=== PATIENT | male | born 1940 | race Caucasian/White ===

== ENCOUNTER 2016-05-02 10:36 | Inpatient (IN) | payer MEDICARE, OTHER ==
[~2016-05-02] VITALS: Ht 165.1 cm; Wt 60.0 kg
[~2016-05-02 10:36] MED LIST: ACET325T33 PO; ATOR80TA75 PO; FELO5TAB35 PO; GLIM4TAB PO; HYDR-3671 PO; METO50TA16 PO; MTF1000T PO; WARF2.5T PO
[2016-05-02 10:41] VITALS: Ht 165.1 cm; Wt 60.0 kg
[2016-05-02 11:31] LABS: BASOPHILS % 0.4 % (0.0-2.0); EOSINOPHILS # 0.2 10^3/ul (0.0-0.5); EOSINOPHILS % 1.3 % (0.0-7.0); HEMATOCRIT 40.5 % (42.0-52.0); HEMOGLOBIN 13.7 g/dl (14.0-18.0); LYMPHOCYTES # 2.2 10^3/ul (0.8-2.9); LYMPHOCYTES % 17.8 % (15.0-51.0); MEAN CORPUSCULAR HEMOGLOBIN 31.5 pg (29.0-33.0); MEAN CORPUSCULAR HGB CONC 33.8 g/dl (32.0-37.0); MEAN CORPUSCULAR VOLUME 93.1 fl (82.0-101.0); MEAN PLATELET VOLUME 9.6 fl (7.4-10.4); MONOCYTE # 1.2 10^3/ul (0.3-0.9); MONOCYTES % 9.5 % (0.0-11.0); NEUTROPHIL # 8.6 10^3/ul (1.6-7.5); PLATELET COUNT 253 10^3/UL (140-440); RED BLOOD COUNT 4.35 10^6/ul (4.70-6.10); RED CELL DISTRIBUTION WIDTH 12.8 % (11.5-14.5); UNCORRECTED WBC 12.1 10^3/ul (4.8-10.8); WHITE BLOOD COUNT 12.1 10^3/ul (4.8-10.8)
[2016-05-02 11:34] LABS: ALBUMIN 4.5 g/dl (3.3-4.9); POTASSIUM 4.7 mmol/L (3.5-5.1)
[2016-05-02 11:36] LABS: BILIRUBIN,INDIRECT 0.5 mg/dl (0-1.1); BILIRUBIN,TOTAL 0.5 mg/dl (0.2-1.3); CREATININE 0.94 mg/dl (0.61-1.24)
--- NOTE | 2016-05-02 11:36 | RADRPT ---
PROCEDURE: XR right foot. CLINICAL INDICATION: Right foot pain. TECHNIQUE: Three views of the right foot were obtained. COMPARISON: No prior studies are available for comparison. FINDINGS: No evidence for joint space narrowing or osteophyte formation. No evidence for erosions. No periar ticular osteoporosis identified. Bony alignment is within normal limits. No evidence for fracture. No radiopaque foreign body identified. Atherosclerotic calcifications are seen throughout the righ t foot. There is no evidence for bone destructive change or erosive change to suggest osteomyelitis . No soft tissue air or ulceration is seen. IMPRESSION: 1. No evidence for fracture, subluxation, or dislocation. 2. No evidence for erosive or destructive changes. 3. Atherosclerosis. RPTAT: XX .Alex Hubbard MD, Date Time Electronically viewed and signed by .Alex Hubbard MD, on 05/02/2016 11:36 .T/
[2016-05-02 11:37] LABS: ALBUMIN/GLOBULIN RATIO 1.02; CALCIUM 9.4 mg/dl (8.4-10.2); TOTAL PROTEIN 8.9 g/dl (6.1-8.1)
[2016-05-02 11:38] LABS: CONDITION 1
--- NOTE | 2016-05-02 12:20 | RADRPT ---
PROCEDURE: US DVT. CLINICAL INDICATION: Cold right lower extremity. Right foot. TECHNIQUE: Multiple longitudinal and transverse images of the right lower extremity veins were obt ained with negrete scale and color Doppler imaging. 2D grayscale measurements with compression, color Doppler flow, and augmentation was performed. The calf veins were interrogated as well. COMPARISON: No prior studies are available for comparison. FINDINGS: The right common femoral, superficial femoral and popliteal veins are normally compressible througho ut. Color flow demonstrates normal filling of the vessel. Normal waveforms are visualized and ther e is normal response to augmentation. The calf veins are visualized and are equally unremarkable. IMPRESSION: 1. No evidence of a deep vein thrombosis involving the right lower extremity. RPTAT: [facility] Physician Remington Date Time Electronically viewed and signed by Physician Remington on 05/02/2016 12:19 /
--- NOTE | 2016-05-02 14:50 | RADRPT ---
PROCEDURE: Bilateral lower extremity arterial ultrasound CLINICAL INDICATION: Lower extremity pain and claudication TECHNIQUE: [place]-scale and color images with doppler of the lower extremities were obtained COMPARISON: None available FINDINGS: Right dorsalis pedis artery is occluded. Monophasic wave forms are seen in the bilateral posterior t ibial and left dorsalis pedis arteries. Biphasic and triphasic waveforms are seen in the remainder of the visualized arteries. Rt SOLE LEVELING MACHINE OPERATOR 95 cm/s Rt Profunda 51 cm/s Rt Prox SFA 68 cm/s Rt Mid SFA 56 cm/s Rt Dist SFA 54 cm/s Rt Jazmine 85 cm/s Rt Post Tibial 19 cm/s Rt Dorsalis Pedis occluded Rt KENNY not performed due to calcified vessels Lt SOLE LEVELING MACHINE OPERATOR 57 cm/s Lt Profunda 37 cm/s Lt Prox SFA 70 cm/s Lt Mid SFA 67 cm/s Lt Dist SFA 56 cm/s Lt Jazmine 51 cm/s Lt Post Tibial 25 cm/s Lt Dorsalis Pedis 8 cm/s Lt KENNY not performed due to calcified vessels IMPRESSION: Occluded right dorsalis pedis arteries. Monophasic waveforms in the bilateral posterior tibial and left dorsalis pedis arteries. Findings s uggest inflow disease into those vessels. If further characterization is needed CTA is recommended. If further characterization of the arterial vasculature is needed CTA is recommended. RPTAT: AA .Elier Kessler MD, MD Date Time Electronically viewed and signed by .Elier Kessler MD, MD on 05/02/2016 14:49 .P/
[2016-05-02 15:00] VITALS: TEMP 98.3
[2016-05-02] MEDS ORDERED: morphine 4 MG/ML VIAL IV STA (15:08)
[2016-05-02] MEDS ORDERED: SOD CHLORIDE 0.9% 1,000 ML IV STA (15:08)
[2016-05-02] MEDS ORDERED: ONDANSETRON 4 MG INJ IV STA (15:08)
[2016-05-02 16:00] LABS: INR 1.94; PROTIME 22.3 Sec (12.2-14.2); PT RATIO 1.7
[2016-05-02 16:01] LABS: PARTIAL THROMBOPLASTIN TIME 42.5 Sec (25.0-35.0)
[2016-05-02] MEDS ORDERED: BENA40TA41 PO (16:04)
[2016-05-02] MEDS ORDERED: WARF2.5T PO ×2 (16:05→16:06)
[2016-05-02] MEDS ORDERED: IOHEXOL 350MG/ML 50 ML BTL ONE (16:13)
[2016-05-02] MEDS ORDERED: IOHEXOL 100 ML ONE (16:13)
[2016-05-02] MEDS ORDERED: SOD CHLORIDE 0.9% 100 ML ONE (16:13)
--- NOTE | 2016-05-02 17:24 | RADRPT ---
PROCEDURE: CTA pelvis with bilateral lower extremity runoff CLINICAL INDICATION: Lower extremity pain and claudication. TECHNIQUE: 2.5 mm axial images were obtained through the abdomen, pelvis and bilateral lower extre mities after the IV administration of 125 cc Omnipaque 350 IV contrast. 3-D, coronal and sagittal r econstructions were obtained. DLP = 779.1 mGy-cm. CTDiVol = 41.1, 6.5 mGy. COMPARISON: None available FINDINGS: CTA pelvis: Visualized distal abdominal aorta is patent. Scattered mild calcified atherosclerosis is identified in the visualized distal abdominal aorta. Origin of the inferior mesenteric artery appears patent. Normal filling of the visualized portions of the inferior mesenteric artery is observed. Patent aortic bifurcation is identified. Mild scattered calcified atherosclerosis, without stenosis is identified in the bilateral common iliac arteries. Widely patent bilateral common iliac artery bifurcations are observed. The bilateral external iliac and common femoral arteries are widely smith nt and normal appearing. CTA right lower extremity: Patent right common femoral artery bifurcation is identified. Scattered mild calcified atherosclero sis (less than 30% narrowing) is identified throughout the right superficial femoral artery. Scatte red mild disease is also scattered in the [id number]-pup-irsn popliteal artery. Focal moderate disease ( 50% narrowing) is identified in the popliteal artery at the level of the knee. Variant anatomy with a high bifurcation of the popliteal artery at the level of the knee is identifi ed. Patent tibioperoneal trunk and tibioperoneal trunk bifurcation is observed. Scattered calcifie d atherosclerosis causes mild scattered areas of stenosis in the tibioperoneal trunk. Scattered mild calcified atherosclerosis is identified in the proximal anterior tibial artery. Circ umferential calcified atherosclerosis causes mild narrowing throughout the entirety of the remainder of the anterior tibial artery. However, the vessel appears to maintain gross patency to the ankle. The dorsalis pedis arteries to heavily calcified in the foot to evaluate patency. Circumferential calcified atherosclerosis is identified in the proximal portion of the dorsalis pedi s artery and causes mild (30%) narrowing of the lumen. The remainder of the vessel is widely patent to the ankle. The posterior tibial artery is occluded at its origin. There is reconstitution of few branches of t he posterior tibial artery in the proximal foot. CTA left lower extremity: Patent left common femoral artery bifurcation is identified. Scattered mild calcified and noncalcif ied atherosclerosis is identified in the superficial femoral artery. Focal high-grade stenosis (gre ater than 75%) is identified in the popliteal artery at the level of the knee. Scattered mild disea se is seen throughout the remainder of the popliteal artery. Patent popliteal artery bifurcation, t ibioperoneal trunk and tibioperoneal trunk bifurcation are observed. Circumferential calcified athe rosclerosis is seen throughout the tibioperoneal trunk. Focal moderate (50%) stenosis is noted in t he mid tibioperoneal trunk. Scattered mild circumferential calcified atherosclerosis is noted throughout the majority of the ant erior tibial artery. The vessel appears to maintain gross patency to the ankle . The dorsalis pedi s artery is too heavily calcified in the foot to evaluate patency. Circumferential calcified atherosclerosis is seen throughout the proximal portion of the peroneal ar matthew. The remainder of the vessel is patent and without significant disease to the ankle. Circumferential calcified atherosclerosis is identified throughout the posterior tibial artery. The posterior tibial artery occludes proximally. Reconstitution of few of the distal branches of the p osterior tibial artery in the foot is observed. CT pelvis: The bladder is filled with a moderate amount of urine. The visualized inferior portions of the kidne ys are unremarkable. No obstructive uropathy is seen. The prostate is large. Moderate to large amount of formed stool is seen in the visualized colon. Multiple left colon diver ticula are identified. The appendix is normal. No dilated loops of small bowel are observed. The stomach and duodenum are unremarkable. No intra- pelvic free fluid or fluid collections are observed. No pelvic lymphadenopathy is observ ed. Mild to moderate degenerative changes are noted in the visualized lower lumbar spine. Subcutaneous and muscular soft tissues surrounding the pelvis are unremarkable. CT Lower Extremities: Osseous structures of the lower extremities are intact and without destructive bony lesion. Soft ti ssues surrounding the lower extremities are unremarkable. IMPRESSION: Focal moderate stenosis in the right popliteal artery at the level of the knee. Two-vessel runoff through the ankle on the right via the anterior tibial and peroneal arteries. The posterior tibial artery occludes proximally and is without sustained reconstitution. Circumferenti al calcified atherosclerosis is seen throughout the anterior tibial artery and in the proximal porti on of the peroneal artery. The dorsalis pedis artery is too heavily calcified in the foot to evaluat e patency. Focal high-grade stenosis in the left popliteal artery at the level of the knee. Two-vessel runoff through the ankle on the left via the anterior tibial and peroneal arteries. The posterior tibial artery occludes proximally and is without sustained reconstitution. Focal moderat e stenosis is identified in the tibioperoneal trunk. Circumferential calcified atherosclerosis is s een throughout the anterior tibial artery and in the proximal portion of the peroneal artery. The do rsalis pedis artery is too heavily calcified in the foot to evaluate patency. Enlarged prostate. Correlation with PSA and physical exam is recommended. Colonic diverticulosis. Degenerative changes in the spine. RPTAT: AA .Elier Kessler MD, MD Date Time Electronically viewed and signed by .Elier eKssler MD, on 05/02/2016 17:24 .P/
[2016-05-02] MEDS ORDERED: HEPARIN 25000 UNITS/250 ML 250 ML IV STA (18:54)
[2016-05-02] MEDS ORDERED: VANCOMYCIN 1.25 GM in SOD CHLORIDE 0.9% 250 ML IVPB ONE (19:00)
[2016-05-02] MEDS ORDERED: CEFTRIAXONE 1 GM/50 ML (PMX) 50 ML IVPB ONE (19:00)
[2016-05-02] MEDS ORDERED: ACETAMINOPHEN 325 MG TAB PO PRN ×2 (20:00→21:30)
[2016-05-02] MEDS ORDERED: ONDANSETRON 4 MG INJ IV PRN ×2 (20:00→21:30)
--- NOTE | 2016-05-02 20:02 | ERA ---
ER Documentation Chief Complaint Date/Time DATE: 05/02/16 TIME: 19:57 Chief Complaint right foot burning sensation x 8 days HPI This is a 76-year-old male presents to the emergency room for evaluation of right sided foot pain and mild swelling. The patient states that he has had these symptoms for approximately 8 days duration. The patient denies any trauma to the foot, and states that it is painful to touch and when he moves it. He denies any fevers associated with this and came to the ER for evaluation ROS All systems reviewed and are negative except as per history of present illness. Medications Home Meds Reported Medications Warfarin Sodium* (Coumadin*) 2.5 Mg Tablet, 1.25 MG PO TUESDAYS, TAB 05/02/16 Warfarin Sodium* (Coumadin*) 2.5 Mg Tablet, 2.5 MG PO FRI,M,W,FRI,,FRI, TAB 05/02/16 Benazepril Hcl* (Benazepril Hcl*) 40 Mg Tablet, 40 MG PO DAILY, #30 TAB 05/02/16 Atorvastatin* (Atorvastatin*) 80 Mg Tablet, 80 MG PO QHS, #30 TAB 06/26/15 Felodipine* (Felodipine*) 5 Mg Tab.sr.24h, 5 MG PO DAILY, TAB.SA 06/26/15 Glimepiride* (Glimepiride*) 4 Mg Tablet, 4 MG PO DAILY, TAB 06/26/15 Metoprolol Succinate* (Toprol XL*) 50 Mg Tab.er.24h, 100 MG PO BID, #30 TAB 06/26/15 Metformin* (Glucophage*) 1,000 Mg Tablet, 1000 MG PO BID, #60 TAB 06/26/15 Discontinued Reported Medications Warfarin Sodium* (Coumadin*) 2.5 Mg Tablet, 2.5 MG PO DAILY, TAB 06/26/15 Discontinued Scripts Acetaminophen* (Tylenol*) 325 Mg Tab, 650 MG PO Q6H Y for PAIN, #40 TAB Prov:AMBROSE ARCHULETA MD 06/27/15 Hydralazine Hcl* (Hydralazine Hcl*) 25 Mg Tab, 25 MG PO Q8H for 30 Days, TAB Prov:AMBROSE ARCHULETA MD 06/27/15 Allergies Allergies: Coded Allergies: No Known Drug Allergies (Verified Allergy, Mild, 05/02/16) PMhx/Soc History of Surgery: Yes (OPEN HEART SX X2 VALVE REPAIR) Anesthesia Reaction: No Hx 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 Disorder: No Hx Respiratory Disorders: No Hx Cardiac Disorders: Yes (HTN CHOLESTEROL AFIB) Hx Psychiatric Problems: No Hx Miscellaneous Medical Probl: Yes (dm, ) Hx Alcohol Use: Yes Hx Substance Use: No Hx Tobacco Use: No Smoking Status: Former smoker Physical Exam Vitals Vital Signs Date Time Temp Pulse Resp B/P Pulse Ox O2 Delivery O2 Flow Rate FiO2 05/02/16 15:00 98.3 72 18 146/70 100 Room Air 05/02/16 10:41 98.3 75 18 153/74 100 Physical Exam INITIAL VITAL SIGNS: Reviewed by me GENERAL: The patient is well developed and appropriate for usual state of health in no apparent distress HEENT: Pupils equal, round, and reactive to light. EOMI. There is no scleral icterus. NECK: C-spine is soft and supple, there is no meningismus. There is no cervical lymphadenopathy. LUNGS: Clear to auscultation bilaterally. There are no rales, wheezes or rhonchi. HEART: Regular rate and rhythm, no murmurs, clicks, rubs or gallops. ABDOMEN: Soft, non-tender, non-distended. There are bowel sounds in all four quadrants. No rebound or guarding. EXTREMITIES: There is no peripheral cyanosis or edema. No focal swelling or erythema. NEUROLOGICAL: The patient moves all four extremities with 5/5 strength. Cranial nerves II - XII are intact. Normal gait. Alert and oriented SKIN: No palpable dorsalis pedis pulse or posterior tibial pulse on the right, erythema of the distal portion of the right foot encompassing all 5 toes, no skin sloughing HEME/LYMPHATIC: There is no evidence of excessive bruising or lymphedema. PSYCHIATRIC: The patient does not appear anxious or depressed. Result Diagram: 05/02/16 1115 05/02/16 1115 Results 24 hrs Laboratory Tests Test 05/02/16 11:15 05/02/16 15:30 Alanine Aminotransferase (ALT/SGPT) 41IU/L Albumin 4.5g/dl Albumin/Globulin Ratio 1.02 Alkaline Phosphatase 94IU/L Anion Gap 21 Aspartate Amino Transf (AST/SGOT) 31IU/L Basophils # 0.010^3/ul Basophils % 0.4% Blood Urea Nitrogen 16mg/dl Calcium Level 9.4mg/dl Carbon Dioxide Level 26mmol/L Chloride Level 101mmol/L Creatinine 0.94mg/dl Direct Bilirubin 0.00mg/dl Eosinophils # 0.210^3/ul Eosinophils % 1.3% Globulin 4.40g/dl Glucose Level 140mg/dl Hematocrit 40.5% Hemoglobin 13.7g/dl Indirect Bilirubin 0.5mg/dl Lymphocytes # 2.210^3/ul Lymphocytes % 17.8% Mean Corpuscular Hemoglobin 31.5pg Mean Corpuscular Hemoglobin Concent 33.8g/dl Mean Corpuscular Volume 93.1fl Mean Platelet Volume 9.6fl Monocytes # 1.210^3/ul Monocytes % 9.5% Neutrophils # 8.610^3/ul Neutrophils % 71.0% Nucleated Red Blood Cells # 0.010^3/ul Nucleated Red Blood Cells % 0.0/100WBC Platelet Count 00603^3/UL Potassium Level 4.7mmol/L Red Blood Count 4.3510^6/ul Red Cell Distribution Width 12.8% Sodium Level 143mmol/L Total Bilirubin 0.5mg/dl Total Protein 8.9g/dl White Blood Count 12.110^3/ul Activated Partial Thromboplast Time 42.5Sec INR International Normalized Ratio 1.94 Prothrombin Time 22.3Sec Prothrombin Time Ratio 1.7 Current Medications Medications (Trade) Dose Ordered Sig/Shanthi Route PRN Reason Start Time Stop Time Status Last Admin Dose Admin Sodium Chloride (NS) 1,000 ml @ 1,000 mls/hr Q1H STAT IV 05/02/16 15:08 05/02/16 16:07 DC 05/02/16 15:30 Morphine Sulfate (morphine) 4 mg ONCE STAT IV 05/02/16 15:08 05/02/16 15:10 DC 05/02/16 15:30 Ondansetron HCl (Zofran Inj) 4 mg ONCE STAT IV 05/02/16 15:08 05/02/16 15:10 DC 05/02/16 15:29 IV Flush 10 ml 10 ml STK-MED ONCE .ROUTE 05/02/16 16:13 05/02/16 16:14 DC Sodium Chloride 100 ml @ ud STK-MED ONCE .ROUTE 05/02/16 16:13 05/02/16 16:14 DC Iohexol (Omnipaque) 100 ml @ ud STK-MED ONCE .ROUTE 05/02/16 16:13 05/02/16 16:14 DC Iohexol 50 ml 50 ml STK-MED ONCE .ROUTE 05/02/16 16:13 05/02/16 16:14 DC Heparin Sodium (Porcine) 250 ml @ 0 mls/hr ONCE STAT IV 05/02/16 18:54 05/02/16 18:56 DC Vancomycin HCl 1.25 gm/Sodium Chloride 250 ml @ 83.333 mls/ hr ONCE ONCE IVPB 05/02/16 19:00 05/02/16 21:59 Ceftriaxone Sodium (Rocephin) 50 ml @ 100 mls/hr ONCE ONCE IVPB 05/02/16 19:00 05/02/16 19:29 DC Procedures/MDM Arterial ultrasound:Occluded right dorsalis pedis arteries. Monophasic waveforms in the bilateral posterior tibial and left dorsalis pedis arteries. Findings suggest inflow disease into those vessels. If further characterization is needed CTA is recommended. Venous Doppler right Lower extreme: 1. No evidence of a deep vein thrombosis involving the right lower extremity X-ray Foot 3V Interpreted by me: Bones: [No fracture] Joints: [No dislocation] Foreign body: [None] CTA right lower extremity: Focal moderate stenosis in the right popliteal artery at the level of the knee. Two-vessel runoff through the ankle on the right via the anterior tibial and peroneal arteries. The posterior tibial artery occludes proximally and is without sustained reconstitution. Circumferential calcified atherosclerosis is seen throughout the anterior tibial artery and in the proximal portion of the peroneal artery. The dorsalis pedis artery is too heavily calcified in the foot to evaluate patency. Focal high-grade stenosis in the left popliteal artery at the level of the knee. Two-vessel runoff through the ankle on the left via the anterior tibial and peroneal arteries. The posterior tibial artery occludes proximally and is without sustained reconstitution. Focal moderate stenosis is identified in the tibioperoneal trunk. Circumferential calcified atherosclerosis is seen throughout the anterior tibial artery and in the proximal portion of the peroneal artery. The dorsalis pedis artery is too heavily calcified in the foot to evaluate patency. Enlarged prostate. Correlation with PSA and physical exam is recommended. Colonic diverticulosis. Degenerative changes in the spine. This 76-year-old male presents to the emergency room for evaluation of right foot pain and toe swelling. He did appear to have cellulitis on my examination , however I was not able to palpate a pulse. Venous Doppler does not show DVT, arterial Doppler does show occluded right posterior tibial artery occlusion. CTA does confirm these findings, he does have mild reconstitution of his vasculature distally however this patient does not have a palpable pulse on my examination. I have contacted our vascular surgeon, Dr. Moraes who evaluated this patient at bedside and agrees this patient needs to be placed in for admission at this time and treated with antibiotics, anticoagulation, with possible intravascular intervention. This patient is agreeable to the plan of care at this time and will be placed in for admission. Critical Care: Excluding all billable procedures Time: 35 minutes Treatments/Evaluations: Close monitoring and treatment of unstable vital signs, cardiorespiratory, and neurologic status, while maintaining tight balance of fluid, respiratory, and cardiac interventions. Departure Diagnosis: Primary Impression: Arterial occlusion, lower extremity Additional Impressions: Cellulitis of right foot Normocytic anemia Condition: Serious NICA DUCKWORTH DO May 02, 2016 20:02
[2016-05-02] MEDS ORDERED: DOCUSATE SODIUM 100 MG CAP PO PRN (21:30)
[2016-05-02] MEDS ORDERED: NACL 0.9% 3 ML SYG IV SCH (21:30)
[2016-05-02] MEDS ORDERED: VANCOMYCIN IV PER PHARMACY XX SCH (21:30)
--- NOTE | 2016-05-02 22:12 | HP ---
DATE OF ADMISSION: 05/02/2016 CHIEF COMPLAINT: Right foot pain. HISTORY OF PRESENT ILLNESS: The patient is a 76-year-old male with a history of qew-ewlpqsw-nygickl nt diabetes, hypertension, dyslipidemia, as well as a heart valve surgery in the past. The patient presents with 2 weeks of worsening right-sided foot pain with associated erythema. The patient caprice es any trauma to the foot. He states that the foot is painful when he touches or moves it. He denie s any fever or chills, denies any history of such symptoms. In the ED, the patient had a CT of the l [facility] extremities, showed focal high-grade stenosis of the left popliteal artery at the level of knee , nonfocal moderate stenosis in the right popliteal artery at level of the knee. The patient has no other complaints at this time. PAST MEDICAL HISTORY: Lzk-qylccdb-ynledaxyt diabetes, hypertension, dyslipidemia and heart valve pineda rgery in the past. HOME MEDICATIONS: 1. Coumadin. 2. Benazepril. 3. Atorvastatin. 4. Felodipine. 5. Glimepiride. 6. Metoprolol. 7. Metformin. ALLERGIES: NO KNOWN DRUG ALLERGIES. FAMILY HISTORY: Noncontributory. SOCIAL HISTORY: Denies any alcohol, tobacco, or drug abuse. REVIEW OF SYSTEMS: A 12-point review of systems is negative except that discussed in HPI. PHYSICAL EXAMINATION: VITAL SIGNS: Temperature is 98.3, pulse is 88, respiratory rate 18, BP is 163/60, saturation 100% o n room air. GENERAL: No acute distress, alert and oriented. HEENT: Normocephalic, atraumatic. LUNGS: Clear to auscultation. CARDIOVASCULAR: Regular rate and rhythm. ABDOMEN: Nondistended, nontender, soft. EXTREMITIES: No clubbing, cyanosis, or edema. Right foot is noted for erythema and tenderness to p alpation on the dorsal aspect of the foot. LABORATORIES: White count 12.1, hemoglobin 13.7, platelets are 253. Chemistry within normal limits except for anion gap 21, total protein is 8.9. INR is 1.94. DIAGNOSTICS: Foot x-ray shows no evidence of fracture or subluxation, dislocation, no evidence of e rosive or destructive changes. Extremity venous study shows no evidence of a DVT involving the righ t lower extremity. Extremity arterial study shows occluded right dorsalis pedis arteries, lower ext remity CTA shows focal moderate stenosis in the right popliteal artery at the level of the knee. A 2 vessel run-off of the ankle the right via the anterior tibial and peroneal arteries. The posterior tibial artery occludes approximately is about the same reconstitution. Atherosclerosis seen througho ut the anterior tibial artery in the proximal portion of the peroneal artery. There is focal high-gr zuleika stenosis of the left popliteal artery at the level of the knee. There is a 2 vessel run-off of t he ankle on the left via the anterior tibial and peroneal arteries. There is enlarged prostate, colo yosef diverticulosis. ASSESSMENT AND PLAN: 1. Right foot pain secondary to cellulitis and stenosis in the right popliteal artery. Dr. Nohemi campoverde of vascular surgery has already evaluated the patient. Recommendations for antibiotics at this ti me and will evaluate once cellulitis is improved. Will continue home Coumadin. 2. Noninsulin dependent diabetes. Will treat with subcutaneous insulin at this time. Will hold navdeep e glimepiride, will check an A1c. 3. Hypertension. Continue home benazepril. 4. History of heart valve replacement, the specifics are unknown, but patient is likely on Coumadin because of this heart valve replacement. Will continue home Coumadin. 5. Leukocytosis, likely secondary to cellulitis. The patient will be on antibiotics. 6. Prophylaxis. Coumadin. Dictated By: MARYBEL ARECHIGA/NTS Conf#: [id number] DID#: [id number]
[2016-05-02 23:20] VITALS: BP 144/71; PULSE 71; RESP 20
[2016-05-02 23:42] VITALS: BP 144/71; RESP 20
[2016-05-02] MEDS ORDERED: DEXTROSE 50% 50 ML SYRINGE IV PRN ×2 (23:45)
[2016-05-02] MEDS ORDERED: GLUCOSE GEL 15 GRAM TUBE BUCCAL PRN (23:45)
[2016-05-02] MEDS ORDERED: GLUCOSE GEL 15 GRAM TUBE PO PRN ×2 (23:45)
[2016-05-02] MEDS ORDERED: GLUCAGON 1 MG INJ IM PRN (23:45)
[2016-05-03] VITALS (11 sets, daily range): BP systolic 126–166; BP diastolic 60–78; PULSE 66–88; RESP 16–20
[2016-05-03 07:23] LABS: BASOPHILS % 0.3 % (0.0-2.0); EOSINOPHILS # 0.1 10^3/ul (0.0-0.5); HEMATOCRIT 34.2 % (42.0-52.0); HEMOGLOBIN 11.8 g/dl (14.0-18.0); LYMPHOCYTES # 2.1 10^3/ul (0.8-2.9); MEAN CORPUSCULAR HEMOGLOBIN 31.8 pg (29.0-33.0); MEAN CORPUSCULAR HGB CONC 34.6 g/dl (32.0-37.0); MEAN CORPUSCULAR VOLUME 91.7 fl (82.0-101.0); MONOCYTE # 0.7 10^3/ul (0.3-0.9); MONOCYTES % 9.7 % (0.0-11.0); NEUTROPHIL # 4.5 10^3/ul (1.6-7.5); PLATELET COUNT 186 10^3/UL (140-440); RED BLOOD COUNT 3.73 10^6/ul (4.70-6.10); RED CELL DISTRIBUTION WIDTH 12.9 % (11.5-14.5); UNCORRECTED WBC 7.5 10^3/ul (4.8-10.8); WHITE BLOOD COUNT 7.5 10^3/ul (4.8-10.8)
[2016-05-03 07:25] LABS: CONDITION 1
[2016-05-03 07:32] LABS: INR 2.07; PROTIME 23.5 Sec (12.2-14.2); PT RATIO 1.8
[2016-05-03 07:43] LABS: CREATININE 0.75 mg/dl (0.61-1.24)
[2016-05-03 07:44] LABS: CALCIUM 8.5 mg/dl (8.4-10.2); CHOL/HDL RATIO 4.6 RATIO; MAGNESIUM 1.7 mg/dl (1.7-2.5); PHOSPHORUS 4.1 mg/dl (2.5-4.9)
[2016-05-03] MEDS: INSULIN ASPART [NOVOLOG] 3 ML PEN SC SCH ×4 (07:52→21:00)
[2016-05-03] MEDS: FELODIPINE (ER) 5 MG TAB PO SCH (08:11)
[2016-05-03] MEDS: metFORMIN 500 MG TAB PO SCH ×2 (08:12→17:10)
[2016-05-03] MEDS: METOPROLOL (XL) 50 MG TAB PO SCH ×2 (08:12→21:07)
[2016-05-03] MEDS: BENAZEPRIL 40 MG TAB PO SCH (08:12)
[2016-05-03] MEDS ORDERED: HEPARIN 25000 UNITS/250 ML 250 ML IV SCH (08:30)
[2016-05-03] MEDS ORDERED: HEPARIN 1000 UNITS/ML 10 ML INJ IV PRN ×2 (08:30)
--- NOTE | 2016-05-03 14:44 | PN ---
Date/Time of Note Date/Time of Note DATE: 05/03/16 TIME: 14:36 Assessment/Plan VTE Prophylaxis VTE Prophylaxis Intervention: heparin Lines/Catheters IV C[facility] Type (from [facility]): Saline Lock Urinary Cath still in place: No Assessment/Plan Chief Complaint/Hosp Course Assessment and plan 1. Right foot pain secondary to cellulitis and stenosis of right popliteal artery. Vascular surgeon is following. We will continue with antibiotics and plan for intervention once resolution of cellulitis. Continue on Coumadin for now. 2. Eug-oaeueic-doryqtcir diabetes. Follow up on A1c. Continue on insulin regimen. Will adjust as needed 3. Essential hypertension. Continue on antihypertensives and adjust as needed 4. History of heart valve replacement. Patient to be resumed on Coumadin. We will monitor for therapeutic level V. Leukocytosis tachycardia secondary to cellulitis. Continue on antibiotic regimen. No fever for now. DVT prophylaxis: Coumadin Disposition and plan: Continue on antibiotics. Tentative plan for surgical intervention once cellulitis improved. Discussed plan of care with Dr. Rasmussen Problems: Subjective 24 Hr Interval Summary Free Text/Dictation no s/s of distress. Still with reports of right lower extremity Exam/Review of Systems Vital Signs Vitals Vital Signs Date Time Temp Pulse Resp B/P Pulse Ox O2 Delivery O2 Flow Rate FiO2 05/03/16 12:30 72 05/03/16 11:19 97.8 16 126/60 95 05/03/16 08:00 Room Air Intake and Output 05/02/16 05/02/16 05/03/16 15:00 23:00 07:00 Intake Total 1050 ml 300 ml Balance 1050 ml 300 ml Exam General: No acute signs or symptoms of distress Eyes: pupils equal round, Anicteric sclera Neck: Supple nontender, no JVD Cardiac: S1, S2 auscultated, regular rhythm and rate Pulmonary: No coarse rhonchi or breathing auscultated GI: Abdomen soft nontender nondistended, bowel sounds active Extremities: No edema bilateral lower extremities Skin: erythema seen on dorsal portio of right foot. Neurologic: Alert to person place and time and situation Results Result Diagram: 05/03/16 0630 05/03/16 0630 Results 24 hrs Laboratory Tests Test 05/02/16 15:30 05/02/16 21:15 05/03/16 06:30 05/03/16 07:32 Activated Partial Thromboplast Time 42.5 H INR International Normalized Ratio 1.94 2.07 Prothrombin Time 22.3 H 23.5 H Prothrombin Time Ratio 1.7 1.8 Lactic Acid Level 1.3 Anion Gap 13 # Basophils # 0.0 Basophils % 0.3 Blood Urea Nitrogen 12 Calcium Level 8.5 Carbon Dioxide Level 26 Chloride Level 107 Cholesterol Level 89 L Cholesterol/HDL Ratio 4.6 Creatinine 0.75 Eosinophils # 0.1 Eosinophils % 2.0 Glucose Level 99 # HDL Cholesterol 19 L Hematocrit 34.2 L Hemoglobin 11.8 L Hemoglobin A1c 6.9 H LDL Cholesterol, Calculated 51 Lymphocytes # 2.1 Lymphocytes % 28.0 Magnesium Level 1.7 Mean Corpuscular Hemoglobin 31.8 Mean Corpuscular Hemoglobin Concent 34.6 Mean Corpuscular Volume 91.7 Mean Platelet Volume 9.0 Monocytes # 0.7 Monocytes % 9.7 Neutrophils # 4.5 Neutrophils % 60.0 Nucleated Red Blood Cells # 0.0 Nucleated Red Blood Cells % 0.0 Phosphorus Level 4.1 Platelet Count 186 # Potassium Level 4.0 Red Blood Count 3.73 L Red Cell Distribution Width 12.9 Sodium Level 142 Triglycerides Level 96 White Blood Count 7.5 # Bedside Glucose 105 Test 05/03/16 11:48 Bedside Glucose 171 Medications Medications Current Medications Ondansetron HCl (Zofran Inj) 4 mg Q6H PRN IV NAUSEA AND/OR VOMITING; Start 05/02 at 21:30 Acetaminophen (Tylenol Tab) 650 mg Q6H PRN PO PAIN LEVEL 1-3 OR FEVER; Start at 21:30 Acetaminophen/ Hydrocodone Bitart ([place] (5/325)) 1 tab Q6H PRN PO MODERATE PAIN LEVEL 4-6; Start 05/02/16 at 21:30 Morphine Sulfate (morphine) 2 mg Q4H PRN IV SEVERE PAIN LEVEL 7-10; Start at 21:30 Docusate Sodium (Colace) 100 mg Q12H PRN PO CONSTIPATION; Start 05/02/16 at 21: 30 Zolpidem Tartrate (Ambien) 5 mg QHS PRN PO SLEEP; Start 05/02/16 at 21:30 Atorvastatin Calcium (Lipitor) 80 mg QHS PO ; Start 05/03/16 at 21:00 Benazepril HCl (Lotensin) 40 mg DAILY PO Last administered on 05/03/16 08:12; Admin Dose 40 MG; Start 05/03/16 at 09:00 Felodipine (Plendil) 5 mg DAILY PO Last administered on 05/03/16 08:11; Admin Dose 5 MG; Start 05/03/16 at 09:00 Metoprolol Succinate (Toprol Xl) 100 mg BID PO Last administered on 05/03/16 08 :12; Admin Dose 100 MG; Start 05/03/16 at 09:00 Insulin Glargine (Lantus) 10 unit HS SC ; Start 05/03/16 at 21:00 Miscellaneous Information 1 ea NOTE XX ; Start 05/02/16 at 23:45 Glucose (Glutose) 15 gm Q15M PRN PO DECREASED GLUCOSE; Start 05/02/16 at 23:45 Glucose (Glutose) 22.5 gm Q15M PRN PO DECREASED GLUCOSE; Start 05/02/16 at 23:45 Dextrose (D50w Syringe) 25 ml Q15M PRN IV DECREASED GLUCOSE; Start 05/02/16 at 23:45 Dextrose (D50w Syringe) 50 ml Q15M PRN IV DECREASED GLUCOSE; Start 05/02/16 at 23:45 Glucagon (Glucagen) 1 mg Q15M PRN IM DECREASED GLUCOSE; Start 05/02/16 at 23:45 Glucose 15 gm 15 gm Q15M PRN BUCCAL DECREASED GLUCOSE; Start 05/02/16 at 23:45 Vancomycin HCl (Vancocin) 250 ml @ 125 mls/hr Q24H IVPB ; Start 05/03/16 at 21: 00 TRISTON PINEDA May 03, 2016 14:44
[2016-05-03] MEDS ORDERED: WARFARIN 2.5 MG TAB PO SCH (17:00)
--- NOTE | 2016-05-03 17:55 | CONS ---
DATE OF ADMISSION: 05/02/2016 DATE OF CONSULTATION: REASON FOR CONSULTATION: Peripheral vascular disease. HISTORY OF PRESENT ILLNESS: This is a 76-year-old male with noninsulin dependent diabetes, hyperten aj, hyperlipidemia, status post heart valve surgery. The patient was admitted because of bilatera l lower extremity foot pain, worse on the right than the left. His pulses are diminished. His work up had included an arterial duplex study, which showed monophasic waveform in the bilateral posterio r tibial and the left dorsalis pedis artery. This was followed up with a CT angiogram, which showed focal moderate stenosis within the right popliteal artery, 2-vessel runoff at the ankle. The right anterior tibial, peroneal artery, posterior tibial artery occludes proximally and it does not recon stitute. There is also a focal high-grade stenosis in the left popliteal artery, 2-vessel runoff on the left side via anterior tibial artery, peroneal in a similar fashion. The patient's creatinine is 0.5. His white count was 12.1 when he was admitted with of hemoglobin of 13.7. His white count has now dropped to 7.5 after antibiotics. PAST MEDICAL HISTORY: Hypertension, dyslipidemia, and noninsulin dependent diabetes. PAST SURGICAL HISTORY: Heart surgery. ALLERGIES: NONE. MEDICATIONS: List was reviewed, which includes: 1. Coumadin. 2. Benazepril. 3. Atorvastatin. 4. ____. 5. Glipizide. 6. Metoprolol. 7. Metformin. PHYSICAL EXAMINATION: VITAL SIGNS: Blood pressure is 141/67, pulse is 82, respirations 16, saturations 96%. HEENT: Normocephalic, atraumatic. PERRLA. NECK: Supple. No JVD, no carotid bruits. CARDIOVASCULAR: Normal S1, S2. No murmurs, gallops, or rubs. LUNGS: Clear. ABDOMEN: Soft. EXTREMITIES: Warm to the knees. They become cool from the knee down. There are palpable femoral a nd popliteal pulses bilaterally. Pedal pulses are very faint with 3 second capillary refill. LABORATORY VALUES: Significant for a PT of 23.8, INR of 2.07, with a PTT of 42.5. IMPRESSION: 1. Peripheral vascular disease. 2. Cellulitis of the lower extremity. 3. Diabetes. RECOMMENDATIONS: He will need continuation of antibiotics and eventually need an angiogram once the anticoagulation has been reversed. Discussed with the patient. Will discuss with the referring ysicians. Dictated By: CYNTHIA RODRIGUEZ MD FM/ANABELA Conf#: [id number] DID#: [id number] CC: MARYBEL TINOCO MD;*EndCC*
[2016-05-03] MEDS: ATORVASTATIN 80 MG TAB PO SCH (21:07)
[2016-05-03] MEDS: HYDROCODONE/APAP (5/325) TAB PO PRN (21:07)
[2016-05-03] MEDS: INSULIN GLARGINE [LANtus] 3 ML PEN SC SCH (21:10)
[2016-05-03] MEDS: VANCOMYCIN 1 GM in NS 250 ML IVPB SCH (21:25)
[2016-05-04] VITALS (13 sets, daily range): BP systolic 121–177; BP diastolic 63–78; PULSE 63–84; RESP 16–20
[2016-05-04] MEDS: HYDROCODONE/APAP (5/325) TAB PO PRN ×2 (07:09→20:23)
[2016-05-04] MEDS: INSULIN ASPART [NOVOLOG] 3 ML PEN SC SCH ×4 (07:42→20:46)
[2016-05-04 07:52] LABS: INR 1.61; PROTIME 19.3 Sec (12.2-14.2); PT RATIO 1.5
[2016-05-04] MEDS: BENAZEPRIL 40 MG TAB PO SCH (08:24)
[2016-05-04] MEDS: metFORMIN 500 MG TAB PO SCH ×2 (08:24→17:03)
[2016-05-04] MEDS: FELODIPINE (ER) 5 MG TAB PO SCH (08:24)
[2016-05-04] MEDS: METOPROLOL (XL) 50 MG TAB PO SCH ×2 (08:25→20:23)
[2016-05-04] MEDS: morphine 2 MG INJ IV PRN ×2 (10:27→15:34)
--- NOTE | 2016-05-04 14:36 | PN ---
Date/Time of Note Date/Time of Note DATE: 05/04/16 TIME: 14:35 Assessment/Plan Lines/Catheters IV Catheter Type (from Nrs): Saline Lock العلي in Place (from Nrs): No Assessment/Plan Chief Complaint/Hosp Course IMPRESSION: 1. Peripheral vascular disease. 2. Cellulitis of the lower extremity. 3. Diabetes. RECOMMENDATIONS: He will need continuation of antibiotics. Pt sara need an angiogram once the anticoagulation has been reversed. Discussed with the patient. Will discuss with the referring physicians. Problems: Subjective 24 Hr Interval Summary Constitutional: improved Pain Control: mild Exam/Review of Systems Vital Signs Vitals Vital Signs Date Time Temp Pulse Resp B/P Pulse Ox O2 Delivery O2 Flow Rate FiO2 05/04/16 13:29 69 05/04/16 11:38 97.9 16 135/63 96 05/03/16 08:00 Room Air Intake and Output 05/03/16 05/03/16 05/04/16 15:00 23:00 07:00 Intake Total 820 ml 730 ml Output Total 1450 ml 250 ml Balance -630 ml 480 ml Exam ENMT: mucosa pink and moist, nl external ears & nose, nl lips & teeth, nl nasal mucosa & septum Neck: non-tender, supple Respiratory: clear to auscultation, normal air movement Cardiovascular: nl pulses, regular rate and rhythm Gastrointestinal: nl liver, spleen, non-tender, soft Results Result Diagram: 05/03/16 0630 05/03/16629 CYNTHIA RODRIGUEZ MD May 04, 2016 14:36
--- NOTE | 2016-05-04 15:41 | PN ---
Date/Time of Note Date/Time of Note DATE: 05/04/16 TIME: 15:39 Assessment/Plan VTE Prophylaxis VTE Prophylaxis Intervention: other (warfarin on hold) Lines/Catheters IV Catheter Type (from Nrs): Saline Lock Urinary Cath still in place: No Assessment/Plan Chief Complaint/Hosp Course Assessment and plan 1. Right foot pain secondary to cellulitis and stenosis of right popliteal artery. Vascular surgeon is following. We will continue with antibiotics and plan for intervention once resolution of cellulitis. Warfarin on hold per vascular surgeon recommendations 2. Aqh-urcwmqf-ozrsjnadj diabetes. Follow up on A1c. Continue on insulin regimen. Will adjust as needed 3. Essential hypertension. Continue on antihypertensives and adjust as needed 4. History of heart valve replacement. Patient to be resumed on Coumadin. We will monitor for therapeutic level V. Leukocytosis tachycardia secondary to cellulitis. Continue on antibiotic regimen. No fever for now. DVT prophylaxis: Coumadin (on hold) Disposition and plan: Continue on antibiotics. We'll get ID consultation follow. Analgesics as needed. Follow-up with surgeon recommendations Discussed plan of care with Dr. Rasmussen Problems: Subjective 24 Hr Interval Summary Free Text/Dictation Still reports having pain on right lower extremity Exam/Review of Systems Vital Signs Vitals Vital Signs Date Time Temp Pulse Resp B/P Pulse Ox O2 Delivery O2 Flow Rate FiO2 05/04/16 15:20 98.2 75 16 158/75 98 05/03/16 08:00 Room Air Intake and Output 05/03/16 05/03/16 05/04/16 15:00 23:00 07:00 Intake Total 820 ml 730 ml Output Total 1450 ml 250 ml Balance -630 ml 480 ml Exam General: No acute signs or symptoms of distress Eyes: pupils equal round, Anicteric sclera Neck: Supple nontender, no JVD Cardiac: S1, S2 auscultated, regular rhythm and rate Pulmonary: No coarse rhonchi or breathing auscultated GI: Abdomen soft nontender nondistended, bowel sounds active Extremities: No edema bilateral lower extremities Skin: erythema seen on dorsal portio of right foot. Neurologic: Alert to person place and time and situation Results Result Diagram: 05/03/16 0630 05/03/16 0630 Results 24 hrs Laboratory Tests Test 05/03/16 16:00 05/03/16 16:57 05/03/16 20:57 05/04/16 06:42 Activated Partial Thromboplast Time 153.9 *H Bedside Glucose 84 158 INR International Normalized Ratio 1.61 Prothrombin Time 19.3 H Prothrombin Time Ratio 1.5 Test 05/04/16 07:15 05/04/16 12:07 Bedside Glucose 95 182 Medications Medications Current Medications Ondansetron HCl (Zofran Inj) 4 mg Q6H PRN IV NAUSEA AND/OR VOMITING; Start 05/02 at 21:30 Acetaminophen (Tylenol Tab) 650 mg Q6H PRN PO PAIN LEVEL 1-3 OR FEVER; Start at 21:30 Acetaminophen/ Hydrocodone Bitart ([place] (5/325)) 1 tab Q6H PRN PO MODERATE PAIN LEVEL 4-6 Last administered on 05/04/16 07:09; Admin Dose 1 TAB; Start 05/02 at 21:30 Morphine Sulfate (morphine) 2 mg Q4H PRN IV SEVERE PAIN LEVEL 7-10 Last administered on 05/04/16 15:34; Admin Dose 2 MG; Start 05/02/16 at 21:30 Docusate Sodium (Colace) 100 mg Q12H PRN PO CONSTIPATION; Start 05/02/16 at 21: 30 Zolpidem Tartrate (Ambien) 5 mg QHS PRN PO SLEEP; Start 05/02/16 at 21:30 Atorvastatin Calcium (Lipitor) 80 mg QHS PO Last administered on 05/03/16 21:07 ; Admin Dose 80 MG; Start 05/03/16 at 21:00 Benazepril HCl (Lotensin) 40 mg DAILY PO Last administered on 05/04/16 08:24; Admin Dose 40 MG; Start 05/03/16 at 09:00 Felodipine (Plendil) 5 mg DAILY PO Last administered on 05/04/16 08:24; Admin Dose 5 MG; Start 05/03/16 at 09:00 Metoprolol Succinate (Toprol Xl) 100 mg BID PO Last administered on 05/04/16 08 :25; Admin Dose 100 MG; Start 05/03/16 at 09:00 Insulin Glargine (Lantus) 10 unit HS SC Last administered on 05/03/16 21:10; Admin Dose 10 UNIT; Start 05/03/16 at 21:00 Miscellaneous Information 1 ea NOTE XX ; Start 05/02/16 at 23:45 Glucose (Glutose) 15 gm Q15M PRN PO DECREASED GLUCOSE; Start 05/02/16 at 23:45 Glucose (Glutose) 22.5 gm Q15M PRN PO DECREASED GLUCOSE; Start 05/02/16 at 23:45 Dextrose (D50w Syringe) 25 ml Q15M PRN IV DECREASED GLUCOSE; Start 05/02/16 at 23:45 Dextrose (D50w Syringe) 50 ml Q15M PRN IV DECREASED GLUCOSE; Start 05/02/16 at 23:45 Glucagon (Glucagen) 1 mg Q15M PRN IM DECREASED GLUCOSE; Start 05/02/16 at 23:45 Glucose 15 gm 15 gm Q15M PRN BUCCAL DECREASED GLUCOSE; Start 05/02/16 at 23:45 Vancomycin HCl (Vancocin) 250 ml @ 125 mls/hr Q24H IVPB Last administered on t 21:25; Admin Dose 125 MLS/HR; Start 05/03/16 at 21:00 Levofloxacin (Levaquin) 500 mg DAILY@06 PO ; Start 05/05/16 at 06:00; Status TRISTON JAFFE May 04, 2016 15:41
[2016-05-04] MEDS: LEVOFLOXACIN 500 MG TAB PO SCH (16:13)
[2016-05-04] MEDS: ATORVASTATIN 80 MG TAB PO SCH (20:23)
[2016-05-04] MEDS: INSULIN GLARGINE [LANtus] 3 ML PEN SC SCH (20:42)
[2016-05-04] MEDS: VANCOMYCIN 1 GM in NS 250 ML IVPB SCH (20:46)
[2016-05-05] VITALS (16 sets, daily range): BP systolic 132–193; BP diastolic 60–79; PULSE 65–81; RESP 18–20
[2016-05-05] MEDS: morphine 2 MG INJ IV PRN ×2 (03:25→13:29)
[2016-05-05] MEDS: hydrALAzine 20 MG INJ IV PRN ×2 (04:35→16:11)
[2016-05-05] MEDS: LEVOFLOXACIN 500 MG TAB PO SCH (05:48)
[2016-05-05] MEDS: INSULIN ASPART [NOVOLOG] 3 ML PEN SC SCH ×4 (07:42→20:08)
[2016-05-05 08:10] LABS: INR 1.34; PROTIME 16.7 Sec (12.2-14.2); PT RATIO 1.3
[2016-05-05 08:11] LABS: POTASSIUM 4.6 mmol/L (3.5-5.1)
[2016-05-05 08:14] LABS: CREATININE 0.8 mg/dl (0.61-1.24)
[2016-05-05 08:15] LABS: CALCIUM 9.3 mg/dl (8.4-10.2)
[2016-05-05 08:18] LABS: BASOPHILS % 0.4 % (0.0-2.0); EOSINOPHILS # 0.3 10^3/ul (0.0-0.5); EOSINOPHILS % 3.1 % (0.0-7.0); HEMATOCRIT 35.3 % (42.0-52.0); HEMOGLOBIN 12.1 g/dl (14.0-18.0); LYMPHOCYTES # 1.7 10^3/ul (0.8-2.9); LYMPHOCYTES % 19.1 % (15.0-51.0); MEAN CORPUSCULAR HEMOGLOBIN 31.8 pg (29.0-33.0); MEAN CORPUSCULAR HGB CONC 34.4 g/dl (32.0-37.0); MEAN CORPUSCULAR VOLUME 92.5 fl (82.0-101.0); MEAN PLATELET VOLUME 9.2 fl (7.4-10.4); MONOCYTE # 0.5 10^3/ul (0.3-0.9); MONOCYTES % 5.9 % (0.0-11.0); NEUTROPHIL # 6.5 10^3/ul (1.6-7.5); NEUTROPHILS % 71.5 % (39.0-77.0); PLATELET COUNT 231 10^3/UL (140-440); RED BLOOD COUNT 3.81 10^6/ul (4.70-6.10); RED CELL DISTRIBUTION WIDTH 12.8 % (11.5-14.5); UNCORRECTED WBC 9.1 10^3/ul (4.8-10.8); WHITE BLOOD COUNT 9.1 10^3/ul (4.8-10.8)
[2016-05-05 08:27] LABS: CONDITION 1
[2016-05-05] MEDS: metFORMIN 500 MG TAB PO SCH ×2 (08:38→17:05)
[2016-05-05] MEDS: FELODIPINE (ER) 5 MG TAB PO SCH (08:38)
[2016-05-05] MEDS: BENAZEPRIL 40 MG TAB PO SCH (08:39)
[2016-05-05] MEDS: METOPROLOL (XL) 50 MG TAB PO SCH ×2 (08:39→20:07)
[2016-05-05] MEDS: HYDROCODONE/APAP (5/325) TAB PO PRN ×2 (16:14→22:57)
--- NOTE | 2016-05-05 17:42 | PN ---
DATE: SUBJECTIVE: The patient is alert. Denies nausea, vomiting, diarrhea. He still has right lower ext remity pain. No fevers. LABORATORY: WBC 9.1, no shift, no bands. BUN 22, creatinine 0.80. ANTIMICROBIALS: 1. Levaquin. 2. Vancomycin. PHYSICAL EXAMINATION: GENERAL: This is a well-developed, well-nourished elderly man who is alert, in no distress . HEENT: Head atraumatic, normocephalic. Sclerae anicteric. Buccal mucosa pink. NECK: Supple. Trachea midline. CHEST: Rise symmetrical. Breath sounds clear. HEART: S1, S2. ABDOMEN: Soft, bowel tones present. EXTREMITIES: Without cyanosis. Right lower extremity with erythema. ASSESSMENT: 1. Right lower extremity cellulitis. 2. Severe peripheral arterial disease. 3. Diabetes. 4. Hypertension. PLAN: The patient remains stable, covered with appropriate antimicrobials. Vascular surgery on sadiq e. Pending angiogram. Dictated By: MANSI CURRAN [employer]ARD PIPE GRADER for MARCI ALDRIDGE MD NI/NTS Conf#: [id number] DID#: [id number] CC: MARYBEL TINOCO MD;*EndCC*
--- NOTE | 2016-05-05 18:25 | PN ---
Date/Time of Note Date/Time of Note DATE: 05/05/16 TIME: 18:17 Assessment/Plan VTE Prophylaxis VTE Prophylaxis Intervention: SCD's Lines/Catheters [facility]from [facility] Saline Lock Urinary Cath still in place: No Assessment/Plan Chief Complaint/Hosp Course Assessment and plan 1. Right foot pain secondary to cellulitis and stenosis of right popliteal artery. Vascular surgeon is following. We will continue with antibiotics and plan for intervention once resolution of cellulitis. Warfarin on hold per vascular surgeon recommendations 2. Ids-utthgub-nadmgfctu diabetes. Follow up on A1c. Continue on insulin regimen. Will adjust as needed 3. Essential hypertension. Continue on antihypertensives and adjust as needed 4. History of heart valve replacement. Patient to be resumed on Coumadin. We will monitor for therapeutic level V. Leukocytosis tachycardia secondary to cellulitis. Continue on antibiotic regimen. No fever for now. DVT prophylaxis: Coumadin (on hold) Disposition and plan: Continue abx per ID. tentative plan for vascular intervention will follow up Discussed plan of care with Dr. Mora Problems: Subjective 24 Hr Interval Summary Free Text/Dictation still reports some right lower extremity pain, little better today Exam/Review of Systems Vital Signs Vitals Vital Signs Date Time Temp Pulse Resp B/P Pulse Ox O2 Delivery O2 Flow Rate FiO2 05/05/16 16:30 132/60 05/05/16 16:10 97.7 75 18 97 Room Air Intake and Output 05/04/16 05/04/16 05/05/16 15:00 23:00 07:00 Intake Total 850 ml 850 ml Balance 850 ml 850 ml Exam General: No acute signs or symptoms of distress Eyes: pupils equal round, Anicteric sclera Neck: Supple nontender, no JVD Cardiac: S1, S2 auscultated, regular rhythm and rate Pulmonary: No coarse rhonchi or breathing auscultated GI: Abdomen soft nontender nondistended, bowel sounds active Extremities: No edema bilateral lower extremities Skin: erythema seen on dorsal portio of right foot. less now Neurologic: Alert to person place and time and situation Results Result Diagram: 05/05/16 0715 05/05/16 0715 Results 24 hrs Laboratory Tests Test 05/04/16 20:27 05/05/16 07:15 05/05/16 07:19 05/05/16 11:54 Bedside Glucose 153 133 123 Anion Gap 17 H Basophils # 0.0 Basophils % 0.4 Blood Urea Nitrogen 22 H Calcium Level 9.3 Carbon Dioxide Level 24 Chloride Level 105 Creatinine 0.80 Eosinophils # 0.3 Eosinophils % 3.1 Glucose Level 120 Hematocrit 35.3 L Hemoglobin 12.1 L INR International Normalized Ratio 1.34 Lymphocytes # 1.7 Lymphocytes % 19.1 Mean Corpuscular Hemoglobin 31.8 Mean Corpuscular Hemoglobin Concent 34.4 Mean Corpuscular Volume 92.5 Mean Platelet Volume 9.2 Monocytes # 0.5 Monocytes % 5.9 Neutrophils # 6.5 Neutrophils % 71.5 Nucleated Red Blood Cells # 0.0 Nucleated Red Blood Cells % 0.0 Platelet Count 231 # Potassium Level 4.6 Prothrombin Time 16.7 H Prothrombin Time Ratio 1.3 Red Blood Count 3.81 L Red Cell Distribution Width 12.8 Sodium Level 141 White Blood Count 9.1 # Test 05/05/16 16:53 Bedside Glucose 134 Medications Medications Current Medications Ondansetron HCl (Zofran Inj) 4 mg Q6H PRN IV NAUSEA AND/OR VOMITING; Start 05/02 at 21:30 Acetaminophen (Tylenol Tab) 650 mg Q6H PRN PO PAIN LEVEL 1-3 OR FEVER; Start at 21:30 Acetaminophen/ Hydrocodone Bitart ([place] (5/325)) 1 tab Q6H PRN PO MODERATE PAIN LEVEL 4-6 Last administered on 05/05/16 16:14; Admin Dose 1 TAB; Start 05/02 at 21:30 Morphine Sulfate (morphine) 2 mg Q4H PRN IV SEVERE PAIN LEVEL 7-10 Last administered on 05/05/16 13:29; Admin Dose 2 MG; Start 05/02/16 at 21:30 Docusate Sodium (Colace) 100 mg Q12H PRN PO CONSTIPATION; Start 05/02/16 at 21: 30 Zolpidem Tartrate (Ambien) 5 mg QHS PRN PO SLEEP; Start 05/02/16 at 21:30 Atorvastatin Calcium (Lipitor) 80 mg QHS PO Last administered on 05/04/16 20:23 ; Admin Dose 80 MG; Start 05/03/16 at 21:00 Benazepril HCl (Lotensin) 40 mg DAILY PO Last administered on 05/05/16 08:39; Admin Dose 40 MG; Start 05/03/16 at 09:00 Felodipine (Plendil) 5 mg DAILY PO Last administered on 05/05/16 08:38; Admin Dose 5 MG; Start 05/03/16 at 09:00 Metoprolol Succinate (Toprol Xl) 100 mg BID PO Last administered on 05/05/16 08 :39; Admin Dose 100 MG; Start 05/03/16 at 09:00 Insulin Glargine (Lantus) 10 unit HS SC Last administered on 05/04/16 20:42; Admin Dose 10 UNIT; Start 05/03/16 at 21:00 Miscellaneous Information 1 ea NOTE XX ; Start 05/02/16 at 23:45 Glucose (Glutose) 15 gm Q15M PRN PO DECREASED GLUCOSE; Start 05/02/16 at 23:45 Glucose (Glutose) 22.5 gm Q15M PRN PO DECREASED GLUCOSE; Start 05/02/16 at 23:45 Dextrose (D50w Syringe) 25 ml Q15M PRN IV DECREASED GLUCOSE; Start 05/02/16 at 23:45 Dextrose (D50w Syringe) 50 ml Q15M PRN IV DECREASED GLUCOSE; Start 05/02/16 at 23:45 Glucagon (Glucagen) 1 mg Q15M PRN IM DECREASED GLUCOSE; Start 05/02/16 at 23:45 Glucose 15 gm 15 gm Q15M PRN BUCCAL DECREASED GLUCOSE; Start 05/02/16 at 23:45 Vancomycin HCl (Vancocin) 250 ml @ 125 mls/hr Q24H IVPB Last administered on 20:46; Admin Dose 125 MLS/HR; Start 05/03/16 at 21:00 Levofloxacin (Levaquin) 500 mg DAILY@06 PO Last administered on 05/05/16 05:48 ; Admin Dose 500 MG; Start 05/04/16 at 16:00 Hydralazine HCl (Apresoline) 10 mg Q4H PRN IV ELEVATED SYSTOLIC BP Last administered on 05/05/16 16:11; Admin Dose 10 MG; Start 05/05/16 at 04:30 Miscellaneous Information (*Rx Drug Level Order Reminder*) VANCO TROUGH @ 2, 000 ON... ONCE ONCE XX ; Start 05/05/16 at 20:00; Stop 05/05/16 at 20:01 TRISTON PINEDA May 05, 2016 18:25
[2016-05-05] MEDS: INSULIN GLARGINE [LANtus] 3 ML PEN SC SCH (20:06)
[2016-05-05] MEDS: ATORVASTATIN 80 MG TAB PO SCH (20:07)
[2016-05-05] MEDS: VANCOMYCIN 1 GM in NS 250 ML IVPB SCH (22:30)
[2016-05-06] VITALS (11 sets, daily range): BP systolic 137–183; BP diastolic 61–78; PULSE 59–74; RESP 18–20
[2016-05-06] MEDS: LEVOFLOXACIN 500 MG TAB PO SCH (05:26)
[2016-05-06 07:36] LABS: BASOPHILS % 0.5 % (0.0-2.0); EOSINOPHILS # 0.3 10^3/ul (0.0-0.5); HEMATOCRIT 35.6 % (42.0-52.0); HEMOGLOBIN 12.3 g/dl (14.0-18.0); LYMPHOCYTES # 1.9 10^3/ul (0.8-2.9); LYMPHOCYTES % 21.4 % (15.0-51.0); MEAN CORPUSCULAR HEMOGLOBIN 31.8 pg (29.0-33.0); MEAN CORPUSCULAR HGB CONC 34.5 g/dl (32.0-37.0); MEAN CORPUSCULAR VOLUME 92.2 fl (82.0-101.0); MONOCYTE # 0.6 10^3/ul (0.3-0.9); MONOCYTES % 6.4 % (0.0-11.0); NEUTROPHIL # 5.9 10^3/ul (1.6-7.5); NEUTROPHILS % 67.7 % (39.0-77.0); PLATELET COUNT 234 10^3/UL (140-440); RED BLOOD COUNT 3.86 10^6/ul (4.70-6.10); RED CELL DISTRIBUTION WIDTH 12.8 % (11.5-14.5); UNCORRECTED WBC 8.7 10^3/ul (4.8-10.8); WHITE BLOOD COUNT 8.7 10^3/ul (4.8-10.8)
[2016-05-06 07:38] LABS: CONDITION 1; POTASSIUM 4.3 mmol/L (3.5-5.1)
[2016-05-06 07:40] LABS: INR 1.25; PROTIME 15.8 Sec (12.2-14.2); PT RATIO 1.2
[2016-05-06 07:41] LABS: CREATININE 0.77 mg/dl (0.61-1.24)
[2016-05-06 07:42] LABS: CALCIUM 9.3 mg/dl (8.4-10.2)
[2016-05-06] MEDS: INSULIN ASPART [NOVOLOG] 3 ML PEN SC SCH ×4 (08:00→20:26)
[2016-05-06] MEDS: metFORMIN 500 MG TAB PO SCH ×2 (08:07→17:22)
[2016-05-06] MEDS: FELODIPINE (ER) 5 MG TAB PO SCH (08:08)
[2016-05-06] MEDS: BENAZEPRIL 40 MG TAB PO SCH (08:08)
[2016-05-06] MEDS: METOPROLOL (XL) 50 MG TAB PO SCH ×2 (08:09→20:23)
[2016-05-06] MEDS: VANCOMYCIN 1 GM in NS 250 ML IVPB SCH ×2 (10:41→22:15)
[2016-05-06] MEDS: morphine 2 MG INJ IV PRN ×3 (10:47→22:20)
--- NOTE | 2016-05-06 11:56 | CONS ---
Date/Time of Note Date/Time of Note DATE: 05/06/16 TIME: 11:54 Consult Date/Type/Reason Admit Date/Time May 02, 2016 at 19:57 Initial Consult Date Type of Consultation: ID Subjective no acute changes, awake, looks comfortable, no fevers Objective Vital Signs Date Time Temp Pulse Resp B/P Pulse Ox O2 Delivery O2 Flow Rate FiO2 05/06/16 11:48 97.5 18 147/67 96 Room Air 05/06/16 08:13 62 Intake and Output 05/05/16 05/05/16 05/06/16 15:00 23:00 07:00 Intake Total 1600 ml 750 ml Balance 1600 ml 750 ml Results/Medications Result Diagram: 05/06/16 0645 05/06/16 0645 Results 24 hrs Laboratory Tests Test 05/05/16 16:53 05/05/16 19:52 05/05/16 20:02 05/06/16 06:45 Bedside Glucose 134 127 Vancomycin Level Trough 7.0 L Anion Gap 17 H Basophils # 0.0 Basophils % 0.5 Blood Urea Nitrogen 19 Calcium Level 9.3 Carbon Dioxide Level 23 Chloride Level 106 Creatinine 0.77 Eosinophils # 0.3 Eosinophils % 4.0 Glucose Level 118 Hematocrit 35.6 L Hemoglobin 12.3 L INR International Normalized Ratio 1.25 Lymphocytes # 1.9 Lymphocytes % 21.4 Mean Corpuscular Hemoglobin 31.8 Mean Corpuscular Hemoglobin Concent 34.5 Mean Corpuscular Volume 92.2 Mean Platelet Volume 9.0 Monocytes # 0.6 Monocytes % 6.4 Neutrophils # 5.9 Neutrophils % 67.7 Nucleated Red Blood Cells # 0.0 Nucleated Red Blood Cells % 0.0 Platelet Count 234 Potassium Level 4.3 Prothrombin Time 15.8 H Prothrombin Time Ratio 1.2 Red Blood Count 3.86 L Red Cell Distribution Width 12.8 Sodium Level 142 White Blood Count 8.7 Test 05/06/16 08:06 Bedside Glucose 126 Medications Current Medications Ondansetron HCl (Zofran Inj) 4 mg Q6H PRN IV NAUSEA AND/OR VOMITING; Start 05/02 at 21:30 Acetaminophen (Tylenol Tab) 650 mg Q6H PRN PO PAIN LEVEL 1-3 OR FEVER; Start at 21:30 Acetaminophen/ Hydrocodone Bitart ([place] (5/325)) 1 tab Q6H PRN PO MODERATE PAIN LEVEL 4-6 Last administered on 05/05/16 22:57; Admin Dose 1 TAB; Start 05/02 at 21:30 Morphine Sulfate (morphine) 2 mg Q4H PRN IV SEVERE PAIN LEVEL 7-10 Last administered on 05/06/16 10:47; Admin Dose 2 MG; Start 05/02/16 at 21:30 Docusate Sodium (Colace) 100 mg Q12H PRN PO CONSTIPATION; Start 05/02/16 at 21: 30 Zolpidem Tartrate (Ambien) 5 mg QHS PRN PO SLEEP; Start 05/02/16 at 21:30 Atorvastatin Calcium (Lipitor) 80 mg QHS PO Last administered on 05/05/16 20:07 ; Admin Dose 80 MG; Start 05/03/16 at 21:00 Benazepril HCl (Lotensin) 40 mg DAILY PO Last administered on 05/06/16 08:08; Admin Dose 40 MG; Start 05/03/16 at 09:00 Felodipine (Plendil) 5 mg DAILY PO Last administered on 05/06/16 08:08; Admin Dose 5 MG; Start 05/03/16 at 09:00 Metoprolol Succinate (Toprol Xl) 100 mg BID PO Last administered on 05/06/16 08 :09; Admin Dose 100 MG; Start 05/03/16 at 09:00 Insulin Glargine (Lantus) 10 unit HS SC Last administered on 05/05/16 20:06; Admin Dose 10 UNIT; Start 05/03/16 at 21:00 Miscellaneous Information 1 ea NOTE XX ; Start 05/02/16 at 23:45 Glucose (Glutose) 15 gm Q15M PRN PO DECREASED GLUCOSE; Start 05/02/16 at 23:45 Glucose (Glutose) 22.5 gm Q15M PRN PO DECREASED GLUCOSE; Start 05/02/16 at 23:45 Dextrose (D50w Syringe) 25 ml Q15M PRN IV DECREASED GLUCOSE; Start 05/02/16 at 23:45 Dextrose (D50w Syringe) 50 ml Q15M PRN IV DECREASED GLUCOSE; Start 05/02/16 at 23:45 Glucagon (Glucagen) 1 mg Q15M PRN IM DECREASED GLUCOSE; Start 05/02/16 at 23:45 Glucose (Glutose) 15 gm Q15M PRN BUCCAL DECREASED GLUCOSE; Start 05/02/16 at 23: 45 Levofloxacin (Levaquin) 500 mg DAILY@06 PO Last administered on 05/06/16 05:26 ; Admin Dose 500 MG; Start 05/04/16 at 16:00 Hydralazine HCl 10 mg 10 mg Q4H PRN IV ELEVATED SYSTOLIC BP Last administered on 05/05/16 16:11; Admin Dose 10 MG; Start 05/05/16 at 04:30 Vancomycin HCl (Vancocin) 250 ml @ 125 mls/hr Q12H IVPB Last administered on 10:41; Admin Dose 125 MLS/HR; Start 05/05/16 at 22:00 Assessment/Plan Chief Complaint/Hosp Course ANTIMICROBIALS: 1. Levaquin. 2. Vancomycin. PHYSICAL EXAMINATION: GENERAL: This is a well-developed, well-nourished elderly man who is alert, in no distress. HEENT: Head atraumatic, normocephalic. Sclerae anicteric. Buccal mucosa pink. NECK: Supple. Trachea midline. CHEST: Rise symmetrical. Breath sounds clear. HEART: S1, S2. ABDOMEN: Soft, bowel tones present. EXTREMITIES: Without cyanosis. Right lower extremity with erythema. ASSESSMENT: 1. Right lower extremity cellulitis. 2. Severe peripheral arterial disease. 3. Diabetes. 4. Hypertension. PLAN: The patient remains stable, covered with appropriate antimicrobials. Vascular surgery on case. Pending angiogram. [facility] staff Problems: MANSI CURRAN NP May 06, 2016 11:55
--- NOTE | 2016-05-06 12:06 | PN ---
Date/Time of Note Date/Time of Note DATE: 05/06/16 TIME: 12:01 Assessment/Plan VTE Prophylaxis VTE Prophylaxis Intervention: SCD's Lines/Catheters [facility] Urinary Cath still in place: No Assessment/Plan Chief Complaint/Hosp Course Assessment and plan 1. Right foot pain secondary to cellulitis and stenosis of right popliteal artery. Vascular surgeon is following. We will continue with antibiotics and plan for intervention once resolution of cellulitis. Warfarin on hold per vascular surgeon recommendations 2. [id number] diabetes. Follow up on A1c. Continue on insulin regimen. Will adjust as needed 3. Essential hypertension. Continue on antihypertensives and adjust as needed 4. History of heart valve replacement. Patient to be resumed on Coumadin. We will monitor for therapeutic level V. Leukocytosis tachycardia secondary to cellulitis. Continue on antibiotic regimen. No fever for now. DVT prophylaxis: Coumadin (on hold) Disposition and plan: Continue abx per ID. patient pending vascular intervention of RLE. will follow up. transfer to med/surg Discussed plan of care with Dr. Andrade Problems: Subjective 24 Hr Interval Summary Free Text/Dictation no s/s of distress Exam/Review of Systems Vital Signs Vitals Vital Signs Date Time Temp Pulse Resp B/P Pulse Ox O2 Delivery O2 Flow Rate FiO2 05/06/16 11:48 97.5 18 147/67 96 Room Air 05/06/16 08:13 62 Intake and Output 05/05/16 05/05/16 05/06/16 14:59 22:59 06:59 Intake Total 1600 ml 750 ml Balance 1600 ml 750 ml Exam General: No acute signs or symptoms of distress Eyes: pupils equal round, Anicteric sclera Neck: Supple nontender, no JVD Cardiac: S1, S2 auscultated, regular rhythm and rate Pulmonary: No coarse rhonchi or breathing auscultated GI: Abdomen soft nontender nondistended, bowel sounds active Extremities: No edema bilateral lower extremities Skin: erythema seen on dorsal portion of right foot. less now Neurologic: Alert to person place and time and situation Results Result Diagram: 05/06/16 0645 05/06/16 0645 Results 24 hrs Laboratory Tests Test 05/05/16 16:53 05/05/16 19:52 05/05/16 20:02 05/06/16 06:45 Bedside Glucose 134 127 Vancomycin Level Trough 7.0 L Anion Gap 17 H Basophils # 0.0 Basophils % 0.5 Blood Urea Nitrogen 19 Calcium Level 9.3 Carbon Dioxide Level 23 Chloride Level 106 Creatinine 0.77 Eosinophils # 0.3 Eosinophils % 4.0 Glucose Level 118 Hematocrit 35.6 L Hemoglobin 12.3 L INR International Normalized Ratio 1.25 Lymphocytes # 1.9 Lymphocytes % 21.4 Mean Corpuscular Hemoglobin 31.8 Mean Corpuscular Hemoglobin Concent 34.5 Mean Corpuscular Volume 92.2 Mean Platelet Volume 9.0 Monocytes # 0.6 Monocytes % 6.4 Neutrophils # 5.9 Neutrophils % 67.7 Nucleated Red Blood Cells # 0.0 Nucleated Red Blood Cells % 0.0 Platelet Count 234 Potassium Level 4.3 Prothrombin Time 15.8 H Prothrombin Time Ratio 1.2 Red Blood Count 3.86 L Red Cell Distribution Width 12.8 Sodium Level 142 White Blood Count 8.7 Test 05/06/16 08:06 05/06/16 11:41 Bedside Glucose 126 161 Medications Medications Current Medications Ondansetron HCl (Zofran Inj) 4 mg Q6H PRN IV NAUSEA AND/OR VOMITING; Start 05/02 at 21:30 Acetaminophen (Tylenol Tab) 650 mg Q6H PRN PO PAIN LEVEL 1-3 OR FEVER; Start at 21:30 Acetaminophen/ Hydrocodone Bitart ([place] (5/325)) 1 tab Q6H PRN PO MODERATE PAIN LEVEL 4-6 Last administered on 05/05/16 22:57; Admin Dose 1 TAB; Start 05/02 at 21:30 Morphine Sulfate (morphine) 2 mg Q4H PRN IV SEVERE PAIN LEVEL 7-10 Last administered on 05/06/16 10:47; Admin Dose 2 MG; Start 05/02/16 at 21:30 Docusate Sodium (Colace) 100 mg Q12H PRN PO CONSTIPATION; Start 05/02/16 at 21: 30 Zolpidem Tartrate (Ambien) 5 mg QHS PRN PO SLEEP; Start 05/02/16 at 21:30 Atorvastatin Calcium (Lipitor) 80 mg QHS PO Last administered on 05/05/16 20:07 ; Admin Dose 80 MG; Start 05/03/16 at 21:00 Benazepril HCl (Lotensin) 40 mg DAILY PO Last administered on 05/06/16 08:08; Admin Dose 40 MG; Start 05/03/16 at 09:00 Felodipine (Plendil) 5 mg DAILY PO Last administered on 05/06/16 08:08; Admin Dose 5 MG; Start 05/03/16 at 09:00 Metoprolol Succinate (Toprol Xl) 100 mg BID PO Last administered on 05/06/16 08 :09; Admin Dose 100 MG; Start 05/03/16 at 09:00 Insulin Glargine (Lantus) 10 unit HS SC Last administered on 05/05/16 20:06; Admin Dose 10 UNIT; Start 05/03/16 at 21:00 Miscellaneous Information 1 ea NOTE XX ; Start 05/02/16 at 23:45 Glucose (Glutose) 15 gm Q15M PRN PO DECREASED GLUCOSE; Start 05/02/16 at 23:45 Glucose (Glutose) 22.5 gm Q15M PRN PO DECREASED GLUCOSE; Start 05/02/16 at 23:45 Dextrose (D50w Syringe) 25 ml Q15M PRN IV DECREASED GLUCOSE; Start 05/02/16 at 23:45 Dextrose (D50w Syringe) 50 ml Q15M PRN IV DECREASED GLUCOSE; Start 05/02/16 at 23:45 Glucagon (Glucagen) 1 mg Q15M PRN IM DECREASED GLUCOSE; Start 05/02/16 at 23:45 Glucose (Glutose) 15 gm Q15M PRN BUCCAL DECREASED GLUCOSE; Start 05/02/16 at 23: 45 Levofloxacin (Levaquin) 500 mg DAILY@06 PO Last administered on 05/06/16 05:26 ; Admin Dose 500 MG; Start 05/04/16 at 16:00 Hydralazine HCl 10 mg 10 mg Q4H PRN IV ELEVATED SYSTOLIC BP Last administered on 05/05/16 16:11; Admin Dose 10 MG; Start 05/05/16 at 04:30 Vancomycin HCl (Vancocin) 250 ml @ 125 mls/hr Q12H IVPB Last administered on 10:41; Admin Dose 125 MLS/HR; Start 05/05/16 at 22:00 TRISTON PINEDA May 06, 2016 12:06
[2016-05-06] MEDS: ATORVASTATIN 80 MG TAB PO SCH (20:22)
[2016-05-06] MEDS: HYDROCODONE/APAP (5/325) TAB PO PRN (20:23)
[2016-05-06] MEDS: INSULIN GLARGINE [LANtus] 3 ML PEN SC SCH (20:30)
[2016-05-06] MEDS: hydrALAzine 20 MG INJ IV PRN (22:24)
[2016-05-07] MEDS: ZOLPIDEM 5 MG TAB PO PRN (02:31)
[2016-05-07] MEDS: LEVOFLOXACIN 500 MG TAB PO SCH (05:47)
[2016-05-07 05:49] LABS: BASOPHILS % 0.5 % (0.0-2.0); EOSINOPHILS # 0.4 10^3/ul (0.0-0.5); HEMATOCRIT 35.2 % (42.0-52.0); HEMOGLOBIN 12.2 g/dl (14.0-18.0); LYMPHOCYTES % 20.9 % (15.0-51.0); MEAN CORPUSCULAR HEMOGLOBIN 32.2 pg (29.0-33.0); MEAN CORPUSCULAR HGB CONC 34.6 g/dl (32.0-37.0); MEAN CORPUSCULAR VOLUME 92.9 fl (82.0-101.0); MEAN PLATELET VOLUME 8.9 fl (7.4-10.4); MONOCYTE # 0.6 10^3/ul (0.3-0.9); MONOCYTES % 6.3 % (0.0-11.0); NEUTROPHIL # 6.5 10^3/ul (1.6-7.5); NEUTROPHILS % 68.3 % (39.0-77.0); PLATELET COUNT 243 10^3/UL (140-440); RED BLOOD COUNT 3.79 10^6/ul (4.70-6.10); RED CELL DISTRIBUTION WIDTH 13.1 % (11.5-14.5); UNCORRECTED WBC 9.6 10^3/ul (4.8-10.8); WHITE BLOOD COUNT 9.6 10^3/ul (4.8-10.8)
[2016-05-07 05:53] LABS: POTASSIUM 4.2 mmol/L (3.5-5.1)
[2016-05-07 05:56] LABS: CREATININE 0.71 mg/dl (0.61-1.24)
[2016-05-07 05:57] LABS: CALCIUM 9.1 mg/dl (8.4-10.2)
[2016-05-07 06:05] LABS: INR 1.21; PROTIME 15.4 Sec (12.2-14.2); PT RATIO 1.2
[2016-05-07 06:09] LABS: CONDITION 1
[2016-05-07 07:38] VITALS: BP 160/69; RESP 18
[2016-05-07] MEDS: INSULIN ASPART [NOVOLOG] 3 ML PEN SC SCH ×4 (08:15→20:34)
[2016-05-07] MEDS: FELODIPINE (ER) 5 MG TAB PO SCH (08:57)
[2016-05-07] MEDS: BENAZEPRIL 40 MG TAB PO SCH (08:58)
[2016-05-07] MEDS: metFORMIN 500 MG TAB PO SCH ×2 (08:58→18:03)
[2016-05-07] MEDS: METOPROLOL (XL) 50 MG TAB PO SCH ×2 (08:59→20:22)
[2016-05-07] MEDS: VANCOMYCIN 1 GM in NS 250 ML IVPB SCH (11:26)
[2016-05-07] MEDS: HYDROCODONE/APAP (5/325) TAB PO PRN ×2 (14:13→20:22)
--- NOTE | 2016-05-07 14:33 | CONS ---
Date/Time of Note Date/Time of Note DATE: 05/07/16 TIME: 14:32 Consult Date/Type/Reason Admit Date/Time May 02, 2016 at 19:57 Type of Consultation: ID Subjective no acute changes, awake, looks comfortable, no fevers Objective Vital Signs Date Time Temp Pulse Resp B/P Pulse Ox O2 Delivery O2 Flow Rate FiO2 05/07/16 07:38 97.8 64 18 160/69 95 05/06/16 23:00 Room Air Intake and Output 05/06/16 05/06/16 05/07/16 15:00 23:00 07:00 Intake Total 750 ml 120 ml 490 ml Output Total 300 ml Balance 750 ml 120 ml 190 ml Results/Medications Result Diagram: 05/07/1652105/07/16 05 Results 24 hrs Laboratory Tests Test 05/06/16 17:21 05/06/16 20:25 05/07/16 05:22 05/07/16 08:02 Bedside Glucose 118 141 100 Anion Gap 16 Basophils # 0.0 Basophils % 0.5 Blood Urea Nitrogen 16 Calcium Level 9.1 Carbon Dioxide Level 24 Chloride Level 106 Creatinine 0.71 Eosinophils # 0.4 Eosinophils % 4.0 Glucose Level 93 Hematocrit 35.2 L Hemoglobin 12.2 L INR International Normalized Ratio 1.21 Lymphocytes # 2.0 Lymphocytes % 20.9 Mean Corpuscular Hemoglobin 32.2 Mean Corpuscular Hemoglobin Concent 34.6 Mean Corpuscular Volume 92.9 Mean Platelet Volume 8.9 Monocytes # 0.6 Monocytes % 6.3 Neutrophils # 6.5 Neutrophils % 68.3 Nucleated Red Blood Cells # 0.0 Nucleated Red Blood Cells % 0.0 Platelet Count 243 Potassium Level 4.2 Prothrombin Time 15.4 H Prothrombin Time Ratio 1.2 Red Blood Count 3.79 L Red Cell Distribution Width 13.1 Sodium Level 142 White Blood Count 9.6 Test 05/07/16 08:50 05/07/16 11:55 Vancomycin Level Trough 14.7 Bedside Glucose 102 Medications Current Medications Ondansetron HCl (Zofran Inj) 4 mg Q6H PRN IV NAUSEA AND/OR VOMITING; Start 05/02 at 21:30 Acetaminophen (Tylenol Tab) 650 mg Q6H PRN PO PAIN LEVEL 1-3 OR FEVER; Start at 21:30 Acetaminophen/ Hydrocodone Bitart ([place] (5/325)) 1 tab Q6H PRN PO MODERATE PAIN LEVEL 4-6 Last administered on 05/07/16 14:13; Admin Dose 1 TAB; Start 05/02/16 at 21:30 Morphine Sulfate (morphine) 2 mg Q4H PRN IV SEVERE PAIN LEVEL 7-10 Last administered on 05/06/16 22:20; Admin Dose 2 MG; Start 05/02/16 at 21:30 Docusate Sodium (Colace) 100 mg Q12H PRN PO CONSTIPATION; Start 05/02/16 at 21: 30 Zolpidem Tartrate (Ambien) 5 mg QHS PRN PO SLEEP Last administered on 02:31; Admin Dose 5 MG; Start 05/02/16 at 21:30 Atorvastatin Calcium (Lipitor) 80 mg QHS PO Last administered on 05/06/16 20:22 ; Admin Dose 80 MG; Start 05/03/16 at 21:00 Benazepril HCl (Lotensin) 40 mg DAILY PO Last administered on 05/07/16 08:58; Admin Dose 40 MG; Start 05/03/16 at 09:00 Felodipine (Plendil) 5 mg DAILY PO Last administered on 05/07/16 08:57; Admin Dose 5 MG; Start 05/03/16 at 09:00 Metoprolol Succinate (Toprol Xl) 100 mg BID PO Last administered on 05/07/16 08:59; Admin Dose 100 MG; Start 05/03/16 at 09:00 Insulin Glargine (Lantus) 10 unit HS SC Last administered on 05/06/16 20:30; Admin Dose 10 UNIT; Start 05/03/16 at 21:00 Miscellaneous Information 1 ea NOTE XX ; Start 05/02/16 at 23:45 Glucose (Glutose) 15 gm Q15M PRN PO DECREASED GLUCOSE; Start 05/02/16 at 23:45 Glucose (Glutose) 22.5 gm Q15M PRN PO DECREASED GLUCOSE; Start 05/02/16 at 23:45 Dextrose (D50w Syringe) 25 ml Q15M PRN IV DECREASED GLUCOSE; Start 05/02/16 at 23:45 Dextrose (D50w Syringe) 50 ml Q15M PRN IV DECREASED GLUCOSE; Start 05/02/16 at 23:45 Glucagon (Glucagen) 1 mg Q15M PRN IM DECREASED GLUCOSE; Start 05/02/16 at 23:45 Glucose (Glutose) 15 gm Q15M PRN BUCCAL DECREASED GLUCOSE; Start 05/02/16 at 23: 45 Levofloxacin (Levaquin) 500 mg DAILY@06 PO Last administered on 05/07/16 05:47 ; Admin Dose 500 MG; Start 05/04/16 at 16:00 Hydralazine HCl 10 mg 10 mg Q4H PRN IV ELEVATED SYSTOLIC BP Last administered on 05/06/16 22:24; Admin Dose 10 MG; Start 05/05/16 at 04:30 Vancomycin HCl/ Sodium Chloride (Vancocin/NS) 150 ml @ 75 mls/hr Q12H IVPB ; Start 05/07/16 at 23:00 Assessment/Plan Chief Complaint/Hosp Course ANTIMICROBIALS: 1. Levaquin. 2. Vancomycin. PHYSICAL EXAMINATION: GENERAL: This is a well-developed, well-nourished elderly man who is alert, in no distress. HEENT: Head atraumatic, normocephalic. Sclerae anicteric. Buccal mucosa pink. NECK: Supple. Trachea midline. CHEST: Rise symmetrical. Breath sounds clear. HEART: S1, S2. ABDOMEN: Soft, bowel tones present. EXTREMITIES: Without cyanosis. Right lower extremity with erythema. ASSESSMENT: 1. Right lower extremity cellulitis. 2. Severe peripheral arterial disease. 3. Diabetes. 4. Hypertension. PLAN: The patient remains stable, continue abx. Pending vascular intervention [facility] staff Problems: MANSI CURRAN NP May 07, 2016 14:33
--- NOTE | 2016-05-07 15:41 | PN ---
Date/Time of Note Date/Time of Note DATE: 05/07/16 TIME: 15:39 Assessment/Plan VTE Prophylaxis VTE Prophylaxis Intervention: SCD's Lines/Catheters IV [facility] Type (from [facility] Urinary Cath still in place: No Assessment/Plan Chief Complaint/Hosp Course Assessment and plan 1. Right foot pain secondary to cellulitis and stenosis of right popliteal artery. Vascular surgeon is following. We will continue with antibiotics and plan for intervention once resolution of cellulitis. Warfarin on hold per vascular surgeon recommendations 2. Aws-bygqfls-fzvwnswrd diabetes. Follow up on A1c. Continue on insulin regimen. Will adjust as needed 3. Essential hypertension. Continue on antihypertensives and adjust as needed 4. History of heart valve replacement. Patient to be resumed on Coumadin. We will monitor for therapeutic level V. Leukocytosis tachycardia secondary to cellulitis. Continue on antibiotic regimen. No fever for now. DVT prophylaxis: Coumadin (on hold) Disposition and plan: Continue abx per ID. patient pending vascular intervention of RLE. cont inpatient monitoring. Follow up surgeon recs Discussed plan of care with Dr. Andrade Problems: Subjective 24 Hr Interval Summary Free Text/Dictation no s/s of distress. comfortable at present Exam/Review of Systems Vital Signs Vitals Vital Signs Date Time Temp Pulse Resp B/P Pulse Ox O2 Delivery O2 Flow Rate FiO2 05/07/16 07:38 97.8 64 18 160/69 95 05/06/16 23:00 Room Air Intake and Output 05/06/16 05/06/16 05/07/16 15:00 23:00 07:00 Intake Total 750 ml 120 ml 490 ml Output Total 300 ml Balance 750 ml 120 ml 190 ml Exam General: No acute signs or symptoms of distress Eyes: pupils equal round, Anicteric sclera Neck: Supple nontender, no JVD Cardiac: S1, S2 auscultated, regular rhythm and rate Pulmonary: No coarse rhonchi or breathing auscultated GI: Abdomen soft nontender nondistended, bowel sounds active Extremities: No edema bilateral lower extremities Skin: erythema seen on dorsal portion of right foot. less now Neurologic: Alert to person place and time and situation Results Result Diagram: 05/07/16 0522 05/07/16521 Results 24 hrs Laboratory Tests Test 05/06/16 17:21 05/06/16 20:25 05/07/16 05:22 05/07/16 08:02 Bedside Glucose 118 141 100 Anion Gap 16 Basophils # 0.0 Basophils % 0.5 Blood Urea Nitrogen 16 Calcium Level 9.1 Carbon Dioxide Level 24 Chloride Level 106 Creatinine 0.71 Eosinophils # 0.4 Eosinophils % 4.0 Glucose Level 93 Hematocrit 35.2 L Hemoglobin 12.2 L INR International Normalized Ratio 1.21 Lymphocytes # 2.0 Lymphocytes % 20.9 Mean Corpuscular Hemoglobin 32.2 Mean Corpuscular Hemoglobin Concent 34.6 Mean Corpuscular Volume 92.9 Mean Platelet Volume 8.9 Monocytes # 0.6 Monocytes % 6.3 Neutrophils # 6.5 Neutrophils % 68.3 Nucleated Red Blood Cells # 0.0 Nucleated Red Blood Cells % 0.0 Platelet Count 243 Potassium Level 4.2 Prothrombin Time 15.4 H Prothrombin Time Ratio 1.2 Red Blood Count 3.79 L Red Cell Distribution Width 13.1 Sodium Level 142 White Blood Count 9.6 Test 05/07/16 08:50 05/07/16 11:55 Vancomycin Level Trough 14.7 Bedside Glucose 102 Medications Medications Current Medications Ondansetron HCl (Zofran Inj) 4 mg Q6H PRN IV NAUSEA AND/OR VOMITING; Start 05/02 at 21:30 Acetaminophen (Tylenol Tab) 650 mg Q6H PRN PO PAIN LEVEL 1-3 OR FEVER; Start at 21:30 Acetaminophen/ Hydrocodone Bitart ([place] (5/325)) 1 tab Q6H PRN PO MODERATE PAIN LEVEL 4-6 Last administered on 05/07/16 14:13; Admin Dose 1 TAB; Start 05/02/16 at 21:30 Morphine Sulfate (morphine) 2 mg Q4H PRN IV SEVERE PAIN LEVEL 7-10 Last administered on 05/06/16 22:20; Admin Dose 2 MG; Start 05/02/16 at 21:30 Docusate Sodium (Colace) 100 mg Q12H PRN PO CONSTIPATION; Start 05/02/16 at 21: 30 Zolpidem Tartrate (Ambien) 5 mg QHS PRN PO SLEEP Last administered on 02:31; Admin Dose 5 MG; Start 05/02/16 at 21:30 Atorvastatin Calcium (Lipitor) 80 mg QHS PO Last administered on 05/06/16 20:22 ; Admin Dose 80 MG; Start 05/03/16 at 21:00 Benazepril HCl (Lotensin) 40 mg DAILY PO Last administered on 05/07/16 08:58; Admin Dose 40 MG; Start 05/03/16 at 09:00 Felodipine (Plendil) 5 mg DAILY PO Last administered on 05/07/16 08:57; Admin Dose 5 MG; Start 05/03/16 at 09:00 Metoprolol Succinate (Toprol Xl) 100 mg BID PO Last administered on 05/07/16 08:59; Admin Dose 100 MG; Start 05/03/16 at 09:00 Insulin Glargine (Lantus) 10 unit HS SC Last administered on 05/06/16 20:30; Admin Dose 10 UNIT; Start 05/03/16 at 21:00 Miscellaneous Information 1 ea NOTE XX ; Start 05/02/16 at 23:45 Glucose (Glutose) 15 gm Q15M PRN PO DECREASED GLUCOSE; Start 05/02/16 at 23:45 Glucose (Glutose) 22.5 gm Q15M PRN PO DECREASED GLUCOSE; Start 05/02/16 at 23:45 Dextrose (D50w Syringe) 25 ml Q15M PRN IV DECREASED GLUCOSE; Start 05/02/16 at 23:45 Dextrose (D50w Syringe) 50 ml Q15M PRN IV DECREASED GLUCOSE; Start 05/02/16 at 23:45 Glucagon (Glucagen) 1 mg Q15M PRN IM DECREASED GLUCOSE; Start 05/02/16 at 23:45 Glucose (Glutose) 15 gm Q15M PRN BUCCAL DECREASED GLUCOSE; Start 05/02/16 at 23: 45 Levofloxacin (Levaquin) 500 mg DAILY@06 PO Last administered on 05/07/16 05:47 ; Admin Dose 500 MG; Start 05/04/16 at 16:00 Hydralazine HCl 10 mg 10 mg Q4H PRN IV ELEVATED SYSTOLIC BP Last administered on 05/06/16 22:24; Admin Dose 10 MG; Start 05/05/16 at 04:30 Vancomycin HCl/ Sodium Chloride (Vancocin/NS) 150 ml @ 75 mls/hr Q12H IVPB ; Start 05/07/16 at 23:00 TRISTON PINEDA May 07, 2016 15:40
[2016-05-07 19:20] VITALS: BP 168/74; RESP 20
[2016-05-07] MEDS: ATORVASTATIN 80 MG TAB PO SCH (20:21)
[2016-05-07] MEDS: INSULIN GLARGINE [LANtus] 3 ML PEN SC SCH (20:34)
[2016-05-07] MEDS: morphine 2 MG INJ IV PRN (23:21)
[2016-05-07] MEDS: VANCOMYCIN 750 MG in SOD CHLORIDE 0.9% 150 ML IVPB SCH (23:24)
[2016-05-08] MEDS: LEVOFLOXACIN 500 MG TAB PO SCH (05:41)
[2016-05-08 06:01] LABS: POTASSIUM 4.4 mmol/L (3.5-5.1)
[2016-05-08] MEDS: HYDROCODONE/APAP (5/325) TAB PO PRN ×2 (06:02→14:47)
[2016-05-08 06:03] LABS: BASOPHILS % 0.5 % (0.0-2.0); CREATININE 0.77 mg/dl (0.61-1.24); EOSINOPHILS # 0.5 10^3/ul (0.0-0.5); EOSINOPHILS % 4.3 % (0.0-7.0); HEMATOCRIT 35.1 % (42.0-52.0); LYMPHOCYTES # 1.9 10^3/ul (0.8-2.9); LYMPHOCYTES % 17.6 % (15.0-51.0); MEAN CORPUSCULAR HEMOGLOBIN 31.9 pg (29.0-33.0); MEAN CORPUSCULAR HGB CONC 34.1 g/dl (32.0-37.0); MEAN CORPUSCULAR VOLUME 93.5 fl (82.0-101.0); MEAN PLATELET VOLUME 9.3 fl (7.4-10.4); MONOCYTE # 0.7 10^3/ul (0.3-0.9); MONOCYTES % 6.2 % (0.0-11.0); NEUTROPHIL # 7.7 10^3/ul (1.6-7.5); NEUTROPHILS % 71.4 % (39.0-77.0); PLATELET COUNT 252 10^3/UL (140-440); RED BLOOD COUNT 3.76 10^6/ul (4.70-6.10); RED CELL DISTRIBUTION WIDTH 13.2 % (11.5-14.5); UNCORRECTED WBC 10.8 10^3/ul (4.8-10.8); WHITE BLOOD COUNT 10.8 10^3/ul (4.8-10.8)
[2016-05-08 06:08] LABS: CONDITION 1
[2016-05-08 07:54] VITALS: BP 156/74; RESP 16
[2016-05-08] MEDS: INSULIN ASPART [NOVOLOG] 3 ML PEN SC SCH ×4 (08:15→21:00)
[2016-05-08] MEDS: metFORMIN 500 MG TAB PO SCH ×2 (08:24→17:29)
[2016-05-08] MEDS: FELODIPINE (ER) 5 MG TAB PO SCH (08:24)
[2016-05-08] MEDS: BENAZEPRIL 40 MG TAB PO SCH (08:25)
[2016-05-08] MEDS: METOPROLOL (XL) 50 MG TAB PO SCH ×2 (08:25→21:27)
--- NOTE | 2016-05-08 09:55 | PN ---
Date/Time of Note Date/Time of Note DATE: 05/08/16 TIME: 09:53 Assessment/Plan VTE Prophylaxis VTE Prophylaxis Intervention: SCD's Lines/Catheters IV Catheter Type (from [facility]): Saline Lock Urinary Cath still in place: No Assessment/Plan Chief Complaint/Hosp Course Assessment and plan 1. Right foot pain secondary to cellulitis and stenosis of right popliteal artery. Vascular surgeon is following. We will continue with antibiotics and plan for intervention once resolution of cellulitis. Warfarin on hold per vascular surgeon recommendations 2. [id number] diabetes. Follow up on A1c. Continue on insulin regimen. Will adjust as needed 3. Essential hypertension. Continue on antihypertensives and adjust as needed 4. History of heart valve replacement. Patient to be resumed on Coumadin s/p rle intervention . V. Leukocytosis tachycardia secondary to cellulitis. Continue on antibiotic regimen. No fever for now. DVT prophylaxis: Coumadin (on hold) Disposition and plan: Continue abx per ID. Await vascular surgeon input for possible RLE intervention. d/c when cleared by consultants Discussed plan of care with Dr. Andrade Problems: Subjective 24 Hr Interval Summary Free Text/Dictation no s/s of distress Exam/Review of Systems Vital Signs Vitals Vital Signs Date Time Temp Pulse Resp B/P Pulse Ox O2 Delivery O2 Flow Rate FiO2 05/08/16 07:54 97.8 60 16 156/74 95 05/06/16 23:00 Room Air Intake and Output 05/07/16 05/07/16 05/08/16 15:00 23:00 07:00 Intake Total 250 ml 1280 ml 450 ml Balance 250 ml 1280 ml 450 ml Exam General: No acute signs or symptoms of distress Eyes: pupils equal round, Anicteric sclera Neck: Supple nontender, no JVD Cardiac: S1, S2 auscultated, regular rhythm and rate Pulmonary: No coarse rhonchi or breathing auscultated GI: Abdomen soft nontender nondistended, bowel sounds active Extremities: No edema bilateral lower extremities Skin: erythema seen on dorsal portion of right foot. less now Neurologic: Alert to person place and time and situation Results Result Diagram: 05/08/16 0509 05/08/16 0509 Results 24 hrs Laboratory Tests Test 05/07/16 11:55 05/07/16 17:15 05/07/16 20:30 05/08/16 05:09 Bedside Glucose 102 111 127 Anion Gap 16 Basophils # 0.0 Basophils % 0.5 Blood Urea Nitrogen 17 Calcium Level 9.0 Carbon Dioxide Level 22 Chloride Level 107 Creatinine 0.77 Eosinophils # 0.5 Eosinophils % 4.3 Glucose Level 82 Hematocrit 35.1 L Hemoglobin 12.0 L Lymphocytes # 1.9 Lymphocytes % 17.6 Mean Corpuscular Hemoglobin 31.9 Mean Corpuscular Hemoglobin Concent 34.1 Mean Corpuscular Volume 93.5 Mean Platelet Volume 9.3 Monocytes # 0.7 Monocytes % 6.2 Neutrophils # 7.7 H Neutrophils % 71.4 Nucleated Red Blood Cells # 0.0 Nucleated Red Blood Cells % 0.0 Platelet Count 252 Potassium Level 4.4 Red Blood Count 3.76 L Red Cell Distribution Width 13.2 Sodium Level 141 White Blood Count 10.8 Test 05/08/16 07:42 Bedside Glucose 84 Medications Medications Current Medications Ondansetron HCl (Zofran Inj) 4 mg Q6H PRN IV NAUSEA AND/OR VOMITING; Start 05/02 at 21:30 Acetaminophen (Tylenol Tab) 650 mg Q6H PRN PO PAIN LEVEL 1-3 OR FEVER; Start at 21:30 Acetaminophen/ Hydrocodone Bitart ([place] (5/325)) 1 tab Q6H PRN PO MODERATE PAIN LEVEL 4-6 Last administered on 05/08/16 06:02; Admin Dose 1 TAB; Start 05/02/16 at 21:30 Morphine Sulfate (morphine) 2 mg Q4H PRN IV SEVERE PAIN LEVEL 7-10 Last administered on 05/07/16 23:21; Admin Dose 2 MG; Start 05/02/16 at 21:30 Docusate Sodium (Colace) 100 mg Q12H PRN PO CONSTIPATION; Start 05/02/16 at 21: 30 Zolpidem Tartrate (Ambien) 5 mg QHS PRN PO SLEEP Last administered on 02:31; Admin Dose 5 MG; Start 05/02/16 at 21:30 Atorvastatin Calcium (Lipitor) 80 mg QHS PO Last administered on 05/07/16 20: 21; Admin Dose 80 MG; Start 05/03/16 at 21:00 Benazepril HCl (Lotensin) 40 mg DAILY PO Last administered on 05/08/16 08:25; Admin Dose 40 MG; Start 05/03/16 at 09:00 Felodipine (Plendil) 5 mg DAILY PO Last administered on 05/08/16 08:24; Admin Dose 5 MG; Start 05/03/16 at 09:00 Metoprolol Succinate (Toprol Xl) 100 mg BID PO Last administered on 05/08/16 08:25; Admin Dose 100 MG; Start 05/03/16 at 09:00 Insulin Glargine (Lantus) 10 unit HS SC Last administered on 05/07/16 20:34; Admin Dose 10 UNIT; Start 05/03/16 at 21:00 Miscellaneous Information 1 ea NOTE XX ; Start 05/02/16 at 23:45 Glucose (Glutose) 15 gm Q15M PRN PO DECREASED GLUCOSE; Start 05/02/16 at 23:45 Glucose (Glutose) 22.5 gm Q15M PRN PO DECREASED GLUCOSE; Start 05/02/16 at 23:45 Dextrose (D50w Syringe) 25 ml Q15M PRN IV DECREASED GLUCOSE; Start 05/02/16 at 23:45 Dextrose (D50w Syringe) 50 ml Q15M PRN IV DECREASED GLUCOSE; Start 05/02/16 at 23:45 Glucagon (Glucagen) 1 mg Q15M PRN IM DECREASED GLUCOSE; Start 05/02/16 at 23:45 Glucose (Glutose) 15 gm Q15M PRN BUCCAL DECREASED GLUCOSE; Start 05/02/16 at 23: 45 Levofloxacin (Levaquin) 500 mg DAILY@06 PO Last administered on 05/08/16 05:41 ; Admin Dose 500 MG; Start 05/04/16 at 16:00 Hydralazine HCl 10 mg 10 mg Q4H PRN IV ELEVATED SYSTOLIC BP Last administered on 05/06/16 22:24; Admin Dose 10 MG; Start 05/05/16 at 04:30 Vancomycin HCl/ Sodium Chloride (Vancocin/NS) 150 ml @ 75 mls/hr Q12H IVPB Last administered on 05/07/16 23:24; Admin Dose 75 MLS/HR; Start 05/07/16 at 23 :00 TRSITON PINEDA May 08, 2016 09:55
[2016-05-08] MEDS: VANCOMYCIN 750 MG in SOD CHLORIDE 0.9% 150 ML IVPB SCH ×2 (11:05→23:08)
--- NOTE | 2016-05-08 14:01 | CONS ---
Date/Time of Note Date/Time of Note DATE: 05/08/16 TIME: 14:00 Consult Date/Type/Reason Admit Date/Time May 02, 2016 at 19:57 Type of Consultation: ID Subjective no acute changes, alert, feels good, no fevers, nad Objective Vital Signs Date Time Temp Pulse Resp B/P Pulse Ox O2 Delivery O2 Flow Rate FiO2 05/08/16 07:54 97.8 60 16 156/74 95 05/06/16 23:00 Room Air Intake and Output 05/07/16 05/07/16 05/08/16 15:00 23:00 07:00 Intake Total 250 ml 1280 ml 450 ml Balance 250 ml 1280 ml 450 ml Results/Medications Result Diagram: 05/08/16 0509 05/08/16 0509 Results 24 hrs Laboratory Tests Test 05/07/16 17:15 05/07/16 20:30 05/08/16 05:09 05/08/16 07:42 Bedside Glucose 111 127 84 Anion Gap 16 Basophils # 0.0 Basophils % 0.5 Blood Urea Nitrogen 17 Calcium Level 9.0 Carbon Dioxide Level 22 Chloride Level 107 Creatinine 0.77 Eosinophils # 0.5 Eosinophils % 4.3 Glucose Level 82 Hematocrit 35.1 L Hemoglobin 12.0 L Lymphocytes # 1.9 Lymphocytes % 17.6 Mean Corpuscular Hemoglobin 31.9 Mean Corpuscular Hemoglobin Concent 34.1 Mean Corpuscular Volume 93.5 Mean Platelet Volume 9.3 Monocytes # 0.7 Monocytes % 6.2 Neutrophils # 7.7 H Neutrophils % 71.4 Nucleated Red Blood Cells # 0.0 Nucleated Red Blood Cells % 0.0 Platelet Count 252 Potassium Level 4.4 Red Blood Count 3.76 L Red Cell Distribution Width 13.2 Sodium Level 141 White Blood Count 10.8 Test 05/08/16 11:48 Bedside Glucose 120 Medications Current Medications Ondansetron HCl (Zofran Inj) 4 mg Q6H PRN IV NAUSEA AND/OR VOMITING; Start 05/02 at 21:30 Acetaminophen (Tylenol Tab) 650 mg Q6H PRN PO PAIN LEVEL 1-3 OR FEVER; Start at 21:30 Acetaminophen/ Hydrocodone Bitart ([place] (5/325)) 1 tab Q6H PRN PO MODERATE PAIN LEVEL 4-6 Last administered on 05/08/16t 06:02; Admin Dose 1 TAB; Start 05/02/16 at 21:30 Morphine Sulfate (morphine) 2 mg Q4H PRN IV SEVERE PAIN LEVEL 7-10 Last administered on 05/07/16 23:21; Admin Dose 2 MG; Start 05/02/16 at 21:30 Docusate Sodium (Colace) 100 mg Q12H PRN PO CONSTIPATION; Start 05/02/16 at 21: 30 Zolpidem Tartrate (Ambien) 5 mg QHS PRN PO SLEEP Last administered on 02:31; Admin Dose 5 MG; Start 05/02/16 at 21:30 Atorvastatin Calcium (Lipitor) 80 mg QHS PO Last administered on 05/07/16 20: 21; Admin Dose 80 MG; Start 05/03/16 at 21:00 Benazepril HCl (Lotensin) 40 mg DAILY PO Last administered on 05/08/16 08:25; Admin Dose 40 MG; Start 05/03/16 at 09:00 Felodipine (Plendil) 5 mg DAILY PO Last administered on 05/08/16 08:24; Admin Dose 5 MG; Start 05/03/16 at 09:00 Metoprolol Succinate (Toprol Xl) 100 mg BID PO Last administered on 05/08/16 08:25; Admin Dose 100 MG; Start 05/03/16 at 09:00 Insulin Glargine (Lantus) 10 unit HS SC Last administered on 05/07/16 20:34; Admin Dose 10 UNIT; Start 05/03/16 at 21:00 Miscellaneous Information 1 ea NOTE XX ; Start 05/02/16 at 23:45 Glucose (Glutose) 15 gm Q15M PRN PO DECREASED GLUCOSE; Start 05/02/16 at 23:45 Glucose (Glutose) 22.5 gm Q15M PRN PO DECREASED GLUCOSE; Start 05/02/16 at 23:45 Dextrose (D50w Syringe) 25 ml Q15M PRN IV DECREASED GLUCOSE; Start 05/02/16 at 23:45 Dextrose (D50w Syringe) 50 ml Q15M PRN IV DECREASED GLUCOSE; Start 05/02/16 at 23:45 Glucagon (Glucagen) 1 mg Q15M PRN IM DECREASED GLUCOSE; Start 05/02/16 at 23:45 Glucose (Glutose) 15 gm Q15M PRN BUCCAL DECREASED GLUCOSE; Start 05/02/16 at 23: 45 Levofloxacin (Levaquin) 500 mg DAILY@06 PO Last administered on 05/08/16 05:41 ; Admin Dose 500 MG; Start 05/04/16 at 16:00 Hydralazine HCl 10 mg 10 mg Q4H PRN IV ELEVATED SYSTOLIC BP Last administered on 05/06/16 22:24; Admin Dose 10 MG; Start 05/05/16 at 04:30 Vancomycin HCl/ Sodium Chloride (Vancocin/NS) 150 ml @ 75 mls/hr Q12H IVPB Last administered on 05/08/16 11:05; Admin Dose 75 MLS/HR; Start 05/07/16 at 23 :00 Assessment/Plan Chief Complaint/Hosp Course ANTIMICROBIALS: 1. Levaquin. 2. Vancomycin. PHYSICAL EXAMINATION: GENERAL: This is a well-developed, well-nourished elderly man who is alert, in no distress. HEENT: Head atraumatic, normocephalic. Sclerae anicteric. Buccal mucosa pink. NECK: Supple. Trachea midline. CHEST: Rise symmetrical. Breath sounds clear. HEART: S1, S2. ABDOMEN: Soft, bowel tones present. EXTREMITIES: Without cyanosis. Right lower extremity with erythema. ASSESSMENT: 1. Right lower extremity cellulitis. 2. Severe peripheral arterial disease. 3. Diabetes. 4. Hypertension. PLAN: The patient remains stable, continue abx. Pending vascular intervention [facility] staff Problems: MANSI CURRAN NP May 08, 2016 14:01
[2016-05-08] MEDS: morphine 2 MG INJ IV PRN ×2 (16:45→21:31)
[2016-05-08] MEDS: INSULIN GLARGINE [LANtus] 3 ML PEN SC SCH (21:31)
[2016-05-08] MEDS: ATORVASTATIN 80 MG TAB PO SCH (21:34)
[2016-05-08] MEDS: ZOLPIDEM 5 MG TAB PO PRN (23:50)
[2016-05-09] MEDS: LEVOFLOXACIN 500 MG TAB PO SCH (05:46)
[2016-05-09 06:49] LABS: BASOPHILS % 0.4 % (0.0-2.0); EOSINOPHILS # 0.4 10^3/ul (0.0-0.5); EOSINOPHILS % 4.1 % (0.0-7.0); HEMATOCRIT 35.7 % (42.0-52.0); HEMOGLOBIN 12.2 g/dl (14.0-18.0); LYMPHOCYTES % 19.4 % (15.0-51.0); MEAN CORPUSCULAR HGB CONC 34.3 g/dl (32.0-37.0); MEAN CORPUSCULAR VOLUME 93.4 fl (82.0-101.0); MEAN PLATELET VOLUME 9.6 fl (7.4-10.4); MONOCYTE # 0.5 10^3/ul (0.3-0.9); MONOCYTES % 5.2 % (0.0-11.0); NEUTROPHIL # 7.4 10^3/ul (1.6-7.5); NEUTROPHILS % 70.9 % (39.0-77.0); PLATELET COUNT 234 10^3/UL (140-440); RED BLOOD COUNT 3.82 10^6/ul (4.70-6.10); RED CELL DISTRIBUTION WIDTH 13.2 % (11.5-14.5); UNCORRECTED WBC 10.4 10^3/ul (4.8-10.8); WHITE BLOOD COUNT 10.4 10^3/ul (4.8-10.8)
[2016-05-09] MEDS: morphine 2 MG INJ IV PRN (06:54)
[2016-05-09 06:58] LABS: CONDITION 1
[2016-05-09 07:02] LABS: POTASSIUM 4.3 mmol/L (3.5-5.1)
[2016-05-09 07:05] LABS: CREATININE 0.75 mg/dl (0.61-1.24)
[2016-05-09 07:06] LABS: CALCIUM 8.8 mg/dl (8.4-10.2)
[2016-05-09 07:25] VITALS: BP 177/77; RESP 16
[2016-05-09] MEDS: INSULIN ASPART [NOVOLOG] 3 ML PEN SC SCH ×4 (08:03→20:39)
[2016-05-09] MEDS: FELODIPINE (ER) 5 MG TAB PO SCH (08:03)
[2016-05-09] MEDS: metFORMIN 500 MG TAB PO SCH ×2 (08:04→17:50)
[2016-05-09] MEDS: METOPROLOL (XL) 50 MG TAB PO SCH ×2 (08:04→20:41)
[2016-05-09] MEDS: BENAZEPRIL 40 MG TAB PO SCH (08:05)
[2016-05-09 08:15] VITALS: PULSE 64; PULSE 66
--- NOTE | 2016-05-09 08:37 | PN ---
Date/Time of Note Date/Time of Note DATE: 05/09/16 TIME: 08:31 Assessment/Plan VTE Prophylaxis VTE Prophylaxis Intervention: SCD's Lines/Catheters [facility]from [facility] Saline Lock Urinary Cath still in place: No Assessment/Plan Chief Complaint/Hosp Course Assessment and plan 76 M with: 1. Right foot pain secondary to cellulitis and stenosis of right popliteal artery. ID and vascular surgeon is following. - continue with antibiotics and plan for intervention once resolution of cellulitis. Warfarin on hold per vascular surgeon recommendations - plan for possible angiogram once the anticoagulation has been reversed 2. Ofw-[id number] diabetes -FS stable, A1c = 6.9 - Continue on insulin regimen. Will adjust as needed 3. Essential hypertension - bp is high nL monitor for now, continue on antihypertensives and adjust as needed 4. History of heart valve replacement. Patient to be resumed on Coumadin s/p rle intervention . V. Leukocytosis tachycardia secondary to cellulitis. -Continue on current antibiotic regimen, f/u ID rec's. No fever for now. DVT prophylaxis: Coumadin (on hold) Disposition and plan: Continue abx per ID. Await vascular surgeon input for possible RLE intervention. d/c when cleared by consultants Problems: Subjective 24 Hr Interval Summary Free Text/Dictation Denies LE pain or swelling, watching TV. Exam/Review of Systems Vital Signs Vitals Vital Signs Date Time Temp Pulse Resp B/P Pulse Ox O2 Delivery O2 Flow Rate FiO2 05/09/16 08:15 64 66 05/09/16 07:25 97.6 16 177/77 96 05/06/16 23:00 Room Air Intake and Output 05/08/16 05/08/16 05/09/16 15:00 23:00 07:00 Intake Total 800 ml 350 ml Output Total 600 ml Balance 800 ml -250 ml Exam General: No acute signs or symptoms of distress Eyes: pupils equal round, Anicteric sclera Neck: Supple nontender, no JVD Cardiac: S1, S2 auscultated, regular rhythm and rate Pulmonary: No coarse rhonchi or breathing auscultated GI: Abdomen soft nontender nondistended, bowel sounds active Extremities: + redness right forefoot, but non tender, no warmth here, otherwise no edema bilateral lower extremities Skin: erythema seen on dorsal portion of right foot. less now Neurologic: Alert to person place and time and situation Results Result Diagram: 05/09/16 0535 05/09/16 0535 Results 24 hrs Laboratory Tests Test 05/08/16 11:48 05/08/16 16:48 05/08/16 21:26 05/09/16 05:35 Bedside Glucose 120 175 123 Anion Gap 16 Basophils # 0.0 Basophils % 0.4 Blood Urea Nitrogen 13 Calcium Level 8.8 Carbon Dioxide Level 21 Chloride Level 110 Creatinine 0.75 Eosinophils # 0.4 Eosinophils % 4.1 Glucose Level 86 Hematocrit 35.7 L Hemoglobin 12.2 L Lymphocytes # 2.0 Lymphocytes % 19.4 Mean Corpuscular Hemoglobin 32.0 Mean Corpuscular Hemoglobin Concent 34.3 Mean Corpuscular Volume 93.4 Mean Platelet Volume 9.6 Monocytes # 0.5 Monocytes % 5.2 Neutrophils # 7.4 Neutrophils % 70.9 Nucleated Red Blood Cells # 0.0 Nucleated Red Blood Cells % 0.0 Platelet Count 234 Potassium Level 4.3 Red Blood Count 3.82 L Red Cell Distribution Width 13.2 Sodium Level 143 White Blood Count 10.4 Test 05/09/16 08:02 Bedside Glucose 93 Medications Medications Current Medications Ondansetron HCl (Zofran Inj) 4 mg Q6H PRN IV NAUSEA AND/OR VOMITING; Start 05/02 at 21:30 Acetaminophen (Tylenol Tab) 650 mg Q6H PRN PO PAIN LEVEL 1-3 OR FEVER; Start at 21:30 Acetaminophen/ Hydrocodone Bitart ([place] (5/325)) 1 tab Q6H PRN PO MODERATE PAIN LEVEL 4-6 Last administered on 05/08/16 14:47; Admin Dose 1 TAB; Start 05/02/16 at 21:30 Morphine Sulfate (morphine) 2 mg Q4H PRN IV SEVERE PAIN LEVEL 7-10 Last administered on 05/09/16 06:54; Admin Dose 2 MG; Start 05/02/16 at 21:30 Docusate Sodium (Colace) 100 mg Q12H PRN PO CONSTIPATION; Start 05/02/16 at 21: 30 Zolpidem Tartrate (Ambien) 5 mg QHS PRN PO SLEEP Last administered on 23:50; Admin Dose 5 MG; Start 05/02/16 at 21:30 Atorvastatin Calcium (Lipitor) 80 mg QHS PO Last administered on 05/08/16 21: 34; Admin Dose 80 MG; Start 05/03/16 at 21:00 Benazepril HCl (Lotensin) 40 mg DAILY PO Last administered on 05/09/16 08:05; Admin Dose 40 MG; Start 05/03/16 at 09:00 Felodipine (Plendil) 5 mg DAILY PO Last administered on 05/09/16 08:03; Admin Dose 5 MG; Start 05/03/16 at 09:00 Metoprolol Succinate (Toprol Xl) 100 mg BID PO Last administered on 05/09/16 08:04; Admin Dose 100 MG; Start 05/03/16 at 09:00 Insulin Glargine (Lantus) 10 unit HS SC Last administered on 05/08/16 21:31; Admin Dose 10 UNIT; Start 05/03/16 at 21:00 Miscellaneous Information 1 ea NOTE XX ; Start 05/02/16 at 23:45 Glucose (Glutose) 15 gm Q15M PRN PO DECREASED GLUCOSE; Start 05/02/16 at 23:45 Glucose (Glutose) 22.5 gm Q15M PRN PO DECREASED GLUCOSE; Start 05/02/16 at 23:45 Dextrose (D50w Syringe) 25 ml Q15M PRN IV DECREASED GLUCOSE; Start 05/02/16 at 23:45 Dextrose (D50w Syringe) 50 ml Q15M PRN IV DECREASED GLUCOSE; Start 05/02/16 at 23:45 Glucagon (Glucagen) 1 mg Q15M PRN IM DECREASED GLUCOSE; Start 05/02/16 at 23:45 Glucose (Glutose) 15 gm Q15M PRN BUCCAL DECREASED GLUCOSE; Start 05/02/16 at 23: 45 Levofloxacin (Levaquin) 500 mg DAILY@06 PO Last administered on 05/09/16 05:46 ; Admin Dose 500 MG; Start 05/04/16 at 16:00 Hydralazine HCl 10 mg 10 mg Q4H PRN IV ELEVATED SYSTOLIC BP Last administered on 05/06/16 22:24; Admin Dose 10 MG; Start 05/05/16 at 04:30 Vancomycin HCl/ Sodium Chloride (Vancocin/NS) 150 ml @ 75 mls/hr Q12H IVPB Last administered on 1/11/17at 23:08; Admin Dose 75 MLS/HR; Start 05/07/16 at 23 :00 SERGE MCKEON May 09, 2016 08:37
[2016-05-09 11:45] VITALS: BP 140/65; PULSE 70
[2016-05-09] MEDS: VANCOMYCIN 750 MG in SOD CHLORIDE 0.9% 150 ML IVPB SCH ×2 (11:47→23:17)
--- NOTE | 2016-05-09 14:54 | CONS ---
Date/Time of Note Date/Time of Note DATE: 05/09/16 TIME: 14:53 Consult Date/Type/Reason Admit Date/Time May 02, 2016 at 19:57 Type of Consultation: ID Subjective awake, feels ok, no fevers, nad Objective Vital Signs Date Time Temp Pulse Resp B/P Pulse Ox O2 Delivery O2 Flow Rate FiO2 05/09/16 11:45 70 140/65 70 05/09/16 07:25 97.6 16 96 05/06/16 23:00 Room Air Intake and Output 05/08/16 05/08/16 05/09/16 15:00 23:00 07:00 Intake Total 800 ml 350 ml Output Total 600 ml Balance 800 ml -250 ml Results/Medications Result Diagram: 05/09/16 0535 05/09/16 0535 Results 24 hrs Laboratory Tests Test 05/08/16 16:48 05/08/16 21:26 05/09/16 05:35 05/09/16 08:02 Bedside Glucose 175 123 93 Anion Gap 16 Basophils # 0.0 Basophils % 0.4 Blood Urea Nitrogen 13 Calcium Level 8.8 Carbon Dioxide Level 21 Chloride Level 110 Creatinine 0.75 Eosinophils # 0.4 Eosinophils % 4.1 Glucose Level 86 Hematocrit 35.7 L Hemoglobin 12.2 L Lymphocytes # 2.0 Lymphocytes % 19.4 Mean Corpuscular Hemoglobin 32.0 Mean Corpuscular Hemoglobin Concent 34.3 Mean Corpuscular Volume 93.4 Mean Platelet Volume 9.6 Monocytes # 0.5 Monocytes % 5.2 Neutrophils # 7.4 Neutrophils % 70.9 Nucleated Red Blood Cells # 0.0 Nucleated Red Blood Cells % 0.0 Platelet Count 234 Potassium Level 4.3 Red Blood Count 3.82 L Red Cell Distribution Width 13.2 Sodium Level 143 White Blood Count 10.4 Test 05/09/16 12:12 Bedside Glucose 126 Medications Current Medications Ondansetron HCl (Zofran Inj) 4 mg Q6H PRN IV NAUSEA AND/OR VOMITING; Start 05/02 at 21:30 Acetaminophen (Tylenol Tab) 650 mg Q6H PRN PO PAIN LEVEL 1-3 OR FEVER; Start at 21:30 Acetaminophen/ Hydrocodone Bitart ([place] (5/325)) 1 tab Q6H PRN PO MODERATE PAIN LEVEL 4-6 Last administered on 05/08/16 14:47; Admin Dose 1 TAB; Start 05/02/16 at 21:30 Morphine Sulfate (morphine) 2 mg Q4H PRN IV SEVERE PAIN LEVEL 7-10 Last administered on 05/09/16 06:54; Admin Dose 2 MG; Start 05/02/16 at 21:30 Docusate Sodium (Colace) 100 mg Q12H PRN PO CONSTIPATION; Start 05/02/16 at 21: 30 Zolpidem Tartrate (Ambien) 5 mg QHS PRN PO SLEEP Last administered on 23:50; Admin Dose 5 MG; Start 05/02/16 at 21:30 Atorvastatin Calcium (Lipitor) 80 mg QHS PO Last administered on 05/08/16 21: 34; Admin Dose 80 MG; Start 05/03/16 at 21:00 Benazepril HCl (Lotensin) 40 mg DAILY PO Last administered on 05/09/16 08:05; Admin Dose 40 MG; Start 05/03/16 at 09:00 Felodipine (Plendil) 5 mg DAILY PO Last administered on 05/09/16 08:03; Admin Dose 5 MG; Start 05/03/16 at 09:00 Metoprolol Succinate (Toprol Xl) 100 mg BID PO Last administered on 05/09/16 08:04; Admin Dose 100 MG; Start 05/03/16 at 09:00 Insulin Glargine (Lantus) 10 unit HS SC Last administered on 05/08/16 21:31; Admin Dose 10 UNIT; Start 05/03/16 at 21:00 Miscellaneous Information 1 ea NOTE XX ; Start 05/02/16 at 23:45 Glucose (Glutose) 15 gm Q15M PRN PO DECREASED GLUCOSE; Start 05/02/16 at 23:45 Glucose (Glutose) 22.5 gm Q15M PRN PO DECREASED GLUCOSE; Start 05/02/16 at 23:45 Dextrose (D50w Syringe) 25 ml Q15M PRN IV DECREASED GLUCOSE; Start 05/02/16 at 23:45 Dextrose (D50w Syringe) 50 ml Q15M PRN IV DECREASED GLUCOSE; Start 05/02/16 at 23:45 Glucagon (Glucagen) 1 mg Q15M PRN IM DECREASED GLUCOSE; Start 1/5/17 at 23:45 Glucose (Glutose) 15 gm Q15M PRN BUCCAL DECREASED GLUCOSE; Start 05/02/16 at 23: 45 Levofloxacin (Levaquin) 500 mg DAILY@06 PO Last administered on 05/09/16 05:46 ; Admin Dose 500 MG; Start 05/04/16 at 16:00 Hydralazine HCl 10 mg 10 mg Q4H PRN IV ELEVATED SYSTOLIC BP Last administered on 05/06/16 22:24; Admin Dose 10 MG; Start 05/05/16 at 04:30 Vancomycin HCl/ Sodium Chloride (Vancocin/NS) 150 ml @ 75 mls/hr Q12H IVPB Last administered on 05/09/16 11:47; Admin Dose 75 MLS/HR; Start 05/07/16 at 23 :00 Miscellaneous Information (*Rx Drug Level Order Reminder*) 1 ONCE ONCE XX ; Start 05/10/16 at 10:00; Stop 05/10/16 at 10:01 Assessment/Plan Chief Complaint/Hosp Course ANTIMICROBIALS: 1. Levaquin. 2. Vancomycin. PHYSICAL EXAMINATION: GENERAL: This is a well-developed, well-nourished elderly man who is alert, in no distress. HEENT: Head atraumatic, normocephalic. Sclerae anicteric. Buccal mucosa pink. NECK: Supple. Trachea midline. CHEST: Rise symmetrical. Breath sounds clear. HEART: S1, S2. ABDOMEN: Soft, bowel tones present. EXTREMITIES: Without cyanosis. Right lower extremity with decreased erythema. ASSESSMENT: 1. Right lower extremity cellulitis==> erythema decreasing. 2. Severe peripheral arterial disease. 3. Diabetes. 4. Hypertension. PLAN: The patient remains stable, continue abx. Pending vascular intervention staff Problems: MANSI CURRAN NP May 09, 2016 14:53
[2016-05-09 19:00] VITALS: BP 142/67; RESP 18
[2016-05-09] MEDS: ATORVASTATIN 80 MG TAB PO SCH (20:39)
[2016-05-09] MEDS: INSULIN GLARGINE [LANtus] 3 ML PEN SC SCH (20:43)
[2016-05-09] MEDS: HYDROCODONE/APAP (5/325) TAB PO PRN (20:45)
[2016-05-10] MEDS: LEVOFLOXACIN 500 MG TAB PO SCH (05:29)
[2016-05-10] MEDS: HYDROCODONE/APAP (5/325) TAB PO PRN ×2 (05:32→23:12)
[2016-05-10 05:58] LABS: BASOPHIL # 0.1 10^3/ul (0.0-0.1); BASOPHILS % 0.6 % (0.0-2.0); EOSINOPHILS # 0.4 10^3/ul (0.0-0.5); HEMATOCRIT 34.7 % (42.0-52.0); HEMOGLOBIN 12.1 g/dl (14.0-18.0); LYMPHOCYTES % 22.2 % (15.0-51.0); MEAN CORPUSCULAR HEMOGLOBIN 32.2 pg (29.0-33.0); MEAN CORPUSCULAR HGB CONC 34.8 g/dl (32.0-37.0); MEAN CORPUSCULAR VOLUME 92.5 fl (82.0-101.0); MEAN PLATELET VOLUME 9.4 fl (7.4-10.4); MONOCYTE # 0.6 10^3/ul (0.3-0.9); MONOCYTES % 6.4 % (0.0-11.0); NEUTROPHIL # 5.9 10^3/ul (1.6-7.5); NEUTROPHILS % 66.8 % (39.0-77.0); PLATELET COUNT 228 10^3/UL (140-440); RED BLOOD COUNT 3.75 10^6/ul (4.70-6.10); RED CELL DISTRIBUTION WIDTH 13.1 % (11.5-14.5); UNCORRECTED WBC 8.9 10^3/ul (4.8-10.8); WHITE BLOOD COUNT 8.9 10^3/ul (4.8-10.8)
[2016-05-10 06:19] LABS: CONDITION 1
[2016-05-10 06:31] LABS: POTASSIUM 4.1 mmol/L (3.5-5.1)
[2016-05-10 06:34] LABS: CREATININE 0.72 mg/dl (0.61-1.24)
[2016-05-10 06:35] LABS: CALCIUM 8.9 mg/dl (8.4-10.2)
[2016-05-10 07:19] VITALS: BP 160/70; RESP 18
[2016-05-10] MEDS: FELODIPINE (ER) 5 MG TAB PO SCH (08:14)
[2016-05-10] MEDS: BENAZEPRIL 40 MG TAB PO SCH (08:14)
[2016-05-10] MEDS: METOPROLOL (XL) 50 MG TAB PO SCH ×2 (08:14→21:11)
[2016-05-10] MEDS: metFORMIN 500 MG TAB PO SCH ×2 (08:15→18:02)
[2016-05-10] MEDS: INSULIN ASPART [NOVOLOG] 3 ML PEN SC SCH ×4 (10:22→22:40)
[2016-05-10] MEDS: VANCOMYCIN 750 MG in SOD CHLORIDE 0.9% 150 ML IVPB SCH ×2 (11:03→23:13)
[2016-05-10] MEDS ORDERED: IODIXANOL LOCM 100 ML BTL ONE (15:38)
[2016-05-10] MEDS ORDERED: LIDOCAINE 1% (MDV) 20 ML INJ ONE (15:38)
[2016-05-10] MEDS ORDERED: FENTAnyl 50 MCG/ML VIAL ONE (15:50)
[2016-05-10] MEDS ORDERED: MIDAZOLAM 1 MG/ML 2 ML INJ ONE (15:50)
--- NOTE | 2016-05-10 16:07 | PN ---
DATE: 05/10/2016 SUBJECTIVE: This is an internal medicine followup note. Patient remains stable overnight, no new e vents. Has mild discomfort in the right lower extremity, but no severe pain. PHYSICAL EXAMINATION: VITAL SIGNS: Temperature 98, pulse is 60, blood pressure 160/60, O2 saturation 96% on FIO2 of room air. NECK: Supple. No JVD or lymphadenopathy. CARDIAC: S1, S2, no added sounds or murmurs. CHEST: Diminished air entry bilaterally but no rales or wheezes. ABDOMEN: Soft, nontender. No guarding or rebound. EXTREMITIES: No cyanosis, clubbing, edema. NEUROLOGIC: Grossly intact. No focal deficits. Right distal lower extremity is cooler to touch, b ut pulses are thready but palpable. IMPRESSION AND PLAN: 1. Cellulitis, right lower extremity with peripheral arterial disease. The patient is pending dary ogram this afternoon per Dr. Quiroga. 2. [id number] diabetes. Continue current medication management. 3. Essential hypertension. Continue current blood pressure medications. 4. History of valve replacement. Resume anticoagulation following angiogram. 5. Continue deep venous thrombosis and gastrointestinal prophylaxis. Dictated By: BRAYDEN CHOUDHARY/ANABELA Conf#: [id number] DID#: [id number]
[2016-05-10] MEDS ORDERED: hydrALAzine 20 MG INJ ONE ×2 (16:27→16:45)
[2016-05-10] MEDS ORDERED: NITROGLYCERIN AEROSOL (4.9 GM) ONE (17:08)
--- NOTE | 2016-05-10 19:43 | CONS ---
Date/Time of Note Date/Time of Note DATE: 05/10/16 TIME: 19:41 Consult Date/Type/Reason Admit Date/Time May 02, 2016 at 19:57 Type of Consultation: ID Subjective no events, looks comfortable, no fevers Objective Vital Signs Date Time Temp Pulse Resp B/P Pulse Ox O2 Delivery O2 Flow Rate FiO2 05/10/16 07:19 97.8 60 18 160/70 98 05/06/16 23:00 Room Air Intake and Output 05/09/16 05/09/16 05/10/16 15:00 23:00 07:00 Intake Total 150 ml 1320 ml 512 ml Output Total 900 ml 1400 ml Balance 150 ml 420 ml -888 ml Results/Medications Result Diagram: 05/10/16 0457 05/10/16 0457 Results 24 hrs Laboratory Tests Test 05/09/16 20:38 05/10/16 04:57 05/10/16 07:25 05/10/16 10:01 Bedside Glucose 127 150 Anion Gap 15 Basophils # 0.1 Basophils % 0.6 Blood Urea Nitrogen 12 Calcium Level 8.9 Carbon Dioxide Level 23 Chloride Level 109 Creatinine 0.72 Eosinophils # 0.4 Eosinophils % 4.0 Glucose Level 102 Hematocrit 34.7 L Hemoglobin 12.1 L Lymphocytes # 2.0 Lymphocytes % 22.2 Mean Corpuscular Hemoglobin 32.2 Mean Corpuscular Hemoglobin Concent 34.8 Mean Corpuscular Volume 92.5 Mean Platelet Volume 9.4 Monocytes # 0.6 Monocytes % 6.4 Neutrophils # 5.9 Neutrophils % 66.8 Nucleated Red Blood Cells # 0.0 Nucleated Red Blood Cells % 0.0 Platelet Count 228 Potassium Level 4.1 Red Blood Count 3.75 L Red Cell Distribution Width 13.1 Sodium Level 143 White Blood Count 8.9 Vancomycin Level Trough 13.7 Test 05/10/16 11:49 05/10/16 17:59 Bedside Glucose 141 140 Medications Current Medications Ondansetron HCl (Zofran Inj) 4 mg Q6H PRN IV NAUSEA AND/OR VOMITING; Start 05/02 at 21:30 Acetaminophen (Tylenol Tab) 650 mg Q6H PRN PO PAIN LEVEL 1-3 OR FEVER; Start at 21:30 Acetaminophen/ Hydrocodone Bitart ([place] (5/325)) 1 tab Q6H PRN PO MODERATE PAIN LEVEL 4-6 Last administered on 05/10/16 05:32; Admin Dose 1 TAB; Start 05/02/16 at 21:30 Morphine Sulfate (morphine) 2 mg Q4H PRN IV SEVERE PAIN LEVEL 7-10 Last administered on 05/09/16 06:54; Admin Dose 2 MG; Start 05/02/16 at 21:30 Docusate Sodium (Colace) 100 mg Q12H PRN PO CONSTIPATION; Start 05/02/16 at 21: 30 Zolpidem Tartrate (Ambien) 5 mg QHS PRN PO SLEEP Last administered on 23:50; Admin Dose 5 MG; Start 05/02/16 at 21:30 Atorvastatin Calcium (Lipitor) 80 mg QHS PO Last administered on 05/09/16 20: 39; Admin Dose 80 MG; Start 05/03/16 at 21:00 Benazepril HCl (Lotensin) 40 mg DAILY PO Last administered on 05/10/16 08:14; Admin Dose 40 MG; Start 05/03/16 at 09:00 Felodipine (Plendil) 5 mg DAILY PO Last administered on 05/10/16 08:14; Admin Dose 5 MG; Start 05/03/16 at 09:00 Metoprolol Succinate (Toprol Xl) 100 mg BID PO Last administered on 05/10/16 08:14; Admin Dose 100 MG; Start 05/03/16 at 09:00 Insulin Glargine (Lantus) 10 unit HS SC Last administered on 05/09/16 20:43; Admin Dose 10 UNIT; Start 05/03/16 at 21:00 Miscellaneous Information 1 ea NOTE XX ; Start 05/02/16 at 23:45 Glucose (Glutose) 15 gm Q15M PRN PO DECREASED GLUCOSE; Start 05/02/16 at 23:45 Glucose (Glutose) 22.5 gm Q15M PRN PO DECREASED GLUCOSE; Start 05/02/16 at 23:45 Dextrose (D50w Syringe) 25 ml Q15M PRN IV DECREASED GLUCOSE; Start 05/02/16 at 23:45 Dextrose (D50w Syringe) 50 ml Q15M PRN IV DECREASED GLUCOSE; Start 05/02/16 at 23:45 Glucagon (Glucagen) 1 mg Q15M PRN IM DECREASED GLUCOSE; Start 05/02/16 at 23:45 Glucose (Glutose) 15 gm Q15M PRN BUCCAL DECREASED GLUCOSE; Start 05/02/16 at 23: 45 Levofloxacin (Levaquin) 500 mg DAILY@06 PO Last administered on 05/10/16 05:29 ; Admin Dose 500 MG; Start 05/04/16 at 16:00 Hydralazine HCl 10 mg 10 mg Q4H PRN IV ELEVATED SYSTOLIC BP Last administered on 05/06/16 22:24; Admin Dose 10 MG; Start 05/05/16 at 04:30 Vancomycin HCl/ Sodium Chloride (Vancocin/NS) 150 ml @ 75 mls/hr Q12H IVPB Last administered on 05/10/16 11:03; Admin Dose 75 MLS/HR; Start 05/07/16 at 23 :00 Assessment/Plan Chief Complaint/Hosp Course ANTIMICROBIALS: 1. Levaquin. 2. Vancomycin. PHYSICAL EXAMINATION: GENERAL: This is a well-developed, well-nourished elderly man who is alert, in no distress. HEENT: Head atraumatic, normocephalic. Sclerae anicteric. Buccal mucosa pink. NECK: Supple. Trachea midline. CHEST: Rise symmetrical. Breath sounds clear. HEART: S1, S2. ABDOMEN: Soft, bowel tones present. EXTREMITIES: Without cyanosis. Right lower extremity with decreased erythema. ASSESSMENT: 1. Right lower extremity cellulitis==> erythema decreasing. 2. Severe peripheral arterial disease. 3. Diabetes. 4. Hypertension. 5. CAD/Hx valve replacement PLAN: Remains stable, continue abx. Plan for vascular intervention DW staff Problems: MANSI CURRAN NP May 10, 2016 19:42
--- NOTE | 2016-05-10 20:26 | OPR ---
DATE OF OPERATION: PREOPERATIVE DIAGNOSIS: Peripheral vascular disease. POSTOPERATIVE DIAGNOSIS: Peripheral vascular disease. OPERATION PERFORMED: 1. Abdominal aortogram. 2. Third order degree angiogram. 3. Interpretation and supervision of the abdominal aortogram. 4. Catheter introduction into the abdominal aorta. 5. Ultrasound guidance into the central artery. 6. Conscious sedation for 1 hour. 7. Fluoroscopy. 8. Interpretation and supervision of the lower extremity angiogram. OPERATIVE TECHNIQUE: The patient was placed in supine position, prepped and draped in usual sterile fashion. Lidocaine 1% was used throughout the operation for local anesthesia. A time-out was call ed. I gained access into the left common femoral artery using ultrasound guidance. A guidewire was advanced through without any difficulty. Subcutaneous tissues dilated. ____ sheath was advanced o sandy guidewire and over a MEETiiNson wire. Rim catheter was advanced into the abdominal aorta. Abdomin al aortogram was done. Next, the catheter was advanced from the left to right, and the third order degree right lower extremity angiogram was done. Next, left lower extremity angiogram was done thro ugh the sheath. Interpretation and supervision of the aortogram revealed: 1. Abdominal aorta normal. 2. Right common iliac artery normal. 3. Right internal iliac artery normal. 4. Right external iliac artery normal. 5. Right common femoral artery normal. 6. Right profunda normal. 7. Right superficial femoral artery normal. 8. Right popliteal artery normal. 9. It was a very high bifurcation with the anterior tibial artery taking off normally at 3 mm vesse l. However, it became very diseased through the mid leg and became subtotal towards the foot with n o runoff. The posterior tibial artery and the peroneal artery also were subtotal from the mid leg d own with no good outflow. 10. There were no targets for bypass as well. On the left side: 1. Left common iliac artery normal. 2. Left internal iliac artery normal. 3. Left external iliac artery normal. 4. Left common femoral artery normal. 5. Left profunda normal. 6. Left superficial femoral artery normal. 7. Left popliteal artery had a 50% stenosis at the knee. 8. There was an anterior tibial artery which had more significant disease throughout its course. I t was a 1.5 to 2 mm vessel which became subtotal at the ankle with no outflow. 9. Peroneal artery was a 1 mm vessel with multiple disease which became subtotal at the ankle. 10. Posterior tibial artery was 100% occluded proximally, did not reconstitute. The patient tolerated procedure well, and the sheath was removed. Dictated By: CYNTHIA SRIVASTAVA/ANABELA Conf#: [id number] DID#: [id number]
[2016-05-10 20:30] VITALS: BP 133/53; RESP 18
[2016-05-10] MEDS: ATORVASTATIN 80 MG TAB PO SCH (21:07)
[2016-05-10 21:10] VITALS: BP 166/72; PULSE 74
[2016-05-10] MEDS: INSULIN GLARGINE [LANtus] 3 ML PEN SC SCH (22:35)
[2016-05-11] MEDS: LEVOFLOXACIN 500 MG TAB PO SCH (05:10)
[2016-05-11 06:58] LABS: POTASSIUM 4.6 mmol/L (3.5-5.1)
[2016-05-11 07:01] LABS: CREATININE 0.77 mg/dl (0.61-1.24)
[2016-05-11 07:02] LABS: CALCIUM 9.1 mg/dl (8.4-10.2)
[2016-05-11 07:07] LABS: BASOPHILS % 0.2 % (0.0-2.0); EOSINOPHILS # 0.3 10^3/ul (0.0-0.5); EOSINOPHILS % 2.3 % (0.0-7.0); HEMATOCRIT 37.5 % (42.0-52.0); HEMOGLOBIN 12.8 g/dl (14.0-18.0); LYMPHOCYTES # 2.2 10^3/ul (0.8-2.9); LYMPHOCYTES % 19.4 % (15.0-51.0); MEAN CORPUSCULAR HEMOGLOBIN 32.4 pg (29.0-33.0); MEAN CORPUSCULAR HGB CONC 34.2 g/dl (32.0-37.0); MEAN CORPUSCULAR VOLUME 94.8 fl (82.0-101.0); MONOCYTE # 0.7 10^3/ul (0.3-0.9); MONOCYTES % 6.5 % (0.0-11.0); NEUTROPHIL # 8.2 10^3/ul (1.6-7.5); NEUTROPHILS % 71.6 % (39.0-77.0); PLATELET COUNT 240 10^3/UL (140-440); RED BLOOD COUNT 3.96 10^6/ul (4.70-6.10); RED CELL DISTRIBUTION WIDTH 13.6 % (11.5-14.5); UNCORRECTED WBC 11.4 10^3/ul (4.8-10.8); WHITE BLOOD COUNT 11.4 10^3/ul (4.8-10.8)
[2016-05-11 07:36] LABS: CONDITION 1; LH ANALYZER COMMENTS 1; SUSPECT 1
[2016-05-11 08:05] VITALS: BP 184/77; RESP 20
[2016-05-11] MEDS: INSULIN ASPART [NOVOLOG] 3 ML PEN SC SCH ×4 (08:15→20:24)
[2016-05-11] MEDS: HYDROCODONE/APAP (5/325) TAB PO PRN (09:02)
--- NOTE | 2016-05-11 09:20 | PN ---
Date/Time of Note Date/Time of Note DATE: 05/11/16 TIME: 09:13 Assessment/Plan VTE Prophylaxis VTE Prophylaxis Intervention: LMWH Lines/Catheters IV [facility]from [facility] Saline Lock Urinary Cath still in place: No Assessment/Plan Problems: (1) Combined systolic and diastolic congestive heart failure, NYHA class 2 Status: Chronic Comment: Noted. He is on full dose ALBARO inhibitor now and he is on beta- blockade. His renal function was told in the holding and he is without complaints. (2) Hyperlipidemia associated with type 2 diabetes mellitus Status: Chronic Comment: He is on full dose statin therapy. (3) Status post aortic valve replacement Status: Chronic Comment: Noted. He will need to be re-anticoagulated. We did give him enoxaparin right now and start him back on his Coumadin. (4) Arterial occlusion, lower extremity Status: Acute Comment: As a therapeutic trial given plates although ideally he would be approached with some of the newest intervention techniques starting from the distal and to try and open the arteries. The cellulitis has improved see below (5) Cellulitis of right foot Status: Acute Comment: Improving with antibiotics (6) Diabetes Status: Chronic Comment: His diabetic control at this time is actually doing well. Qualifiers: Diabetes mellitus type: type 2 Diabetes mellitus complication status: with circulatory complication Diabetes mellitus complication detail: with peripheral angiopathy without gangrene Diabetes mellitus prison insulin use : with prison use Qualified Code: E11.51 - Type 2 diabetes mellitus with diabetic peripheral angiopathy without gangrene, with long-term current use of insulin (7) Hypertension Status: Chronic Comment: Will adjust his medications. Please note I am also going to check his postvoid residual if he does have evidence of urinary retention and we can add in an alpha tone with antihypertensive properties which would do 2 jobs with a single agent Qualifiers: Hypertension type: essential hypertension Qualified Code: I10 - Essential hypertension Subjective 24 Hr Interval Summary Free Text/Dictation Patient reports sensation of burning in the foot not pain in the foot. He states that this is a long-term issue Constitutional: no complaints Respiratory: no complaints Cardiovascular: no complaints Gastrointestinal: no complaints Genitourinary: no complaints Exam/Review of Systems Vital Signs Vitals Vital Signs Date Time Temp Pulse Resp B/P Pulse Ox O2 Delivery O2 Flow Rate FiO2 05/11/16 08:05 97.6 69 20 184/77 98 Intake and Output 05/10/16 05/10/16 05/11/16 15:00 23:00 07:00 Intake Total 630 ml 870 ml Output Total 400 ml 800 ml Balance 230 ml 70 ml Exam Constitutional: alert, oriented Respiratory: clear to auscultation, normal air movement Cardiovascular: nl pulses, regular rate and rhythm Extremities: other (Decreased pulses; no peripheral hair; 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 and decreased pulses) Results Result Diagram: 05/11/16 0530 05/11/16 0530 Results 24 hrs Laboratory Tests Test 05/10/16 10:01 05/10/16 11:49 05/10/16 17:59 05/10/16 21:14 Vancomycin Level Trough 13.7 Bedside Glucose 141 140 139 Test 05/11/16 05:30 05/11/16 07:52 Anion Gap 17 H Basophils # 0.0 Basophils % 0.2 Blood Urea Nitrogen 14 Calcium Level 9.1 Carbon Dioxide Level 24 Chloride Level 108 Creatinine 0.77 Eosinophils # 0.3 Eosinophils % 2.3 Glucose Level 53 #L Hematocrit 37.5 L Hemoglobin 12.8 L Lymphocytes # 2.2 Lymphocytes % 19.4 Mean Corpuscular Hemoglobin 32.4 Mean Corpuscular Hemoglobin Concent 34.2 Mean Corpuscular Volume 94.8 Mean Platelet Volume 10.0 Monocytes # 0.7 Monocytes % 6.5 Neutrophils # 8.2 H Neutrophils % 71.6 Nucleated Red Blood Cells # 0.0 Nucleated Red Blood Cells % 0.0 Platelet Count 240 Potassium Level 4.6 Red Blood Count 3.96 L Red Cell Distribution Width 13.6 Sodium Level 144 White Blood Count 11.4 #H Bedside Glucose 99 Medications Medications Current Medications Ondansetron HCl (Zofran Inj) 4 mg Q6H PRN IV NAUSEA AND/OR VOMITING; Start 05/02 at 21:30 Acetaminophen (Tylenol Tab) 650 mg Q6H PRN PO PAIN LEVEL 1-3 OR FEVER; Start at 21:30 Acetaminophen/ Hydrocodone Bitart ([place] (5/325)) 1 tab Q6H PRN PO MODERATE PAIN LEVEL 4-6 Last administered on 05/11/16t 09:02; Admin Dose 1 TAB; Start 05/02/16 at 21:30 Morphine Sulfate (morphine) 2 mg Q4H PRN IV SEVERE PAIN LEVEL 7-10 Last administered on 05/09/16 06:54; Admin Dose 2 MG; Start 05/02/16 at 21:30 Docusate Sodium (Colace) 100 mg Q12H PRN PO CONSTIPATION; Start 05/02/16 at 21: 30 Zolpidem Tartrate (Ambien) 5 mg QHS PRN PO SLEEP Last administered on 23:50; Admin Dose 5 MG; Start 05/02/16 at 21:30 Atorvastatin Calcium (Lipitor) 80 mg QHS PO Last administered on 05/10/16 21: 07; Admin Dose 80 MG; Start 05/03/16 at 21:00 Benazepril HCl (Lotensin) 40 mg DAILY PO Last administered on 05/10/16 08:14; Admin Dose 40 MG; Start 05/03/16 at 09:00 Felodipine (Plendil) 5 mg DAILY PO Last administered on 05/10/16 08:14; Admin Dose 5 MG; Start 05/03/16 at 09:00 Metoprolol Succinate (Toprol Xl) 100 mg BID PO Last administered on 05/10/16 21:11; Admin Dose 100 MG; Start 05/03/16 at 09:00 Insulin Glargine (Lantus) 10 unit HS SC Last administered on 05/10/16 22:35; Admin Dose 10 UNIT; Start 05/03/16 at 21:00 Miscellaneous Information 1 ea NOTE XX ; Start 05/02/16 at 23:45 Glucose (Glutose) 15 gm Q15M PRN PO DECREASED GLUCOSE; Start 05/02/16 at 23:45 Glucose (Glutose) 22.5 gm Q15M PRN PO DECREASED GLUCOSE; Start 05/02/16 at 23:45 Dextrose (D50w Syringe) 25 ml Q15M PRN IV DECREASED GLUCOSE; Start 05/02/16 at 23:45 Dextrose (D50w Syringe) 50 ml Q15M PRN IV DECREASED GLUCOSE; Start 05/02/16 at 23:45 Glucagon (Glucagen) 1 mg Q15M PRN IM DECREASED GLUCOSE; Start 05/02/16 at 23:45 Glucose (Glutose) 15 gm Q15M PRN BUCCAL DECREASED GLUCOSE; Start 05/02/16 at 23: 45 Levofloxacin (Levaquin) 500 mg DAILY@06 PO Last administered on 05/11/16 05:10 ; Admin Dose 500 MG; Start 05/04/16 at 16:00 Hydralazine HCl 10 mg 10 mg Q4H PRN IV ELEVATED SYSTOLIC BP Last administered on 05/06/16 22:24; Admin Dose 10 MG; Start 05/05/16 at 04:30 Vancomycin HCl/ Sodium Chloride (Vancocin/NS) 150 ml @ 75 mls/hr Q12H IVPB Last administered on 05/10/16 23:13; Admin Dose 75 MLS/HR; Start 05/07/16 at 23 :00 BOAZ GAUTAM MD May 11, 2016 09:20
[2016-05-11] MEDS ORDERED: ENOXAPARIN 60 MG/0.6 ML SYG SC ONE (09:30)
[2016-05-11] MEDS ORDERED: WARFARIN 3 MG TAB PO ONE (09:30)
[2016-05-11] MEDS: metFORMIN 500 MG TAB PO SCH ×2 (10:05→17:10)
[2016-05-11] MEDS: FELODIPINE (ER) 5 MG TAB PO SCH (10:05)
[2016-05-11] MEDS: METOPROLOL (XL) 50 MG TAB PO SCH ×2 (10:06→20:17)
[2016-05-11] MEDS: VANCOMYCIN 750 MG in SOD CHLORIDE 0.9% 150 ML IVPB SCH (10:56)
[2016-05-11] MEDS: BENAZEPRIL 40 MG TAB PO SCH ×2 (10:56→20:17)
--- NOTE | 2016-05-11 16:53 | CONS ---
Date/Time of Note Date/Time of Note DATE: 05/11/16 TIME: 16:53 Assessment/Plan Assessment/Plan Chief Complaint/Hosp Course ID PROGRESS NOTE TOTAL ABX DAY # => Vanco IV + Levaquin 24H INTERVAL SUMMARY * A/A/O, still w/pain at dorsal right foot cellulitis site * No fevers, VSS, NAD PHYSICAL EXAMINATION: GENERAL: 76 yo M HEENT: Unremarkable NECK: Supple, trachea midline. CHEST: Rise symmetrical without dyspnea HEART: RRR ABDOMEN: Soft EXTREMITIES: Warm, right foot w/erythema dorsal metatarsals, no open skin noted ID ASSESSMENT: 76 yo M 1. Right lower extremity cellulitis==> erythema decreasing. 2. Severe peripheral arterial disease. 3. Diabetes. 4. Hypertension. 5. CAD/Hx valve replacement INVASIVES: *PIV CURRENT ABX: Vanco IV + Levaquin s/p ID RECOMMENDATIONS: CONTINUE Current ABX -> further recs per APC team . Problems: Consultation Date/Type/Reason Admit Date/Time May 02, 2016 at 19:57 Initial Consult Date Type of Consultation: ID Exam/Review of Systems Vital Signs Vitals Vital Signs Date Time Temp Pulse Resp B/P Pulse Ox O2 Delivery O2 Flow Rate FiO2 05/11/16 08:05 97.6 69 20 184/77 98 Intake and Output 05/10/16 05/10/16 05/11/16 15:00 23:00 07:00 Intake Total 630 ml 870 ml Output Total 400 ml 800 ml Balance 230 ml 70 ml Results Result Diagram: 05/11/16 0530 05/11/16 0530 Results 24 hrs Laboratory Tests Test 05/10/16 17:59 05/10/16 21:14 05/11/16 05:30 05/11/16 07:52 Bedside Glucose 140 139 99 Anion Gap 17 H Basophils # 0.0 Basophils % 0.2 Blood Urea Nitrogen 14 Calcium Level 9.1 Carbon Dioxide Level 24 Chloride Level 108 Creatinine 0.77 Eosinophils # 0.3 Eosinophils % 2.3 Glucose Level 53 #L Hematocrit 37.5 L Hemoglobin 12.8 L Lymphocytes # 2.2 Lymphocytes % 19.4 Mean Corpuscular Hemoglobin 32.4 Mean Corpuscular Hemoglobin Concent 34.2 Mean Corpuscular Volume 94.8 Mean Platelet Volume 10.0 Monocytes # 0.7 Monocytes % 6.5 Neutrophils # 8.2 H Neutrophils % 71.6 Nucleated Red Blood Cells # 0.0 Nucleated Red Blood Cells % 0.0 Platelet Count 240 Potassium Level 4.6 Red Blood Count 3.96 L Red Cell Distribution Width 13.6 Sodium Level 144 White Blood Count 11.4 #H Test 05/11/16 12:14 Bedside Glucose 186 Medications Medications Current Medications Ondansetron HCl (Zofran Inj) 4 mg Q6H PRN IV NAUSEA AND/OR VOMITING; Start 05/02 at 21:30 Acetaminophen (Tylenol Tab) 650 mg Q6H PRN PO PAIN LEVEL 1-3 OR FEVER; Start at 21:30 Acetaminophen/ Hydrocodone Bitart ([place] (5/325)) 1 tab Q6H PRN PO MODERATE PAIN LEVEL 4-6 Last administered on 05/11/16 09:02; Admin Dose 1 TAB; Start 05/02/16 at 21:30 Morphine Sulfate (morphine) 2 mg Q4H PRN IV SEVERE PAIN LEVEL 7-10 Last administered on 05/09/16 06:54; Admin Dose 2 MG; Start 05/02/16 at 21:30 Docusate Sodium (Colace) 100 mg Q12H PRN PO CONSTIPATION; Start 05/02/16 at 21: 30 Zolpidem Tartrate (Ambien) 5 mg QHS PRN PO SLEEP Last administered on 23:50; Admin Dose 5 MG; Start 05/02/16 at 21:30 Atorvastatin Calcium (Lipitor) 80 mg QHS PO Last administered on 05/10/16 21: 07; Admin Dose 80 MG; Start 05/03/16 at 21:00 Felodipine (Plendil) 5 mg DAILY PO Last administered on 05/11/16 10:05; Admin Dose 5 MG; Start 05/03/16 at 09:00 Metoprolol Succinate (Toprol Xl) 100 mg BID PO Last administered on 05/11/16 10:06; Admin Dose 100 MG; Start 05/03/16 at 09:00 Insulin Glargine (Lantus) 10 unit HS SC Last administered on 05/10/16 22:35; Admin Dose 10 UNIT; Start 05/03/16 at 21:00 Miscellaneous Information 1 ea NOTE XX ; Start 05/02/16 at 23:45 Glucose (Glutose) 15 gm Q15M PRN PO DECREASED GLUCOSE; Start 05/02/16 at 23:45 Glucose (Glutose) 22.5 gm Q15M PRN PO DECREASED GLUCOSE; Start 05/02/16 at 23:45 Dextrose (D50w Syringe) 25 ml Q15M PRN IV DECREASED GLUCOSE; Start 05/02/16 at 23:45 Dextrose (D50w Syringe) 50 ml Q15M PRN IV DECREASED GLUCOSE; Start 05/02/16 at 23:45 Glucagon (Glucagen) 1 mg Q15M PRN IM DECREASED GLUCOSE; Start 05/02/16 at 23:45 Glucose (Glutose) 15 gm Q15M PRN BUCCAL DECREASED GLUCOSE; Start 05/02/16 at 23: 45 Levofloxacin (Levaquin) 500 mg DAILY@06 PO Last administered on 05/11/16 05:10 ; Admin Dose 500 MG; Start 05/04/16 at 16:00 Hydralazine HCl 10 mg 10 mg Q4H PRN IV ELEVATED SYSTOLIC BP Last administered on 05/06/16 22:24; Admin Dose 10 MG; Start 05/05/16 at 04:30 Vancomycin HCl/ Sodium Chloride (Vancocin/NS) 150 ml @ 75 mls/hr Q12H IVPB Last administered on 05/11/16 10:56; Admin Dose 75 MLS/HR; Start 05/07/16 at 23 :00 Benazepril HCl (Lotensin) 40 mg BID PO Last administered on 05/11/16 10:56; Admin Dose 40 MG; Start 05/11/16 at 10:30 Cilostazol (Pletal) 100 mg BID PO ; Start 05/11/16 at 21:00 Warfarin Sodium (Coumadin) 2.5 mg DAILY@17 PO ; Start 05/12/16 at 17:00 EMELY CHANG NP May 11, 2016 16:53
[2016-05-11 17:02] VITALS: BP 145/64; PULSE 74; RESP 16
--- NOTE | 2016-05-11 18:41 | PN ---
Date/Time of Note Date/Time of Note DATE: 05/11/16 TIME: 18:40 Assessment/Plan Lines/Catheters IV Catheter Type (from [facility]): Saline Lock العلي in Place (from [facility]): No Assessment/Plan Chief Complaint/Hosp Course IMPRESSION: 1. Peripheral vascular disease. 2. Cellulitis of the lower extremity. 3. Diabetes. RECOMMENDATIONS: SP Angiogram . Pt with severe distal disease. no plan for surgery. He will need continuation of antibiotics. . Will discuss with the referring physicians. Problems: Subjective 24 Hr Interval Summary Constitutional: improved Pain Control: mild Exam/Review of Systems Vital Signs Vitals Vital Signs Date Time Temp Pulse Resp B/P Pulse Ox O2 Delivery O2 Flow Rate FiO2 05/11/16 17:02 74 16 145/64 05/11/16 08:05 97.6 98 Intake and Output 05/10/16 05/10/16 05/11/16 15:00 23:00 07:00 Intake Total 630 ml 870 ml Output Total 400 ml 800 ml Balance 230 ml 70 ml Exam Neck: non-tender, supple Respiratory: clear to auscultation, normal air movement Cardiovascular: nl pulses, regular rate and rhythm Gastrointestinal: nl liver, spleen, non-tender, soft Results Result Diagram: 05/11/16 0530 05/11/1630 CYNTHIA RODRIGUEZ MD May 11, 2016 18:41
[2016-05-11 19:29] VITALS: BP 186/77; RESP 18
[2016-05-11] MEDS: CILOSTAZOL 100 MG TAB PO SCH (20:16)
[2016-05-11] MEDS: ATORVASTATIN 80 MG TAB PO SCH (20:17)
[2016-05-11] MEDS: INSULIN GLARGINE [LANtus] 3 ML PEN SC SCH (20:25)
[2016-05-12] MEDS: VANCOMYCIN 750 MG in SOD CHLORIDE 0.9% 150 ML IVPB SCH ×3 (00:30→23:17)
[2016-05-12] MEDS: HYDROCODONE/APAP (5/325) TAB PO PRN ×2 (00:35→21:08)
[2016-05-12 05:07] LABS: EOSINOPHILS # 0.3 10^3/ul (0.0-0.5); HEMATOCRIT 36.8 % (42.0-52.0); HEMOGLOBIN 12.4 g/dl (14.0-18.0); LYMPHOCYTES # 0.7 10^3/ul (0.8-2.9); LYMPHOCYTES % 5.9 % (15.0-51.0); MEAN CORPUSCULAR HEMOGLOBIN 31.8 pg (29.0-33.0); MEAN CORPUSCULAR HGB CONC 33.8 g/dl (32.0-37.0); MEAN PLATELET VOLUME 9.2 fl (7.4-10.4); MONOCYTE # 1.7 10^3/ul (0.3-0.9); MONOCYTES % 15.1 % (0.0-11.0); NEUTROPHIL # 8.6 10^3/ul (1.6-7.5); NUCLEATED RED BLOOD CELLS% 3.4 /100WBC (0.0-0.0); PLATELET COUNT 244 10^3/UL (140-440); RED BLOOD COUNT 3.91 10^6/ul (4.70-6.10); RED CELL DISTRIBUTION WIDTH 13.2 % (11.5-14.5); UNCORRECTED WBC 11.3 10^3/ul (4.8-10.8); WHITE BLOOD COUNT 11.3 10^3/ul (4.8-10.8)
[2016-05-12 05:14] LABS: INR 1.16; PROTIME 14.9 Sec (12.2-14.2); PT RATIO 1.2
[2016-05-12 05:18] LABS: CONDITION 1; LH ANALYZER COMMENTS 1; NUCLEATED RED BLOOD CELLS # 0.4 10^3/ul (0.0-0.0); SUSPECT 1
[2016-05-12] MEDS: LEVOFLOXACIN 500 MG TAB PO SCH (05:32)
[2016-05-12 05:51] LABS: POTASSIUM 4.2 mmol/L (3.5-5.1)
[2016-05-12 05:54] LABS: CALCIUM 8.8 mg/dl (8.4-10.2); CREATININE 0.78 mg/dl (0.61-1.24)
--- NOTE | 2016-05-12 06:41 | PN ---
Date/Time of Note Date/Time of Note DATE: 05/12/16 TIME: 06:37 Assessment/Plan VTE Prophylaxis VTE Prophylaxis Intervention: other (Coumadin) Lines/Catheters IV [facility]from [facility] Urinary Cath still in place: No Assessment/Plan Problems: (1) Status post aortic valve replacement Status: Chronic Comment: Noted and in process of anticoagulating (2) Hyperlipidemia associated with type 2 diabetes mellitus Status: Chronic Comment: He is on full dose treatment (3) Combined systolic and diastolic congestive heart failure, NYHA class 2 Status: Chronic Comment: He is on appropriate treatment and stable (4) Hypertension Status: Chronic Comment: His blood pressures been up. I requested the staff yesterday to get a bladder scan so I could not have justification for using alpha blockade for 2 purposes. Bladder scan has not yet been done but I will go ahead and get started with the alpha blockade Qualifiers: Hypertension type: essential hypertension Qualified Code: I10 - Essential hypertension (5) Diabetes Status: Chronic Comment: On his current regimen his blood sugar is well controlled. Qualifiers: Diabetes mellitus type: type 2 Diabetes mellitus complication status: with circulatory complication Diabetes mellitus complication detail: with peripheral angiopathy without gangrene Diabetes mellitus long-term insulin use : with termination clerk use Qualified Code: E11.51 - Type 2 diabetes mellitus with diabetic peripheral angiopathy without gangrene, with long-term current use of insulin (6) Arterial occlusion, lower extremity Status: Acute Comment: Again this may benefit from a looksee for try to approach this from the distal avenues. This is not emergency in fact he needs to have his infections under control, however with the newer techniques it is a may be possibility Subjective 24 Hr Interval Summary Free Text/Dictation Patient resting in bed without complaints. Please see below he reports some improvement. Constitutional: no complaints Respiratory: no complaints Cardiovascular: no complaints Gastrointestinal: no complaints Genitourinary: other (Some lower urinary tract symptoms from prostate) Neurologic: other (He reports a sensation of burning in his right lower extremity has improved.) Exam/Review of Systems Vital Signs Vitals Vital Signs Date Time Temp Pulse Resp B/P Pulse Ox O2 Delivery O2 Flow Rate FiO2 05/11/16 19:29 97.8 76 18 186/77 97 Intake and Output 05/11/16 05/11/16 05/12/16 14:59 22:59 06:59 Intake Total 150 ml 630 ml Output Total 600 ml Balance 150 ml 30 ml Exam Constitutional: alert, oriented Respiratory: clear to auscultation, normal air movement Cardiovascular: nl pulses, regular rate and rhythm Extremities: other (Less erythema of the right lower extremity. In addition less tender. He still has dryness and evidence of poor circulation.) Results Result Diagram: 05/12/16 0445 05/12/16 0446 Results 24 hrs Laboratory Tests Test 05/11/16 07:52 05/11/16 12:14 05/11/16 17:04 05/11/16 20:21 Bedside Glucose 99 186 98 162 Test 05/12/16 04:45 05/12/16 04:46 Basophils # 0.0 Basophils % 0.0 Eosinophils # 0.3 Eosinophils % 3.0 Hematocrit 36.8 L Hemoglobin 12.4 L INR International Normalized Ratio 1.16 Lymphocytes # 0.7 L Lymphocytes % 5.9 L Mean Corpuscular Hemoglobin 31.8 Mean Corpuscular Hemoglobin Concent 33.8 Mean Corpuscular Volume 94.0 Mean Platelet Volume 9.2 Monocytes # 1.7 H Monocytes % 15.1 H Neutrophils # 8.6 H Neutrophils % 76.0 Nucleated Red Blood Cells # 0.4 H Nucleated Red Blood Cells % 3.4 H Platelet Count 244 Prothrombin Time 14.9 H Prothrombin Time Ratio 1.2 Red Blood Count 3.91 L Red Cell Distribution Width 13.2 White Blood Count 11.3 H Anion Gap 16 Blood Urea Nitrogen 16 Calcium Level 8.8 Carbon Dioxide Level 22 Chloride Level 107 Creatinine 0.78 Glucose Level 100 # Potassium Level 4.2 Sodium Level 141 Medications Medications Current Medications Ondansetron HCl (Zofran Inj) 4 mg Q6H PRN IV NAUSEA AND/OR VOMITING; Start 05/02 at 21:30 Acetaminophen (Tylenol Tab) 650 mg Q6H PRN PO PAIN LEVEL 1-3 OR FEVER; Start at 21:30 Acetaminophen/ Hydrocodone Bitart ([place] (5/325)) 1 tab Q6H PRN PO MODERATE PAIN LEVEL 4-6 Last administered on 05/12/16 00:35; Admin Dose 1 TAB; Start 05/02/16 at 21:30 Morphine Sulfate (morphine) 2 mg Q4H PRN IV SEVERE PAIN LEVEL 7-10 Last administered on 05/09/16 06:54; Admin Dose 2 MG; Start 05/02/16 at 21:30 Docusate Sodium (Colace) 100 mg Q12H PRN PO CONSTIPATION; Start 05/02/16 at 21: 30 Zolpidem Tartrate (Ambien) 5 mg QHS PRN PO SLEEP Last administered on 23:50; Admin Dose 5 MG; Start 05/02/16 at 21:30 Atorvastatin Calcium (Lipitor) 80 mg QHS PO Last administered on 05/11/16 20: 17; Admin Dose 80 MG; Start 05/03/16 at 21:00 Felodipine (Plendil) 5 mg DAILY PO Last administered on 05/11/16 10:05; Admin Dose 5 MG; Start 05/03/16 at 09:00 Metoprolol Succinate (Toprol Xl) 100 mg BID PO Last administered on 05/11/16 20:17; Admin Dose 100 MG; Start 05/03/16 at 09:00 Insulin Glargine (Lantus) 10 unit HS SC Last administered on 05/11/16 20:25; Admin Dose 10 UNIT; Start 05/03/16 at 21:00 Miscellaneous Information 1 ea NOTE XX ; Start 05/02/16 at 23:45 Glucose (Glutose) 15 gm Q15M PRN PO DECREASED GLUCOSE; Start 05/02/16 at 23:45 Glucose (Glutose) 22.5 gm Q15M PRN PO DECREASED GLUCOSE; Start 05/02/16 at 23:45 Dextrose (D50w Syringe) 25 ml Q15M PRN IV DECREASED GLUCOSE; Start 05/02/16 at 23:45 Dextrose (D50w Syringe) 50 ml Q15M PRN IV DECREASED GLUCOSE; Start 05/02/16 at 23:45 Glucagon (Glucagen) 1 mg Q15M PRN IM DECREASED GLUCOSE; Start 05/02/16 at 23:45 Glucose (Glutose) 15 gm Q15M PRN BUCCAL DECREASED GLUCOSE; Start 05/02/16 at 23: 45 Levofloxacin (Levaquin) 500 mg DAILY@06 PO Last administered on 05/12/16 05:32 ; Admin Dose 500 MG; Start 05/04/16 at 16:00 Hydralazine HCl 10 mg 10 mg Q4H PRN IV ELEVATED SYSTOLIC BP Last administered on 05/06/16 22:24; Admin Dose 10 MG; Start 05/05/16 at 04:30 Vancomycin HCl/ Sodium Chloride (Vancocin/NS) 150 ml @ 75 mls/hr Q12H IVPB Last administered on 05/12/16 00:30; Admin Dose 75 MLS/HR; Start 05/07/16 at 23 :00 Benazepril HCl (Lotensin) 40 mg BID PO Last administered on 05/11/16 20:17; Admin Dose 40 MG; Start 05/11/16 at 10:30 Cilostazol (Pletal) 100 mg BID PO Last administered on 05/11/16 20:16; Admin Dose 100 MG; Start 05/11/16 at 21:00 Warfarin Sodium (Coumadin) 2.5 mg DAILY@17 PO ; Start 05/12/16 at 17:00 Doxazosin Mesylate (Cardura) 1 mg ONCE ONCE PO ; Start 05/12/16 at 07:00; Stop 05/12/16 at 07:01 Doxazosin Mesylate (Cardura) 2 mg HS PO ; Start 05/12/16 at 21:00; Status BOAZ RAMIREZ MD May 12, 2016 06:41
[2016-05-12] MEDS ORDERED: WARFARIN 7.5 MG TAB PO ONE (07:00)
[2016-05-12] MEDS ORDERED: DOXAZOSIN 1 MG TAB PO ONE (07:00)
[2016-05-12] MEDS ORDERED: ENOXAPARIN 60 MG/0.6 ML SYG SC ONE (07:00)
[2016-05-12 07:49] VITALS: BP 156/59; RESP 20
[2016-05-12] MEDS: FELODIPINE (ER) 5 MG TAB PO SCH (08:00)
[2016-05-12] MEDS: CILOSTAZOL 100 MG TAB PO SCH ×2 (08:00→21:04)
[2016-05-12] MEDS: metFORMIN 500 MG TAB PO SCH ×2 (08:00→17:33)
[2016-05-12] MEDS: METOPROLOL (XL) 50 MG TAB PO SCH ×2 (08:01→21:05)
[2016-05-12] MEDS: BENAZEPRIL 40 MG TAB PO SCH ×2 (08:01→21:05)
[2016-05-12] MEDS: INSULIN ASPART [NOVOLOG] 3 ML PEN SC SCH ×4 (08:05→21:00)
[2016-05-12] MEDS: TERBINAFINE 250 MG TAB PO SCH ×2 (11:17→21:04)
--- NOTE | 2016-05-12 13:38 | CONS ---
Date/Time of Note Date/Time of Note DATE: 05/12/16 TIME: 13:36 Assessment/Plan Assessment/Plan Chief Complaint/Hosp Course ID PROGRESS NOTE TOTAL ABX DAY # => Vanco IV + Levaquin 24H INTERVAL SUMMARY * No new issues -- A/A/O, still w/pain at dorsal right foot cellulitis site * No fevers, VSS, NAD PHYSICAL EXAMINATION: GENERAL: 76 yo M HEENT: Unremarkable NECK: Supple, trachea midline. CHEST: Rise symmetrical without dyspnea HEART: RRR ABDOMEN: Soft EXTREMITIES: Warm, right foot w/erythema dorsal metatarsals, no open skin noted ID ASSESSMENT: 76 yo M 1. Right lower extremity cellulitis=> erythema decreasing. 2. Severe peripheral arterial disease=>Arterial occlusion, lower extremity 3. Diabetes. 4. Hypertension. 5. CAD/Hx valve replacement INVASIVES: *PIV CURRENT ABX: Vanco IV + Levaquin s/p ID RECOMMENDATIONS: CONTINUE Current ABX -> further recs per APC team . Problems: Consultation Date/Type/Reason Admit Date/Time May 02, 2016 at 19:57 Type of Consultation: ID Exam/Review of Systems Vital Signs Vitals Vital Signs Date Time Temp Pulse Resp B/P Pulse Ox O2 Delivery O2 Flow Rate FiO2 05/12/16 07:49 97.5 73 20 156/59 96 Intake and Output 05/11/16 05/11/16 05/12/16 15:00 23:00 07:00 Intake Total 150 ml 630 ml Output Total 600 ml Balance 150 ml 30 ml Results Result Diagram: 05/12/16 0445 05/12/16 0446 Results 24 hrs Laboratory Tests Test 05/11/16 17:04 05/11/16 20:21 05/12/16 04:45 05/12/16 04:46 Bedside Glucose 98 162 Basophils # 0.0 Basophils % 0.0 Eosinophils # 0.3 Eosinophils % 3.0 Hematocrit 36.8 L Hemoglobin 12.4 L INR International Normalized Ratio 1.16 Lymphocytes # 0.7 L Lymphocytes % 5.9 L Mean Corpuscular Hemoglobin 31.8 Mean Corpuscular Hemoglobin Concent 33.8 Mean Corpuscular Volume 94.0 Mean Platelet Volume 9.2 Monocytes # 1.7 H Monocytes % 15.1 H Neutrophils # 8.6 H Neutrophils % 76.0 Nucleated Red Blood Cells # 0.4 H Nucleated Red Blood Cells % 3.4 H Platelet Count 244 Prothrombin Time 14.9 H Prothrombin Time Ratio 1.2 Red Blood Count 3.91 L Red Cell Distribution Width 13.2 White Blood Count 11.3 H Anion Gap 16 Blood Urea Nitrogen 16 Calcium Level 8.8 Carbon Dioxide Level 22 Chloride Level 107 Creatinine 0.78 Glucose Level 100 # Potassium Level 4.2 Sodium Level 141 Test 05/12/16 07:22 05/12/16 11:49 Bedside Glucose 92 99 Medications Medications Current Medications Ondansetron HCl (Zofran Inj) 4 mg Q6H PRN IV NAUSEA AND/OR VOMITING; Start 05/02 at 21:30 Acetaminophen (Tylenol Tab) 650 mg Q6H PRN PO PAIN LEVEL 1-3 OR FEVER; Start at 21:30 Acetaminophen/ Hydrocodone Bitart ([place] (5/325)) 1 tab Q6H PRN PO MODERATE PAIN LEVEL 4-6 Last administered on 05/12/16 00:35; Admin Dose 1 TAB; Start 05/02/16 at 21:30 Morphine Sulfate (morphine) 2 mg Q4H PRN IV SEVERE PAIN LEVEL 7-10 Last administered on 05/09/16 06:54; Admin Dose 2 MG; Start 05/02/16 at 21:30 Docusate Sodium (Colace) 100 mg Q12H PRN PO CONSTIPATION; Start 05/02/16 at 21: 30 Zolpidem Tartrate (Ambien) 5 mg QHS PRN PO SLEEP Last administered on 23:50; Admin Dose 5 MG; Start 05/02/16 at 21:30 Atorvastatin Calcium (Lipitor) 80 mg QHS PO Last administered on 05/11/16 20: 17; Admin Dose 80 MG; Start 05/03/16 at 21:00 Felodipine (Plendil) 5 mg DAILY PO Last administered on 05/12/16 08:00; Admin Dose 5 MG; Start 05/03/16 at 09:00 Metoprolol Succinate (Toprol Xl) 100 mg BID PO Last administered on 05/12/16 08:01; Admin Dose 100 MG; Start 05/03/16 at 09:00 Insulin Glargine (Lantus) 10 unit HS SC Last administered on 05/11/16 20:25; Admin Dose 10 UNIT; Start 05/03/16 at 21:00 Miscellaneous Information 1 ea NOTE XX ; Start 05/02/16 at 23:45 Glucose (Glutose) 15 gm Q15M PRN PO DECREASED GLUCOSE; Start 05/02/16 at 23:45 Glucose (Glutose) 22.5 gm Q15M PRN PO DECREASED GLUCOSE; Start 05/02/16 at 23:45 Dextrose (D50w Syringe) 25 ml Q15M PRN IV DECREASED GLUCOSE; Start 05/02/16 at 23:45 Dextrose (D50w Syringe) 50 ml Q15M PRN IV DECREASED GLUCOSE; Start 05/02/16 at 23:45 Glucagon (Glucagen) 1 mg Q15M PRN IM DECREASED GLUCOSE; Start 05/02/16 at 23:45 Glucose (Glutose) 15 gm Q15M PRN BUCCAL DECREASED GLUCOSE; Start 05/02/16 at 23: 45 Levofloxacin (Levaquin) 500 mg DAILY@06 PO Last administered on 05/12/16 05:32 ; Admin Dose 500 MG; Start 05/04/16 at 16:00 Hydralazine HCl 10 mg 10 mg Q4H PRN IV ELEVATED SYSTOLIC BP Last administered on 05/06/16 22:24; Admin Dose 10 MG; Start 05/05/16 at 04:30 Vancomycin HCl/ Sodium Chloride (Vancocin/NS) 150 ml @ 75 mls/hr Q12H IVPB Last administered on 05/12/16 11:13; Admin Dose 75 MLS/HR; Start 05/07/16 at 23 :00 Benazepril HCl (Lotensin) 40 mg BID PO Last administered on 05/12/16 08:01; Admin Dose 40 MG; Start 05/11/16 at 10:30 Cilostazol (Pletal) 100 mg BID PO Last administered on 05/12/16 08:00; Admin Dose 100 MG; Start 05/11/16 at 21:00 Warfarin Sodium (Coumadin) 2.5 mg DAILY@17 PO ; Start 05/12/16 at 17:00 Doxazosin Mesylate (Cardura) 2 mg HS PO ; Start 05/12/16 at 21:00 Terbinafine HCl (Lamisil) 250 mg BID PO Last administered on 05/12/16 11:17; Admin Dose 250 MG; Start 05/12/16 at 09:00; Stop 05/19/16 at 08:59 EMELY CHANG NP May 12, 2016 13:38
[2016-05-12] MEDS: WARFARIN 2.5 MG TAB PO SCH (17:33)
[2016-05-12 19:50] VITALS: BP 138/63; RESP 16
[2016-05-12] MEDS: ATORVASTATIN 80 MG TAB PO SCH (21:04)
[2016-05-12] MEDS: DOXAZOSIN 2 MG TAB PO SCH (21:04)
[2016-05-12] MEDS: INSULIN GLARGINE [LANtus] 3 ML PEN SC SCH (21:12)
[2016-05-13] MEDS: morphine 2 MG INJ IV PRN ×3 (01:41→17:46)
[2016-05-13 05:57] LABS: BASOPHILS % 0.4 % (0.0-2.0); EOSINOPHILS # 0.2 10^3/ul (0.0-0.5); EOSINOPHILS % 2.4 % (0.0-7.0); HEMATOCRIT 32.8 % (42.0-52.0); HEMOGLOBIN 11.2 g/dl (14.0-18.0); LYMPHOCYTES # 1.9 10^3/ul (0.8-2.9); LYMPHOCYTES % 24.3 % (15.0-51.0); MEAN CORPUSCULAR HEMOGLOBIN 31.8 pg (29.0-33.0); MEAN CORPUSCULAR HGB CONC 34.2 g/dl (32.0-37.0); MEAN CORPUSCULAR VOLUME 93.1 fl (82.0-101.0); MEAN PLATELET VOLUME 9.8 fl (7.4-10.4); MONOCYTE # 0.5 10^3/ul (0.3-0.9); MONOCYTES % 6.8 % (0.0-11.0); NEUTROPHIL # 5.2 10^3/ul (1.6-7.5); NEUTROPHILS % 66.1 % (39.0-77.0); PLATELET COUNT 190 10^3/UL (140-440); RED BLOOD COUNT 3.53 10^6/ul (4.70-6.10); RED CELL DISTRIBUTION WIDTH 13.4 % (11.5-14.5); UNCORRECTED WBC 7.9 10^3/ul (4.8-10.8); WHITE BLOOD COUNT 7.9 10^3/ul (4.8-10.8)
[2016-05-13 05:59] LABS: INR 1.37; PROTIME 16.9 Sec (12.2-14.2); PT RATIO 1.3
[2016-05-13 06:00] LABS: PARTIAL THROMBOPLASTIN TIME 35.2 Sec (25.0-35.0)
[2016-05-13 06:01] LABS: CONDITION 1
[2016-05-13 06:08] LABS: POTASSIUM 3.9 mmol/L (3.5-5.1)
[2016-05-13 06:11] LABS: CREATININE 0.87 mg/dl (0.61-1.24)
[2016-05-13 06:12] LABS: CALCIUM 8.5 mg/dl (8.4-10.2)
[2016-05-13] MEDS: LEVOFLOXACIN 500 MG TAB PO SCH (06:21)
[2016-05-13] MEDS: INSULIN ASPART [NOVOLOG] 3 ML PEN SC SCH ×4 (07:52→21:00)
[2016-05-13 07:59] VITALS: BP 136/61; RESP 18
[2016-05-13 08:04] VITALS: BP 117/78; RESP 18
[2016-05-13] MEDS: CILOSTAZOL 100 MG TAB PO SCH ×2 (08:29→21:02)
[2016-05-13] MEDS: METOPROLOL (XL) 50 MG TAB PO SCH ×2 (08:30→21:04)
[2016-05-13] MEDS: TERBINAFINE 250 MG TAB PO SCH ×2 (08:31→21:02)
[2016-05-13] MEDS: BENAZEPRIL 40 MG TAB PO SCH ×2 (08:31→21:02)
[2016-05-13] MEDS: metFORMIN 500 MG TAB PO SCH ×2 (08:31→17:42)
[2016-05-13] MEDS: FELODIPINE (ER) 5 MG TAB PO SCH (08:31)
--- NOTE | 2016-05-13 11:13 | RADRPT ---
PROCEDURE: Bilateral lower extremity venous mapping. CLINICAL INDICATION: Lower extremity gangrene. TECHNIQUE: The greater saphenous vein was evaluated bilaterally with ultrasound in the axial and s agittal planes. Diameter of the veins were determined as indicated below. COMPARISON: No prior studies are available for comparison. FINDINGS: This is a limited study due to patient inability to cooperate. The bilateral greater saphenous vein and lesser saphenous veins appear normal with no thrombus or occlusion. No measurements were obtai edgardo. IMPRESSION: 1. Patent bilateral greater and lesser saphenous veins. 2. No thrombosis visualized. 3. Limited study due to patient inability to cooperate. RPTAT: QQ .José Fisher MD, MD Date Time Electronically viewed and signed by .José Fisher MD, MD on 05/13/2016 11:12 .R/
--- NOTE | 2016-05-13 11:58 | PN ---
Date/Time of Note Date/Time of Note DATE: 05/13/16 TIME: 11:42 Assessment/Plan VTE Prophylaxis VTE Prophylaxis Intervention: other (coumadin) Lines/Catheters IV [facility] Urinary Cath still in place: No Assessment/Plan Assessment/Plan 1. Right foot infection/cellulitis, on antibiotics(vancomycin, levaquin, lamisil ), followed up with ID 2. Severe peripheral vascular disease on both lower extremities, no surgery now per vascular surgery 3. Hypertension, controlled 4. DM with vascular manifestation, stable 5. Dyslipidemia, on statin 6. S/P AVR, increase coumadin, follow up with INR Subjective 24 Hr Interval Summary Free Text/Dictation afebrile Exam/Review of Systems Vital Signs Vitals Vital Signs Date Time Temp Pulse Resp B/P Pulse Ox O2 Delivery O2 Flow Rate FiO2 05/13/16 08:04 97.5 81 18 117/78 91 Intake and Output 05/12/16 05/12/16 05/13/16 15:00 23:00 07:00 Intake Total 150 ml 820 ml 350 ml Output Total 600 ml 600 ml Balance 150 ml 220 ml -250 ml Exam Constitutional: alert, oriented, well developed Psych: nl mood/affect, no complaints Eyes: EOMI, PERRL, nl conjunctiva, nl lids, nl sclera ENMT: mucosa pink and moist, nl external ears & nose, nl lips & teeth, nl nasal mucosa & septum Neck: non-tender, supple Respiratory: clear to auscultation, normal air movement Cardiovascular: nl pulses, regular rate and rhythm Gastrointestinal: nl liver, spleen, non-tender, soft Musculoskeletal: nl extremities to inspection, nl gait and stance Extremities: normal pulses, other (right foot some redness around the first and second toes) 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, nl mental status, nl speech, nl strength Skin: nl turgor, rash or lesions Lymph: nl lymph nodes Results Result Diagram: 05/13/16 0448 05/13/168 Results 24 hrs Laboratory Tests Test 05/12/16 11:49 05/12/16 17:15 05/12/16 21:03 05/13/16 04:48 Bedside Glucose 99 162 101 Activated Partial Thromboplast Time 35.2 H Anion Gap 13 Basophils # 0.0 Basophils % 0.4 Blood Urea Nitrogen 17 Calcium Level 8.5 Carbon Dioxide Level 24 Chloride Level 106 Creatinine 0.87 Eosinophils # 0.2 Eosinophils % 2.4 Glucose Level 68 #L Hematocrit 32.8 L Hemoglobin 11.2 L INR International Normalized Ratio 1.37 Lymphocytes # 1.9 Lymphocytes % 24.3 Mean Corpuscular Hemoglobin 31.8 Mean Corpuscular Hemoglobin Concent 34.2 Mean Corpuscular Volume 93.1 Mean Platelet Volume 9.8 Monocytes # 0.5 Monocytes % 6.8 Neutrophils # 5.2 Neutrophils % 66.1 Nucleated Red Blood Cells # 0.0 Nucleated Red Blood Cells % 0.0 Platelet Count 190 # Potassium Level 3.9 Prothrombin Time 16.9 H Prothrombin Time Ratio 1.3 Red Blood Count 3.53 L Red Cell Distribution Width 13.4 Sodium Level 139 White Blood Count 7.9 # Test 05/13/16 07:48 Bedside Glucose 85 Medications Medications Current Medications Ondansetron HCl (Zofran Inj) 4 mg Q6H PRN IV NAUSEA AND/OR VOMITING; Start 05/02 at 21:30 Acetaminophen (Tylenol Tab) 650 mg Q6H PRN PO PAIN LEVEL 1-3 OR FEVER; Start at 21:30 Acetaminophen/ Hydrocodone Bitart ([place] (5/325)) 1 tab Q6H PRN PO MODERATE PAIN LEVEL 4-6 Last administered on 05/12/16 21:08; Admin Dose 1 TAB; Start 05/02/16 at 21:30 Morphine Sulfate (morphine) 2 mg Q4H PRN IV SEVERE PAIN LEVEL 7-10 Last administered on 05/13/16 08:32; Admin Dose 2 MG; Start 05/02/16 at 21:30 Docusate Sodium (Colace) 100 mg Q12H PRN PO CONSTIPATION; Start 05/02/16 at 21: 30 Zolpidem Tartrate (Ambien) 5 mg QHS PRN PO SLEEP Last administered on 23:50; Admin Dose 5 MG; Start 05/02/16 at 21:30 Atorvastatin Calcium (Lipitor) 80 mg QHS PO Last administered on 05/12/16 21: 04; Admin Dose 80 MG; Start 05/03/16 at 21:00 Felodipine (Plendil) 5 mg DAILY PO Last administered on 05/12/16 08:00; Admin Dose 5 MG; Start 05/03/16 at 09:00 Metoprolol Succinate (Toprol Xl) 100 mg BID PO Last administered on 05/13/16 08:30; Admin Dose 100 MG; Start 05/03/16 at 09:00 Insulin Glargine (Lantus) 10 unit HS SC Last administered on 05/12/16 21:12; Admin Dose 10 UNIT; Start 05/03/16 at 21:00 Miscellaneous Information 1 ea NOTE XX ; Start 05/02/16 at 23:45 Glucose (Glutose) 15 gm Q15M PRN PO DECREASED GLUCOSE; Start 05/02/16 at 23:45 Glucose (Glutose) 22.5 gm Q15M PRN PO DECREASED GLUCOSE; Start 05/02/16 at 23:45 Dextrose (D50w Syringe) 25 ml Q15M PRN IV DECREASED GLUCOSE; Start 05/02/16 at 23:45 Dextrose (D50w Syringe) 50 ml Q15M PRN IV DECREASED GLUCOSE; Start 05/02/16 at 23:45 Glucagon (Glucagen) 1 mg Q15M PRN IM DECREASED GLUCOSE; Start 05/02/16 at 23:45 Glucose (Glutose) 15 gm Q15M PRN BUCCAL DECREASED GLUCOSE; Start 05/02/16 at 23: 45 Levofloxacin (Levaquin) 500 mg DAILY@06 PO Last administered on 05/13/16 06:21 ; Admin Dose 500 MG; Start 05/04/16 at 16:00 Hydralazine HCl 10 mg 10 mg Q4H PRN IV ELEVATED SYSTOLIC BP Last administered on 05/06/16 22:24; Admin Dose 10 MG; Start 05/05/16 at 04:30 Vancomycin HCl/ Sodium Chloride (Vancocin/NS) 150 ml @ 75 mls/hr Q12H IVPB Last administered on 05/12/16 23:17; Admin Dose 75 MLS/HR; Start 05/07/16 at 23 :00 Benazepril HCl (Lotensin) 40 mg BID PO Last administered on 05/12/16 21:05; Admin Dose 40 MG; Start 05/11/16 at 10:30 Cilostazol (Pletal) 100 mg BID PO Last administered on 05/13/16 08:29; Admin Dose 100 MG; Start 05/11/16 at 21:00 Warfarin Sodium (Coumadin) 2.5 mg DAILY@17 PO Last administered on 05/12/16 17 :33; Admin Dose 2.5 MG; Start 05/12/16 at 17:00 Doxazosin Mesylate (Cardura) 2 mg HS PO Last administered on 05/12/16 21:04; Admin Dose 2 MG; Start 05/12/16 at 21:00 Terbinafine HCl (Lamisil) 250 mg BID PO Last administered on 05/13/16 08:31; Admin Dose 250 MG; Start 05/12/16 at 09:00; Stop 05/19/16 at 08:59 KEYSHA SHARIF MD May 13, 2016 11:52
[2016-05-13] MEDS: VANCOMYCIN 750 MG in SOD CHLORIDE 0.9% 150 ML IVPB SCH ×2 (12:05→23:16)
[2016-05-13] MEDS: HYDROCODONE/APAP (5/325) TAB PO PRN (14:00)
[2016-05-13] MEDS: WARFARIN 2.5 MG TAB PO SCH (17:42)
--- NOTE | 2016-05-13 17:59 | CONS ---
Date/Time of Note Date/Time of Note DATE: 05/13/16 TIME: 17:57 Assessment/Plan Assessment/Plan Chief Complaint/Hosp Course ID PROGRESS NOTE TOTAL ABX DAY # => Vanco IV + Levaquin + Lamisil 24H INTERVAL SUMMARY * Clinically status quo -- coping well with pain -- pending vascular intervention -- No new issues * No fevers, VSS, NAD PHYSICAL EXAMINATION: GENERAL: 76 yo M HEENT: Unremarkable NECK: Supple, trachea midline. CHEST: Rise symmetrical without dyspnea HEART: RRR ABDOMEN: Soft EXTREMITIES: Warm, right foot w/erythema dorsal metatarsals, no open skin noted ID ASSESSMENT: 76 yo M 1. Right lower extremity cellulitis=> erythema decreasing. * Onychomycosis bilateral toenails 2. Severe peripheral arterial disease=>Arterial occlusion, lower extremity 3. Diabetes. 4. Hypertension. 5. CAD/Hx valve replacement INVASIVES: *PIV CURRENT ABX: Vanco IV + Levaquin + Lamisil s/p ID RECOMMENDATIONS: CONTINUE Current ABX -> further recs per APC team Clinically status quo -- coping well with pain -- pending vascular intervention -- No new issues . Problems: Consultation Date/Type/Reason Admit Date/Time May 02, 2016 at 19:57 Type of Consultation: ID Exam/Review of Systems Vital Signs Vitals Vital Signs Date Time Temp Pulse Resp B/P Pulse Ox O2 Delivery O2 Flow Rate FiO2 05/13/16 08:04 97.5 81 18 117/78 91 Intake and Output 05/12/16 05/12/16 05/13/16 15:00 23:00 07:00 Intake Total 150 ml 820 ml 350 ml Output Total 600 ml 600 ml Balance 150 ml 220 ml -250 ml Results Result Diagram: 05/13/16 0448 05/13/16 0448 Results 24 hrs Laboratory Tests Test 05/12/16 21:03 05/13/16 04:48 05/13/16 07:48 05/13/16 12:03 Bedside Glucose 101 85 127 Activated Partial Thromboplast Time 35.2 H Anion Gap 13 Basophils # 0.0 Basophils % 0.4 Blood Urea Nitrogen 17 Calcium Level 8.5 Carbon Dioxide Level 24 Chloride Level 106 Creatinine 0.87 Eosinophils # 0.2 Eosinophils % 2.4 Glucose Level 68 #L Hematocrit 32.8 L Hemoglobin 11.2 L INR International Normalized Ratio 1.37 Lymphocytes # 1.9 Lymphocytes % 24.3 Mean Corpuscular Hemoglobin 31.8 Mean Corpuscular Hemoglobin Concent 34.2 Mean Corpuscular Volume 93.1 Mean Platelet Volume 9.8 Monocytes # 0.5 Monocytes % 6.8 Neutrophils # 5.2 Neutrophils % 66.1 Nucleated Red Blood Cells # 0.0 Nucleated Red Blood Cells % 0.0 Platelet Count 190 # Potassium Level 3.9 Prothrombin Time 16.9 H Prothrombin Time Ratio 1.3 Red Blood Count 3.53 L Red Cell Distribution Width 13.4 Sodium Level 139 White Blood Count 7.9 # Test 05/13/16 17:24 Bedside Glucose 145 Medications Medications Current Medications Ondansetron HCl (Zofran Inj) 4 mg Q6H PRN IV NAUSEA AND/OR VOMITING; Start 05/02 at 21:30 Acetaminophen (Tylenol Tab) 650 mg Q6H PRN PO PAIN LEVEL 1-3 OR FEVER; Start at 21:30 Acetaminophen/ Hydrocodone Bitart ([place] (5/325)) 1 tab Q6H PRN PO MODERATE PAIN LEVEL 4-6 Last administered on 05/13/16 14:00; Admin Dose 1 TAB; Start 05/02/16 at 21:30 Morphine Sulfate (morphine) 2 mg Q4H PRN IV SEVERE PAIN LEVEL 7-10 Last administered on 05/13/16 17:46; Admin Dose 2 MG; Start 05/02/16 at 21:30 Docusate Sodium (Colace) 100 mg Q12H PRN PO CONSTIPATION; Start 05/02/16 at 21: 30 Zolpidem Tartrate (Ambien) 5 mg QHS PRN PO SLEEP Last administered on 23:50; Admin Dose 5 MG; Start 05/02/16 at 21:30 Atorvastatin Calcium (Lipitor) 80 mg QHS PO Last administered on 05/12/16 21: 04; Admin Dose 80 MG; Start 05/03/16 at 21:00 Felodipine (Plendil) 5 mg DAILY PO Last administered on 05/12/16 08:00; Admin Dose 5 MG; Start 05/03/16 at 09:00 Metoprolol Succinate (Toprol Xl) 100 mg BID PO Last administered on 05/13/16 08:30; Admin Dose 100 MG; Start 05/03/16 at 09:00 Insulin Glargine (Lantus) 10 unit HS SC Last administered on 05/12/16 21:12; Admin Dose 10 UNIT; Start 05/03/16 at 21:00 Miscellaneous Information 1 ea NOTE XX ; Start 05/02/16 at 23:45 Glucose (Glutose) 15 gm Q15M PRN PO DECREASED GLUCOSE; Start 05/02/16 at 23:45 Glucose (Glutose) 22.5 gm Q15M PRN PO DECREASED GLUCOSE; Start 05/02/16 at 23:45 Dextrose (D50w Syringe) 25 ml Q15M PRN IV DECREASED GLUCOSE; Start 05/02/16 at 23:45 Dextrose (D50w Syringe) 50 ml Q15M PRN IV DECREASED GLUCOSE; Start 05/02/16 at 23:45 Glucagon (Glucagen) 1 mg Q15M PRN IM DECREASED GLUCOSE; Start 05/02/16 at 23:45 Glucose (Glutose) 15 gm Q15M PRN BUCCAL DECREASED GLUCOSE; Start 05/02/16 at 23: 45 Levofloxacin (Levaquin) 500 mg DAILY@06 PO Last administered on 05/13/16 06:21 ; Admin Dose 500 MG; Start 05/04/16 at 16:00 Hydralazine HCl 10 mg 10 mg Q4H PRN IV ELEVATED SYSTOLIC BP Last administered on 05/06/16 22:24; Admin Dose 10 MG; Start 05/05/16 at 04:30 Vancomycin HCl/ Sodium Chloride (Vancocin/NS) 150 ml @ 75 mls/hr Q12H IVPB Last administered on 05/13/16 12:05; Admin Dose 75 MLS/HR; Start 05/07/16 at 23 :00 Benazepril HCl (Lotensin) 40 mg BID PO Last administered on 05/12/16 21:05; Admin Dose 40 MG; Start 05/11/16 at 10:30 Cilostazol (Pletal) 100 mg BID PO Last administered on 05/13/16 08:29; Admin Dose 100 MG; Start 05/11/16 at 21:00 Warfarin Sodium (Coumadin) 2.5 mg DAILY@17 PO Last administered on 05/13/16 17 :42; Admin Dose 2.5 MG; Start 05/12/16 at 17:00 Doxazosin Mesylate (Cardura) 2 mg HS PO Last administered on 05/12/16 21:04; Admin Dose 2 MG; Start 05/12/16 at 21:00 Terbinafine HCl (Lamisil) 250 mg BID PO Last administered on 05/13/16 08:31; Admin Dose 250 MG; Start 05/12/16 at 09:00; Stop 05/19/16 at 08:59 EMELY CHANG NP May 13, 2016 17:58
[2016-05-13 20:09] VITALS: BP 160/70; RESP 20
[2016-05-13] MEDS: ATORVASTATIN 80 MG TAB PO SCH (21:01)
[2016-05-13] MEDS: DOXAZOSIN 2 MG TAB PO SCH (21:02)
[2016-05-13] MEDS: INSULIN GLARGINE [LANtus] 3 ML PEN SC SCH (21:09)
[2016-05-14] MEDS: ZOLPIDEM 5 MG TAB PO PRN (00:27)
[2016-05-14] MEDS: HYDROCODONE/APAP (5/325) TAB PO PRN ×3 (00:27→17:33)
[2016-05-14] MEDS: LEVOFLOXACIN 500 MG TAB PO SCH (06:17)
[2016-05-14 06:28] LABS: POTASSIUM 3.9 mmol/L (3.5-5.1)
[2016-05-14 06:31] LABS: CALCIUM 8.6 mg/dl (8.4-10.2); CREATININE 0.85 mg/dl (0.61-1.24)
[2016-05-14 06:34] LABS: INR 1.85; PROTIME 21.5 Sec (12.2-14.2); PT RATIO 1.7
[2016-05-14 07:08] LABS: BASOPHILS % 0.1 % (0.0-2.0); EOSINOPHILS # 0.1 10^3/ul (0.0-0.5); EOSINOPHILS % 1.5 % (0.0-7.0); HEMATOCRIT 32.8 % (42.0-52.0); HEMOGLOBIN 11.3 g/dl (14.0-18.0); LYMPHOCYTES # 1.6 10^3/ul (0.8-2.9); LYMPHOCYTES % 20.1 % (15.0-51.0); MEAN CORPUSCULAR HEMOGLOBIN 32.2 pg (29.0-33.0); MEAN CORPUSCULAR HGB CONC 34.5 g/dl (32.0-37.0); MEAN CORPUSCULAR VOLUME 93.3 fl (82.0-101.0); MEAN PLATELET VOLUME 10.1 fl (7.4-10.4); MONOCYTE # 0.5 10^3/ul (0.3-0.9); MONOCYTES % 6.8 % (0.0-11.0); NEUTROPHIL # 5.6 10^3/ul (1.6-7.5); NEUTROPHILS % 71.5 % (39.0-77.0); PLATELET COUNT 195 10^3/UL (140-440); RED BLOOD COUNT 3.51 10^6/ul (4.70-6.10); UNCORRECTED WBC 7.9 10^3/ul (4.8-10.8); WHITE BLOOD COUNT 7.9 10^3/ul (4.8-10.8)
[2016-05-14 07:19] LABS: CONDITION 1
[2016-05-14 07:36] VITALS: BP 136/56; RESP 22
[2016-05-14] MEDS: FELODIPINE (ER) 5 MG TAB PO SCH (08:06)
[2016-05-14] MEDS: TERBINAFINE 250 MG TAB PO SCH ×2 (08:06→20:24)
[2016-05-14] MEDS: METOPROLOL (XL) 50 MG TAB PO SCH ×2 (08:06→20:28)
[2016-05-14] MEDS: CILOSTAZOL 100 MG TAB PO SCH ×2 (08:06→20:24)
[2016-05-14] MEDS: metFORMIN 500 MG TAB PO SCH ×2 (08:06→17:33)
[2016-05-14] MEDS: BENAZEPRIL 40 MG TAB PO SCH ×2 (08:06→20:27)
[2016-05-14] MEDS: INSULIN ASPART [NOVOLOG] 3 ML PEN SC SCH ×4 (08:06→20:23)
--- NOTE | 2016-05-14 11:58 | CONS ---
Date/Time of Note Date/Time of Note DATE: 05/14/16 TIME: 11:58 Consult Date/Type/Reason Admit Date/Time May 02, 2016 at 19:57 Type of Consultation: ID Subjective alert, feels good, no fevers, nad Objective Vital Signs Date Time Temp Pulse Resp B/P Pulse Ox O2 Delivery O2 Flow Rate FiO2 05/14/16 07:36 97.5 64 22 136/56 94 Intake and Output 05/13/16 05/13/16 05/14/16 15:00 23:00 07:00 Intake Total 1350 ml 550 ml Output Total 150 ml 600 ml Balance 1200 ml -50 ml Results/Medications Result Diagram: 05/14/16 0530 05/14/16 0530 Results 24 hrs Laboratory Tests Test 05/13/16 12:03 05/13/16 17:24 05/13/16 20:14 05/14/16 05:30 Bedside Glucose 127 145 113 Anion Gap 16 Basophils # 0.0 Basophils % 0.1 Blood Urea Nitrogen 17 Calcium Level 8.6 Carbon Dioxide Level 23 Chloride Level 105 Creatinine 0.85 Eosinophils # 0.1 Eosinophils % 1.5 Glucose Level 73 Hematocrit 32.8 L Hemoglobin 11.3 L Lymphocytes # 1.6 Lymphocytes % 20.1 Mean Corpuscular Hemoglobin 32.2 Mean Corpuscular Hemoglobin Concent 34.5 Mean Corpuscular Volume 93.3 Mean Platelet Volume 10.1 Monocytes # 0.5 Monocytes % 6.8 Neutrophils # 5.6 Neutrophils % 71.5 Nucleated Red Blood Cells # 0.0 Nucleated Red Blood Cells % 0.0 Platelet Count 195 Potassium Level 3.9 Red Blood Count 3.51 L Red Cell Distribution Width 13.0 Sodium Level 140 White Blood Count 7.9 Test 05/14/16 05:32 05/14/16 07:37 05/14/16 11:54 INR International Normalized Ratio 1.85 Prothrombin Time 21.5 #H Prothrombin Time Ratio 1.7 Bedside Glucose 75 76 Medications Current Medications Ondansetron HCl (Zofran Inj) 4 mg Q6H PRN IV NAUSEA AND/OR VOMITING Last administered on 05/13/16t 19:08; Admin Dose 4 MG; Start 05/02/16 at 21:30 Acetaminophen (Tylenol Tab) 650 mg Q6H PRN PO PAIN LEVEL 1-3 OR FEVER; Start at 21:30 Acetaminophen/ Hydrocodone Bitart ([place] (5/325)) 1 tab Q6H PRN PO MODERATE PAIN LEVEL 4-6 Last administered on 05/14/16 08:14; Admin Dose 1 TAB; Start 05/02/16 at 21:30 Morphine Sulfate (morphine) 2 mg Q4H PRN IV SEVERE PAIN LEVEL 7-10 Last administered on 05/13/16 17:46; Admin Dose 2 MG; Start 05/02/16 at 21:30 Docusate Sodium (Colace) 100 mg Q12H PRN PO CONSTIPATION; Start 05/02/16 at 21: 30 Zolpidem Tartrate (Ambien) 5 mg QHS PRN PO SLEEP Last administered on 00:27; Admin Dose 5 MG; Start 05/02/16 at 21:30 Atorvastatin Calcium (Lipitor) 80 mg QHS PO Last administered on 05/13/16 21: 01; Admin Dose 80 MG; Start 05/03/16 at 21:00 Felodipine (Plendil) 5 mg DAILY PO Last administered on 05/14/16 08:06; Admin Dose 5 MG; Start 05/03/16 at 09:00 Metoprolol Succinate (Toprol Xl) 100 mg BID PO Last administered on 05/14/16 08:06; Admin Dose 100 MG; Start 05/03/16 at 09:00 Insulin Glargine (Lantus) 10 unit HS SC Last administered on 05/13/16 21:09; Admin Dose 10 UNIT; Start 05/03/16 at 21:00 Miscellaneous Information 1 ea NOTE XX ; Start 05/02/16 at 23:45 Glucose (Glutose) 15 gm Q15M PRN PO DECREASED GLUCOSE; Start 05/02/16 at 23:45 Glucose (Glutose) 22.5 gm Q15M PRN PO DECREASED GLUCOSE; Start 05/02/16 at 23:45 Dextrose (D50w Syringe) 25 ml Q15M PRN IV DECREASED GLUCOSE; Start 05/02/16 at 23:45 Dextrose (D50w Syringe) 50 ml Q15M PRN IV DECREASED GLUCOSE; Start 05/02/16 at 23:45 Glucagon (Glucagen) 1 mg Q15M PRN IM DECREASED GLUCOSE; Start 05/02/16 at 23:45 Glucose (Glutose) 15 gm Q15M PRN BUCCAL DECREASED GLUCOSE; Start 05/02/16 at 23: 45 Levofloxacin (Levaquin) 500 mg DAILY@06 PO Last administered on 05/14/16 06:17 ; Admin Dose 500 MG; Start 05/04/16 at 16:00 Hydralazine HCl 10 mg 10 mg Q4H PRN IV ELEVATED SYSTOLIC BP Last administered on 05/06/16 22:24; Admin Dose 10 MG; Start 05/05/16 at 04:30 Vancomycin HCl/ Sodium Chloride (Vancocin/NS) 150 ml @ 75 mls/hr Q12H IVPB Last administered on 05/13/16 23:16; Admin Dose 75 MLS/HR; Start 05/07/16 at 23 :00 Benazepril HCl (Lotensin) 40 mg BID PO Last administered on 05/14/16 08:06; Admin Dose 40 MG; Start 05/11/16 at 10:30 Cilostazol (Pletal) 100 mg BID PO Last administered on 05/14/16 08:06; Admin Dose 100 MG; Start 05/11/16 at 21:00 Warfarin Sodium (Coumadin) 2.5 mg DAILY@17 PO Last administered on 05/13/16 17 :42; Admin Dose 2.5 MG; Start 05/12/16 at 17:00 Doxazosin Mesylate (Cardura) 2 mg HS PO Last administered on 05/13/16 21:02; Admin Dose 2 MG; Start 05/12/16 at 21:00 Terbinafine HCl (Lamisil) 250 mg BID PO Last administered on 05/14/16 08:06; Admin Dose 250 MG; Start 05/12/16 at 09:00; Stop 05/19/16 at 08:59 Miscellaneous Information (*Rx Drug Level Order Reminder*) VANCO TROUGH @ 2, 200 ON... ONCE ONCE XX ; Start 05/14/16 at 22:00; Stop 05/14/16 at 22:01 Assessment/Plan Chief Complaint/Hosp Course ANTIMICROBIALS: 1. Levaquin. 2. Vancomycin. PHYSICAL EXAMINATION: GENERAL: This is a well-developed, well-nourished elderly man who is alert, in no distress. HEENT: Head atraumatic, normocephalic. Sclerae anicteric. Buccal mucosa pink. NECK: Supple. Trachea midline. CHEST: Rise symmetrical. Breath sounds clear. HEART: S1, S2. ABDOMEN: Soft, bowel tones present. EXTREMITIES: Without cyanosis. Right lower extremity with decreased erythema. ASSESSMENT: 1. Right lower extremity cellulitis==> erythema decreasing. 2. Severe peripheral arterial disease. 3. Diabetes. 4. Hypertension. 5. CAD/Hx valve replacement PLAN: Remains unchanged, continue abx. Await for vascular intervention [facility] staff Problems: MANSI CURRAN NP May 14, 2016 11:58
[2016-05-14] MEDS: VANCOMYCIN 750 MG in SOD CHLORIDE 0.9% 150 ML IVPB SCH ×2 (12:11→23:47)
--- NOTE | 2016-05-14 13:43 | PN ---
Date/Time of Note Date/Time of Note DATE: 05/14/16 TIME: 13:39 Assessment/Plan VTE Prophylaxis VTE Prophylaxis Intervention: other (coumadin) Lines/Catheters IV [facility]ter [facility]from [facility] [place] Urinary Cath still in place: No Assessment/Plan Assessment/Plan 1. Right foot infection/cellulitis, on antibiotics(vancomycin, levaquin), followed up with ID 2. Severe peripheral vascular disease on both lower extremities, no surgery now per vascular surgery 3. Hypertension, controlled 4. DM with vascular manifestation, stable 5. Dyslipidemia, on statin 6. S/P AVR, increased coumadin, awaiting for INR to be therapeutic Subjective 24 Hr Interval Summary Free Text/Dictation afebrile Exam/Review of Systems Vital Signs Vitals Vital Signs Date Time Temp Pulse Resp B/P Pulse Ox O2 Delivery O2 Flow Rate FiO2 05/14/16 07:36 97.5 64 22 136/56 94 Intake and Output 05/13/16 05/13/16 05/14/16 15:00 23:00 07:00 Intake Total 1350 ml 550 ml Output Total 150 ml 600 ml Balance 1200 ml -50 ml Exam Constitutional: alert, oriented, well developed Psych: nl mood/affect, no complaints Head: atraumatic, normocephalic Eyes: EOMI, PERRL, nl conjunctiva, nl lids, nl sclera ENMT: mucosa pink and moist, nl external ears & nose, nl lips & teeth, nl nasal mucosa & septum Neck: non-tender, supple Respiratory: clear to auscultation, normal air movement Cardiovascular: nl pulses, regular rate and rhythm Gastrointestinal: nl liver, spleen, non-tender, soft, No ascites, No bowel sounds, No distended, No firm, No hepatomegaly, No mass , No rebound or guarding, No splenomegaly, No surgical scars, No tender Musculoskeletal: nl extremities to inspection Extremities: other (less redness on feet) 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: 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, nl mental status, nl speech, nl strength Skin: nl turgor Lymph: nl lymph nodes Results Result Diagram: 05/14/16 0530 05/14/16 0530 Results 24 hrs Laboratory Tests Test 05/13/16 17:24 05/13/16 20:14 05/14/16 05:30 05/14/16 05:32 Bedside Glucose 145 113 Anion Gap 16 Basophils # 0.0 Basophils % 0.1 Blood Urea Nitrogen 17 Calcium Level 8.6 Carbon Dioxide Level 23 Chloride Level 105 Creatinine 0.85 Eosinophils # 0.1 Eosinophils % 1.5 Glucose Level 73 Hematocrit 32.8 L Hemoglobin 11.3 L Lymphocytes # 1.6 Lymphocytes % 20.1 Mean Corpuscular Hemoglobin 32.2 Mean Corpuscular Hemoglobin Concent 34.5 Mean Corpuscular Volume 93.3 Mean Platelet Volume 10.1 Monocytes # 0.5 Monocytes % 6.8 Neutrophils # 5.6 Neutrophils % 71.5 Nucleated Red Blood Cells # 0.0 Nucleated Red Blood Cells % 0.0 Platelet Count 195 Potassium Level 3.9 Red Blood Count 3.51 L Red Cell Distribution Width 13.0 Sodium Level 140 White Blood Count 7.9 INR International Normalized Ratio 1.85 Prothrombin Time 21.5 #H Prothrombin Time Ratio 1.7 Test 05/14/16 07:37 05/14/16 11:54 Bedside Glucose 75 76 Medications Medications Current Medications Ondansetron HCl (Zofran Inj) 4 mg Q6H PRN IV NAUSEA AND/OR VOMITING Last administered on 05/13/16 19:08; Admin Dose 4 MG; Start 05/02/16 at 21:30 Acetaminophen (Tylenol Tab) 650 mg Q6H PRN PO PAIN LEVEL 1-3 OR FEVER; Start at 21:30 Acetaminophen/ Hydrocodone Bitart ([place] (5/325)) 1 tab Q6H PRN PO MODERATE PAIN LEVEL 4-6 Last administered on 05/14/16 08:14; Admin Dose 1 TAB; Start 05/02/16 at 21:30 Morphine Sulfate (morphine) 2 mg Q4H PRN IV SEVERE PAIN LEVEL 7-10 Last administered on 05/13/16 17:46; Admin Dose 2 MG; Start 05/02/16 at 21:30 Docusate Sodium (Colace) 100 mg Q12H PRN PO CONSTIPATION; Start 05/02/16 at 21: 30 Zolpidem Tartrate (Ambien) 5 mg QHS PRN PO SLEEP Last administered on 00:27; Admin Dose 5 MG; Start 05/02/16 at 21:30 Atorvastatin Calcium (Lipitor) 80 mg QHS PO Last administered on 05/13/16 21: 01; Admin Dose 80 MG; Start 05/03/16 at 21:00 Felodipine (Plendil) 5 mg DAILY PO Last administered on 05/14/16 08:06; Admin Dose 5 MG; Start 05/03/16 at 09:00 Metoprolol Succinate (Toprol Xl) 100 mg BID PO Last administered on 05/14/16 08:06; Admin Dose 100 MG; Start 05/03/16 at 09:00 Insulin Glargine (Lantus) 10 unit HS SC Last administered on 05/13/16 21:09; Admin Dose 10 UNIT; Start 05/03/16 at 21:00 Miscellaneous Information 1 ea NOTE XX ; Start 05/02/16 at 23:45 Glucose (Glutose) 15 gm Q15M PRN PO DECREASED GLUCOSE; Start 05/02/16 at 23:45 Glucose (Glutose) 22.5 gm Q15M PRN PO DECREASED GLUCOSE; Start 05/02/16 at 23:45 Dextrose (D50w Syringe) 25 ml Q15M PRN IV DECREASED GLUCOSE; Start 05/02/16 at 23:45 Dextrose (D50w Syringe) 50 ml Q15M PRN IV DECREASED GLUCOSE; Start 05/02/16 at 23:45 Glucagon (Glucagen) 1 mg Q15M PRN IM DECREASED GLUCOSE; Start 05/02/16 at 23:45 Glucose (Glutose) 15 gm Q15M PRN BUCCAL DECREASED GLUCOSE; Start 05/02/16 at 23: 45 Levofloxacin (Levaquin) 500 mg DAILY@06 PO Last administered on 05/14/16 06:17 ; Admin Dose 500 MG; Start 05/04/16 at 16:00 Hydralazine HCl 10 mg 10 mg Q4H PRN IV ELEVATED SYSTOLIC BP Last administered on 05/06/16 22:24; Admin Dose 10 MG; Start 05/05/16 at 04:30 Vancomycin HCl/ Sodium Chloride (Vancocin/NS) 150 ml @ 75 mls/hr Q12H IVPB Last administered on 05/14/16 12:11; Admin Dose 75 MLS/HR; Start 05/07/16 at 23 :00 Benazepril HCl (Lotensin) 40 mg BID PO Last administered on 05/14/16 08:06; Admin Dose 40 MG; Start 05/11/16 at 10:30 Cilostazol (Pletal) 100 mg BID PO Last administered on 05/14/16 08:06; Admin Dose 100 MG; Start 05/11/16 at 21:00 Warfarin Sodium (Coumadin) 2.5 mg DAILY@17 PO Last administered on 05/13/16 17 :42; Admin Dose 2.5 MG; Start 05/12/16 at 17:00 Doxazosin Mesylate (Cardura) 2 mg HS PO Last administered on 05/13/16 21:02; Admin Dose 2 MG; Start 05/12/16 at 21:00 Terbinafine HCl (Lamisil) 250 mg BID PO Last administered on 05/14/16 08:06; Admin Dose 250 MG; Start 05/12/16 at 09:00; Stop 05/19/16 at 08:59 Miscellaneous Information (*Rx Drug Level Order Reminder*) VANCO TROUGH @ 2, 200 ON... ONCE ONCE XX ; Start 05/14/16 at 22:00; Stop 05/14/16 at 22:01 KEYSHA SHARIF MD May 14, 2016 13:43
[2016-05-14] MEDS: WARFARIN 2.5 MG TAB PO SCH (17:33)
[2016-05-14 19:48] VITALS: BP 131/58; RESP 14
[2016-05-14] MEDS: DOXAZOSIN 2 MG TAB PO SCH (20:24)
[2016-05-14] MEDS: ATORVASTATIN 80 MG TAB PO SCH (20:24)
[2016-05-14] MEDS: INSULIN GLARGINE [LANtus] 3 ML PEN SC SCH (20:31)
[2016-05-15] MEDS: HYDROCODONE/APAP (5/325) TAB PO PRN ×2 (01:06→08:31)
[2016-05-15] MEDS: ZOLPIDEM 5 MG TAB PO PRN (01:55)
[2016-05-15] MEDS: LEVOFLOXACIN 500 MG TAB PO SCH (05:28)
[2016-05-15 05:34] LABS: INR 2.09; PROTIME 23.7 Sec (12.2-14.2); PT RATIO 1.9
[2016-05-15 07:40] VITALS: BP 115/57; RESP 18
[2016-05-15] MEDS: INSULIN ASPART [NOVOLOG] 3 ML PEN SC SCH ×2 (08:15→11:51)
[2016-05-15] MEDS: BENAZEPRIL 40 MG TAB PO SCH (08:19)
[2016-05-15] MEDS: TERBINAFINE 250 MG TAB PO SCH (08:20)
[2016-05-15] MEDS: FELODIPINE (ER) 5 MG TAB PO SCH (08:20)
[2016-05-15] MEDS: METOPROLOL (XL) 50 MG TAB PO SCH (08:21)
[2016-05-15] MEDS: CILOSTAZOL 100 MG TAB PO SCH (08:22)
[2016-05-15] MEDS: metFORMIN 500 MG TAB PO SCH (08:23)
[2016-05-15] MEDS: morphine 2 MG INJ IV PRN (10:45)
[2016-05-15] MEDS ORDERED: VANCOMYCIN 500MG/NS (PMX) 100 ML IVPB SCH (13:00)
--- NOTE | 2016-05-15 13:27 | DS ---
Date/Time of Note Date/Time of Note DATE: 05/15/16 TIME: 13:22 Discharge Summary Admission/Discharge Info Admit Date/Time May 02, 2016 at 19:57 Discharge Date/Time Final Diagnosis 1. Right foot infection/cellulitis, \improved, home on doxycycline 2. Severe peripheral vascular disease on both lower extremities, no surgery now per vascular surgery, follow up with vascular 3. Hypertension, controlled 4. DM with vascular manifestation, stable 5. Dyslipidemia, on statin 6. S/P AVR, on coumadin, instructed to check INR with PCP on this Friday. Patient Condition: Stable Procedures [place] [id number] Radiology Main Line: [phone] DIAGNOSTIC IMAGING REPORT Patient: ZANA CHAVEZ : 1940 Age: 76 Sex: M MR #: [id number] DOS: 05/02/16 1508 Ordering MD: PERFECTO KATZ PA-C Location: E/R Room/Bed: PROCEDURE: CTA pelvis with bilateral lower extremity runoff CLINICAL INDICATION: Lower extremity pain and claudication. TECHNIQUE: 2.5 mm axial images were obtained through the abdomen, pelvis and bilateral lower extremities after the IV administration of 125 cc Omnipaque 350 IV contrast. 3-D, coronal and sagittal reconstructions were obtained. DLP = 779.1 mGy-cm. CTDiVol = 41.1, 6.5 mGy. COMPARISON: None available FINDINGS: CTA pelvis: Visualized distal abdominal aorta is patent. Scattered mild calcified atherosclerosis is identified in the visualized distal abdominal aorta. Origin of the inferior mesenteric artery appears patent. Normal filling of the visualized portions of the inferior mesenteric artery is observed. Patent aortic bifurcation is identified. Mild scattered calcified atherosclerosis, without stenosis is identified in the bilateral common iliac arteries. Widely patent bilateral common iliac artery bifurcations are observed. The bilateral external iliac and common femoral arteries are widely patent and normal appearing. CTA right lower extremity: Patent right common femoral artery bifurcation is identified. Scattered mild calcified atherosclerosis (less than 30% narrowing) is identified throughout the right superficial femoral artery. Scattered mild disease is also scattered in the [id number] popliteal artery. Focal moderate disease (50% narrowing) is identified in the popliteal artery at the level of the knee. Variant anatomy with a high bifurcation of the popliteal artery at the level of the knee is identified. Patent tibioperoneal trunk and tibioperoneal trunk bifurcation is observed. Scattered calcified atherosclerosis causes mild scattered areas of stenosis in the tibioperoneal trunk. Scattered mild calcified atherosclerosis is identified in the proximal anterior tibial artery. Circumferential calcified atherosclerosis causes mild narrowing throughout the entirety of the remainder of the anterior tibial artery. However , the vessel appears to maintain gross patency to the ankle. The dorsalis pedis arteries to heavily calcified in the foot to evaluate patency. Circumferential calcified atherosclerosis is identified in the proximal portion of the dorsalis pedis artery and causes mild (30%) narrowing of the lumen. The remainder of the vessel is widely patent to the ankle. The posterior tibial artery is occluded at its origin. There is reconstitution of few branches of the posterior tibial artery in the proximal foot. CTA left lower extremity: Patent left common femoral artery bifurcation is identified. Scattered mild calcified and noncalcified atherosclerosis is identified in the superficial femoral artery. Focal high-grade stenosis (greater than 75%) is identified in the popliteal artery at the level of the knee. Scattered mild disease is seen throughout the remainder of the popliteal artery. Patent popliteal artery bifurcation, tibioperoneal trunk and tibioperoneal trunk bifurcation are observed. Circumferential calcified atherosclerosis is seen throughout the tibioperoneal trunk. Focal moderate (50%) stenosis is noted in the mid tibioperoneal trunk. Scattered mild circumferential calcified atherosclerosis is noted throughout the majority of the anterior tibial artery. The vessel appears to maintain gross patency to the ankle . The dorsalis pedis artery is too heavily calcified in the foot to evaluate patency. Circumferential calcified atherosclerosis is seen throughout the proximal portion of the peroneal artery. The remainder of the vessel is patent and without significant disease to the ankle. Circumferential calcified atherosclerosis is identified throughout the posterior tibial artery. The posterior tibial artery occludes proximally. Reconstitution of few of the distal branches of the posterior tibial artery in the foot is observed. CT pelvis: The bladder is filled with a moderate amount of urine. The visualized inferior portions of the kidneys are unremarkable. No obstructive uropathy is seen. The prostate is large. Moderate to large amount of formed stool is seen in the visualized colon. Multiple left colon diverticula are identified. The appendix is normal. No dilated loops of small bowel are observed. The stomach and duodenum are unremarkable. No intra- pelvic free fluid or fluid collections are observed. No pelvic lymphadenopathy is observed. Mild to moderate degenerative changes are noted in the visualized lower lumbar spine. Subcutaneous and muscular soft tissues surrounding the pelvis are unremarkable. CT Lower Extremities: Osseous structures of the lower extremities are intact and without destructive bony lesion. Soft tissues surrounding the lower extremities are unremarkable. IMPRESSION: Focal moderate stenosis in the right popliteal artery at the level of the knee. Two-vessel runoff through the ankle on the right via the anterior tibial and peroneal arteries. The posterior tibial artery occludes proximally and is without sustained reconstitution. Circumferential calcified atherosclerosis is seen throughout the anterior tibial artery and in the proximal portion of the peroneal artery. The dorsalis pedis artery is too heavily calcified in the foot to evaluate patency. Focal high-grade stenosis in the left popliteal artery at the level of the knee. Two-vessel runoff through the ankle on the left via the anterior tibial and peroneal arteries. The posterior tibial artery occludes proximally and is without sustained reconstitution. Focal moderate stenosis is identified in the tibioperoneal trunk. Circumferential calcified atherosclerosis is seen throughout the anterior tibial artery and in the proximal portion of the peroneal artery. The dorsalis pedis artery is too heavily calcified in the foot to evaluate patency. Enlarged prostate. Correlation with PSA and physical exam is recommended. Colonic diverticulosis. Degenerative changes in the spine. RPTAT: AA .Elier Kessler MD, MD Date Time Electronically viewed and signed by .Elier Kessler MD, MD on 05/02/2016 17:24 .P/ CC: RICHARD KATZ PA-C Hx of Present Illness The patient is a 76-year-old male with a history of [id number] diabetes, hypertension, dyslipidemia, as well as a heart valve surgery in the past. The patient presents with 2 weeks of worsening right-sided foot pain with associated erythema. The patient denies any trauma to the foot. He states that the foot is painful when he touches or moves it. He denies any fever or chills, denies any history of such symptoms. In the ED, the patient had a CT of the lower extremities, showed focal high-grade stenosis of the left popliteal artery at the level of knee, nonfocal moderate stenosis in the right popliteal artery at level of the knee. The patient has no other complaints at this time. Hospital Course Patient is treated with vancomycin and levaquin for cellulitis on feet. Patient is afebrile, infection is significantly improved. Patient will be discharged on doxycycline for 7 days. Vascular staudy indicates severe peripheral vascular disease on both lower extremities. Vascular consultation does not recommend surgery at this time. Patient will follow up with vascular surgery in two weeks. Patient has history of AVR, mechanical. He is instructed to follow up with PCP in two days to check INR. INR should be kept at 2.5-3.5. Home Meds Reported Medications Warfarin Sodium* (Coumadin*) 2.5 Mg Tablet, 1.25 MG PO TUESDAYS, TAB 05/02/16 Warfarin Sodium* (Coumadin*) 2.5 Mg Tablet, 2.5 MG PO SUN,M,W,KIARRA,F,SAT, TAB 05/02/16 Benazepril Hcl* (Benazepril Hcl*) 40 Mg Tablet, 40 MG PO DAILY, #30 TAB 05/02/16 Atorvastatin* (Atorvastatin*) 80 Mg Tablet, 80 MG PO QHS, #30 TAB 06/26/15 Felodipine* (Felodipine*) 5 Mg Tab.sr.24h, 5 MG PO DAILY, TAB.SA 06/26/15 Glimepiride* (Glimepiride*) 4 Mg Tablet, 4 MG PO DAILY, TAB 06/26/15 Metoprolol Succinate* (Toprol XL*) 50 Mg Tab.er.24h, 100 MG PO BID, #30 TAB 06/26/15 Metformin* (Glucophage*) 1,000 Mg Tablet, 1000 MG PO BID, #60 TAB 06/26/15 Follow-up Plan PCP in two days to check INR Vascular surgery follow up in two weeks Pending Labs Laboratory Tests Test 05/14/16 16:48 05/14/16 20:22 05/14/16 22:30 05/15/16 04:53 Bedside Glucose 124mg/dL (70-220) 169mg/dL (70-220) Vancomycin Level Trough 15.1ug/ml (10.0-20.0) INR International Normalized Ratio 2.09 Prothrombin Time 23.7Sec (12.2-14.2) Prothrombin Time Ratio 1.9 Test 05/15/16 08:00 05/15/16 11:50 Bedside Glucose 72mg/dL (70-220) 135mg/dL (70-220) KEYSHA SHARIF MD May 15, 2016 13:27
--- NOTE | 2016-05-15 13:28 | CONS ---
Date/Time of Note Date/Time of Note DATE: 05/15/16 TIME: 13:27 Consult Date/Type/Reason Admit Date/Time May 02, 2016 at 19:57 Type of Consultation: ID Subjective awake, nad, no fevers Objective Vital Signs Date Time Temp Pulse Resp B/P Pulse Ox O2 Delivery O2 Flow Rate FiO2 05/15/16 07:40 97.3 68 18 115/57 94 Intake and Output 05/14/16 05/14/16 05/15/16 14:59 22:59 06:59 Intake Total 1210 ml 1130 ml Output Total 450 ml Balance 1210 ml 680 ml Results/Medications Result Diagram: 05/14/16 0530 05/14/16 0530 Results 24 hrs Laboratory Tests Test 05/14/16 16:48 05/14/16 20:22 05/14/16 22:30 05/15/16 04:53 Bedside Glucose 124 169 Vancomycin Level Trough 15.1 INR International Normalized Ratio 2.09 Prothrombin Time 23.7 H Prothrombin Time Ratio 1.9 Test 05/15/16 08:00 05/15/16 11:50 Bedside Glucose 72 135 Medications Current Medications Ondansetron HCl (Zofran Inj) 4 mg Q6H PRN IV NAUSEA AND/OR VOMITING Last administered on 05/13/16 19:08; Admin Dose 4 MG; Start 05/02/16 at 21:30 Acetaminophen (Tylenol Tab) 650 mg Q6H PRN PO PAIN LEVEL 1-3 OR FEVER; Start at 21:30 Acetaminophen/ Hydrocodone Bitart ([place] (5/325)) 1 tab Q6H PRN PO MODERATE PAIN LEVEL 4-6 Last administered on 05/15/16 08:31; Admin Dose 1 TAB; Start 05/02/16 at 21:30 Morphine Sulfate (morphine) 2 mg Q4H PRN IV SEVERE PAIN LEVEL 7-10 Last administered on 05/15/16 10:45; Admin Dose 2 MG; Start 05/02/16 at 21:30 Docusate Sodium (Colace) 100 mg Q12H PRN PO CONSTIPATION; Start 05/02/16 at 21: 30 Zolpidem Tartrate (Ambien) 5 mg QHS PRN PO SLEEP Last administered on 01:55; Admin Dose 5 MG; Start 05/02/16 at 21:30 Atorvastatin Calcium (Lipitor) 80 mg QHS PO Last administered on 05/14/16 20: 24; Admin Dose 80 MG; Start 05/03/16 at 21:00 Felodipine (Plendil) 5 mg DAILY PO Last administered on 05/15/16 08:20; Admin Dose 5 MG; Start 05/03/16 at 09:00 Metoprolol Succinate (Toprol Xl) 100 mg BID PO Last administered on 05/15/16 08:21; Admin Dose 100 MG; Start 05/03/16 at 09:00 Insulin Glargine (Lantus) 10 unit HS SC Last administered on 05/14/16 20:31; Admin Dose 10 UNIT; Start 05/03/16 at 21:00 Miscellaneous Information 1 ea NOTE XX ; Start 05/02/16 at 23:45 Glucose (Glutose) 15 gm Q15M PRN PO DECREASED GLUCOSE; Start 05/02/16 at 23:45 Glucose (Glutose) 22.5 gm Q15M PRN PO DECREASED GLUCOSE; Start 05/02/16 at 23:45 Dextrose (D50w Syringe) 25 ml Q15M PRN IV DECREASED GLUCOSE; Start 05/02/16 at 23:45 Dextrose (D50w Syringe) 50 ml Q15M PRN IV DECREASED GLUCOSE; Start 05/02/16 at 23:45 Glucagon (Glucagen) 1 mg Q15M PRN IM DECREASED GLUCOSE; Start 05/02/16 at 23:45 Glucose (Glutose) 15 gm Q15M PRN BUCCAL DECREASED GLUCOSE; Start 05/02/16 at 23: 45 Levofloxacin (Levaquin) 500 mg DAILY@06 PO Last administered on 05/15/16 05:28 ; Admin Dose 500 MG; Start 05/04/16 at 16:00 Hydralazine HCl (Apresoline) 10 mg Q4H PRN IV ELEVATED SYSTOLIC BP Last administered on 05/06/16 22:24; Admin Dose 10 MG; Start 05/05/16 at 04:30 Benazepril HCl (Lotensin) 40 mg BID PO Last administered on 05/15/16 08:19; Admin Dose 40 MG; Start 05/11/16 at 10:30 Cilostazol (Pletal) 100 mg BID PO Last administered on 05/15/16 08:22; Admin Dose 100 MG; Start 05/11/16 at 21:00 Warfarin Sodium (Coumadin) 2.5 mg DAILY@17 PO Last administered on 05/14/16 17 :33; Admin Dose 2.5 MG; Start 05/12/16 at 17:00 Doxazosin Mesylate (Cardura) 2 mg HS PO Last administered on 05/14/16 20:24; Admin Dose 2 MG; Start 05/12/16 at 21:00 Terbinafine HCl 250 mg 250 mg BID PO Last administered on 05/15/16 08:20; Admin Dose 250 MG; Start 05/12/16 at 09:00; Stop 05/19/16 at 08:59 Vancomycin HCl (Vancocin) 100 ml @ 100 mls/hr Q12H IVPB Last administered on 12:32; Admin Dose 100 MLS/HR; Start 05/15/16 at 13:00 Assessment/Plan Chief Complaint/Hosp Course ANTIMICROBIALS: 1. Levaquin. 2. Vancomycin. PHYSICAL EXAMINATION: GENERAL: This is a well-developed, well-nourished elderly man who is alert, in no distress. HEENT: Head atraumatic, normocephalic. Sclerae anicteric. Buccal mucosa pink. NECK: Supple. Trachea midline. CHEST: Rise symmetrical. Breath sounds clear. HEART: S1, S2. ABDOMEN: Soft, bowel tones present. EXTREMITIES: Without cyanosis. Right lower extremity with decreased erythema. ASSESSMENT: 1. Right lower extremity cellulitis==> erythema decreasing. 2. Severe peripheral arterial disease. 3. Diabetes. 4. Hypertension. 5. CAD/Hx valve replacement PLAN: Remains unchanged, change abx to oral Doxycycline. Await for vascular intervention staff Problems: MANSI CURRAN NP May 15, 2016 13:28
[2016-05-15] MEDS ORDERED: DOXY-17 PO (13:46)
[2016-05-15] MEDS: WARFARIN 2.5 MG TAB PO SCH (15:47)
[2016-05-15] MEDS ORDERED: DOXYCYCLINE 100 MG TAB PO SCH (21:00)
--- NOTE | 2016-05-16 12:59 | CONS ---
DATE OF ADMISSION: 05/02/2016 DATE OF CONSULTATION: 05/04/2016 TYPE OF CONSULTATION: Infectious Disease. REASON FOR CONSULTATION: Antibiotic management. HISTORY OF PRESENT ILLNESS: Kraig Campos is a 76-year-old male who comes in with right foot pain. His problems include: 1. Rnu-cipqafv-untsbifwb diabetes. 2. Hypertension. 3. Dyslipidemia. 4. History of heart valve surgery. 5. Severe peripheral vascular disease. He has a history of 2 weeks of worsening right-sided foot pain associated with erythema. He denies trauma to the foot, it is painful. He denies fever or chills. Patient had a CT scan of the lower e xtremity which showed high grade stenosis of the left popliteal area at the level of the knee, nonfo mohan moderate stenosis of the right popliteal artery at the level of the knee. On admission, his whi te count was 12.1, H and H of 13.7 and 40.5, platelet count of 253,000. On the 6th white count is 7 .5, BUN and creatinine are 16/0.94. Blood cultures so far are negative. An x-ray of the foot shows no evidence of fracture, subluxation or dislocation, no evidence for erosive or destructive changes . Venous study, no evidence of deep vein thrombophlebitis of the right lower extremity. He has occ luded right dorsal dorsalis pedis arteries on arterial ultrasound. A lower extremity CT angiogram s howed focal moderate stenosis of the right popliteal artery at the level of the knee. Two-vessel ru noff to the ankle via the anterior and peroneal arteries, the posterior tibial artery occludes proxi lena and is without sustained reconstitution. The dorsalis pedis artery is too heavily calcified to the foot to evaluate the patency, focal high-grade stenosis of left popliteal artery at the level o f the knee, enlarged prostate, circumferential calcified atherosclerosis is seen through the anterio r tibial artery in the mid portion of the peroneal artery, dorsalis pedis is too heavily calcified a s noted to evaluate the patency. HOSPITAL COURSE: The patient was seen by Dr. Quiroga of vascular surgery for cellulitis of the l ower extremity as well as coolness from the knee down. Femoral and popliteal pulses are palpable, p edal pulses are very faint, we will need continuation of antibiotics and an angiogram was anti coagulation has been reversed. PAST MEDICAL HISTORY: Operations as outlined. FAMILY HISTORY: Noncontributory. SOCIAL HISTORY: He does not smoke, drink or abuse drugs. ALLERGIES: NONE TO PENICILLIN, SULFA OR FOODS. MEDICATIONS: Per chart. REVIEW OF SYSTEMS: As per HPI. PHYSICAL EXAMINATION: GENERAL: The patient is a well-developed, well-nourished male who is alert, responsive, in no acute distress. VITAL SIGNS: Stable. He is afebrile. SKIN: Without generalized rash. HEENT: Within normal limits. NECK: Supple. LYMPH NODES: None palpable. CHEST: Decreased breath sounds at the bases. HEART: Without murmur or gallop. ABDOMEN: Soft, nontender, without organosplenomegaly or masses. EXTREMITIES: Without cyanosis, clubbing, or edema. The right foot is erythematous and tender to pa lpation on the dorsal aspect of the foot, it is also cold. ANCILLARY LABORATORY DATA: White count on the 5th was 12.1. IMPRESSION AND PLAN: Patient is currently on vancomycin. We can add Levaquin to his regimen. I wi ll dictate my findings to the hospitalist and Dr. Quiroga. Dictated By: MARCI ALDRIDGE MD, JD/ANABELA Conf#: [id number] DID#: [id number]
== END 2016-05-15 16:20 | disposition home or self-care (01) | DRG 300 ==
LOC: FTE 10:36 → MS4 19:57 → MS2 05-06 14:05
PROVIDERS: ADMIT Internal Medicine; ATTEND Internal Medicine
PROC: B41D1ZZ Fluoroscopy of Aorta and Bilateral Lower Extremity Arteries using Low Osmolar Contrast (ICD-10-PCS; principal; 2016-05-02)
DX: E11.51 Type 2 diabetes mellitus with diabetic peripheral angiopathy without gangrene (principal); L03.115 Cellulitis of right lower limb; I11.0 Hypertensive heart disease with heart failure; I50.42 Chronic combined systolic (congestive) and diastolic (congestive) heart failure; Z95.2 Presence of prosthetic heart valve; Z79.01 Long term (current) use of anticoagulants; E78.00 Pure hypercholesterolemia, unspecified; Z87.891 Personal history of nicotine dependence; N40.0 Benign prostatic hyperplasia without lower urinary tract symptoms; D72.829 Elevated white blood cell count, unspecified
CPT/HCPCS: 73630; 73706; 75630; 80048; 80053; 80061; 80202; 82962; 83036; 83605; 83735; 84100; 85025; 85610; 85730; 87040; 87081; 93923; 93970; 93971; C1769; C1887; C1894; J0360; J0696; J1644; J1815; J2250; J2270; J2405; J3010; J3370; J7030; J7050; Q9967

== ENCOUNTER 2016-05-25 11:11 | Inpatient (IN) | payer MEDICARE, OTHER ==
[~2016-05-25] VITALS: Wt 59.0 kg
[~2016-05-25 11:11] MED LIST changes: -ACET325T33 PO; +BENA40TA41 PO; +DOXY-17 PO; -HYDR-3671 PO
[2016-05-25] MEDS ORDERED: morphine 4 MG/ML VIAL IV STA (11:37)
[2016-05-25] MEDS ORDERED: ONDANSETRON 4 MG INJ IV STA (11:37)
--- NOTE | 2016-05-25 11:37 | ERA ---
ER Documentation Chief Complaint Date/Time DATE: 05/25/16 TIME: 11:37 Chief Complaint RIGHT FOOT PAIN AND INFECTION. ADMITTED PREVIOUSLY FOR SAME HPI 76-year-old male with history of diabetes mellitus type 2, hypertension, dyslipidemia, severe peripheral artery disease recently admitted for cellulitis of the right foot and remote history of aortic valve replacement on Coumadin ambulatory to the ED complaining of a one-week history of worsening, sharp, nonradiating pain over the right foot. He is unable to sleep due to pain which is unresolved by the analgesics he was prescribed. He continues on oral antibiotics. Denies chest pain or palpitations. No shortness of breath or cough. No abdominal pain, nausea or vomiting. No fevers or chills. During his previous admission May 02 - May 15 he had an extensive vascular surgery consultation and angiography which revealed severe peripheral vascular disease with markedly decreased flow especially below the right popliteal artery. ROS All systems reviewed and are negative except as per history of present illness. Medications Home Meds Active Scripts Doxycycline* (Vibramycin*) 100 Mg Capsule, 100 MG PO BID for 7 Days, EA Prov:KEYSHA SHARIF MD 05/15/16 Reported Medications Warfarin Sodium* (Coumadin*) 2.5 Mg Tablet, 1.25 MG PO TUESDAYS, TAB 05/02/16 Warfarin Sodium* (Coumadin*) 2.5 Mg Tablet, 2.5 MG PO SUN,M,W,KIARRA,F,FRI, TAB 05/02/16 Benazepril Hcl* (Benazepril Hcl*) 40 Mg Tablet, 40 MG PO DAILY, #30 TAB 05/02/16 Atorvastatin* (Atorvastatin*) 80 Mg Tablet, 80 MG PO QHS, #30 TAB 06/26/15 Felodipine* (Felodipine*) 5 Mg Tab.sr.24h, 5 MG PO DAILY, TAB.SA 06/26/15 Glimepiride* (Glimepiride*) 4 Mg Tablet, 4 MG PO DAILY, TAB 06/26/15 Metoprolol Succinate* (Toprol XL*) 50 Mg Tab.er.24h, 100 MG PO BID, #30 TAB 06/26/15 Metformin* (Glucophage*) 1,000 Mg Tablet, 1000 MG PO BID, #60 TAB 06/26/15 Allergies Allergies: Coded Allergies: No Known Drug Allergies (Verified Allergy, Mild, 05/25/16) PMhx/Soc Reviewed in chart. As per HPI. History of Surgery: Yes (OPEN HEART SX X2, VALVE REPAIR) Anesthesia Reaction: No Hx 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 Disorder: No Hx Respiratory Disorders: No Hx Cardiac Disorders: Yes (HTN, AFIB, HYPERLIPIDEMIA, PAD) Hx Psychiatric Problems: No Hx Miscellaneous Medical Probl: No Hx Alcohol Use: No Hx Substance Use: No Hx Tobacco Use: Yes Smoking Status: Former smoker FmHx No stroke or cancer Physical Exam Vitals Vital Signs Date Time Temp Pulse Resp B/P Pulse Ox O2 Delivery O2 Flow Rate FiO2 05/25/16 13:15 98.5 58 18 144/57 99 Room Air 05/25/16 11:17 98.5 66 21 116/81 99 Physical Exam Const: Alert, moderate distress due to pain. Head: Atraumatic Eyes: Normal Conjunctiva ENT: Normal External Ears, Nose and Mouth. Neck: Full range of motion.. No JVD. Resp: Breath sounds are equal and clear to auscultation bilaterally Cardio: Regular rate and rhythm. Mechanical click. Status post median sternotomy. No chest wall tenderness. Abd: Soft, non tender, non distended. Normal bowel sounds Skin: No petechiae or rashes Back: No midline or flank tenderness Ext: Right foot: Tender, distal erythema with mild warmth and plantar gangrene. No subcutaneous emphysema. Neur: Awake and alert. No focal deficit observed. Psych: Normal Mood and Affect Result Diagram: 05/25/16 1200 05/25/16 1200 Results 24 hrs Laboratory Tests Test 05/25/16 12:00 Alanine Aminotransferase (ALT/SGPT) 67IU/L Albumin 4.0g/dl Albumin/Globulin Ratio 1.14 Alkaline Phosphatase 66IU/L Anion Gap 16 Aspartate Amino Transf (AST/SGOT) 37IU/L Basophils # 0.110^3/ul Basophils % 0.7% Blood Urea Nitrogen 16mg/dl Calcium Level 9.0mg/dl Carbon Dioxide Level 26mmol/L Chloride Level 106mmol/L Creatinine 0.96mg/dl Direct Bilirubin 0.00mg/dl Eosinophils # 0.110^3/ul Eosinophils % 1.1% Globulin 3.50g/dl Glucose Level 194mg/dl Hematocrit 37.1% Hemoglobin 13.0g/dl INR International Normalized Ratio 1.16 Indirect Bilirubin 0.4mg/dl Lymphocytes # 1.810^3/ul Lymphocytes % 20.8% Mean Corpuscular Hemoglobin 32.4pg Mean Corpuscular Hemoglobin Concent 35.0g/dl Mean Corpuscular Volume 92.6fl Mean Platelet Volume 10.2fl Monocytes # 0.610^3/ul Monocytes % 6.6% Neutrophils # 6.310^3/ul Neutrophils % 70.8% Nucleated Red Blood Cells # 0.010^3/ul Nucleated Red Blood Cells % 0.0/100WBC Platelet Count 26071^3/UL Potassium Level 4.8mmol/L Prothrombin Time 14.9Sec Prothrombin Time Ratio 1.2 Red Blood Count 4.0110^6/ul Red Cell Distribution Width 14.1% Sodium Level 143mmol/L Total Bilirubin 0.4mg/dl Total Protein 7.5g/dl White Blood Count 8.910^3/ul Current Medications Medications (Trade) Dose Ordered Sig/Shanthi Route PRN Reason Start Time Stop Time Status Last Admin Dose Admin Morphine Sulfate (morphine) 4 mg ONCE STAT IV 05/25/16 11:37 05/25/16 11:39 DC 05/25/16 11:58 Ondansetron HCl 4 mg 4 mg ONCE STAT IV 05/25/16 11:37 05/25/16 11:39 DC 05/25/16 11:59 Vancomycin HCl 250 ml @ 125 mls/hr ONCE IVPB 05/25/16 14:00 05/25/16 15:59 Levofloxacin/ Dextrose (Levaquin 500mg/ D5W 100 ml (Pmx)) 100 ml @ 100 mls/hr ONCE ONCE IVPB 05/25/16 14:00 05/25/16 14:59 Procedures/MDM DOCUMENTS REVIEWED: ED nurse, prior records, prior ED MEDICAL DECISION MAKIN-year-old male with history of diabetes mellitus type 2, hypertension, dyslipidemia, severe peripheral artery disease recently admitted for cellulitis of the right foot and remote history of aortic valve replacement on Coumadin ambulatory to the ED complaining of a one-week history of worsening, sharp, nonradiating pain over the right foot. Patient with severe peripheral vascular disease and cellulitis/gangrene to the right foot with rest pain. No subcutaneous air or signs of necrotizing fasciitis. No radiographic evidence of osteomyelitis. Will admit to [facility] for intravenous antibiotics, pain control and vascular surgery consultation. Counseled patient regarding diagnosis, diagnostic results and plan for admission. CALLS/CONSULTS: Time 13:00, Dr. Velasco, Recommends admission to [facility]. PATIENT CARE TRANSITIONED: Time: 14:01, Dr. Velasco. Departure Diagnosis: Primary Impression: Cellulitis of right foot Additional Impressions: Peripheral vascular disease Lower limb ischemia Diabetes mellitus type 2 in nonobese History of aortic valve replacement Condition: Serious CHELITA BENEDICT MD May 25, 2016 11:37
--- NOTE | 2016-05-25 12:04 | RADRPT ---
PROCEDURE: XR Right Foot CLINICAL INDICATION: Pain, cellulitis TECHNIQUE: AP, oblique, and lateral radiographs were submitted. COMPARISON: 04/28/2016 FINDINGS: Osseous structures: appear well mineralized and intact with no fracture or destructive process iden tified. Joint spaces: are well maintained, with no significant spurring, erosion or joint effusion evident. Soft tissues: Vascular calcification is seen quite extensively, unchanged. IMPRESSION: 1. Extensive vascular calcification is again noted. 2. Otherwise, stable unremarkable right foot. Physician Rhea Date Time Electronically viewed and signed by Homa Long Physician on 05/25/2016 12:04 /
[2016-05-25 12:18] LABS: BASOPHIL # 0.1 10^3/ul (0.0-0.1); BASOPHILS % 0.7 % (0.0-2.0); EOSINOPHILS # 0.1 10^3/ul (0.0-0.5); EOSINOPHILS % 1.1 % (0.0-7.0); HEMATOCRIT 37.1 % (42.0-52.0); LYMPHOCYTES # 1.8 10^3/ul (0.8-2.9); LYMPHOCYTES % 20.8 % (15.0-51.0); MEAN CORPUSCULAR HEMOGLOBIN 32.4 pg (29.0-33.0); MEAN CORPUSCULAR VOLUME 92.6 fl (82.0-101.0); MEAN PLATELET VOLUME 10.2 fl (7.4-10.4); MONOCYTE # 0.6 10^3/ul (0.3-0.9); MONOCYTES % 6.6 % (0.0-11.0); NEUTROPHIL # 6.3 10^3/ul (1.6-7.5); NEUTROPHILS % 70.8 % (39.0-77.0); PLATELET COUNT 181 10^3/UL (140-440); RED BLOOD COUNT 4.01 10^6/ul (4.70-6.10); RED CELL DISTRIBUTION WIDTH 14.1 % (11.5-14.5); UNCORRECTED WBC 8.9 10^3/ul (4.8-10.8); WHITE BLOOD COUNT 8.9 10^3/ul (4.8-10.8)
[2016-05-25 12:19] LABS: CONDITION 1
[2016-05-25 12:27] LABS: POTASSIUM 4.8 mmol/L (3.5-5.1)
[2016-05-25 12:28] LABS: INR 1.16; PROTIME 14.9 Sec (12.2-14.2); PT RATIO 1.2
[2016-05-25 12:29] LABS: CREATININE 0.96 mg/dl (0.61-1.24)
[2016-05-25 12:30] LABS: ALBUMIN/GLOBULIN RATIO 1.14; BILIRUBIN,INDIRECT 0.4 mg/dl (0-1.1); BILIRUBIN,TOTAL 0.4 mg/dl (0.2-1.3); TOTAL PROTEIN 7.5 g/dl (6.1-8.1)
[2016-05-25] MEDS ORDERED: LEVOFLOXACIN 500MG/D5W (PMX) 100 ML IVPB ONE (14:00)
[2016-05-25] MEDS ORDERED: VANCOMYCIN 1 GM (PMX) 250 ML IVPB SCH (14:00)
[2016-05-25] MEDS ORDERED: ONDANSETRON 4 MG INJ IV PRN ×2 (14:00→16:30)
[2016-05-25] MEDS ORDERED: ACETAMINOPHEN 325 MG TAB PO PRN (14:00)
[2016-05-25 15:17] VITALS: TEMP 98.5
[2016-05-25] MEDS ORDERED: GLUCOSE GEL 15 GRAM TUBE PO PRN ×2 (16:30)
[2016-05-25] MEDS ORDERED: hydrALAzine 20 MG INJ IV PRN (16:30)
[2016-05-25] MEDS ORDERED: GLUCOSE GEL 15 GRAM TUBE BUCCAL PRN (16:30)
[2016-05-25] MEDS ORDERED: NACL 0.9% 3 ML SYG IV SCH (16:30)
[2016-05-25] MEDS ORDERED: GLUCAGON 1 MG INJ IM PRN (16:30)
[2016-05-25] MEDS ORDERED: VANCOMYCIN IV PER PHARMACY XX SCH (16:30)
[2016-05-25] MEDS ORDERED: DEXTROSE 50% 50 ML SYRINGE IV PRN ×2 (16:30)
[2016-05-25 17:17] LABS: ADD UMIC NO; URINE BILIRUBIN (Dip) NEGATIVE (NEGATIVE); URINE BLOOD (Dip) NEGATIVE (NEGATIVE); URINE COLOR YELLOW (YELLOW); URINE GLUCOSE (Dip) NEGATIVE (NEGATIVE); URINE KETONES (Dip) TRACE (NEGATIVE); URINE LEUKOCYTE ESTERASE (Dip) NEGATIVE (NEGATIVE); URINE NITRITE (Dip) NEGATIVE (NEGATIVE); URINE TOTAL PROTEIN (Dip) NEGATIVE (NEGATIVE); URINE UROBILINOGEN (Dip) 0.2 E.U./dL (0.1-1.0)
[2016-05-25] MEDS: INSULIN ASPART [NOVOLOG] 3 ML PEN SC SCH ×3 (17:35→20:49)
--- NOTE | 2016-05-25 18:01 | CONS ---
Date/Time of Note Date/Time of Note DATE: 05/25/16 TIME: 17:44 Assessment/Plan Assessment/Plan Chief Complaint/Hosp Course ID FOLLOW UP NOTE * Patient was seen on 05/17/[address] Kay for right ischemic/ diabetic foot cellulitis, toe ulcer, returns for same problem. TOTAL ABX DAY #1 => Re-start Vanco IV + Levaquin s/p Doxycycline po HISTORY OF PRESENT ILLNESS 76-year-old male who comes in with recurrent right foot pain, known to Dr. Kay's ID team from recent admission for recurrent problem. His problems include: 1. Zty-kkuwxrr-kuobkoauy diabetes. 2. Hypertension. 3. Dyslipidemia. 4. History of heart valve surgery. 5. Severe peripheral vascular disease. RECENT DIAGNOSTICS: * CT scan of the lower extremity which showed high grade stenosis of the left popliteal area at the level of the knee, nonfocal moderate stenosis of the right popliteal artery at the level of the knee. * An x-ray of the foot shows no evidence of fracture, subluxation or dislocation , no evidence for erosive or destructive changes. * Venous study, no evidence of deep vein thrombophlebitis of the right lower extremity. * He has occluded right dorsal dorsalis pedis arteries on arterial ultrasound. * A lower extremity CT angiogram showed focal moderate stenosis of the right popliteal artery at the level of the knee. Two-vessel runoff to the ankle via the anterior and peroneal arteries, the posterior tibial artery occludes proximally and is without sustained reconstitution. The dorsalis pedis artery is too heavily calcified to the foot to evaluate the patency, focal high-grade stenosis of left popliteal artery at the level of the knee, enlarged prostate, circumferential calcified atherosclerosis is seen through the anterior tibial artery in the mid portion of the peroneal artery, dorsalis pedis is too heavily calcified as noted to evaluate the patency. PHYSICAL EXAMINATION: GENERAL: 76 yo M - Chinese speaking able to communicate w/limited Algerian and my limited Chinese HEENT: Unremarkable NECK: Supple, trachea midline. CHEST: Rise symmetrical without dyspnea on observation HEART: Radial pulse RRR ABDOMEN: Soft, nontender EXTREMITIES: Warm, right foot w/erythema dorsal metatarsals, no open skin noted , non-palpable right DP/PT, no cyanosis, toe (+)necrotic ulcer ID ASSESSMENT: 76 yo M re-admitted with: 1. Right lower extremity cellulitis=> erythema less than prior admission w/(+) necrotic toe ulcer * Onychomycosis bilateral toenails * 05/25/16 Right Foot X-Ray: IMPRESSION: 1. Extensive vascular calcification is again noted.2. Otherwise, stable unremarkable right foot. 2. Severe BLEXT peripheral arterial disease=>Arterial occlusion, lower extremity * 05/10/16 BLEXT Angiogram: RIGHT=> "high bifurcation with the anterior tibial artery taking off normally at 3 mm vessel. However, it became very diseased through the mid leg and became subtotal towards the foot with no runoff. The posterior tibial artery and the peroneal artery also were subtotal from the mid leg down with no good outflow. There were no targets for bypass as well." 3. 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 Hypertension. 5. CAD/Hx valve replacement 6. Ischemic/Diabetic neuropathic right foot pain INVASIVES: *PIV CURRENT ABX: #1 => Re-start Vanco IV + Levaquin s/p Doxycycline po ID RECOMMENDATIONS: CONTINUE Current ABX -> further recs per APC team * Per angiogram note = there were no targets for bypass RLEXT ? * Apparently patient has limited options for revascularization. . Problems: Consultation Date/Type/Reason Admit Date/Time May 25, 2016 at 15:25 Initial Consult Date Exam/Review of Systems Vital Signs Vitals Vital Signs Date Time Temp Pulse Resp B/P Pulse Ox O2 Delivery O2 Flow Rate FiO2 05/25/16 15:17 98.5 62 16 134/64 99 Room Air Results Result Diagram: 05/25/16 1200 05/25/16 1200 Results 24 hrs Laboratory Tests Test 05/25/16 12:00 05/25/16 17:00 05/25/16 17:07 Alanine Aminotransferase (ALT/SGPT) 67 Albumin 4.0 Albumin/Globulin Ratio 1.14 Alkaline Phosphatase 66 Anion Gap 16 Aspartate Amino Transf (AST/SGOT) 37 Basophils # 0.1 Basophils % 0.7 Blood Urea Nitrogen 16 Calcium Level 9.0 Carbon Dioxide Level 26 Chloride Level 106 Creatinine 0.96 Direct Bilirubin 0.00 Eosinophils # 0.1 Eosinophils % 1.1 Globulin 3.50 H Glucose Level 194 Hematocrit 37.1 L Hemoglobin 13.0 L INR International Normalized Ratio 1.16 Indirect Bilirubin 0.4 Lymphocytes # 1.8 Lymphocytes % 20.8 Mean Corpuscular Hemoglobin 32.4 Mean Corpuscular Hemoglobin Concent 35.0 Mean Corpuscular Volume 92.6 Mean Platelet Volume 10.2 Monocytes # 0.6 Monocytes % 6.6 Neutrophils # 6.3 Neutrophils % 70.8 Nucleated Red Blood Cells # 0.0 Nucleated Red Blood Cells % 0.0 Platelet Count 181 Potassium Level 4.8 Prothrombin Time 14.9 #H Prothrombin Time Ratio 1.2 Red Blood Count 4.01 L Red Cell Distribution Width 14.1 Sodium Level 143 Total Bilirubin 0.4 Total Protein 7.5 White Blood Count 8.9 Urine Bilirubin NEGATIVE Urine Clarity CLEAR Urine Color YELLOW Urine Glucose NEGATIVE Urine Hemoglobin NEGATIVE Urine Ketones TRACE Urine Leukocyte Esterase NEGATIVE Urine Nitrite NEGATIVE Urine Specific [place] 1.025 Urine Total Protein NEGATIVE Urine Urobilinogen 0.2 E.U./dL Urine pH 5.0 Bedside Glucose 69 L Medications Medications Current Medications Ondansetron HCl (Zofran Inj) 4 mg Q6H PRN IV NAUSEA AND/OR VOMITING; Start at 16:30 Acetaminophen/ Hydrocodone Bitart ([place] (5/325)) 1 tab Q6H PRN PO MODERATE PAIN LEVEL 4-6; Start 05/25/16 at 16:30 Morphine Sulfate (morphine) 2 mg Q4H PRN IV SEVERE PAIN LEVEL 7-10; Start 05/25 at 16:30 Famotidine (Pepcid Iv) 20 mg Q12 IV ; Start 05/25/16 at 21:00 Enoxaparin Sodium (Lovenox) 60 mg Q12 SC ; Start 05/25/16 at 16:30 Atorvastatin Calcium (Lipitor) 80 mg QHS PO ; Start 05/25/16 at 21:00 Benazepril HCl (Lotensin) 40 mg DAILY PO ; Start 05/26/16 at 09:00 Felodipine (Plendil) 5 mg DAILY PO ; Start 05/26/16 at 09:00 Metoprolol Succinate (Toprol Xl) 100 mg BID PO ; Start 05/25/16 at 21:00 Warfarin Sodium (Coumadin) 7.5 mg DAILY@17 PO ; Start 05/25/16 at 17:00 Insulin Glargine (Lantus) 6 unit HS SC ; Start 05/25/16 at 21:00 Diagnostic Test (Pha) (Accucheck) 1 ea 02 XX ; Start 05/26/16 at 02:00 Hydralazine HCl (Apresoline) 10 mg Q6H PRN IV SbP>160; Start 05/25/16 at 16:30 Miscellaneous Information 1 ea NOTE XX ; Start 05/25/16 at 16:30 Glucose (Glutose) 15 gm Q15M PRN PO DECREASED GLUCOSE; Start 05/25/16 at 16:30 Glucose (Glutose) 22.5 gm Q15M PRN PO DECREASED GLUCOSE; Start 05/25/16 at 16: 30 Dextrose (D50w Syringe) 25 ml Q15M PRN IV DECREASED GLUCOSE; Start 05/25/16 at 16:30 Dextrose (D50w Syringe) 50 ml Q15M PRN IV DECREASED GLUCOSE; Start 05/25/16 at 16:30 Glucagon (Glucagen) 1 mg Q15M PRN IM DECREASED GLUCOSE; Start 05/25/16 at 16:30 Glucose 15 gm 15 gm Q15M PRN BUCCAL DECREASED GLUCOSE; Start 05/25/16 at 16:30 Vancomycin HCl 1.25 gm/Sodium Chloride 250 ml @ 83.333 mls/ hr Q24H IVPB ; Start 05/26/16 at 11:00 Levofloxacin/ Dextrose (Levaquin 500mg/ D5W 100 ml (Pmx)) 100 ml @ 100 mls/hr Q24H IVPB ; Start 05/26/16 at 14:00 EMELY CHANG NP May 25, 2016 17:58
[2016-05-25] MEDS: ENOXAPARIN 60 MG/0.6 ML SYG SC SCH ×2 (18:04→20:48)
[2016-05-25] MEDS: WARFARIN 7.5 MG TAB PO SCH (18:04)
--- NOTE | 2016-05-25 20:08 | HP ---
DATE OF ADMISSION: 05/25/2016 TIME OF EVALUATION: 1630 REASON FOR ADMISSION: Right foot pain and infection. CONSULTATIONS: 1. Rigoberto Kay MD, infectious disease. 2. Ole Rudd DPM, podiatry. 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 The patient was discharged from [facility] on 05/15/2016 after treating him for right foot cellulitis. At that time, the patient underwent extensive vascular workup that revealed severe peripheral vascular disease. At that time , the patient was evaluated by a vascular surgeon. The patient verbalized that he has been taking his antibiotics as prescribed; however, his right foot pain has not been getting better. The patient denied any fevers. The patient verbalized some difficulty with weightbearing on the right foot. He denied any headache, chest pain, dyspnea, nausea, vomiting, abdominal pain, diarrhea, hematochezia, or melena. In the emergency room, the patient underwent a right foot x-ray that showed extensive vascular calcification. The patient was afebrile in the emergency room. The patient was treated with IV Levaquin and IV vancomycin along with analgesics in the emergency room. PAST MEDICAL HISTORY: Recurrent right foot cellulitis, severe peripheral vascular disease, essential hypertension, type 2 diabetes mellitus, dyslipidemia , cardiomyopathy with ejection fraction of 40%. PAST SURGICAL HISTORY: Aortic valve replacement. HOME MEDICATIONS 1. Doxycycline 100 mg p.o. b.i.d. 2. Warfarin 2.5 mg p.o. daily on Friday, Friday, Friday, , Friday and Friday 3. Warfarin 1.25 mg p.o. on Tuesdays. 4. Atorvastatin 80 mg p.o. at bedtime. 5. Benazepril 50 mg p.o. daily. 6. Felodipine 5 mg p.o. daily. 7. Toprol XL 100 mg p.o. b.i.d. 8. Glimepiride 4 mg p.o. daily. 9. Metformin 1,000 mg p.o. b.i.d. ALLERGIES: NO KNOWN DRUG ALLERGIES. SOCIAL HISTORY: The patient lives at home with his family. Denies any history of tobacco, alcohol or illicit drug use. REVIEW OF SYSTEMS: A 12-point review of systems was made and the review of systems is negative, other than what is mentioned in history of present illness. PHYSICAL EXAMINATION VITAL SIGNS: Temperature 98.5, pulse rate 62, respiratory rate 16, blood pressure 134/64, oxygen saturation 99% on room air. GENERAL: This is a well-built, well-nourished, male lying in bed, in no apparent distress. HEENT: Head normocephalic and atraumatic. Eyes, anicteric sclerae. Conjunctivae clear. ENT, nasal septum is midline. Oral mucosa is moist. NECK: Supple. No JVD noticed. RESPIRATORY: Bilaterally clear to auscultation. No adventitious breath sounds heard. No use of accessory muscles of respiration. CARDIAC: Regular rate and rhythm. Audible aortic valve click is heard. ABDOMEN: Soft, nontender and nondistended. Bowel sounds positive in all 4 quadrants. GENITOURINARY: Deferred. EXTREMITIES: No cyanosis, no clubbing. Pedal pulses are nonpalpable. Right foot erythema over the metatarsophalangeal joint. Right 2nd toe blister distally. Right 4th toe, necrotic. NEUROLOGIC: Awake, alert and oriented. Cranial nerves are grossly intact. LABORATORY AND DIAGNOSTIC DATA: WBC 8.9, hemoglobin 13.0, hematocrit 37.1, platelet count 181. Sodium 140, potassium 4.8, chloride 106, carbon dioxide 26 , anion gap 16, BUN 16, creatinine 0.96, glucose 194, calcium 9.0, AST 37, ALT 67, alkaline phosphatase 66, total protein 7.5, albumin 4.0. PT 14.9, INR 1.16. X-RAYS: Right foot x-ray: Extensive vascular calcification. IMPRESSION: This is a 76-year-old, male with extensive peripheral vascular disease who is being admitted here for recurrent right foot cellulitis ASSESSMENT AND PLAN 1. Recurrent right foot cellulitis. The patient will be started on empiric antibiotics. Burdick cultures will be obtained. An infectious disease consult will be obtained. The patient has known history of severe peripheral vascular disease. A podiatry consult will be obtained. 2. Type 2 diabetes mellitus. The patient will be started on sliding scale insulin, along with basal insulin and premeal insulin. Hemoglobin A1c will be obtained. 3. Essential hypertension. The patient will be started on antihypertensives. The patient will also be started on p.r.n. antihypertensives for any systolic blood pressure readings greater than 160 mmHg. 4. Subtherapeutic INR. The patient has aortic valve replaced. The patient's INR is only 1.16. Hence, the patient will be started on therapeutic Lovenox until the INR is within therapeutic levels. 5. Dyslipidemia. The patient will be started on statins. A fasting lipid panel will be obtained. Plan. The patient will be admitted to inpatient medical/surgical floor. The patient will be started on gastrointestinal prophylaxis. The patient is fully anticoagulated for his underlying aortic valve replacement. THE PATIENT WILL REMAIN A FULL CODE. Activities will be as tolerated. The rest of the patient's management will be based on the clinical course, the results of diagnostic studies, and inputs from consultants. Based on the patient's clinical presentation, he most probably requires at least 2 midnights' stay for further management and evaluation of his clinical presentation. The case and management of this patient were fully discussed with Dr. Pascual. Approximately 50 minutes were spent on the history and physical on this patient. JO-ANN PASCUAL MD, AM/ANABELA Conf#: [id number] DID#: [id number] MTDD
[2016-05-25 20:09] VITALS: BP 162/73; RESP 18
[2016-05-25] MEDS: ATORVASTATIN 80 MG TAB PO SCH (20:47)
[2016-05-25] MEDS: INSULIN GLARGINE [LANtus] 3 ML PEN SC SCH (20:49)
[2016-05-25] MEDS: FAMOTIDINE 20 MG INJ IV SCH (20:49)
[2016-05-25] MEDS: METOPROLOL (XL) 50 MG TAB PO SCH (20:51)
[2016-05-26] MEDS: morphine 2 MG INJ IV PRN ×3 (00:17→17:02)
[2016-05-26] MEDS: ACCUCHECK XX SCH (01:54)
[2016-05-26 06:51] LABS: INR 1.55; PROTIME 18.7 Sec (12.2-14.2); PT RATIO 1.5
[2016-05-26 06:55] LABS: CHOL/HDL RATIO 3.4 RATIO; MAGNESIUM 1.5 mg/dl (1.7-2.5); PHOSPHORUS 4.2 mg/dl (2.5-4.9)
[2016-05-26 06:58] LABS: ALBUMIN 3.5 g/dl (3.3-4.9)
[2016-05-26 06:59] LABS: POTASSIUM 4.3 mmol/L (3.5-5.1)
[2016-05-26 07:01] LABS: ALBUMIN/GLOBULIN RATIO 1.09; BILIRUBIN,INDIRECT 0.2 mg/dl (0-1.1); BILIRUBIN,TOTAL 0.2 mg/dl (0.2-1.3); CREATININE 0.79 mg/dl (0.61-1.24); TOTAL PROTEIN 6.7 g/dl (6.1-8.1)
[2016-05-26 07:02] LABS: BASOPHIL # 0.1 10^3/ul (0.0-0.1); BASOPHILS % 0.6 % (0.0-2.0); CALCIUM 8.9 mg/dl (8.4-10.2); EOSINOPHILS # 0.2 10^3/ul (0.0-0.5); EOSINOPHILS % 2.5 % (0.0-7.0); HEMATOCRIT 37.3 % (42.0-52.0); HEMOGLOBIN 13.3 g/dl (14.0-18.0); LYMPHOCYTES # 2.6 10^3/ul (0.8-2.9); LYMPHOCYTES % 27.4 % (15.0-51.0); MEAN CORPUSCULAR HGB CONC 35.7 g/dl (32.0-37.0); MEAN CORPUSCULAR VOLUME 92.3 fl (82.0-101.0); MEAN PLATELET VOLUME 10.4 fl (7.4-10.4); MONOCYTE # 0.7 10^3/ul (0.3-0.9); MONOCYTES % 7.3 % (0.0-11.0); NEUTROPHIL # 5.9 10^3/ul (1.6-7.5); NEUTROPHILS % 62.2 % (39.0-77.0); PLATELET COUNT 166 10^3/UL (140-440); RED BLOOD COUNT 4.04 10^6/ul (4.70-6.10); RED CELL DISTRIBUTION WIDTH 13.6 % (11.5-14.5); UNCORRECTED WBC 9.6 10^3/ul (4.8-10.8); WHITE BLOOD COUNT 9.6 10^3/ul (4.8-10.8)
[2016-05-26 07:05] LABS: CONDITION 1
[2016-05-26 07:25] LABS: THYROID STIMULATING HORMONE 8.95 MIU/L (0.465-4.680)
[2016-05-26] MEDS: BENAZEPRIL 40 MG TAB PO SCH (08:00)
[2016-05-26] MEDS: INSULIN ASPART [NOVOLOG] 3 ML PEN SC SCH ×7 (08:00→20:42)
[2016-05-26 08:05] VITALS: BP 190/84; RESP 17
[2016-05-26] MEDS: METOPROLOL (XL) 50 MG TAB PO SCH ×2 (09:00→20:40)
[2016-05-26] MEDS ORDERED: FELODIPINE (ER) 5 MG TAB PO SCH (09:00)
[2016-05-26] MEDS: FAMOTIDINE 20 MG INJ IV SCH ×2 (09:04→20:38)
[2016-05-26] MEDS: ENOXAPARIN 60 MG/0.6 ML SYG SC SCH ×2 (09:07→20:42)
[2016-05-26] MEDS ORDERED: MAGNESIUM SULFATE 2 GM/50 ML 50 ML IVPB ONE (10:30)
[2016-05-26] MEDS ORDERED: VANCOMYCIN 1.25 GM in SOD CHLORIDE 0.9% 250 ML IVPB SCH (11:00)
[2016-05-26 11:55] VITALS: BP 177/77; PULSE 58
--- NOTE | 2016-05-26 12:44 | PN ---
Date/Time of Note Date/Time of Note DATE: 05/26/16 TIME: 12:39 Assessment/Plan VTE Prophylaxis VTE Prophylaxis Intervention: LMWH Lines/Catheters IV C[facility] Type [facility]from [facility] Saline Lock Urinary Cath still in place: No Assessment/Plan Chief Complaint/Hosp Course 1. Recurrent right foot cellulitis. The patient will be continued on empiric antibiotics. The patient has known history of severe peripheral vascular disease. Podiatry following. 2. Type 2 diabetes mellitus. The patient will be maintained on sliding scale insulin, along with basal insulin and premeal insulin. Hemoglobin A1c 6.3. 3. Essential hypertension. The patient will be continued on antihypertensives. The patient will also be maintained on p.r.n. antihypertensives for any systolic blood pressure readings greater than 160 mmHg. 4. Subtherapeutic INR. The patient is status post aortic valve replacement. The patient will be maintained on therapeutic Lovenox until the INR is within therapeutic levels. 5. Dyslipidemia. The patient will be continued on statins. 6. Fluids, electrolytes, and nutrition. Carbohydrate controlled, low- cholesterol diet. 7. DVT prophylaxis. On therapeutic Lovenox. 8. Gastrointestinal prophylaxis. Histamine 2 receptor blockers. 9. Plan. Continue pain control. Continue antibiotics. Replete magnesium. Await recommendations from podiatry. Case discussed with Dr. Velasco. Problems: Subjective 24 Hr Interval Summary Free Text/Dictation Patient's blood pressure running high. Exam/Review of Systems Vital Signs Vitals Vital Signs Date Time Temp Pulse Resp B/P Pulse Ox O2 Delivery O2 Flow Rate FiO2 05/26/16 11:55 58 177/77 05/26/16 08:05 96.7 17 99 05/25/16 15:17 Room Air Intake and Output 05/25/16 05/25/16 05/26/16 15:00 23:00 07:00 Intake Total 440 ml 360 ml Output Total 400 ml 500 ml Balance 40 ml -140 ml Exam GENERAL: This is a well-built, well-nourished, male lying in bed, in no apparent distress. HEENT: Head normocephalic and atraumatic. Eyes, anicteric sclerae. Conjunctivae clear. ENT, nasal septum is midline. Oral mucosa is moist. NECK: Supple. No JVD noticed. RESPIRATORY: Bilaterally clear to auscultation. No adventitious breath sounds heard. No use of accessory muscles of respiration. CARDIAC: Regular rate and rhythm. Audible aortic valve click is heard. ABDOMEN: Soft, nontender and nondistended. Bowel sounds positive in all 4 quadrants. GENITOURINARY: Deferred. EXTREMITIES: No cyanosis, no clubbing. Pedal pulses are nonpalpable. Right foot erythema over the metatarsophalangeal joint. Right 2nd toe blister distally. Right 4th toe, necrotic. NEUROLOGIC: Awake, alert and oriented. Cranial nerves are grossly intact. Results Result Diagram: 05/26/16 0515 05/26/16 0515 Results 24 hrs Laboratory Tests Test 05/25/16 17:00 05/25/16 17:07 05/25/16 18:00 05/25/16 19:38 Urine Bilirubin NEGATIVE Urine Clarity CLEAR Urine Color YELLOW Urine Glucose NEGATIVE Urine Hemoglobin NEGATIVE Urine Ketones TRACE Urine Leukocyte Esterase NEGATIVE Urine Nitrite NEGATIVE Urine Specific [place] 1.025 Urine Total Protein NEGATIVE Urine Urobilinogen 0.2 E.U./dL Urine pH 5.0 Bedside Glucose 69 L 114 159 Test 05/26/16 05:15 05/26/16 07:47 05/26/16 12:00 Alanine Aminotransferase (ALT/SGPT) 52 Albumin 3.5 Albumin/Globulin Ratio 1.09 Alkaline Phosphatase 57 Anion Gap 14 Aspartate Amino Transf (AST/SGOT) 30 Basophils # 0.1 Basophils % 0.6 Blood Urea Nitrogen 15 Calcium Level 8.9 Carbon Dioxide Level 26 Chloride Level 106 Cholesterol Level 85 L Cholesterol/HDL Ratio 3.4 Creatinine 0.79 Direct Bilirubin 0.00 Eosinophils # 0.2 Eosinophils % 2.5 Globulin 3.20 Glucose Level 59 #L HDL Cholesterol 25 L Hematocrit 37.3 L Hemoglobin 13.3 L Hemoglobin A1c 6.3 H INR International Normalized Ratio 1.55 Indirect Bilirubin 0.2 LDL Cholesterol, Calculated 43 Lymphocytes # 2.6 Lymphocytes % 27.4 Magnesium Level 1.5 L Mean Corpuscular Hemoglobin 33.0 Mean Corpuscular Hemoglobin Concent 35.7 Mean Corpuscular Volume 92.3 Mean Platelet Volume 10.4 Monocytes # 0.7 Monocytes % 7.3 Neutrophils # 5.9 Neutrophils % 62.2 Nucleated Red Blood Cells # 0.0 Nucleated Red Blood Cells % 0.0 Phosphorus Level 4.2 Platelet Count 166 Potassium Level 4.3 Prothrombin Time 18.7 #H Prothrombin Time Ratio 1.5 Red Blood Count 4.04 L Red Cell Distribution Width 13.6 Sodium Level 142 Thyroid Stimulating Hormone (TSH) 8.950 H Total Bilirubin 0.2 Total Protein 6.7 Triglycerides Level 83 White Blood Count 9.6 Bedside Glucose 81 110 Medications Medications Current Medications Ondansetron HCl (Zofran Inj) 4 mg Q6H PRN IV NAUSEA AND/OR VOMITING; Start at 16:30 Acetaminophen/ Hydrocodone Bitart ([place] (5/325)) 1 tab Q6H PRN PO MODERATE PAIN LEVEL 4-6; Start 05/25/16 at 16:30 Morphine Sulfate (morphine) 2 mg Q4H PRN IV SEVERE PAIN LEVEL 7-10 Last administered on 05/26/16 11:53; Admin Dose 2 MG; Start 05/25/16 at 16:30 Famotidine (Pepcid Iv) 20 mg Q12 IV Last administered on 05/26/16 09:04; Admin Dose 20 MG; Start 05/25/16 at 21:00 Enoxaparin Sodium (Lovenox) 60 mg Q12 SC Last administered on 05/26/16 09:07; Admin Dose 60 MG; Start 05/25/16 at 16:30 Atorvastatin Calcium (Lipitor) 80 mg QHS PO Last administered on 05/25/16 20: 47; Admin Dose 80 MG; Start 05/25/16 at 21:00 Benazepril HCl (Lotensin) 40 mg DAILY PO ; Start 05/26/16 at 08:00 Felodipine ([place]il) 5 mg DAILY PO Last administered on 05/26/16 09:05; Admin Dose 5 MG; Start 05/26/16 at 09:00 Metoprolol Succinate (Toprol Xl) 100 mg BID PO Last administered on 05/25/16 20:51; Admin Dose 100 MG; Start 05/25/16 at 21:00 Warfarin Sodium (Coumadin) 7.5 mg DAILY@17 PO Last administered on 05/25/16 18 :04; Admin Dose 7.5 MG; Start 05/25/16 at 17:00 Insulin Glargine (Lantus) 6 unit HS SC Last administered on 05/25/16 20:49; Admin Dose 6 UNIT; Start 05/25/16 at 21:00 Diagnostic Test (Pha) (Accucheck) 1 ea 02 XX ; Start 05/26/16 at 02:00 Hydralazine HCl (Apresoline) 10 mg Q6H PRN IV SbP>160 Last administered on 05/26t 11:55; Admin Dose 10 MG; Start 05/25/16 at 16:30 Miscellaneous Information 1 ea NOTE XX ; Start 05/25/16 at 16:30 Glucose (Glutose) 15 gm Q15M PRN PO DECREASED GLUCOSE; Start 05/25/16 at 16:30 Glucose (Glutose) 22.5 gm Q15M PRN PO DECREASED GLUCOSE; Start 05/25/16 at 16: 30 Dextrose (D50w Syringe) 25 ml Q15M PRN IV DECREASED GLUCOSE; Start 05/25/16 at 16:30 Dextrose (D50w Syringe) 50 ml Q15M PRN IV DECREASED GLUCOSE; Start 05/25/16 at 16:30 Glucagon (Glucagen) 1 mg Q15M PRN IM DECREASED GLUCOSE; Start 05/25/16 at 16:30 Glucose 15 gm 15 gm Q15M PRN BUCCAL DECREASED GLUCOSE; Start 05/25/16 at 16:30 Levofloxacin/ Dextrose 100 ml @ 100 mls/hr Q24H IVPB ; Start 05/26/16 at 14:00 Vancomycin HCl/ Sodium Chloride (Vancocin/NS) 150 ml @ 75 mls/hr Q12H IVPB ; Start 05/26/16 at 11:00 Silver Sulfadiazine (Thermazene 1% 50 Gm) 1 applic DAILY TOP ; Start 05/27/16 at 09:00 JO-ANN WILSON NP May 26, 2016 12:44
[2016-05-26] MEDS: VANCOMYCIN 750 MG in SOD CHLORIDE 0.9% 150 ML IVPB SCH ×2 (13:57→23:45)
[2016-05-26 17:00] VITALS: BP 148/66; PULSE 67
[2016-05-26] MEDS: WARFARIN 7.5 MG TAB PO SCH (17:03)
[2016-05-26] MEDS: LEVOFLOXACIN 500MG/D5W (PMX) 100 ML IVPB SCH (17:13)
--- NOTE | 2016-05-26 18:12 | CONS ---
DATE OF ADMISSION: 05/25/2016 DATE OF CONSULTATION: REASON FOR CONSULTATION: Right foot cellulitis. HISTORY OF PRESENT ILLNESS: This is a 76-year-old male with recurrent ulceration and cellulitis to the right foot. He has had recent angiography for peripheral vascular disease and surgery was not recommended. There was noted a normal arterial flow to the right lower extremity with disease in the anterior tibial, the mid leg and posterior tibial artery and peroneal artery with poor outflow from the leg down as the targets needed for bypass. The patient relates pain to the right foot. PAST MEDICAL HISTORY: Type 2 diabetes, hypertension, dyslipidemia, severe peripheral vascular disease. PAST SURGICAL HISTORY: Aortic valve replacement. FAMILY HISTORY: Noncontributory. SOCIAL HISTORY: Denies any smoking, alcohol, or illicit drug use. ALLERGIES: NONE. MEDICATIONS: Includin. Doxycycline 100 mg b.i.d. 2. Coumadin 2.5 mg p.o. Friday, Friday, Friday, , Friday, Friday and 1.25 mg on Tuesdays. 3. Atorvastatin 80 mg p.o. at bedtime. 4. Benazepril 50 mg p.o. daily. 5. Metoprolol 50 mg p.o. daily. 6. Felodipine 5 mg p.o. daily. 7. Toprol 100 mg p.o. b.i.d. 8. Glimepiride 4 mg p.o. daily. 9. Metformin 1000 mg p.o. b.i.d. PHYSICAL EXAMINATION: VITAL SIGNS: Temperature 96.7, pulse 55, respiratory rate 17, blood pressure 190/84, pulse oximetry is 99. GENERAL: The patient is alert in no acute distress, has some grimacing with pain with palpation to the toes of the right foot. HEENT: Head is normocephalic, atraumatic. Trachea is midline. EXTREMITIES: The patient has no palpable pedal pulses bilaterally. No signs of decubitus ulceration. There is a small fissure at the medial aspect of the left great toe with dried sanguineous exudate, without cellulitis. Skin is dry with epidermal lysis of skin, presence of tinea dystrophic nails, right forefoot with cellulitis. There is right second toe blister and right 4th toe with necrosis distal aspect. No signs of lymphangitis. No evidence of ingrowing nails or subungual ulceration. There is limited mobility of toes and pain with palpation and passive range of motion. IMAGING: X-rays: Extensive calcification of the right foot, bilateral greater and lesser saphenous veins. CT scan: A 2-vessel runoff through the ankle on the right via the anterior tibial and peroneal arteries, posterior tibial artery occluded proximally without sustained reconstitution. There is circumflex calcified atherosclerosis seen throughout the anterior tibial artery and in the proximal portion of the peroneal artery and dorsalis pedis arteries too heavily calcified to evaluate patency. Noninvasive arterial study the right DOOR MACHINE OPERATOR 95 cm per second, 51 cm per second, right proximal SFA 68.5 cm per second, right mid SFA 56 cm per second, right distal SFA 54 cm per second, right popliteal 85 cm per second, food or baggage handling rampman tibial artery and 10 cm per second. The right dorsalis pedis included. KENNY not performed due to calcified arteries. ASSESSMENT: Includes: 1. Right foot diabetic ulceration. 2. Cellulitis with recurrence. 3. Peripheral vascular disease, surgery not recommended. The patient noted to have lack of target for bypass. The patient currently on Levaquin and vancomycin. Will monitor ulcerations, may require debridement. Recommend topical intervention. Monitor WBC currently 9.6. Will need IV antibiotics for cellulitis. Will continue to monitor clinical appearance. Dictated By: VANDANA HOOPER/ANABELA Conf#: [id number] DID#: [id number] MTDD
[2016-05-26 19:36] VITALS: BP 152/88; RESP 20
[2016-05-26] MEDS: ATORVASTATIN 80 MG TAB PO SCH (20:38)
[2016-05-26] MEDS: NIFEdipine (XL) 60 MG TAB PO SCH (20:40)
[2016-05-26] MEDS: INSULIN GLARGINE [LANtus] 3 ML PEN SC SCH (20:41)
[2016-05-27] MEDS: ACCUCHECK XX SCH (02:00)
[2016-05-27] MEDS ORDERED: DIPHENHYDRAMINE 50 MG INJ IV ONE (04:00)
[2016-05-27] MEDS ORDERED: LORAZEPAM 2 MG INJ IV ONE (04:00)
[2016-05-27] MEDS ORDERED: HALOPERIDOL 5 MG INJ IM ONE (04:00)
[2016-05-27 06:00] LABS: BASOPHIL # 0.1 10^3/ul (0.0-0.1); BASOPHILS % 0.6 % (0.0-2.0); EOSINOPHILS # 0.4 10^3/ul (0.0-0.5); EOSINOPHILS % 3.3 % (0.0-7.0); HEMATOCRIT 36.8 % (42.0-52.0); HEMOGLOBIN 12.8 g/dl (14.0-18.0); LYMPHOCYTES # 1.3 10^3/ul (0.8-2.9); LYMPHOCYTES % 11.6 % (15.0-51.0); MEAN CORPUSCULAR HEMOGLOBIN 32.1 pg (29.0-33.0); MEAN CORPUSCULAR HGB CONC 34.7 g/dl (32.0-37.0); MEAN CORPUSCULAR VOLUME 92.5 fl (82.0-101.0); MEAN PLATELET VOLUME 10.1 fl (7.4-10.4); MONOCYTE # 0.7 10^3/ul (0.3-0.9); MONOCYTES % 6.1 % (0.0-11.0); NEUTROPHIL # 8.6 10^3/ul (1.6-7.5); NEUTROPHILS % 78.4 % (39.0-77.0); PLATELET COUNT 151 10^3/UL (140-440); RED BLOOD COUNT 3.98 10^6/ul (4.70-6.10); RED CELL DISTRIBUTION WIDTH 13.9 % (11.5-14.5)
[2016-05-27 06:05] LABS: CONDITION 1
[2016-05-27 06:06] LABS: POTASSIUM 4.3 mmol/L (3.5-5.1)
[2016-05-27 06:08] LABS: CREATININE 0.84 mg/dl (0.61-1.24)
[2016-05-27 06:09] LABS: CALCIUM 9.1 mg/dl (8.4-10.2)
[2016-05-27 06:10] LABS: INR 2.22; PROTIME 24.9 Sec (12.2-14.2); PT RATIO 1.9
[2016-05-27 06:16] LABS: PHOSPHORUS 3.8 mg/dl (2.5-4.9)
[2016-05-27 06:17] LABS: MAGNESIUM 1.8 mg/dl (1.7-2.5)
[2016-05-27 07:53] VITALS: BP 159/70; RESP 19
[2016-05-27] MEDS: INSULIN ASPART [NOVOLOG] 3 ML PEN SC SCH ×7 (08:00→21:00)
[2016-05-27] MEDS: BENAZEPRIL 40 MG TAB PO SCH (08:26)
[2016-05-27] MEDS: METOPROLOL (XL) 50 MG TAB PO SCH ×2 (08:28→21:08)
[2016-05-27] MEDS: NIFEdipine (XL) 60 MG TAB PO SCH ×2 (08:29→21:06)
[2016-05-27] MEDS: FAMOTIDINE 20 MG INJ IV SCH (09:00)
[2016-05-27] MEDS: SILVER SULFADIAZINE 1% 50 GM CR TOP SCH (09:46)
[2016-05-27] MEDS: VANCOMYCIN 750 MG in SOD CHLORIDE 0.9% 150 ML IVPB SCH (11:44)
--- NOTE | 2016-05-27 13:37 | PN ---
DATE: 05/27/2016 SUBJECTIVE: No acute events overnight. The patient is alert, feels good, looks comfortable. He, s till has some pain in his right foot. ANTIMICROBIALS: He is on: 1. Vancomycin. 2. Levaquin. MICROBIOLOGY: Blood urine culture negative. DIAGNOSTICS: WBC today 11, platelets 151, neutrophils 78.4. BUN 19, creatinine 0.84. PHYSICAL EXAMINATION: GENERAL: Well-developed elderly man who is alert, in no distress. HEENT: Head atraumatic, normocephalic. Sclerae anicteric. Buccal mucosa pink. NECK: Supple, trachea midline. CHEST: Rise symmetrical. Breath sounds clear. HEART: S1, S2. ABDOMEN: Soft. Bowel tones present. EXTREMITIES: With right foot dressing intact. ASSESSMENT: 1. Right lower extremity cellulitis. 2. Severe peripheral arterial disease status post angiogram on 05/10/2016 3. Diabetes. 4. Hypertension. 5. Coronary artery disease, history of valve replacement. PLAN: The patient remains stable. He is being seen by Dr. Rudd who recommends continue on IV an tibiotics. Vascular on case. Continue present care. Dictated By: MANSI CURRAN LITERACY TEACHER for MARCI DODSON/NTS Conf#: [id number] DID#: [id number]
[2016-05-27] MEDS: HYDROCODONE/APAP (5/325) TAB PO PRN (14:41)
[2016-05-27] MEDS: LEVOFLOXACIN 500MG/D5W (PMX) 100 ML IVPB SCH (14:41)
--- NOTE | 2016-05-27 15:49 | PN ---
Date/Time of Note Date/Time of Note DATE: 05/27/16 TIME: 15:46 Assessment/Plan VTE Prophylaxis VTE Prophylaxis Intervention: LMWH Lines/Catheters IV C[facility] Type [facility]from [facility]): Saline Lock Urinary Cath still in place: No Assessment/Plan Chief Complaint/Hosp Course Assessment and plan 1. Recurrent right foot cellulitis. Continue on antibiotics. Continue with podiatry patient. Await wound care consultation. Vascular surgeon to follow 2. Diabetes. Type II. Continue with insulin regimen. Will adjust as needed. A1c at 6.3 3. Essential hypertension. Continue on anti-pretenses and adjust as needed 4. Subtherapeutic INR for aortic valve replacement. Therapeutic at present. DC Lovenox 5. Dyslipidemia. Continue statin medication DVT prophylaxis: Is Coumadin GERD prophylaxis: H2 tone Disposition and plan: Continue on antibiotics. Await vascular surgeon recommendations. Continue with wound care. Discussed plan of care with Dr. Barrett Problems: Subjective 24 Hr Interval Summary Free Text/Dictation Resting at this time. Still reports having some right lower extremity discomfort Exam/Review of Systems Vital Signs Vitals Vital Signs Date Time Temp Pulse Resp B/P Pulse Ox O2 Delivery O2 Flow Rate FiO2 05/27/16 07:53 98.0 69 19 159/70 98 05/25/16 15:17 Room Air Intake and Output 05/26/16 05/26/16 05/27/16 15:00 23:00 07:00 Intake Total 50 ml 850 ml 510 ml Output Total 990 ml 900 ml Balance 50 ml -140 ml -390 ml Exam General: No acute signs or symptoms of distress Eyes: pupils equal round, Anicteric sclera Neck: Supple nontender, no JVD Cardiac: S1, S2 auscultated, regular rhythm and rate Pulmonary: No coarse rhonchi or breathing auscultated GI: Abdomen soft nontender nondistended, bowel sounds active Extremities: No edema bilateral lower extremities Skin: Noted with some right foot erythema and also right second toe blister with right fourth toe necrotic in appearance. Neurologic: Alert to person and place. Forgetful at times Results Result Diagram: 05/27/16 0500 05/27/16 0500 Results 24 hrs Laboratory Tests Test 05/26/16 17:07 05/26/16 20:37 05/27/16 05:00 05/27/16 07:39 Bedside Glucose 148 151 120 Anion Gap 15 Basophils # 0.1 Basophils % 0.6 Blood Urea Nitrogen 19 Calcium Level 9.1 Carbon Dioxide Level 25 Chloride Level 104 Creatinine 0.84 Eosinophils # 0.4 Eosinophils % 3.3 Glucose Level 159 # Hematocrit 36.8 L Hemoglobin 12.8 L INR International Normalized Ratio 2.22 Lymphocytes # 1.3 Lymphocytes % 11.6 L Magnesium Level 1.8 Mean Corpuscular Hemoglobin 32.1 Mean Corpuscular Hemoglobin Concent 34.7 Mean Corpuscular Volume 92.5 Mean Platelet Volume 10.1 Monocytes # 0.7 Monocytes % 6.1 Neutrophils # 8.6 H Neutrophils % 78.4 H Nucleated Red Blood Cells # 0.0 Nucleated Red Blood Cells % 0.0 Phosphorus Level 3.8 Platelet Count 151 Potassium Level 4.3 Prothrombin Time 24.9 #H Prothrombin Time Ratio 1.9 Red Blood Count 3.98 L Red Cell Distribution Width 13.9 Sodium Level 140 White Blood Count 11.0 H Test 05/27/16 11:46 Bedside Glucose 122 Medications Medications Current Medications Ondansetron HCl (Zofran Inj) 4 mg Q6H PRN IV NAUSEA AND/OR VOMITING; Start at 16:30 Acetaminophen/ Hydrocodone Bitart ([place] (5/325)) 1 tab Q6H PRN PO MODERATE PAIN LEVEL 4-6 Last administered on 05/27/16 14:41; Admin Dose 1 TAB; Start at 16:30 Morphine Sulfate (morphine) 2 mg Q4H PRN IV SEVERE PAIN LEVEL 7-10 Last administered on 05/26/16 17:02; Admin Dose 2 MG; Start 05/25/16 at 16:30 Enoxaparin Sodium (Lovenox) 60 mg Q12 SC Last administered on 05/26/16 20:42; Admin Dose 60 MG; Start 05/25/16 at 16:30; Status Future Hold Atorvastatin Calcium (Lipitor) 80 mg QHS PO Last administered on 05/26/16 20: 38; Admin Dose 80 MG; Start 05/25/16 at 21:00 Benazepril HCl (Lotensin) 40 mg DAILY PO Last administered on 05/27/16 08:26; Admin Dose 40 MG; Start 05/26/16 at 08:00 Metoprolol Succinate (Toprol Xl) 100 mg BID PO Last administered on 05/27/16 08:28; Admin Dose 100 MG; Start 05/25/16 at 21:00 Warfarin Sodium (Coumadin) 7.5 mg DAILY@17 PO Last administered on 05/26/16 17 :03; Admin Dose 7.5 MG; Start 05/25/16 at 17:00 Insulin Glargine (Lantus) 6 unit HS SC Last administered on 05/26/16 20:41; Admin Dose 6 UNIT; Start 05/25/16 at 21:00 Diagnostic Test (Pha) (Accucheck) 1 ea 02 XX ; Start 05/26/16 at 02:00 Hydralazine HCl (Apresoline) 10 mg Q6H PRN IV SbP>160 Last administered on 05/26 11:55; Admin Dose 10 MG; Start 05/25/16 at 16:30 Miscellaneous Information 1 ea NOTE XX ; Start 05/25/16 at 16:30 Glucose (Glutose) 15 gm Q15M PRN PO DECREASED GLUCOSE; Start 05/25/16 at 16:30 Glucose (Glutose) 22.5 gm Q15M PRN PO DECREASED GLUCOSE; Start 05/25/16 at 16: 30 Dextrose (D50w Syringe) 25 ml Q15M PRN IV DECREASED GLUCOSE; Start 05/25/16 at 16:30 Dextrose (D50w Syringe) 50 ml Q15M PRN IV DECREASED GLUCOSE; Start 05/25/16 at 16:30 Glucagon (Glucagen) 1 mg Q15M PRN IM DECREASED GLUCOSE; Start 05/25/16 at 16:30 Glucose 15 gm 15 gm Q15M PRN BUCCAL DECREASED GLUCOSE; Start 05/25/16 at 16:30 Levofloxacin/ Dextrose 100 ml @ 100 mls/hr Q24H IVPB Last administered on 05/27 14:41; Admin Dose 100 MLS/HR; Start 05/26/16 at 14:00 Vancomycin HCl/ Sodium Chloride (Vancocin/NS) 150 ml @ 75 mls/hr Q12H IVPB Last administered on 05/27/16 11:44; Admin Dose 75 MLS/HR; Start 05/26/16 at 11 :00 Silver Sulfadiazine (Thermazene 1% 50 Gm) 1 applic DAILY TOP Last administered on 05/27/16 09:46; Admin Dose 1 APPLIC; Start 05/27/16 at 09:00 Nifedipine (Procardia Xl) 60 mg BID PO Last administered on 05/27/16t 08:29; Admin Dose 60 MG; Start 05/26/16 at 21:00 Miscellaneous Information (*Rx Drug Level Order Reminder*) VANCOMYCIN TROUGH AT 2200 ONCE ONCE XX ; Start 05/27/16 at 22:00; Stop 05/27/16 at 22:01 Famotidine (Pepcid) 20 mg Q12 PO ; Start 05/27/16 at 21:00 TRISTON PINEDA May 27, 2016 15:49
[2016-05-27] MEDS: WARFARIN 7.5 MG TAB PO SCH (17:26)
[2016-05-27 20:00] VITALS: BP 149/68; RESP 21
[2016-05-27] MEDS: ATORVASTATIN 80 MG TAB PO SCH (21:06)
[2016-05-27] MEDS: FAMOTIDINE 20 MG TAB PO SCH (21:08)
[2016-05-27] MEDS: INSULIN GLARGINE [LANtus] 3 ML PEN SC SCH (21:23)
[2016-05-27] MEDS: VANCOMYCIN 1 GM in NS 250 ML IVPB SCH (23:16)
[2016-05-28] MEDS: ACCUCHECK XX SCH (02:00)
[2016-05-28] MEDS: HYDROCODONE/APAP (5/325) TAB PO PRN ×2 (03:43→11:15)
--- NOTE | 2016-05-28 04:11 | CONS ---
DATE OF ADMISSION: 05/25/2016 DATE OF CONSULTATION: 05/27/2016 SUBJECTIVE FINDINGS: The patient being followed for cellulitis to the right foot. Has been seen by ID and initiated on IV antibiotics including vancomycin and Levaquin. Patient relates decreased pa in and redness to the right foot since admission. REVIEW OF SYSTEMS: Denies any fever, nausea, vomiting, chest pain, shortness of breath. PHYSICAL EXAMINATION: VITAL SIGNS: Temperature 98.7, pulse 77, respiratory rate 21, blood pressure 149/68, pulse oximetry is 97 room air. EXTREMITIES: The patient with decreased erythema. Has a small fissure to the left great toe with a sanguineous exudate. No signs of cellulitis. Right foot with persistent epidermolysis of the skin , decreased erythema, cellulitis limited to the toes, has a blister on the right second toe, and shanna e skin necrosis of the right 4th toe distal aspect. No evidence of lymphangitis. No ingrowing nail or subungual ulceration. There is pain with passive range of motion of the toes. Pedal pulses non palpable. IMAGING: X-rays: Extensive calcification, right foot. CTA reviewed. ASSESSMENT 1. Right foot diabetic foot ulceration. 2. Left foot ulceration, great toe. 3. Cellulitis, peripheral vascular disease. Surgery not recommended prior admission due to lack of bypass target sites. PLAN: Continue current antibiotic, Levaquin and vancomycin. There is improvement. Continue topica l antiseptic precautions, chlorhexidine, and Silvadene. Will continue to monitor. Patient kevon g. Recommend discharge planning. Dictated By: VANDANA HOOPER/ANABELA Conf#: [id number] DID#: [id number]
[2016-05-28 05:49] LABS: PT RATIO 2.5
[2016-05-28 06:20] LABS: INR 3.1; PROTIME 32.4 Sec (12.2-14.2)
[2016-05-28 07:25] VITALS: BP 184/82; RESP 21
[2016-05-28] MEDS: INSULIN ASPART [NOVOLOG] 3 ML PEN SC SCH ×8 (08:19→20:40)
[2016-05-28] MEDS: METOPROLOL (XL) 50 MG TAB PO SCH ×2 (08:24→20:39)
[2016-05-28] MEDS: NIFEdipine (XL) 60 MG TAB PO SCH ×2 (08:24→20:39)
[2016-05-28] MEDS: FAMOTIDINE 20 MG TAB PO SCH ×2 (08:25→20:37)
[2016-05-28] MEDS: BENAZEPRIL 40 MG TAB PO SCH (08:25)
[2016-05-28] MEDS: SILVER SULFADIAZINE 1% 50 GM CR TOP SCH (08:26)
[2016-05-28 09:35] VITALS: BP 130/64; PULSE 76
[2016-05-28] MEDS: VANCOMYCIN 1 GM in NS 250 ML IVPB SCH ×2 (11:14→23:15)
[2016-05-28] MEDS: LEVOFLOXACIN 500MG/D5W (PMX) 100 ML IVPB SCH (14:04)
--- NOTE | 2016-05-28 14:43 | PN ---
Date/Time of Note Date/Time of Note DATE: 05/28/16 TIME: 14:40 Assessment/Plan VTE Prophylaxis VTE Prophylaxis Intervention: LMWH Lines/Catheters IV [facility] Saline Lock Urinary Cath still in place: No Assessment/Plan Chief Complaint/Hosp Course Assessment and plan 1. Recurrent right foot cellulitis. Continue on antibiotics. Continue with podiatry recommendations. cont wound care per podiatry 2. Diabetes. Type II. Continue with insulin regimen. Will adjust as needed. A1c at 6.3 3. Essential hypertension. Continue on anti-pretenses and adjust as needed 4. Subtherapeutic INR for aortic valve replacement. Therapeutic at present. DC Lovenox 5. Dyslipidemia. Continue statin medication DVT prophylaxis: Is Coumadin GERD prophylaxis: H2 tone Disposition and plan: Continue on antibiotics. cont wound care per podiatry. no plan for surgical intervention at this time. d/c when cleared by consultants. Will get PT to evaluate. Discussed plan of care with Dr. Barrett Problems: Subjective 24 Hr Interval Summary Free Text/Dictation comfortable at present. no apparent distress Exam/Review of Systems Vital Signs Vitals Vital Signs Date Time Temp Pulse Resp B/P Pulse Ox O2 Delivery O2 Flow Rate FiO2 05/28/16 09:35 76 130/64 05/28/16 07:25 97.7 21 98 05/25/16 15:17 Room Air Intake and Output 05/27/16 05/27/16 05/28/16 15:00 23:00 07:00 Intake Total 800 ml 730 ml Output Total 450 ml 2150 ml Balance 350 ml -1420 ml Exam General: No acute signs or symptoms of distress Eyes: pupils equal round, Anicteric sclera Neck: Supple nontender, no JVD Cardiac: S1, S2 auscultated, regular rhythm and rate Pulmonary: No coarse rhonchi or breathing auscultated GI: Abdomen soft nontender nondistended, bowel sounds active Extremities: No edema bilateral lower extremities Skin: Noted with some right foot erythema and also right second toe blister with right fourth toe necrotic in appearance. Neurologic: Alert to person and place. Forgetful at times Results Result Diagram: 05/27/16 0500 05/27/16 0500 Results 24 hrs Laboratory Tests Test 05/27/16 17:05 05/27/16 21:19 05/27/16 22:05 05/28/16 05:11 Bedside Glucose 232 H 96 Vancomycin Level Trough 9.6 L INR International Normalized Ratio 3.10 Prothrombin Time 32.4 #H Prothrombin Time Ratio 2.5 Test 05/28/16 07:46 05/28/16 11:24 Bedside Glucose 297 H 115 Medications Medications Current Medications Ondansetron HCl (Zofran Inj) 4 mg Q6H PRN IV NAUSEA AND/OR VOMITING; Start at 16:30 Acetaminophen/ Hydrocodone Bitart ([place] (5/325)) 1 tab Q6H PRN PO MODERATE PAIN LEVEL 4-6 Last administered on 05/28/16 11:15; Admin Dose 1 TAB; Start at 16:30 Morphine Sulfate (morphine) 2 mg Q4H PRN IV SEVERE PAIN LEVEL 7-10 Last administered on 05/26/16 17:02; Admin Dose 2 MG; Start 05/25/16 at 16:30 Atorvastatin Calcium (Lipitor) 80 mg QHS PO Last administered on 05/27/16 21: 06; Admin Dose 80 MG; Start 05/25/16 at 21:00 Benazepril HCl (Lotensin) 40 mg DAILY PO Last administered on 05/28/16 08:25; Admin Dose 40 MG; Start 05/26/16 at 08:00 Metoprolol Succinate (Toprol Xl) 100 mg BID PO Last administered on 05/28/16 08:24; Admin Dose 100 MG; Start 05/25/16 at 21:00 Warfarin Sodium (Coumadin) 7.5 mg DAILY@17 PO Last administered on 05/27/16 17 :26; Admin Dose 7.5 MG; Start 05/25/16 at 17:00 Insulin Glargine (Lantus) 6 unit HS SC Last administered on 05/27/16 21:23; Admin Dose 6 UNIT; Start 05/25/16 at 21:00 Diagnostic Test (Pha) (Accucheck) 1 ea 02 XX ; Start 05/26/16 at 02:00 Hydralazine HCl (Apresoline) 10 mg Q6H PRN IV SbP>160 Last administered on 05/26 11:55; Admin Dose 10 MG; Start 05/25/16 at 16:30 Miscellaneous Information 1 ea NOTE XX ; Start 05/25/16 at 16:30 Glucose (Glutose) 15 gm Q15M PRN PO DECREASED GLUCOSE; Start 05/25/16 at 16:30 Glucose (Glutose) 22.5 gm Q15M PRN PO DECREASED GLUCOSE; Start 05/25/16 at 16: 30 Dextrose (D50w Syringe) 25 ml Q15M PRN IV DECREASED GLUCOSE; Start 05/25/16 at 16:30 Dextrose (D50w Syringe) 50 ml Q15M PRN IV DECREASED GLUCOSE; Start 05/25/16 at 16:30 Glucagon (Glucagen) 1 mg Q15M PRN IM DECREASED GLUCOSE; Start 05/25/16 at 16:30 Glucose 15 gm 15 gm Q15M PRN BUCCAL DECREASED GLUCOSE; Start 05/25/16 at 16:30 Levofloxacin/ Dextrose (Levaquin 500mg/ D5W 100 ml (Pmx)) 100 ml @ 100 mls/hr Q24H IVPB Last administered on 05/28/16 14:04; Admin Dose 100 MLS/HR; Start at 14:00 Silver Sulfadiazine (Thermazene 1% 50 Gm) 1 applic DAILY TOP Last administered on 05/28/16 08:26; Admin Dose 1 APPLIC; Start 05/27/16 at 09:00 Nifedipine (Procardia Xl) 60 mg BID PO Last administered on 05/28/16 08:24; Admin Dose 60 MG; Start 05/26/16 at 21:00 Famotidine 20 mg 20 mg Q12 PO Last administered on 05/28/16 08:25; Admin Dose 20 MG; Start 05/27/16 at 21:00 Vancomycin HCl (Vancocin) 250 ml @ 125 mls/hr Q12H IVPB Last administered on 11:14; Admin Dose 125 MLS/HR; Start 05/27/16 at 23:00 TRISTON PINEDA May 28, 2016 14:43
--- NOTE | 2016-05-28 17:00 | CONS ---
Date/Time of Note Date/Time of Note DATE: 05/28/16 TIME: 16:57 Assessment/Plan Assessment/Plan Chief Complaint/Hosp Course SUBJECTIVE: No acute events overnight. The patient is alert, feels good, looks comfortable. He, still has some pain in his right foot. ANTIMICROBIALS: 1. Vancomycin. 2. Levaquin. MICROBIOLOGY: Blood urine culture negative. PHYSICAL EXAMINATION: GENERAL: Well-developed elderly man who is alert, in no distress. HEENT: Head atraumatic, normocephalic. Sclerae anicteric. Buccal mucosa pink. NECK: Supple, trachea midline. CHEST: Rise symmetrical. Breath sounds clear. HEART: S1, S2. ABDOMEN: Soft. Bowel tones present. EXTREMITIES: With right foot dressing intact. ASSESSMENT: 1. Right lower extremity cellulitis==> improving. 2. Severe peripheral arterial disease status post angiogram on 05/10/2016 3. Diabetes. 4. Hypertension. 5. Coronary artery disease, history of valve replacement. PLAN: The patient remains stable. Continue abx, f/u podiatry rec-s, anticipate dc on PO Levaquin and IV Vanco ot PO Zyvox if insurance approves for 2 weeks [facility] staff Problems: Consultation Date/Type/Reason Admit Date/Time May 25, 2016 at 15:25 Initial Consult Date Type of Consultation: id Exam/Review of Systems Vital Signs Vitals Vital Signs Date Time Temp Pulse Resp B/P Pulse Ox O2 Delivery O2 Flow Rate FiO2 05/28/16 09:35 76 130/64 05/28/16 07:25 97.7 21 98 05/25/16 15:17 Room Air Intake and Output 05/27/16 05/27/16 05/28/16 15:00 23:00 07:00 Intake Total 800 ml 730 ml Output Total 450 ml 2150 ml Balance 350 ml -1420 ml Results Result Diagram: 05/27/16 0500 05/27/16 0500 Results 24 hrs Laboratory Tests Test 05/27/16 17:05 05/27/16 21:19 05/27/16 22:05 05/28/16 05:11 Bedside Glucose 232 H 96 Vancomycin Level Trough 9.6 L INR International Normalized Ratio 3.10 Prothrombin Time 32.4 #H Prothrombin Time Ratio 2.5 Test 05/28/16 07:46 05/28/16 11:24 Bedside Glucose 297 H 115 Medications Medications Current Medications Ondansetron HCl (Zofran Inj) 4 mg Q6H PRN IV NAUSEA AND/OR VOMITING; Start at 16:30 Acetaminophen/ Hydrocodone Bitart ([place] (5/325)) 1 tab Q6H PRN PO MODERATE PAIN LEVEL 4-6 Last administered on 05/28/16 11:15; Admin Dose 1 TAB; Start at 16:30 Morphine Sulfate (morphine) 2 mg Q4H PRN IV SEVERE PAIN LEVEL 7-10 Last administered on 05/26/16 17:02; Admin Dose 2 MG; Start 05/25/16 at 16:30 Atorvastatin Calcium (Lipitor) 80 mg QHS PO Last administered on 05/27/16 21: 06; Admin Dose 80 MG; Start 05/25/16 at 21:00 Benazepril HCl (Lotensin) 40 mg DAILY PO Last administered on 05/28/16 08:25; Admin Dose 40 MG; Start 05/26/16 at 08:00 Metoprolol Succinate (Toprol Xl) 100 mg BID PO Last administered on 05/28/16 08:24; Admin Dose 100 MG; Start 05/25/16 at 21:00 Warfarin Sodium (Coumadin) 7.5 mg DAILY@17 PO Last administered on 05/27/16 17 :26; Admin Dose 7.5 MG; Start 05/25/16 at 17:00; Status Future hold Insulin Glargine (Lantus) 6 unit HS SC Last administered on 05/27/16 21:23; Admin Dose 6 UNIT; Start 05/25/16 at 21:00 Diagnostic Test (Pha) (Accucheck) 1 ea 02 XX ; Start 05/26/16 at 02:00 Hydralazine HCl (Apresoline) 10 mg Q6H PRN IV SbP>160 Last administered on 05/26 11:55; Admin Dose 10 MG; Start 05/25/16 at 16:30 Miscellaneous Information 1 ea NOTE XX ; Start 05/25/16 at 16:30 Glucose (Glutose) 15 gm Q15M PRN PO DECREASED GLUCOSE; Start 05/25/16 at 16:30 Glucose (Glutose) 22.5 gm Q15M PRN PO DECREASED GLUCOSE; Start 05/25/16 at 16: 30 Dextrose (D50w Syringe) 25 ml Q15M PRN IV DECREASED GLUCOSE; Start 05/25/16 at 16:30 Dextrose (D50w Syringe) 50 ml Q15M PRN IV DECREASED GLUCOSE; Start 05/25/16 at 16:30 Glucagon (Glucagen) 1 mg Q15M PRN IM DECREASED GLUCOSE; Start 05/25/16 at 16:30 Glucose 15 gm 15 gm Q15M PRN BUCCAL DECREASED GLUCOSE; Start 05/25/16 at 16:30 Levofloxacin/ Dextrose (Levaquin 500mg/ D5W 100 ml (Pmx)) 100 ml @ 100 mls/hr Q24H IVPB Last administered on 05/28/16 14:04; Admin Dose 100 MLS/HR; Start at 14:00 Silver Sulfadiazine (Thermazene 1% 50 Gm) 1 applic DAILY TOP Last administered on 05/28/16 08:26; Admin Dose 1 APPLIC; Start 05/27/16 at 09:00 Nifedipine (Procardia Xl) 60 mg BID PO Last administered on 05/28/16 08:24; Admin Dose 60 MG; Start 05/26/16 at 21:00 Famotidine 20 mg 20 mg Q12 PO Last administered on 05/28/16 08:25; Admin Dose 20 MG; Start 05/27/16 at 21:00 Vancomycin HCl (Vancocin) 250 ml @ 125 mls/hr Q12H IVPB Last administered on 11:14; Admin Dose 125 MLS/HR; Start 05/27/16 at 23:00 MANSI CURRAN NP May 28, 2016 17:00
[2016-05-28] MEDS: ATORVASTATIN 80 MG TAB PO SCH (20:37)
[2016-05-28 20:53] VITALS: BP 156/59; RESP 20
[2016-05-28] MEDS: INSULIN GLARGINE [LANtus] 3 ML PEN SC SCH (21:48)
[2016-05-29] MEDS: ACCUCHECK XX SCH (02:00)
[2016-05-29 06:11] LABS: BASOPHILS % 0.5 % (0.0-2.0); EOSINOPHILS # 0.4 10^3/ul (0.0-0.5); HEMATOCRIT 38.5 % (42.0-52.0); LYMPHOCYTES # 1.7 10^3/ul (0.8-2.9); LYMPHOCYTES % 17.7 % (15.0-51.0); MEAN CORPUSCULAR HEMOGLOBIN 32.1 pg (29.0-33.0); MEAN CORPUSCULAR HGB CONC 33.9 g/dl (32.0-37.0); MEAN CORPUSCULAR VOLUME 94.9 fl (82.0-101.0); MONOCYTE # 0.6 10^3/ul (0.3-0.9); MONOCYTES % 6.4 % (0.0-11.0); NEUTROPHIL # 6.7 10^3/ul (1.6-7.5); NEUTROPHILS % 71.4 % (39.0-77.0); PLATELET COUNT 143 10^3/UL (140-440); RED BLOOD COUNT 4.06 10^6/ul (4.70-6.10); RED CELL DISTRIBUTION WIDTH 14.1 % (11.5-14.5); UNCORRECTED WBC 9.4 10^3/ul (4.8-10.8); WHITE BLOOD COUNT 9.4 10^3/ul (4.8-10.8)
[2016-05-29 06:20] LABS: INR 2.91; PROTIME 30.8 Sec (12.2-14.2); PT RATIO 2.4
[2016-05-29 06:34] LABS: CONDITION 1
[2016-05-29 07:00] LABS: POTASSIUM 4.1 mmol/L (3.5-5.1)
[2016-05-29 07:03] LABS: CREATININE 0.79 mg/dl (0.61-1.24)
[2016-05-29 08:15] VITALS: BP 138/65; RESP 17
[2016-05-29] MEDS: INSULIN ASPART [NOVOLOG] 3 ML PEN SC SCH ×6 (08:25→17:57)
[2016-05-29] MEDS: FAMOTIDINE 20 MG TAB PO SCH (08:27)
[2016-05-29] MEDS: NIFEdipine (XL) 60 MG TAB PO SCH (08:27)
[2016-05-29] MEDS: METOPROLOL (XL) 50 MG TAB PO SCH (09:00)
[2016-05-29] MEDS: SILVER SULFADIAZINE 1% 50 GM CR TOP SCH (12:25)
[2016-05-29] MEDS: VANCOMYCIN 1 GM in NS 250 ML IVPB SCH (12:25)
[2016-05-29 12:58] VITALS: BP 160/65; RESP 18
[2016-05-29] MEDS: BENAZEPRIL 40 MG TAB PO SCH (13:10)
[2016-05-29] MEDS: LEVOFLOXACIN 500MG/D5W (PMX) 100 ML IVPB SCH (14:49)
[2016-05-29] MEDS ORDERED: SLSL1C50 TOP (15:50)
[2016-05-29] MEDS ORDERED: LEVO500T72 PO (15:50)
[2016-05-29] MEDS ORDERED: LINE600T PO (15:50)
[2016-05-29] MEDS ORDERED: Vancomycin Iv Per Pharmacy XX (15:50)
[2016-05-29] MEDS ORDERED: NIFE60TA11 PO (15:50)
--- NOTE | 2016-05-29 15:58 | PDOCDIS ---
Discharge Instructions DIAGNOSIS Discharge Diagnosis: 1. Right lower extremity cellulitis 2. PAD 3. Diabetes 4. Hypertension CONDITION Patient Condition: Stable HOME CARE INSTRUCTIONS: Special Diet: Carb Control FOLLOW UP/APPOINTMENTS Appointments 1. Follow up with Dr. Ole Merida within one week 2. Follow up with your primary care provider in 1-2 weeks OTHER ORDERS: Other Orders: 1. Call your primary care provider if you have worsening fevers or right foot pain TRISTON PINEDA May 29, 2016 15:58
[2016-05-29 15:59] VITALS: BP 150/71; RESP 18
--- NOTE | 2016-05-29 16:56 | DS ---
Date/Time of Note Date/Time of Note DATE: 05/29/16 TIME: 16:55 Discharge Summary Admission/Discharge Info Admit Date/Time May 25, 2016 at 15:25 Discharge Date/Time Final Diagnosis 1. Recurrent right foot cellulitis. Continue on antibiotics. Continue with podiatry recommendations. cont wound care per podiatry 2. Diabetes. Type II. 3. Essential hypertension. 4. Subtherapeutic INR for aortic valve replacement. 5. Dyslipidemia. Patient Condition: Stable Consults 1. Dr. Otilio Kay 2. Dr. Ole Rudd 3. Jacquelin Kramer REGIONAL DIRECTOR 4. Ling Cordero REGIONAL DIRECTOR Hospital Course This is a 76-year-old male with history of type 2 diabetes, vascular peripheral arterial disease, essential hypertension, distant anemia, PAD, recent cellulitis of right foot, history of aortic valve replacement, who came to [facility] due to reports of worsening sharp nonradiating pain over the right foot. Patient of note was recently discharged from [facility] and generator 2016 after being treated for right foot cellulitis. He did have extensive vascular workup at that time that revealed him to have severe peripheral vascular disease. Patient was seen by vascular surgeon at that time. Patient did state that he was using antibiotics however his right foot was not getting any better. He subsequently went to [facility] for further evaluation. Patient was seen by infectious disease physician and placed on appropriate antibiotics. He was again also seen by lens blank gauger who after review recommended no surgical intervention at this time. He was also seen by wound care nurse. We did continue with wound care for the patient with Silvadene application and daily dressing. During his course of stay did improve. He did have good response to antibiotic therapy. He was otherwise optimized medically. He was continued on insulin for his type 2 diabetes. He was also continued on antihypertensives for hypertension and we did adjust his Coumadin to be therapeutic for INR. He was also continued on statin medication for his dyslipidemia. During his course of stay did improve. The plan of care was discussed with the patient and patient did verbalize understanding. On the day of discharge patient was in stable condition Discussed but of care with Dr. Barrett Discharge process time is 40 minutes Disposition: Home with home health services Home Meds Active Scripts Linezolid* (Zyvox*) 600 Mg Tablet, 600 MG PO BID for 14 Days, TAB Prov:KANE PINEDANELL 05/29/16 Silver Sulfadiazine* (Thermazene*) 1%-50 gm Cream..g., 1 APPLIC TOP DAILY for 30 Days Prov:ERENDIRACHANTELLTRISTON 05/29/16 Nifedipine (Nifedical Xl) 60 Mg Tab.er.24, 60 MG PO BID for 30 Days, TAB Prov:ERENDIRACHANTELLTRISTON 05/29/16 Levofloxacin* (Levaquin*) 500 Mg Tablet, 500 MG PO DAILY@06 for 14 Days, TAB Prov:KANE PINEDANELL 05/29/16 Doxycycline* (Vibramycin*) 100 Mg Capsule, 100 MG PO BID for 7 Days, EA Prov:KEYSHA SHARIF MD 05/15/16 Reported Medications Warfarin Sodium* (Coumadin*) 2.5 Mg Tablet, 1.25 MG PO TUESDAYS, TAB 05/02/16 Warfarin Sodium* (Coumadin*) 2.5 Mg Tablet, 2.5 MG PO SUN,M,W,KIARRA,F,SAT, TAB 05/02/16 Benazepril Hcl* (Benazepril Hcl*) 40 Mg Tablet, 40 MG PO DAILY, #30 TAB 05/02/16 Atorvastatin* (Atorvastatin*) 80 Mg Tablet, 80 MG PO QHS, #30 TAB 06/26/15 Felodipine* (Felodipine*) 5 Mg Tab.sr.24h, 5 MG PO DAILY, TAB.SA 06/26/15 Glimepiride* (Glimepiride*) 4 Mg Tablet, 4 MG PO DAILY, TAB 06/26/15 Metoprolol Succinate* (Toprol XL*) 50 Mg Tab.er.24h, 100 MG PO BID, #30 TAB 06/26/15 Metformin* (Glucophage*) 1,000 Mg Tablet, 1000 MG PO BID, #60 TAB 06/26/15 Follow-up Plan CONDITION Patient Condition: Stable HOME CARE INSTRUCTIONS: Special Diet: Carb Control FOLLOW UP/APPOINTMENTS Appointments 1. Follow up with Dr. Ole Merida within one week 2. Follow up with your primary care provider in 1-2 weeks OTHER ORDERS: Other Orders: 1. Call your primary care provider if you have worsening fevers or right foot pain Pending Labs Laboratory Tests Test 05/28/16 17:05 05/28/16 19:57 05/29/16 05:15 05/29/16 07:50 Bedside Glucose 142mg/dL (70-220) 161mg/dL (70-220) 169mg/dL (70-220) Anion Gap 15 (8-16) Basophils # 0.010^3/ul (0.0-0.1) Basophils % 0.5% (0.0-2.0) Blood Urea Nitrogen 17mg/dl (7-20) Calcium Level 9.0mg/dl (8.4-10.2) Carbon Dioxide Level 26mmol/L (21-31) Chloride Level 106mmol/L (97-110) Creatinine 0.79mg/dl (0.61-1.24) Eosinophils # 0.410^3/ul (0.0-0.5) Eosinophils % 4.0% (0.0-7.0) Glucose Level 146mg/dl (70-220) Hematocrit 38.5% (42.0-52.0) Hemoglobin 13.0g/dl (14.0-18.0) INR International Normalized Ratio 2.91 Lymphocytes # 1.710^3/ul (0.8-2.9) Lymphocytes % 17.7% (15.0-51.0) Mean Corpuscular Hemoglobin 32.1pg (29.0-33.0) Mean Corpuscular Hemoglobin Concent 33.9g/dl (32.0-37.0) Mean Corpuscular Volume 94.9fl (82.0-101.0) Mean Platelet Volume 10.0fl (7.4-10.4) Monocytes # 0.610^3/ul (0.3-0.9) Monocytes % 6.4% (0.0-11.0) Neutrophils # 6.710^3/ul (1.6-7.5) Neutrophils % 71.4% (39.0-77.0) Nucleated Red Blood Cells # 0.010^3/ul (0.0-0.0) Nucleated Red Blood Cells % 0.0/100WBC (0.0-0.0) Platelet Count 38417^3/UL (140-440) Potassium Level 4.1mmol/L (3.5-5.1) Prothrombin Time 30.8Sec (12.2-14.2) Prothrombin Time Ratio 2.4 Red Blood Count 4.0610^6/ul (4.70-6.10) Red Cell Distribution Width 14.1% (11.5-14.5) Sodium Level 143mmol/L (135-144) White Blood Count 9.410^3/ul (4.8-10.8) Test 05/29/16 12:03 Bedside Glucose 185mg/dL (70-220) TRISTON PINEDA May 29, 2016 16:56
--- NOTE | 2016-05-29 20:43 | CONS ---
Date/Time of Note Date/Time of Note DATE: 05/29/16 TIME: 20:42 Assessment/Plan Assessment/Plan Chief Complaint/Hosp Course SUBJECTIVE: No acute events overnight. The patient is alert, feels good, looks comfortable. He, still has some pain in his right foot. ANTIMICROBIALS: 1. Vancomycin. 2. Levaquin. MICROBIOLOGY: Blood urine culture negative. PHYSICAL EXAMINATION: GENERAL: Well-developed elderly man who is alert, in no distress. HEENT: Head atraumatic, normocephalic. Sclerae anicteric. Buccal mucosa pink. NECK: Supple, trachea midline. CHEST: Rise symmetrical. Breath sounds clear. HEART: S1, S2. ABDOMEN: Soft. Bowel tones present. EXTREMITIES: With right foot dressing intact. ASSESSMENT: 1. Right lower extremity cellulitis==> improving. 2. Severe peripheral arterial disease status post angiogram on 05/10/2016 3. Diabetes. 4. Hypertension. 5. Coronary artery disease, history of valve replacement. PLAN: The patient remains stable. Continue abx, will dw Dr Rudd if abx can be downgraded to PO, otherwise anticipate dc on PO Levaquin and IV Vanco or PO Zyvox if insurance approves for 2 weeks DW staff Problems: Consultation Date/Type/Reason Admit Date/Time May 25, 2016 at 15:25 Type of Consultation: id Exam/Review of Systems Vital Signs Vitals Vital Signs Date Time Temp Pulse Resp B/P Pulse Ox O2 Delivery O2 Flow Rate FiO2 05/29/16 15:59 97.7 66 18 150/71 99 05/25/16 15:17 Room Air Intake and Output 05/28/16 05/28/16 05/29/16 15:00 23:00 07:00 Intake Total 350 ml 1840 ml 3050 ml Balance 350 ml 1840 ml 3050 ml Results Result Diagram: 05/29/16 0515 05/29/16 0515 Results 24 hrs Laboratory Tests Test 05/29/16 05:15 05/29/16 07:50 05/29/16 12:03 05/29/16 17:05 Anion Gap 15 Basophils # 0.0 Basophils % 0.5 Blood Urea Nitrogen 17 Calcium Level 9.0 Carbon Dioxide Level 26 Chloride Level 106 Creatinine 0.79 Eosinophils # 0.4 Eosinophils % 4.0 Glucose Level 146 Hematocrit 38.5 L Hemoglobin 13.0 L INR International Normalized Ratio 2.91 Lymphocytes # 1.7 Lymphocytes % 17.7 Mean Corpuscular Hemoglobin 32.1 Mean Corpuscular Hemoglobin Concent 33.9 Mean Corpuscular Volume 94.9 Mean Platelet Volume 10.0 Monocytes # 0.6 Monocytes % 6.4 Neutrophils # 6.7 Neutrophils % 71.4 Nucleated Red Blood Cells # 0.0 Nucleated Red Blood Cells % 0.0 Platelet Count 143 Potassium Level 4.1 Prothrombin Time 30.8 H Prothrombin Time Ratio 2.4 Red Blood Count 4.06 L Red Cell Distribution Width 14.1 Sodium Level 143 White Blood Count 9.4 Bedside Glucose 169 185 180 MANSI CURRAN NP May 29, 2016 20:43
[2016-05-30] MEDS ORDERED: LEVOFLOXACIN 500 MG TAB PO SCH (06:00)
== END 2016-05-29 19:30 | disposition home health service (06) | DRG 603 ==
LOC: E/R 11:11 → PP2 15:19
PROVIDERS: ADMIT Family Medicine; ATTEND Family Medicine
DX: L03.115 Cellulitis of right lower limb (principal); E11.51 Type 2 diabetes mellitus with diabetic peripheral angiopathy without gangrene; E11.621 Type 2 diabetes mellitus with foot ulcer; E78.5 Hyperlipidemia, unspecified; I10 Essential (primary) hypertension; B35.1 Tinea unguium; Z79.01 Long term (current) use of anticoagulants; Z95.2 Presence of prosthetic heart valve; I73.9 Peripheral vascular disease, unspecified
CPT/HCPCS: 36415; 73630; 80048; 80053; 80061; 80202; 81003; 82962; 83036; 83735; 84100; 84439; 84443; 85025; 85610; 87040; 87086; 96374; 96375; 97162; J0360; J1200; J1630; J1650; J1815; J1956; J2060; J2270; J2405; J3370; J3475; J7050

== ENCOUNTER 2016-06-03 14:32 | Inpatient (IN) | payer MEDICARE, OTHER ==
[~2016-06-03] VITALS: Ht 165.1 cm; Wt 63.0 kg
[~2016-06-03 14:32] MED LIST changes: -DOXY-17 PO; -FELO5TAB35 PO; +LEVO500T72 PO; +LINE600T PO; +NIFE60TA11 PO; +SLSL1C50 TOP
[2016-06-03] MEDS ORDERED: VANCOMYCIN 1 GM (PMX) 250 ML IVPB SCH (21:00)
[2016-06-03] MEDS ORDERED: PIPER-TAZO 3.375 GM IV (PMX) 100 ML IVPB ONE (21:00)
--- NOTE | 2016-06-03 21:05 | ERA ---
ER Documentation Chief Complaint Date/Time DATE: 06/03/16 TIME: 21:02 Chief Complaint RIGHT FOOT REDNESS INCREASED SINCE DISCHARGE FOR INFECTIONS. NOT BETTER HPI Patient is a 76-year-old male who reports right foot redness that has been increasing since discharge from the hospital. He states it has not improved and in fact has worsened. He reports increasing pain as well but no drainage or fevers. He is a diabetic but does not know whether his blood sugars have been well controlled or not. He denies any other complaints such as chest pain, shortness of breath, abdominal pain, nausea, vomiting, diarrhea, dysuria or hematuria. Standing on the foot increases the pain staying off of it helps the pain. The remainder of the systems are negative. ROS All systems reviewed and are negative except as per history of present illness. Medications Home Meds Active Scripts Linezolid* (Zyvox*) 600 Mg Tablet, 600 MG PO BID for 14 Days, TAB Prov:TRISTON PINEDA 05/29/16 Silver Sulfadiazine* (Thermazene*) 1%-50 gm Cream..g., 1 APPLIC TOP DAILY for 30 Days Prov:TRISTON PINEDA 05/29/16 Nifedipine (Nifedical Xl) 60 Mg Tab.er.24, 60 MG PO BID for 30 Days, TAB Prov:TRISTON PINEDA 05/29/16 Levofloxacin* (Levaquin*) 500 Mg Tablet, 500 MG PO DAILY@06 for 14 Days, TAB Prov:TRISTON PINEDA 05/29/16 Reported Medications Warfarin Sodium* (Coumadin*) 2.5 Mg Tablet, 1.25 MG PO TUESDAYS, TAB 05/02/16 Warfarin Sodium* (Coumadin*) 2.5 Mg Tablet, 2.5 MG PO SUN,M,W,KIARRA,F,SAT, TAB 05/02/16 Benazepril Hcl* (Benazepril Hcl*) 40 Mg Tablet, 40 MG PO DAILY, #30 TAB 05/02/16 Atorvastatin* (Atorvastatin*) 80 Mg Tablet, 80 MG PO QHS, #30 TAB 06/26/15 Glimepiride* (Glimepiride*) 4 Mg Tablet, 4 MG PO DAILY, TAB 06/26/15 Metoprolol Succinate* (Toprol XL*) 50 Mg Tab.er.24h, 100 MG PO BID, #30 TAB 06/26/15 Metformin* (Glucophage*) 1,000 Mg Tablet, 1000 MG PO BID, #60 TAB 06/26/15 Discontinued Reported Medications Felodipine* (Felodipine*) 5 Mg Tab.sr.24h, 5 MG PO DAILY, TAB.SA 06/26/15 Discontinued Scripts Doxycycline* (Vibramycin*) 100 Mg Capsule, 100 MG PO BID for 7 Days, EA Prov:KEYSHA SHARIF MD 05/15/16 Allergies Allergies: Coded Allergies: No Known Drug Allergies (Verified Allergy, Mild, 06/03/16) PMhx/Soc History of Surgery: Yes (vericose vein surgery) Anesthesia Reaction: No Hx 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 Disorder: No Hx Respiratory Disorders: No Hx Cardiac Disorders: No (valve problems) Hx Psychiatric Problems: No Hx Miscellaneous Medical Probl: Yes (DM, HTN, PAD, cellulitis, aortic valve replacement) Hx Alcohol Use: No Hx Substance Use: No Hx Tobacco Use: Yes Smoking Status: Former smoker FmHx Family History: coronary disease, diabetes Physical Exam Vitals Vital Signs Date Time Temp Pulse Resp B/P Pulse Ox O2 Delivery O2 Flow Rate FiO2 06/03/16 20:31 72 18 171/72 100 Room Air 06/03/16 14:36 98.0 68 21 132/68 98 Physical Exam Const: [] Well-developed well-nourished male lying on the bed in no acute distress Head: Atraumatic normocephalic Eyes: Normal Conjunctiva ENT: Normal External Ears, Nose and Mouth. Neck: Full range of motion..~ No meningismus. Resp: Clear to auscultation bilaterally Cardio: Regular rate and rhythm, metallic click heard Abd: Soft, non tender, non distended. Normal bowel sounds Skin: No petechiae distal right foot is erythematous, warm, and tender to touch. It is consistent with cellulitis Back: No midline or flank tenderness Ext: No cyanosis, or edema Neur: Awake and alert oriented 3 with a GCS of 15, moves all extremities equally Psych: Normal Mood and Affect Result Diagram: 06/03/16210506/03/162105 Results 24 hrs Laboratory Tests Test 06/03/16 21:06 Alanine Aminotransferase (ALT/SGPT) 44IU/L Albumin 4.1g/dl Albumin/Globulin Ratio 1.24 Alkaline Phosphatase 74IU/L Anion Gap 17 Aspartate Amino Transf (AST/SGOT) 29IU/L Basophils # 0.010^3/ul Basophils % 0.5% Blood Urea Nitrogen 25mg/dl Calcium Level 9.0mg/dl Carbon Dioxide Level 26mmol/L Chloride Level 102mmol/L Creatinine 1.05mg/dl Direct Bilirubin 0.00mg/dl Eosinophils # 0.310^3/ul Eosinophils % 3.5% Globulin 3.30g/dl Glucose Level 232mg/dl Hematocrit 38.4% Hemoglobin 13.0g/dl Indirect Bilirubin 0.1mg/dl Lymphocytes # 2.010^3/ul Lymphocytes % 25.6% Mean Corpuscular Hemoglobin 31.8pg Mean Corpuscular Hemoglobin Concent 34.0g/dl Mean Corpuscular Volume 93.4fl Mean Platelet Volume 10.3fl Monocytes # 0.710^3/ul Monocytes % 9.0% Neutrophils # 4.810^3/ul Neutrophils % 61.4% Nucleated Red Blood Cells # 0.010^3/ul Nucleated Red Blood Cells % 0.0/100WBC Platelet Count 26632^3/UL Potassium Level 4.3mmol/L Red Blood Count 4.1110^6/ul Red Cell Distribution Width 13.7% Sodium Level 141mmol/L Total Bilirubin 0.1mg/dl Total Protein 7.4g/dl White Blood Count 7.910^3/ul Current Medications Medications (Trade) Dose Ordered Sig/Shanthi Route PRN Reason Start Time Stop Time Status Last Admin Dose Admin Vancomycin HCl 250 ml @ 125 mls/hr ONCE IVPB 06/03/16 21:00 06/03/16 22:59 06/03/16 22:02 Piperacillin Sod/ Tazobactam Sod (Zosyn 3.375gm/ 100 ml (Pmx)) 100 ml @ 200 mls/hr ONCE ONCE IVPB 06/03/16 21:00 06/03/16 21:29 DC 06/03/16 21:21 Procedures/MDM Medical decision making: Patient presents with cellulitis of the right distal foot and known diabetes. He clearly has an artificial heart valve as well. The concern is that this cellulitis could possibly see the heart valve. He is obviously failed outpatient treatment as well. I will go ahead and proceed with IV antibiotics and then consult his primary care physician to have him admitted to the hospital. X-ray of the foot does not reveal any evidence of osteomyelitis [address] Velasco who is on-call for the hospital service. He will be admitted for IV antibiotics. Departure Diagnosis: Primary Impression: Cellulitis Qualified Code: L03.115 - Cellulitis of right lower extremity Additional Impressions: Status post aortic valve replacement Peripheral arterial disease Diabetes mellitus Qualified Code: E11.51 - Type 2 diabetes mellitus with diabetic peripheral angiopathy without gangrene, unspecified correction insulin use status Condition: PHYLLIS Fraga Jun 03, 2016 21:05
[2016-06-03 21:18] LABS: BASOPHILS % 0.5 % (0.0-2.0); EOSINOPHILS # 0.3 10^3/ul (0.0-0.5); EOSINOPHILS % 3.5 % (0.0-7.0); HEMATOCRIT 38.4 % (42.0-52.0); LYMPHOCYTES % 25.6 % (15.0-51.0); MEAN CORPUSCULAR HEMOGLOBIN 31.8 pg (29.0-33.0); MEAN CORPUSCULAR VOLUME 93.4 fl (82.0-101.0); MEAN PLATELET VOLUME 10.3 fl (7.4-10.4); MONOCYTE # 0.7 10^3/ul (0.3-0.9); NEUTROPHIL # 4.8 10^3/ul (1.6-7.5); NEUTROPHILS % 61.4 % (39.0-77.0); PLATELET COUNT 170 10^3/UL (140-440); RED BLOOD COUNT 4.11 10^6/ul (4.70-6.10); RED CELL DISTRIBUTION WIDTH 13.7 % (11.5-14.5); UNCORRECTED WBC 7.9 10^3/ul (4.8-10.8); WHITE BLOOD COUNT 7.9 10^3/ul (4.8-10.8)
[2016-06-03 21:32] LABS: ALBUMIN 4.1 g/dl (3.3-4.9); POTASSIUM 4.3 mmol/L (3.5-5.1)
[2016-06-03 21:34] LABS: BILIRUBIN,INDIRECT 0.1 mg/dl (0-1.1); BILIRUBIN,TOTAL 0.1 mg/dl (0.2-1.3); CREATININE 1.05 mg/dl (0.61-1.24)
[2016-06-03 21:35] LABS: ALBUMIN/GLOBULIN RATIO 1.24; TOTAL PROTEIN 7.4 g/dl (6.1-8.1)
[2016-06-03 21:36] LABS: CONDITION 1
--- NOTE | 2016-06-03 22:19 | RADRPT ---
PROCEDURE: XR Foot. CLINICAL INDICATION: Pain TECHNIQUE: AP, lateral and oblique views of the right foot was obtained. The images were reviewed on a PACS workstation. COMPARISON: 05/25/2016 FINDINGS: The bones of the foot appear intact, with no evidence of fracture, dislocation, or subluxation. Mar ked arterial vascular calcifications. Bone mineralization is normal. No significant soft tissue swelling is seen. IMPRESSION: No fracture, dislocation, or evidence of osteomyelitis. Stable arterial vascular calcifications. RPTAT:AAJJ Physician Joel Date Time Electronically viewed and signed by Physician Joel on 06/03/2016 22:18 CRISPIN/
[2016-06-03] MEDS ORDERED: ACETAMINOPHEN 325 MG TAB PO PRN (22:30)
[2016-06-03] MEDS ORDERED: ONDANSETRON 4 MG INJ IV PRN (22:30)
[2016-06-03 22:38] LABS: INR 2.48; PROTIME 27.1 Sec (12.2-14.2); PT RATIO 2.1
--- NOTE | 2016-06-04 03:14 | HP ---
Date/Time of Note Date/Time of Note DATE: 06/04/16 TIME: 02:53 Assessment/Plan VTE Prophylaxis VTE Prophylaxis Intervention: other (warfarin) Lines/Catheters IV Catheter Type (from Nrs): Saline Lock Assessment/Plan Assessment/Plan PROBLEMS: 1. Recurrent right foot cellulitis. 2. Diabetes. Type II : poor home control 3. Essential hypertension: suboptimal control 4. s/p aortic valve replacement. 5. Dyslipidemia. 6. Severe PAD 7. Appropriate anticoagulation for #4 8. Dyslipidemia 9. HTN: uncontrolled 10. Non compliance? PLAN: Admit again for IV antibiotics Patient does not seem to respond well to oral antibiotics. May need to be discharged on intravenous antibiotics\ versus temporary placement We will reconsult infectious diseases / Resume previous intravenous antibiotics. Continue all home medications, titrate medications for better control in house of diabetes and high blood pressure. 1800 ADA diet, sliding scale insulin, and supportive care. Continue Coumadin therapy inhouse and INR monitoring Prophylaxis: Pepcid, Coumadin. HPI/ROS Admit Date/Time Admit Date/Time 06/04/15 Hx of Present Illness PRESENTING COMPLAINT: R foot pain HISTORY OF PRESENTING COMPLAINT: This is a 76-year-old male who was recently discharged from the hospital for a R foot cellulitis who came back today reporting right foot redness that has been increasing since discharge from the hospital. He states it has not improved and in fact has worsened. He reports increasing pain as well but no drainage or fevers. It doesn't sound like patient was complaint with his meds. He doesn't know what he takes for diabetes or the name of his abx. We will have to discuss more with family when available. He denies any other complaints such as chest pain, shortness of breath, abdominal pain, nausea, vomiting, diarrhea, dysuria or hematuria. Standing on the foot increases the pain staying off of it helps the pain. The remainder of the systems are negative. ROS 12 point review if systems was done and pertinent findings are as noted. Constitutional: No febrile, No nausea Eyes: no complaints ENT: no complaints Respiratory: no complaints Cardiovascular: no complaints Genitourinary: no complaints Musculoskeletal: other (see HPI) Psychological: no complaints PMH/Family/Social Past Medical History 1. Recurrent right foot cellulitis. 2. Diabetes. Type II. 3. Essential hypertension. 4. s/p aortic valve replacement. 5. Dyslipidemia. 6. Severe PAD Past Surgical History * Aortic valve replacement * varicose vv surgery * angiogram Family History Significant Family History: no pertinent family hx Social History Alcohol Use: none Smoking Status: Current some day smoker Drug Use: none Exam/Review of Systems Vital Signs Vitals VS - Last 72 Hours, by Label Date Time Temp Pulse Resp B/P Pulse Ox O2 Delivery O2 Flow Rate FiO2 06/04/16 01:30 97.8 68 14 161/60 98 Room Air 06/04/16 00:02 177/66 06/03/16 23:42 70 16 100 Room Air 06/03/16 20:31 72 18 171/72 100 Room Air 06/03/16 14:36 98.0 68 21 132/68 98 Vital Signs Date Time Temp Pulse Resp B/P Pulse Ox O2 Delivery O2 Flow Rate FiO2 06/04/16 01:30 97.8 68 14 161/60 98 Room Air Exam Constitutional: alert, oriented Psych: nl mood/affect Head: atraumatic, normocephalic Eyes: PERRL ENMT: mucosa pink and moist Neck: non-tender, supple Respiratory: clear to auscultation, normal air movement Cardiovascular: regular rate and rhythm Gastrointestinal: bowel sounds, non-tender, soft Musculoskeletal: other (distal right foot is erythematous, warm, and tender to touch. ) 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: nl mental status, nl speech, nl strength Labs Result Diagram: 06/03/16210506/03/162105 Medications Medications Laboratory Tests Test 06/03/16 21:06 Alanine Aminotransferase (ALT/SGPT) 44IU/L Albumin 4.1g/dl Albumin/Globulin Ratio 1.24 Alkaline Phosphatase 74IU/L Anion Gap 17 Aspartate Amino Transf (AST/SGOT) 29IU/L Basophils # 0.010^3/ul Basophils % 0.5% Blood Urea Nitrogen 25mg/dl Calcium Level 9.0mg/dl Carbon Dioxide Level 26mmol/L Chloride Level 102mmol/L Creatinine 1.05mg/dl Direct Bilirubin 0.00mg/dl Eosinophils # 0.310^3/ul Eosinophils % 3.5% Erythrocyte Sedimentation Rate 14mm/Hr Globulin 3.30g/dl Glucose Level 232mg/dl Hematocrit 38.4% Hemoglobin 13.0g/dl INR International Normalized Ratio 2.48 Indirect Bilirubin 0.1mg/dl Lymphocytes # 2.010^3/ul Lymphocytes % 25.6% Mean Corpuscular Hemoglobin 31.8pg Mean Corpuscular Hemoglobin Concent 34.0g/dl Mean Corpuscular Volume 93.4fl Mean Platelet Volume 10.3fl Monocytes # 0.710^3/ul Monocytes % 9.0% Neutrophils # 4.810^3/ul Neutrophils % 61.4% Nucleated Red Blood Cells # 0.010^3/ul Nucleated Red Blood Cells % 0.0/100WBC Platelet Count 52473^3/UL Potassium Level 4.3mmol/L Prothrombin Time 27.1Sec Prothrombin Time Ratio 2.1 Red Blood Count 4.1110^6/ul Red Cell Distribution Width 13.7% Sodium Level 141mmol/L Total Bilirubin 0.1mg/dl Total Protein 7.4g/dl White Blood Count 7.910^3/ul Current Medications Medications (Trade) Dose Ordered Sig/Shanthi Route PRN Reason Start Time Stop Time Status Last Admin Dose Admin Vancomycin HCl 250 ml @ 125 mls/hr ONCE IVPB 06/03/16 21:00 06/03/16 22:59 DC 06/03/16 22:02 125 MLS/HR Piperacillin Sod/ Tazobactam Sod (Zosyn 3.375gm/ 100 ml (Pmx)) 100 ml @ 200 mls/hr ONCE ONCE IVPB 06/03/16 21:00 06/03/16 21:29 DC 06/03/16 21:21 200 MLS/HR Ondansetron HCl (Zofran Inj) 4 mg BRIDGE ORDER PRN IV NAUSEA AND/OR VOMITING 06/03/16 22:30 06/04/16 22:29 Acetaminophen (Tylenol Tab) 650 mg ER BRIDGE PRN PO MILD PAIN/FEVER 06/03/16 22:30 06/04/16 22:29 PROCEDURE: XR Foot. CLINICAL INDICATION: Pain TECHNIQUE: AP, lateral and oblique views of the right foot was obtained. The images were reviewed on a PACS workstation. COMPARISON: 05/25/2016 FINDINGS: The bones of the foot appear intact, with no evidence of fracture, dislocation, or subluxation. Marked arterial vascular calcifications. Bone mineralization is normal. No significant soft tissue swelling is seen. IMPRESSION: No fracture, dislocation, or evidence of osteomyelitis. Stable arterial vascular calcifications. RPTAT:BEVERLYJ Physician Joel Date Time Electronically viewed and signed by Shaw Ewing Physician on 06/03/2016 22:18 AR PASCUAL Jun 04, 2016 03:04
[2016-06-04] MEDS ORDERED: GLUCOSE GEL 15 GRAM TUBE BUCCAL PRN (03:30)
[2016-06-04] MEDS ORDERED: GLUCAGON 1 MG INJ IM PRN (03:30)
[2016-06-04] MEDS ORDERED: ONDANSETRON 4 MG INJ IV PRN (03:30)
[2016-06-04] MEDS ORDERED: GLUCOSE GEL 15 GRAM TUBE PO PRN ×2 (03:30)
[2016-06-04] MEDS ORDERED: SOD CHLORIDE 0.9% 1,000 ML IV SCH (03:30)
[2016-06-04] MEDS ORDERED: DEXTROSE 50% 50 ML SYRINGE IV PRN ×2 (03:30)
[2016-06-04] MEDS ORDERED: WARFARIN 2.5 MG TAB PO SCH ×3 (03:30→17:00)
[2016-06-04] MEDS ORDERED: VANCOMYCIN IV PER PHARMACY XX SCH (03:30)
[2016-06-04] MEDS: LEVOFLOXACIN 750MG/D5W (PMX) 150 ML IVPB SCH (03:49)
[2016-06-04 05:37] LABS: BASOPHIL # 0.1 10^3/ul (0.0-0.1); BASOPHILS % 0.7 % (0.0-2.0); EOSINOPHILS # 0.2 10^3/ul (0.0-0.5); EOSINOPHILS % 3.2 % (0.0-7.0); HEMATOCRIT 35.9 % (42.0-52.0); HEMOGLOBIN 12.2 g/dl (14.0-18.0); LYMPHOCYTES # 2.1 10^3/ul (0.8-2.9); LYMPHOCYTES % 27.5 % (15.0-51.0); MEAN CORPUSCULAR HEMOGLOBIN 31.7 pg (29.0-33.0); MEAN CORPUSCULAR HGB CONC 33.9 g/dl (32.0-37.0); MEAN CORPUSCULAR VOLUME 93.6 fl (82.0-101.0); MONOCYTE # 0.7 10^3/ul (0.3-0.9); MONOCYTES % 8.8 % (0.0-11.0); NEUTROPHIL # 4.6 10^3/ul (1.6-7.5); NEUTROPHILS % 59.8 % (39.0-77.0); PLATELET COUNT 152 10^3/UL (140-440); RED BLOOD COUNT 3.84 10^6/ul (4.70-6.10); RED CELL DISTRIBUTION WIDTH 13.4 % (11.5-14.5); UNCORRECTED WBC 7.7 10^3/ul (4.8-10.8); WHITE BLOOD COUNT 7.7 10^3/ul (4.8-10.8)
[2016-06-04 05:43] LABS: CONDITION 1
[2016-06-04 05:48] LABS: POTASSIUM 3.8 mmol/L (3.5-5.1)
[2016-06-04 05:51] LABS: CREATININE 0.8 mg/dl (0.61-1.24)
[2016-06-04 05:52] LABS: CALCIUM 8.6 mg/dl (8.4-10.2); MAGNESIUM 1.9 mg/dl (1.7-2.5)
[2016-06-04] MEDS: HYDROCODONE/APAP (5/325) TAB PO PRN ×2 (06:53→19:07)
[2016-06-04] MEDS: INSULIN ASPART [NOVOLOG] 3 ML PEN SC SCH ×4 (07:40→20:41)
[2016-06-04] MEDS ORDERED: GLIMEPIRIDE 4 MG TAB PO SCH (09:00)
[2016-06-04] MEDS: BENAZEPRIL 40 MG TAB PO SCH (10:28)
[2016-06-04] MEDS: NIFEdipine (XL) 60 MG TAB PO SCH ×2 (10:29→20:39)
[2016-06-04 10:30] VITALS: TEMP 97.5
[2016-06-04] MEDS: DOCUSATE SODIUM 100 MG CAP PO SCH ×2 (10:30→20:39)
[2016-06-04] MEDS: metFORMIN 500 MG TAB PO SCH ×2 (10:31→19:03)
[2016-06-04] MEDS: METOPROLOL (XL) 50 MG TAB PO SCH ×2 (10:51→20:38)
[2016-06-04] MEDS: VANCOMYCIN 1 GM in NS 250 ML IVPB SCH ×2 (10:51→23:48)
[2016-06-04] MEDS: FAMOTIDINE 20 MG TAB PO SCH (10:51)
[2016-06-04 11:20] VITALS: BP 170/75; PULSE 80; RESP 18
[2016-06-04] MEDS: SILVER SULFADIAZINE 1% 50 GM CR TOP SCH (12:13)
--- NOTE | 2016-06-04 12:18 | PN ---
Date/Time of Note Date/Time of Note DATE: 06/04/16 TIME: 12:14 Assessment/Plan VTE Prophylaxis VTE Prophylaxis Intervention: heparin Lines/Catheters IV [facility] Saline Lock Assessment/Plan Chief Complaint/Hosp Course Assessment/Plan PROBLEMS: 1. Recurrent right foot cellulitis. Podiatry and infectious disease doctor has been consulted, continue vancomycin and Levaquin Follow up infectious disease doctor recommendations 2. Diabetes. Type II : poor home control Continue metformin, insulin sliding scale low-carb diet Hold glipizide during the course of hospitalization 3. Essential hypertension: Well-controlled on medical management, continue metoprolol and nifedipine 4. s/p aortic valve replacement. Continue Coumadin 5. Dyslipidemia. Follow a lipid panel and treat accordingly 6. Severe PAD As above follow-up lipid panel, continue Coumadin and aspirin 7. Non compliance? Patient is unaware of most of his medications, patient has been provided regarding the importance of being compliant with medications We will continue monitor patient closely for recommendation management treatment as clinical course Problems: Subjective 24 Hr Interval Summary Free Text/Dictation Patient continues to complain of having discomfort in his right foot No nausea vomiting diarrhea Difficulty ambulating secondary to right foot pain Afebrile Exam/Review of Systems Vital Signs Vitals Vital Signs Date Time Temp Pulse Resp B/P Pulse Ox O2 Delivery O2 Flow Rate FiO2 06/04/16 10:30 97.5 77 18 178/79 95 Room Air Intake and Output 06/03/16 06/03/16 06/04/16 15:00 23:00 07:00 Intake Total 750 ml Output Total 200 ml Balance 550 ml Exam General: The patient is well-developed, Not in acute distress. HEENT: Atraumatic, normocephalic. The pupils are equal and round . Neck: Supple with full range of motion. Chest: Normal expansion of the thorax during inspiration Lungs: Clear to auscultation bilaterally Heart: Normal S1-S2, Regular rhythm and rate. Abdomen: Soft , nontender, nondistended , bowel sounds are present. Extremities: Erythema and cellulitis of the right foot second and third toe, minimal edema no cyanosis Neurologic: Normal mental status,The patient is awake, alert and oriented . Results Result Diagram: 06/04/16 0511 06/04/16 0511 Results 24 hrs Laboratory Tests Test 06/03/16 21:06 06/04/16 05:11 06/04/16 07:07 06/04/16 11:55 Alanine Aminotransferase (ALT/SGPT) 44 Albumin 4.1 Albumin/Globulin Ratio 1.24 Alkaline Phosphatase 74 Anion Gap 17 H 15 Aspartate Amino Transf (AST/SGOT) 29 Basophils # 0.0 0.1 Basophils % 0.5 0.7 Blood Urea Nitrogen 25 H 20 Calcium Level 9.0 8.6 Carbon Dioxide Level 26 24 Chloride Level 102 108 Creatinine 1.05 0.80 Direct Bilirubin 0.00 Eosinophils # 0.3 0.2 Eosinophils % 3.5 3.2 Erythrocyte Sedimentation Rate 14 Globulin 3.30 H Glucose Level 232 H 204 Hematocrit 38.4 L 35.9 L Hemoglobin 13.0 L 12.2 L INR International Normalized Ratio 2.48 Indirect Bilirubin 0.1 Lymphocytes # 2.0 2.1 Lymphocytes % 25.6 27.5 Mean Corpuscular Hemoglobin 31.8 31.7 Mean Corpuscular Hemoglobin Concent 34.0 33.9 Mean Corpuscular Volume 93.4 93.6 Mean Platelet Volume 10.3 10.0 Monocytes # 0.7 0.7 Monocytes % 9.0 8.8 Neutrophils # 4.8 4.6 Neutrophils % 61.4 59.8 Nucleated Red Blood Cells # 0.0 0.0 Nucleated Red Blood Cells % 0.0 0.0 Platelet Count 170 152 Potassium Level 4.3 3.8 Prothrombin Time 27.1 H Prothrombin Time Ratio 2.1 Red Blood Count 4.11 L 3.84 L Red Cell Distribution Width 13.7 13.4 Sodium Level 141 143 Total Bilirubin 0.1 L Total Protein 7.4 White Blood Count 7.9 7.7 Magnesium Level 1.9 Bedside Glucose 130 231 H Medications Medications Current Medications Atorvastatin Calcium (Lipitor) 80 mg QHS PO ; Start 06/04/16 at 21:00 Benazepril HCl (Lotensin) 40 mg DAILY PO Last administered on 06/04/16 10:28; Admin Dose 40 MG; Start 06/04/16 at 09:00 Metoprolol Succinate (Toprol Xl) 100 mg BID PO Last administered on 06/04/16 10 :51; Admin Dose 100 MG; Start 06/04/16 at 09:00 Nifedipine (Procardia Xl) 60 mg BID PO Last administered on 06/04/16 10:29; Admin Dose 60 MG; Start 06/04/16 at 09:00 Silver Sulfadiazine 1 applic 1 applic DAILY TOP ; Start 06/04/16 at 09:00 Levofloxacin/ Dextrose (Levaquin 750 Mg/ D5W 150 ml (Pmx)) 150 ml @ 100 mls/hr Q24H IVPB Last administered on 06/04/16 03:49; Admin Dose 100 MLS/HR; Start 06/04/16 at 03:30 Ondansetron HCl (Zofran Inj) 4 mg Q6H PRN IV NAUSEA AND/OR VOMITING; Start 06/04 at 03:30 Acetaminophen/ Hydrocodone Bitart ([place] (5/325)) 1 tab Q6H PRN PO pain Last administered on 06/04/16 06:53; Admin Dose 1 TAB; Start 06/04/16 at 03:30 Docusate Sodium (Colace) 100 mg BID PO Last administered on 06/04/16 10:30; Admin Dose 100 MG; Start 06/04/16 at 09:00 Famotidine (Pepcid) 20 mg DAILY PO Last administered on 06/04/16 10:51; Admin Dose 20 MG; Start 06/04/16 at 09:00 Warfarin Sodium (Coumadin) 1.25 mg Tu@17 PO ; Start 06/04/16 at 17:00 Hydralazine HCl (Apresoline) 10 mg Q6H PRN IV sbp>160mmhg; Start 06/04/16 at 03: 30 Diagnostic Test (Pha) (Accucheck) 1 ea 02 XX ; Start 06/05/16 at 02:00 Miscellaneous Information 1 ea NOTE XX ; Start 06/04/16 at 03:30 Glucose (Glutose) 15 gm Q15M PRN PO DECREASED GLUCOSE; Start 06/04/16 at 03:30 Glucose (Glutose) 22.5 gm Q15M PRN PO DECREASED GLUCOSE; Start 06/04/16 at 03:30 Dextrose (D50w Syringe) 25 ml Q15M PRN IV DECREASED GLUCOSE; Start 06/04/16 at 03:30 Dextrose (D50w Syringe) 50 ml Q15M PRN IV DECREASED GLUCOSE; Start 06/04/16 at 03:30 Glucagon (Glucagen) 1 mg Q15M PRN IM DECREASED GLUCOSE; Start 2/7/17 at 03:30 Glucose (Glutose) 15 gm Q15M PRN BUCCAL DECREASED GLUCOSE; Start 06/04/16 at 03: 30 Warfarin Sodium 2.5 mg 2.5 mg SuMoWeThFrSa@17 PO ; Start 06/05/16 at 17:00 Vancomycin HCl (Vancocin) 250 ml @ 125 mls/hr Q12H IVPB Last administered on t 10:51; Admin Dose 125 MLS/HR; Start 06/04/16 at 11:00 HENRY VARELA MD Jun 04, 2016 12:18
[2016-06-04] MEDS ORDERED: VANCOMYCIN 1.5 GM in SOD CHLORIDE 0.9% 250 ML IVPB SCH (14:00)
[2016-06-04] MEDS: hydrALAzine 20 MG INJ IV PRN (14:05)
[2016-06-04 16:00] VITALS: BP 149/62; PULSE 75; RESP 18
--- NOTE | 2016-06-04 18:36 | CONS ---
DATE OF ADMISSION: 06/03/2016 DATE OF CONSULTATION: 06/04/2016 TYPE OF CONSULTATION: Podiatry. REFERRING PHYSICIAN: Dr. Andrade REASON FOR ONSULTATION: Right foot cellulitis. HISTORY OF PRESENT ILLNESS: This is a 76-year-old gentleman who was recently discharged following h ospitalization for cellulitis to the right foot, had improvement while in-house and discharged on or al antibiotics, now with recurrence. The patient has pain located to the right 2nd toe. The patien t denies any fever, nausea, vomiting, and patient denies any acute changes to his health. The patie nt had a CTA performed in April which revealed scattered mild calcified atherosclerosis, less than 30%, of the right superficial femoral artery; focal moderate disease at the popliteal artery; scatt ered stenosis of the tibial peroneal trunk; proximal anterior tibial artery; heavily calcified dorsa lis pedis artery; occlusion of posterior tibial artery at the origin with reconstitution in the foot . PAST MEDICAL HISTORY: 1. Diabetes type 2, poorly controlled. 2. Essential hypertension. 3. History of aortic valve replacement. 4. Dyslipidemia. 5. Severe peripheral arterial disease. 6. The patient on anticoagulation therapy for aortic valve replacement. 7. Dyslipidemia. PAST SURGICAL HISTORY: Aortic valve replacement. FAMILY HISTORY: Noncontributory. SOCIAL HISTORY: Occasional tobacco use. Denies any recreational drug use. PHYSICAL EXAMINATION: VITAL SIGNS: Temperature 97.5, pulse is 80, respiratory 18, blood pressure 170/75. Pulse oximetry is 97, room air. GENERAL: The patient alert, oriented. No acute distress. Regular respiration. EXTREMITIES: The patient has nonpalpable pedal pulses. The foot is warm to touch. There is cellul itis present to the 2nd and 3rd toes as well as extending to the metatarsophalangeal joints. Has 5/ 5 dorsiflexion, plantar flexion. Possibly ingrowing nail to 2nd toe. There are dystrophic changes. No visible signs of subungual ulceration or bleeding. There is tenderness with palpation. LABORATORIES: WBC 7.7, hemoglobin 12.2, hematocrit 35.9, platelets 152. Sodium 143, potassium 3.8, chloride 108, CO2 24, BUN 20, creatinine 0.8, glucose 204. IMAGING: Foot x-ray: No fracture, dislocation or evidence of osteomyelitis. Stable arterial vascu lar calcifications. ASSESSMENT: 1. Cellulitis. 2. Onychomycosis with possible ingrowing nail to right 2nd toe. 3. Diabetes type 2. 4. Peripheral arterial disease. 5. Recurrent cellulitis, possible noncompliance with medications. PLAN: Recurring cellulitis without evidence of osteomyelitis radiographically, possible ingrowing n ail, currently on vancomycin and Zosyn. If no improvement, possible removal of nail plate. Prognos is guarded if procedure performed due to underlying compromised vascularity. No signs of active annie inage available for culture. Will continue to follow in-house. Nursing recommendations given. Dictated By: VANDANA HOOPER/ANABELA Conf#: [id number] DID#: [id number]
[2016-06-04 19:00] VITALS: BP 164/72; RESP 18
[2016-06-04] MEDS: ATORVASTATIN 80 MG TAB PO SCH (20:38)
--- NOTE | 2016-06-04 23:19 | CONS ---
Date/Time of Note Date/Time of Note DATE: 06/04/16 TIME: 14:16 Assessment/Plan Assessment/Plan Chief Complaint/Hosp Course SUBJECTIVE: No acute events overnight. The patient is alert, c/o R foot pain, looks comfortable. No fevers. ANTIMICROBIALS: 1. Vancomycin. 2. Levaquin. PHYSICAL EXAMINATION: GENERAL: Well-developed elderly man who is alert, in no distress. HEENT: Head atraumatic, normocephalic. Sclerae anicteric. Buccal mucosa pink. NECK: Supple, trachea midline. CHEST: Rise symmetrical. Breath sounds clear. HEART: S1, S2. ABDOMEN: Soft. Bowel tones present. EXTREMITIES: With right foot dressing intact. ASSESSMENT: 1. Right foot ongoing cellulitis. 2. Severe peripheral arterial disease status post angiogram on 05/10/2016 3. Diabetes. 4. Hypertension. 5. Coronary artery disease, history of valve replacement. PLAN: Clinically stable, podiatry rec-s noted, will keep on abx and reassess daily DW staff/pt Problems: Consultation Date/Type/Reason Admit Date/Time Jun 03, 2016 at 22:25 Initial Consult Date Type of Consultation: ID Referring Provider: HENRY VARELA MD Exam/Review of Systems Vital Signs Vitals Vital Signs Date Time Temp Pulse Resp B/P Pulse Ox O2 Delivery O2 Flow Rate FiO2 06/04/16 19:00 98.2 82 18 164/72 97 06/04/16 16:00 Room Air Intake and Output 06/03/16 06/03/16 06/04/16 15:00 23:00 07:00 Intake Total 750 ml Output Total 200 ml Balance 550 ml Results Result Diagram: 06/04/16 0511 06/04/16 0511 Results 24 hrs Laboratory Tests Test 06/04/16 05:11 06/04/16 07:07 06/04/16 11:55 06/04/16 16:58 Anion Gap 15 Basophils # 0.1 Basophils % 0.7 Blood Urea Nitrogen 20 Calcium Level 8.6 Carbon Dioxide Level 24 Chloride Level 108 Creatinine 0.80 Eosinophils # 0.2 Eosinophils % 3.2 Glucose Level 204 Hematocrit 35.9 L Hemoglobin 12.2 L Lymphocytes # 2.1 Lymphocytes % 27.5 Magnesium Level 1.9 Mean Corpuscular Hemoglobin 31.7 Mean Corpuscular Hemoglobin Concent 33.9 Mean Corpuscular Volume 93.6 Mean Platelet Volume 10.0 Monocytes # 0.7 Monocytes % 8.8 Neutrophils # 4.6 Neutrophils % 59.8 Nucleated Red Blood Cells # 0.0 Nucleated Red Blood Cells % 0.0 Platelet Count 152 Potassium Level 3.8 Red Blood Count 3.84 L Red Cell Distribution Width 13.4 Sodium Level 143 White Blood Count 7.7 Bedside Glucose 130 231 H 126 Test 06/04/16 20:03 Bedside Glucose 117 Medications Medications Current Medications Atorvastatin Calcium (Lipitor) 80 mg QHS PO Last administered on 06/04/16 20:38 ; Admin Dose 80 MG; Start 06/04/16 at 21:00 Benazepril HCl (Lotensin) 40 mg DAILY PO Last administered on 06/04/16 10:28; Admin Dose 40 MG; Start 06/04/16 at 09:00 Metoprolol Succinate (Toprol Xl) 100 mg BID PO Last administered on 06/04/16 20 :38; Admin Dose 100 MG; Start 06/04/16 at 09:00 Nifedipine (Procardia Xl) 60 mg BID PO Last administered on 06/04/16 20:39; Admin Dose 60 MG; Start 06/04/16 at 09:00 Silver Sulfadiazine 1 applic 1 applic DAILY TOP Last administered on 06/04/16 12:13; Admin Dose 1 APPLIC; Start 06/04/16 at 09:00 Levofloxacin/ Dextrose (Levaquin 750 Mg/ D5W 150 ml (Pmx)) 150 ml @ 100 mls/hr Q24H IVPB Last administered on 06/04/16 03:49; Admin Dose 100 MLS/HR; Start 06/04/16 at 03:30 Ondansetron HCl (Zofran Inj) 4 mg Q6H PRN IV NAUSEA AND/OR VOMITING; Start 06/04 at 03:30 Acetaminophen/ Hydrocodone Bitart ([place] (5/325)) 1 tab Q6H PRN PO pain Last administered on 06/04/16 19:07; Admin Dose 1 TAB; Start 06/04/16 at 03:30 Docusate Sodium (Colace) 100 mg BID PO Last administered on 06/04/16 20:39; Admin Dose 100 MG; Start 06/04/16 at 09:00 Famotidine (Pepcid) 20 mg DAILY PO Last administered on 06/04/16 10:51; Admin Dose 20 MG; Start 06/04/16 at 09:00 Warfarin Sodium (Coumadin) 1.25 mg Tu@17 PO Last administered on 06/04/16 20:39 ; Admin Dose 1.25 MG; Start 06/04/16 at 17:00 Hydralazine HCl (Apresoline) 10 mg Q6H PRN IV sbp>160mmhg Last administered on 06/04/16 14:05; Admin Dose 10 MG; Start 06/04/16 at 03:30 Diagnostic Test (Pha) (Accucheck) 1 ea 02 XX ; Start 06/05/16 at 02:00 Miscellaneous Information 1 ea NOTE XX ; Start 06/04/16 at 03:30 Glucose (Glutose) 15 gm Q15M PRN PO DECREASED GLUCOSE; Start 06/04/16 at 03:30 Glucose (Glutose) 22.5 gm Q15M PRN PO DECREASED GLUCOSE; Start 06/04/16 at 03:30 Dextrose (D50w Syringe) 25 ml Q15M PRN IV DECREASED GLUCOSE; Start 06/04/16 at 03:30 Dextrose (D50w Syringe) 50 ml Q15M PRN IV DECREASED GLUCOSE; Start 06/04/16 at 03:30 Glucagon (Glucagen) 1 mg Q15M PRN IM DECREASED GLUCOSE; Start 06/04/16 at 03:30 Glucose (Glutose) 15 gm Q15M PRN BUCCAL DECREASED GLUCOSE; Start 06/04/16 at 03: 30 Warfarin Sodium 2.5 mg 2.5 mg SuMoWeThFrSa@17 PO ; Start 06/05/16 at 17:00 Vancomycin HCl (Vancocin) 250 ml @ 125 mls/hr Q12H IVPB Last administered on 10:51; Admin Dose 125 MLS/HR; Start 06/04/16 at 11:00 Miscellaneous Information (*Rx Drug Level Order Reminder*) 1 ONCE ONCE XX ; Start 06/05/16 at 10:00; Stop 06/05/16 at 10:01 MANSI CURRAN NP Jun 04, 2016 23:19
[2016-06-05] VITALS: BP 140/78
[2016-06-05] MEDS: ACCUCHECK AT 2AM (Patients on SS coverage) XX SCH (02:00)
[2016-06-05] MEDS: LEVOFLOXACIN 750MG/D5W (PMX) 150 ML IVPB SCH (04:47)
[2016-06-05 07:02] LABS: INR 2.24
[2016-06-05 07:04] LABS: CHOL/HDL RATIO 3.2 RATIO
[2016-06-05 07:30] LABS: BASOPHIL # 0.1 10^3/ul (0.0-0.1); BASOPHILS % 0.7 % (0.0-2.0); EOSINOPHILS # 0.4 10^3/ul (0.0-0.5); EOSINOPHILS % 4.9 % (0.0-7.0); HEMATOCRIT 36.3 % (42.0-52.0); HEMOGLOBIN 12.5 g/dl (14.0-18.0); LYMPHOCYTES # 1.9 10^3/ul (0.8-2.9); LYMPHOCYTES % 25.8 % (15.0-51.0); MEAN CORPUSCULAR HEMOGLOBIN 32.2 pg (29.0-33.0); MEAN CORPUSCULAR HGB CONC 34.4 g/dl (32.0-37.0); MEAN CORPUSCULAR VOLUME 93.6 fl (82.0-101.0); MEAN PLATELET VOLUME 10.1 fl (7.4-10.4); MONOCYTE # 0.6 10^3/ul (0.3-0.9); MONOCYTES % 7.5 % (0.0-11.0); NEUTROPHIL # 4.5 10^3/ul (1.6-7.5); NEUTROPHILS % 61.1 % (39.0-77.0); PLATELET COUNT 159 10^3/UL (140-440); RED BLOOD COUNT 3.88 10^6/ul (4.70-6.10); RED CELL DISTRIBUTION WIDTH 13.5 % (11.5-14.5); UNCORRECTED WBC 7.4 10^3/ul (4.8-10.8); WHITE BLOOD COUNT 7.4 10^3/ul (4.8-10.8)
[2016-06-05 07:32] LABS: CONDITION 1
[2016-06-05] MEDS: INSULIN ASPART [NOVOLOG] 3 ML PEN SC SCH ×4 (08:06→20:50)
[2016-06-05] MEDS: DOCUSATE SODIUM 100 MG CAP PO SCH ×2 (08:10→20:46)
[2016-06-05] MEDS: metFORMIN 500 MG TAB PO SCH ×2 (08:10→17:22)
[2016-06-05] MEDS: METOPROLOL (XL) 50 MG TAB PO SCH ×2 (08:10→22:00)
[2016-06-05] MEDS: BENAZEPRIL 40 MG TAB PO SCH (08:10)
[2016-06-05] MEDS: NIFEdipine (XL) 60 MG TAB PO SCH ×2 (08:10→20:47)
[2016-06-05] MEDS: FAMOTIDINE 20 MG TAB PO SCH (08:10)
[2016-06-05] MEDS: SILVER SULFADIAZINE 1% 50 GM CR TOP SCH (08:11)
[2016-06-05 08:30] LABS: CREATININE 0.64 mg/dl (0.61-1.24)
[2016-06-05 08:31] LABS: CALCIUM 8.9 mg/dl (8.4-10.2)
[2016-06-05 09:17] VITALS: BP 153/69; RESP 16
[2016-06-05] MEDS: HYDROCODONE/APAP (5/325) TAB PO PRN (09:38)
[2016-06-05] MEDS: VANCOMYCIN 1 GM in NS 250 ML IVPB SCH (11:26)
[2016-06-05] MEDS: morphine 2 MG INJ IV PRN (12:07)
--- NOTE | 2016-06-05 12:34 | PN ---
Date/Time of Note Date/Time of Note DATE: 06/05/16 TIME: 12:31 Assessment/Plan VTE Prophylaxis VTE Prophylaxis Intervention: LMWH Lines/Catheters [facility] Saline Lock Assessment/Plan Chief Complaint/Hosp Course Assessment/Plan PROBLEMS: 1. Recurrent right foot cellulitis. Podiatry and infectious disease doctor has been consulted, continue vancomycin and Levaquin Follow-up podiatry recommendations Follow-up infectious disease recommendation for possible home antibiotics 2. Diabetes. Type II : poor home control Continue metformin, insulin sliding scale low-carb diet. Hold glipizide during the course of hospitalization 3. Essential hypertension: Well-controlled on medical management, continue metoprolol and nifedipine 4. s/p aortic valve replacement. Continue Coumadin 5. Dyslipidemia. Well-controlled on medical management 6. Severe PAD continue Coumadin, statin and aspirin 7. Non compliance? Patient is unaware of most of his medications, patient has been provided regarding the importance of being compliant with medications We will continue monitor patient closely for recommendation management treatment as clinical course Plan to discharge home tomorrow if cleared by podiatry Problems: Subjective 24 Hr Interval Summary Free Text/Dictation Improvement in right foot erythema and discomfort Denies of any chest pain or shortness of breath Tolerating oral intake Exam/Review of Systems Vital Signs Vitals Vital Signs Date Time Temp Pulse Resp B/P Pulse Ox O2 Delivery O2 Flow Rate FiO2 06/05/16 09:17 97.8 72 16 153/69 98 06/04/16 16:00 Room Air Intake and Output 06/04/16 06/04/16 06/05/16 15:00 23:00 07:00 Intake Total 1000 ml 1350 ml Output Total 700 ml 1700 ml Balance 300 ml -350 ml Exam General: The patient is well-developed, Not in acute distress. HEENT: Atraumatic, normocephalic. The pupils are equal and round . Neck: Supple with full range of motion. Chest: Normal expansion of the thorax during inspiration Lungs: Clear to auscultation bilaterally Heart: Normal S1-S2, Regular rhythm and rate. Abdomen: Soft , nontender, nondistended , bowel sounds are present. Extremities: Right foot erythema in second to fourth digit without any swelling , no edema no cyanosis Neurologic: Normal mental status,The patient is awake, alert and oriented . Results Result Diagram: 06/05/16 0520 06/05/16 0520 Results 24 hrs Laboratory Tests Test 06/04/16 16:58 06/04/16 20:03 06/05/16 05:20 06/05/16 07:35 Bedside Glucose 126 117 132 Anion Gap 17 H Basophils # 0.1 Basophils % 0.7 Blood Urea Nitrogen 12 Calcium Level 8.9 Carbon Dioxide Level 24 Chloride Level 105 Cholesterol Level 88 L Cholesterol/HDL Ratio 3.2 Creatinine 0.64 Eosinophils # 0.4 Eosinophils % 4.9 Glucose Level 124 # HDL Cholesterol 27 L Hematocrit 36.3 L Hemoglobin 12.5 L Hemoglobin A1c 6.3 H INR International Normalized Ratio 2.24 LDL Cholesterol, Calculated 32 Lymphocytes # 1.9 Lymphocytes % 25.8 Mean Corpuscular Hemoglobin 32.2 Mean Corpuscular Hemoglobin Concent 34.4 Mean Corpuscular Volume 93.6 Mean Platelet Volume 10.1 Monocytes # 0.6 Monocytes % 7.5 Neutrophils # 4.5 Neutrophils % 61.1 Nucleated Red Blood Cells # 0.0 Nucleated Red Blood Cells % 0.0 Platelet Count 159 Potassium Level 4.0 Prothrombin Time 25.0 H Prothrombin Time Ratio 2.0 Red Blood Count 3.88 L Red Cell Distribution Width 13.5 Sodium Level 142 Triglycerides Level 145 White Blood Count 7.4 Test 06/05/16 09:55 06/05/16 11:57 Vancomycin Level Trough 10.8 Bedside Glucose 88 Medications Medications Current Medications Atorvastatin Calcium (Lipitor) 80 mg QHS PO Last administered on 06/04/16 20:38 ; Admin Dose 80 MG; Start 06/04/16 at 21:00 Benazepril HCl (Lotensin) 40 mg DAILY PO Last administered on 06/05/16 08:10; Admin Dose 40 MG; Start 06/04/16 at 09:00 Metoprolol Succinate (Toprol Xl) 100 mg BID PO Last administered on 06/05/16 08 :10; Admin Dose 100 MG; Start 06/04/16 at 09:00 Nifedipine (Procardia Xl) 60 mg BID PO Last administered on 06/05/16 08:10; Admin Dose 60 MG; Start 06/04/16 at 09:00 Silver Sulfadiazine 1 applic 1 applic DAILY TOP Last administered on 06/05/16 08:11; Admin Dose 1 APPLIC; Start 06/04/16 at 09:00 Levofloxacin/ Dextrose (Levaquin 750 Mg/ D5W 150 ml (Pmx)) 150 ml @ 100 mls/hr Q24H IVPB Last administered on 06/05/16 04:47; Admin Dose 100 MLS/HR; Start 06/04/16 at 03:30 Ondansetron HCl (Zofran Inj) 4 mg Q6H PRN IV NAUSEA AND/OR VOMITING; Start 06/04 at 03:30 Acetaminophen/ Hydrocodone Bitart ([place] (5/325)) 1 tab Q6H PRN PO pain Last administered on 06/05/16 09:38; Admin Dose 1 TAB; Start 06/04/16 at 03:30 Docusate Sodium (Colace) 100 mg BID PO Last administered on 06/05/16 08:10; Admin Dose 100 MG; Start 06/04/16 at 09:00 Famotidine (Pepcid) 20 mg DAILY PO Last administered on 06/05/16 08:10; Admin Dose 20 MG; Start 06/04/16 at 09:00 Warfarin Sodium (Coumadin) 1.25 mg Tu@17 PO Last administered on 06/04/16 20:39 ; Admin Dose 1.25 MG; Start 06/04/16 at 17:00 Hydralazine HCl (Apresoline) 10 mg Q6H PRN IV sbp>160mmhg Last administered on 06/04/16 14:05; Admin Dose 10 MG; Start 06/04/16 at 03:30 Diagnostic Test (Pha) (Accucheck) 1 ea 02 XX ; Start 06/05/16 at 02:00 Miscellaneous Information 1 ea NOTE XX ; Start 06/04/16 at 03:30 Glucose (Glutose) 15 gm Q15M PRN PO DECREASED GLUCOSE; Start 06/04/16 at 03:30 Glucose (Glutose) 22.5 gm Q15M PRN PO DECREASED GLUCOSE; Start 06/04/16 at 03:30 Dextrose (D50w Syringe) 25 ml Q15M PRN IV DECREASED GLUCOSE; Start 06/04/16 at 03:30 Dextrose (D50w Syringe) 50 ml Q15M PRN IV DECREASED GLUCOSE; Start 06/04/16 at 03:30 Glucagon (Glucagen) 1 mg Q15M PRN IM DECREASED GLUCOSE; Start 06/04/16 at 03:30 Glucose (Glutose) 15 gm Q15M PRN BUCCAL DECREASED GLUCOSE; Start 06/04/16 at 03: 30 Warfarin Sodium 2.5 mg 2.5 mg SuMoWeThFrSa@17 PO ; Start 06/05/16 at 17:00 Vancomycin HCl (Vancocin) 250 ml @ 125 mls/hr Q12H IVPB Last administered on 11:26; Admin Dose 125 MLS/HR; Start 06/04/16 at 11:00 Morphine Sulfate (morphine) 2 mg Q4H PRN IV PAIN Last administered on 06/05/16 12:07; Admin Dose 2 MG; Start 06/05/16 at 12:30 HENRY VARELA MD Jun 05, 2016 12:34
--- NOTE | 2016-06-05 15:46 | CONS ---
Date/Time of Note Date/Time of Note DATE: 06/05/16 TIME: 15:45 Assessment/Plan Assessment/Plan Chief Complaint/Hosp Course SUBJECTIVE: No acute events overnight. The patient is alert, R foot pain is better, looks comfortable. No fevers. ANTIMICROBIALS: 1. Vancomycin. 2. Levaquin. PHYSICAL EXAMINATION: GENERAL: Well-developed elderly man who is alert, in no distress. HEENT: Head atraumatic, normocephalic. Sclerae anicteric. Buccal mucosa pink. NECK: Supple, trachea midline. CHEST: Rise symmetrical. Breath sounds clear. HEART: S1, S2. ABDOMEN: Soft. Bowel tones present. EXTREMITIES: With right foot dressing intact. ASSESSMENT: 1. Right foot ongoing cellulitis. 2. Severe peripheral arterial disease status post angiogram on 05/10/2016 3. Diabetes. 4. Hypertension. 5. Coronary artery disease, history of valve replacement. PLAN: Clinically stable, followed by podiatry, will keep on abx and reassess daily DW staff/pt Problems: Consultation Date/Type/Reason Admit Date/Time Jun 03, 2016 at 22:25 Type of Consultation: ID Referring Provider: HENRY VARELA MD Exam/Review of Systems Vital Signs Vitals Vital Signs Date Time Temp Pulse Resp B/P Pulse Ox O2 Delivery O2 Flow Rate FiO2 06/05/16 09:17 97.8 72 16 153/69 98 06/04/16 16:00 Room Air Intake and Output 06/04/16 06/04/16 06/05/16 15:00 23:00 07:00 Intake Total 1000 ml 1350 ml Output Total 700 ml 1700 ml Balance 300 ml -350 ml Results Result Diagram: 06/05/16 0520 06/05/16 0520 Results 24 hrs Laboratory Tests Test 06/04/16 16:58 06/04/16 20:03 06/05/16 05:20 06/05/16 07:35 Bedside Glucose 126 117 132 Anion Gap 17 H Basophils # 0.1 Basophils % 0.7 Blood Urea Nitrogen 12 Calcium Level 8.9 Carbon Dioxide Level 24 Chloride Level 105 Cholesterol Level 88 L Cholesterol/HDL Ratio 3.2 Creatinine 0.64 Eosinophils # 0.4 Eosinophils % 4.9 Glucose Level 124 # HDL Cholesterol 27 L Hematocrit 36.3 L Hemoglobin 12.5 L Hemoglobin A1c 6.3 H INR International Normalized Ratio 2.24 LDL Cholesterol, Calculated 32 Lymphocytes # 1.9 Lymphocytes % 25.8 Mean Corpuscular Hemoglobin 32.2 Mean Corpuscular Hemoglobin Concent 34.4 Mean Corpuscular Volume 93.6 Mean Platelet Volume 10.1 Monocytes # 0.6 Monocytes % 7.5 Neutrophils # 4.5 Neutrophils % 61.1 Nucleated Red Blood Cells # 0.0 Nucleated Red Blood Cells % 0.0 Platelet Count 159 Potassium Level 4.0 Prothrombin Time 25.0 H Prothrombin Time Ratio 2.0 Red Blood Count 3.88 L Red Cell Distribution Width 13.5 Sodium Level 142 Triglycerides Level 145 White Blood Count 7.4 Test 06/05/16 09:55 06/05/16 11:57 Vancomycin Level Trough 10.8 Bedside Glucose 88 Medications Medications Current Medications Atorvastatin Calcium (Lipitor) 80 mg QHS PO Last administered on 06/04/16 20:38 ; Admin Dose 80 MG; Start 06/04/16 at 21:00 Benazepril HCl (Lotensin) 40 mg DAILY PO Last administered on 06/05/16 08:10; Admin Dose 40 MG; Start 06/04/16 at 09:00 Metoprolol Succinate (Toprol Xl) 100 mg BID PO Last administered on 06/05/16 08 :10; Admin Dose 100 MG; Start 06/04/16 at 09:00 Nifedipine (Procardia Xl) 60 mg BID PO Last administered on 06/05/16 08:10; Admin Dose 60 MG; Start 06/04/16 at 09:00 Silver Sulfadiazine 1 applic 1 applic DAILY TOP Last administered on 06/05/16 08:11; Admin Dose 1 APPLIC; Start 06/04/16 at 09:00 Levofloxacin/ Dextrose (Levaquin 750 Mg/ D5W 150 ml (Pmx)) 150 ml @ 100 mls/hr Q24H IVPB Last administered on 06/05/16 04:47; Admin Dose 100 MLS/HR; Start 06/04/16 at 03:30 Ondansetron HCl (Zofran Inj) 4 mg Q6H PRN IV NAUSEA AND/OR VOMITING; Start 06/04 at 03:30 Acetaminophen/ Hydrocodone Bitart ([place] (5/325)) 1 tab Q6H PRN PO pain Last administered on 06/05/16 09:38; Admin Dose 1 TAB; Start 06/04/16 at 03:30 Docusate Sodium (Colace) 100 mg BID PO Last administered on 06/05/16 08:10; Admin Dose 100 MG; Start 06/04/16 at 09:00 Famotidine (Pepcid) 20 mg DAILY PO Last administered on 06/05/16 08:10; Admin Dose 20 MG; Start 06/04/16 at 09:00 Warfarin Sodium (Coumadin) 1.25 mg Tu@17 PO Last administered on 06/04/16 20:39 ; Admin Dose 1.25 MG; Start 06/04/16 at 17:00 Hydralazine HCl (Apresoline) 10 mg Q6H PRN IV sbp>160mmhg Last administered on 06/04/16 14:05; Admin Dose 10 MG; Start 06/04/16 at 03:30 Diagnostic Test (Pha) (Accucheck) 1 ea 02 XX ; Start 06/05/16 at 02:00 Miscellaneous Information 1 ea NOTE XX ; Start 06/04/16 at 03:30 Glucose (Glutose) 15 gm Q15M PRN PO DECREASED GLUCOSE; Start 06/04/16 at 03:30 Glucose (Glutose) 22.5 gm Q15M PRN PO DECREASED GLUCOSE; Start 06/04/16 at 03:30 Dextrose (D50w Syringe) 25 ml Q15M PRN IV DECREASED GLUCOSE; Start 06/04/16 at 03:30 Dextrose (D50w Syringe) 50 ml Q15M PRN IV DECREASED GLUCOSE; Start 06/04/16 at 03:30 Glucagon (Glucagen) 1 mg Q15M PRN IM DECREASED GLUCOSE; Start 06/04/16 at 03:30 Glucose (Glutose) 15 gm Q15M PRN BUCCAL DECREASED GLUCOSE; Start 06/04/16 at 03: 30 Warfarin Sodium 2.5 mg 2.5 mg SuMoWeThFrSa@17 PO ; Start 06/05/16 at 17:00 Vancomycin HCl (Vancocin) 250 ml @ 125 mls/hr Q12H IVPB Last administered on 11:26; Admin Dose 125 MLS/HR; Start 06/04/16 at 11:00 Morphine Sulfate (morphine) 2 mg Q4H PRN IV PAIN Last administered on 06/05/16 12:07; Admin Dose 2 MG; Start 06/05/16 at 12:30 MANSI CURRAN NP Jun 05, 2016 15:45
[2016-06-05] MEDS: WARFARIN 2.5 MG TAB PO SCH (17:22)
--- NOTE | 2016-06-05 17:58 | CONS ---
DATE OF ADMISSION: 06/03/2016 DATE OF CONSULTATION: 06/05/2016 SUBJECTIVE FINDINGS: The patient being followed for right foot cellulitis. The patient with known peripheral arterial disease without targets for bypass has distal disease and has been on IV antibio tics with some improvement. The patient denies any fever, nausea, vomiting. Pain persists. Patien t relates loosening of nail plate, right second toe. OBJECTIVE FINDINGS: VITAL SIGNS: Temperature 97.8, pulse is 72, respiratory rate 16, blood pressure is 153/69, pulse ox is 98%. GENERAL: The patient alert, oriented, no acute distress. He is ambulatory. Regular respiration. EXTREMITIES: Patient with spontaneous avulsion of nail plate to the right second toe. No underlyin g ulceration. There is mild erythema of the toe at the level of metatarsophalangeal joint with no v isible drainage or abscess formation. Improved color to the third and fourth toes. FOOT X-RAY: No fracture, dislocation or evidence of osteomyelitis, stable arterial vascular calcifi cation. Blood cultures are negative. MRSA of nares negative. LABORATORY: WBC 7.4, hemoglobin 12.5, hematocrit 36.3, platelets 159. Sed rate is 14. ASSESSMENT: 1. Right foot cellulitis. 2. Onycholysis of right second toe. 3. Peripheral arterial disease with no plans for revascularization. 4. Hypertension. 5. Coronary artery disease, history of valve replacement. PLAN: The patient seen and evaluated. The nail was dystrophic with spontaneous avulsion, partially detached. The nail had been removed without evidence of subungual ulceration. There is some impro vement to the third and fourth toes. I will continue to follow patient with severe peripheral vascul ar disease with no targets for distal bypass. The patient with a guarded prognosis, pain persists, likely due to underlying vascular disease. Dictated By: VANDANA HOOPER/ANABELA Conf#: [id number] DID#: [id number]
[2016-06-05 19:30] VITALS: BP 150/67; RESP 16
[2016-06-05] MEDS: ATORVASTATIN 80 MG TAB PO SCH (20:47)
[2016-06-06] MEDS: VANCOMYCIN 1 GM in NS 250 ML IVPB SCH ×3 (00:48→22:55)
[2016-06-06] MEDS: ACCUCHECK AT 2AM (Patients on SS coverage) XX SCH (02:00)
[2016-06-06] MEDS: LEVOFLOXACIN 750MG/D5W (PMX) 150 ML IVPB SCH (03:17)
[2016-06-06] MEDS: INSULIN ASPART [NOVOLOG] 3 ML PEN SC SCH ×4 (08:08→21:00)
[2016-06-06 08:11] VITALS: BP 161/74; RESP 20
[2016-06-06] MEDS: DOCUSATE SODIUM 100 MG CAP PO SCH ×2 (08:17→21:04)
[2016-06-06] MEDS: METOPROLOL (XL) 50 MG TAB PO SCH ×2 (08:17→21:05)
[2016-06-06] MEDS: FAMOTIDINE 20 MG TAB PO SCH (08:17)
[2016-06-06] MEDS: BENAZEPRIL 40 MG TAB PO SCH (08:17)
[2016-06-06] MEDS: NIFEdipine (XL) 60 MG TAB PO SCH ×2 (08:17→21:04)
[2016-06-06] MEDS: metFORMIN 500 MG TAB PO SCH ×2 (08:20→17:38)
[2016-06-06] MEDS: SILVER SULFADIAZINE 1% 50 GM CR TOP SCH (08:21)
[2016-06-06 08:25] LABS: BASOPHILS % 0.4 % (0.0-2.0); EOSINOPHILS # 0.6 10^3/ul (0.0-0.5); EOSINOPHILS % 5.7 % (0.0-7.0); HEMATOCRIT 38.8 % (42.0-52.0); HEMOGLOBIN 13.1 g/dl (14.0-18.0); LYMPHOCYTES # 1.8 10^3/ul (0.8-2.9); LYMPHOCYTES % 18.9 % (15.0-51.0); MEAN CORPUSCULAR HEMOGLOBIN 31.9 pg (29.0-33.0); MEAN CORPUSCULAR HGB CONC 33.8 g/dl (32.0-37.0); MEAN CORPUSCULAR VOLUME 94.4 fl (82.0-101.0); MONOCYTE # 0.7 10^3/ul (0.3-0.9); MONOCYTES % 7.8 % (0.0-11.0); NEUTROPHIL # 6.5 10^3/ul (1.6-7.5); NEUTROPHILS % 67.2 % (39.0-77.0); PLATELET COUNT 195 10^3/UL (140-440); RED BLOOD COUNT 4.11 10^6/ul (4.70-6.10); RED CELL DISTRIBUTION WIDTH 13.4 % (11.5-14.5); UNCORRECTED WBC 9.6 10^3/ul (4.8-10.8); WHITE BLOOD COUNT 9.6 10^3/ul (4.8-10.8)
[2016-06-06 08:26] LABS: CONDITION 1
[2016-06-06 08:41] LABS: POTASSIUM 4.5 mmol/L (3.5-5.1)
[2016-06-06 08:43] LABS: CREATININE 0.69 mg/dl (0.61-1.24)
[2016-06-06 08:44] LABS: CALCIUM 9.4 mg/dl (8.4-10.2)
[2016-06-06] MEDS: HYDROCODONE/APAP (5/325) TAB PO PRN (13:17)
--- NOTE | 2016-06-06 15:41 | PN ---
Date/Time of Note Date/Time of Note DATE: 06/06/16 TIME: 15:35 Assessment/Plan VTE Prophylaxis VTE Prophylaxis Intervention: other (coumadin) Lines/Catheters IV Catheter Type (from Nrsg): Saline Lock Assessment/Plan Assessment/Plan 1. Recurrent right foot cellulitis. improving, continue antibiotics, consider discharge tomorrow 2. Diabetes. Type II : well controlled 3. Essential hypertension: controlled 4. s/p aortic valve replacement. on Continue Coumadin 5. Dyslipidemia. on statin 6. Severe peripheral vascular disease, not a candidate for revascularization Exam/Review of Systems Vital Signs Vitals Vital Signs Date Time Temp Pulse Resp B/P Pulse Ox O2 Delivery O2 Flow Rate FiO2 06/06/16 08:11 97.6 68 20 161/74 98 06/04/16 16:00 Room Air Intake and Output 06/05/16 06/05/16 06/06/16 15:00 23:00 07:00 Intake Total 1330 ml 800 ml Output Total 1050 ml 600 ml Balance 280 ml 200 ml Results Result Diagram: 06/06/16 0745 06/06/16 0745 Results 24 hrs Laboratory Tests Test 06/05/16 17:17 06/05/16 20:44 06/06/16 07:45 06/06/16 07:59 Bedside Glucose 132 95 133 Anion Gap 15 Basophils # 0.0 Basophils % 0.4 Blood Urea Nitrogen 15 Calcium Level 9.4 Carbon Dioxide Level 29 Chloride Level 100 Creatinine 0.69 Eosinophils # 0.6 H Eosinophils % 5.7 Glucose Level 134 Hematocrit 38.8 L Hemoglobin 13.1 L Lymphocytes # 1.8 Lymphocytes % 18.9 Mean Corpuscular Hemoglobin 31.9 Mean Corpuscular Hemoglobin Concent 33.8 Mean Corpuscular Volume 94.4 Mean Platelet Volume 10.0 Monocytes # 0.7 Monocytes % 7.8 Neutrophils # 6.5 Neutrophils % 67.2 Nucleated Red Blood Cells # 0.0 Nucleated Red Blood Cells % 0.0 Platelet Count 195 # Potassium Level 4.5 Red Blood Count 4.11 L Red Cell Distribution Width 13.4 Sodium Level 139 White Blood Count 9.6 # Test 06/06/16 11:43 Bedside Glucose 124 Medications Medications Current Medications Atorvastatin Calcium (Lipitor) 80 mg QHS PO Last administered on 06/05/16t 20:47 ; Admin Dose 80 MG; Start 06/04/16 at 21:00 Benazepril HCl (Lotensin) 40 mg DAILY PO Last administered on 06/06/16 08:17; Admin Dose 40 MG; Start 06/04/16 at 09:00 Metoprolol Succinate (Toprol Xl) 100 mg BID PO Last administered on 06/06/16 08 :17; Admin Dose 100 MG; Start 06/04/16 at 09:00 Nifedipine (Procardia Xl) 60 mg BID PO Last administered on 06/06/16 08:17; Admin Dose 60 MG; Start 06/04/16 at 09:00 Silver Sulfadiazine 1 applic 1 applic DAILY TOP Last administered on 06/06/16 08:21; Admin Dose 1 APPLIC; Start 06/04/16 at 09:00 Levofloxacin/ Dextrose (Levaquin 750 Mg/ D5W 150 ml (Pmx)) 150 ml @ 100 mls/hr Q24H IVPB Last administered on 06/06/16 03:17; Admin Dose 100 MLS/HR; Start 06/04/16 at 03:30 Ondansetron HCl (Zofran Inj) 4 mg Q6H PRN IV NAUSEA AND/OR VOMITING; Start 06/04 at 03:30 Acetaminophen/ Hydrocodone Bitart ([place] (5/325)) 1 tab Q6H PRN PO pain Last administered on 06/06/16 13:17; Admin Dose 1 TAB; Start 06/04/16 at 03:30 Docusate Sodium (Colace) 100 mg BID PO Last administered on 06/06/16 08:17; Admin Dose 100 MG; Start 06/04/16 at 09:00 Famotidine (Pepcid) 20 mg DAILY PO Last administered on 06/06/16 08:17; Admin Dose 20 MG; Start 06/04/16 at 09:00 Warfarin Sodium (Coumadin) 1.25 mg Tu@17 PO Last administered on 06/04/16 20:39 ; Admin Dose 1.25 MG; Start 06/04/16 at 17:00 Hydralazine HCl (Apresoline) 10 mg Q6H PRN IV sbp>160mmhg Last administered on 06/04/16 14:05; Admin Dose 10 MG; Start 06/04/16 at 03:30 Diagnostic Test (Pha) (Accucheck) 1 ea 02 XX ; Start 06/05/16 at 02:00 Miscellaneous Information 1 ea NOTE XX ; Start 06/04/16 at 03:30 Glucose (Glutose) 15 gm Q15M PRN PO DECREASED GLUCOSE; Start 06/04/16 at 03:30 Glucose (Glutose) 22.5 gm Q15M PRN PO DECREASED GLUCOSE; Start 06/04/16 at 03:30 Dextrose (D50w Syringe) 25 ml Q15M PRN IV DECREASED GLUCOSE; Start 06/04/16 at 03:30 Dextrose (D50w Syringe) 50 ml Q15M PRN IV DECREASED GLUCOSE; Start 06/04/16 at 03:30 Glucagon (Glucagen) 1 mg Q15M PRN IM DECREASED GLUCOSE; Start 06/04/16 at 03:30 Glucose (Glutose) 15 gm Q15M PRN BUCCAL DECREASED GLUCOSE; Start 06/04/16 at 03: 30 Warfarin Sodium 2.5 mg 2.5 mg SuMoWeThFrSa@17 PO Last administered on 06/05/16 17:22; Admin Dose 2.5 MG; Start 06/05/16 at 17:00 Vancomycin HCl (Vancocin) 250 ml @ 125 mls/hr Q12H IVPB Last administered on 11:00; Admin Dose 125 MLS/HR; Start 06/04/16 at 11:00 Morphine Sulfate (morphine) 2 mg Q4H PRN IV PAIN Last administered on 06/05/16 12:07; Admin Dose 2 MG; Start 06/05/16 at 12:30 KEYSHA SHARIF MD Jun 06, 2016 15:41
--- NOTE | 2016-06-06 16:53 | PN ---
DATE: 06/06/2016 SUBJECTIVE: No acute changes. The patient is alert, complaining of right lower extremity pain. He is in no distress. He is on vancomycin and Levaquin. PHYSICAL EXAMINATION: GENERAL: Well-developed elderly man who is alert, in no distress. HEENT: Head atraumatic, normocephalic. Sclerae anicteric. Buccal mucosa pink. NECK: Supple, trachea midline. CHEST: Rise symmetrical. Breath sounds clear. HEART: S1, S2. ABDOMEN: Soft, bowel sounds present. EXTREMITIES: Right foot still with erythema at his third toe and pain. ASSESSMENT: 1. Right foot cellulitis with onycholysis of right second toe. 2. Peripheral arterial disease, no plans for revascularization. 3. History of coronary artery disease and valve replacement. PLAN: The patient remains stable. He is being seen by Dr. Rudd in podiatry consultation. We will continue him on current abx. Dictated By: MANSI CURRAN LEAD TECHNICAL ARCHITECT for MARCI DODSON/ANABELA Conf#: [id number] DID#: [id number]
[2016-06-06] MEDS: WARFARIN 2.5 MG TAB PO SCH (17:39)
[2016-06-06 20:13] VITALS: BP 180/74; RESP 18
[2016-06-06] MEDS: ATORVASTATIN 80 MG TAB PO SCH (21:04)
[2016-06-06] MEDS: morphine 2 MG INJ IV PRN (21:50)
[2016-06-06] MEDS: hydrALAzine 20 MG INJ IV PRN (22:16)
[2016-06-07] MEDS: ACCUCHECK AT 2AM (Patients on SS coverage) XX SCH ×2 (00:40→23:07)
[2016-06-07 01:00] VITALS: BP 118/60; PULSE 70; RESP 18
[2016-06-07] MEDS: LEVOFLOXACIN 750MG/D5W (PMX) 150 ML IVPB SCH (03:24)
[2016-06-07 06:41] LABS: INR 1.82; PROTIME 21.2 Sec (12.2-14.2); PT RATIO 1.7
[2016-06-07] MEDS: metFORMIN 500 MG TAB PO SCH ×2 (07:59→17:08)
[2016-06-07] MEDS: FAMOTIDINE 20 MG TAB PO SCH (07:59)
[2016-06-07] MEDS: DOCUSATE SODIUM 100 MG CAP PO SCH ×2 (07:59→20:57)
[2016-06-07] MEDS: METOPROLOL (XL) 50 MG TAB PO SCH ×2 (08:00→20:58)
[2016-06-07] MEDS: SILVER SULFADIAZINE 1% 50 GM CR TOP SCH (08:01)
[2016-06-07] MEDS: INSULIN ASPART [NOVOLOG] 3 ML PEN SC SCH ×4 (08:24→20:58)
[2016-06-07] MEDS: NIFEdipine (XL) 60 MG TAB PO SCH ×3 (08:56→20:58)
[2016-06-07] MEDS: BENAZEPRIL 40 MG TAB PO SCH ×2 (08:56→10:59)
[2016-06-07 09:00] VITALS: BP 153/68; PULSE 67; RESP 18
[2016-06-07] MEDS: VANCOMYCIN 1 GM in NS 250 ML IVPB SCH ×2 (11:02→23:07)
[2016-06-07 12:00] VITALS: BP 125/75; PULSE 78
--- NOTE | 2016-06-07 12:05 | CONS ---
Date/Time of Note Date/Time of Note DATE: 06/07/16 TIME: 12:03 Assessment/Plan Assessment/Plan Chief Complaint/Hosp Course SUBJECTIVE: No acute events overnight. The patient is alert, siiting up in a chair, dressed up. No fevers. ANTIMICROBIALS: 1. Vancomycin. 2. Levaquin. PHYSICAL EXAMINATION: GENERAL: Well-developed elderly man who is alert, in no distress. HEENT: Head atraumatic, normocephalic. Sclerae anicteric. Buccal mucosa pink. NECK: Supple, trachea midline. CHEST: Rise symmetrical. Breath sounds clear. HEART: S1, S2. ABDOMEN: Soft. Bowel tones present. EXTREMITIES: With right foot dressing intact. ASSESSMENT: 1. Right foot ongoing cellulitis. 2. Severe peripheral arterial disease status post angiogram on 05/10/2016 3. Diabetes. 4. Hypertension. 5. Coronary artery disease, history of valve replacement. PLAN: Clinically stable, will keep on current abx, will dw dr Rudd plan for dc==> po vs IV abx. DW staff Problems: Consultation Date/Type/Reason Admit Date/Time Jun 03, 2016 at 22:25 Type of Consultation: ID Referring Provider: HENRY VARELA MD Exam/Review of Systems Vital Signs Vitals Vital Signs Date Time Temp Pulse Resp B/P Pulse Ox O2 Delivery O2 Flow Rate FiO2 06/07/16 09:00 98.1 67 18 153/68 99 Room Air Intake and Output 06/06/16 06/06/16 06/07/16 15:00 23:00 07:00 Intake Total 250 ml 720 ml 900 ml Output Total 400 ml Balance 250 ml 720 ml 500 ml Results Result Diagram: 06/06/16 0745 06/06/16 0745 Results 24 hrs Laboratory Tests Test 06/06/16 17:31 06/06/16 20:58 06/07/16 05:15 06/07/16 07:47 Bedside Glucose 142 107 144 INR International Normalized Ratio 1.82 Prothrombin Time 21.2 H Prothrombin Time Ratio 1.7 Test 06/07/16 11:59 Bedside Glucose 127 Medications Medications Current Medications Atorvastatin Calcium (Lipitor) 80 mg QHS PO Last administered on 06/06/16t 21:04 ; Admin Dose 80 MG; Start 06/04/16 at 21:00 Benazepril HCl (Lotensin) 40 mg DAILY PO Last administered on 06/07/16 10:59; Admin Dose 40 MG; Start 06/04/16 at 09:00 Metoprolol Succinate (Toprol Xl) 100 mg BID PO Last administered on 06/07/16 08:00; Admin Dose 100 MG; Start 06/04/16 at 09:00 Nifedipine (Procardia Xl) 60 mg BID PO Last administered on 06/07/16 11:00; Admin Dose 60 MG; Start 06/04/16 at 09:00 Silver Sulfadiazine 1 applic 1 applic DAILY TOP Last administered on 06/07/16 08:01; Admin Dose 1 APPLIC; Start 06/04/16 at 09:00 Levofloxacin/ Dextrose (Levaquin 750 Mg/ D5W 150 ml (Pmx)) 150 ml @ 100 mls/hr Q24H IVPB Last administered on 06/07/16 03:24; Admin Dose 100 MLS/HR; Start at 03:30 Ondansetron HCl (Zofran Inj) 4 mg Q6H PRN IV NAUSEA AND/OR VOMITING; Start 06/04 at 03:30 Acetaminophen/ Hydrocodone Bitart ([place] (5/325)) 1 tab Q6H PRN PO pain Last administered on 06/06/16 13:17; Admin Dose 1 TAB; Start 06/04/16 at 03:30 Docusate Sodium (Colace) 100 mg BID PO Last administered on 06/07/16 07:59; Admin Dose 100 MG; Start 06/04/16 at 09:00 Famotidine (Pepcid) 20 mg DAILY PO Last administered on 06/07/16 07:59; Admin Dose 20 MG; Start 06/04/16 at 09:00 Warfarin Sodium (Coumadin) 1.25 mg Tu@17 PO Last administered on 06/04/16 20:39 ; Admin Dose 1.25 MG; Start 06/04/16 at 17:00 Hydralazine HCl (Apresoline) 10 mg Q6H PRN IV sbp>160mmhg Last administered on 06/06/16 22:16; Admin Dose 10 MG; Start 06/04/16 at 03:30 Diagnostic Test (Pha) (Accucheck) 1 ea 02 XX ; Start 06/05/16 at 02:00 Miscellaneous Information 1 ea NOTE XX ; Start 06/04/16 at 03:30 Glucose (Glutose) 15 gm Q15M PRN PO DECREASED GLUCOSE; Start 06/04/16 at 03:30 Glucose (Glutose) 22.5 gm Q15M PRN PO DECREASED GLUCOSE; Start 06/04/16 at 03:30 Dextrose (D50w Syringe) 25 ml Q15M PRN IV DECREASED GLUCOSE; Start 06/04/16 at 03:30 Dextrose (D50w Syringe) 50 ml Q15M PRN IV DECREASED GLUCOSE; Start 06/04/16 at 03:30 Glucagon (Glucagen) 1 mg Q15M PRN IM DECREASED GLUCOSE; Start 06/04/16 at 03:30 Glucose (Glutose) 15 gm Q15M PRN BUCCAL DECREASED GLUCOSE; Start 06/04/16 at 03: 30 Warfarin Sodium 2.5 mg 2.5 mg SuMoWeThFrSa@17 PO Last administered on 06/06/16 17:39; Admin Dose 2.5 MG; Start 06/05/16 at 17:00 Vancomycin HCl (Vancocin) 250 ml @ 125 mls/hr Q12H IVPB Last administered on 11:02; Admin Dose 125 MLS/HR; Start 06/04/16 at 11:00 Morphine Sulfate (morphine) 2 mg Q4H PRN IV PAIN Last administered on 06/06/16 21:50; Admin Dose 2 MG; Start 06/05/16 at 12:30 MANSI CURRAN NP Jun 07, 2016 12:05
--- NOTE | 2016-06-07 15:12 | PN ---
Date/Time of Note Date/Time of Note DATE: 06/07/16 TIME: 15:09 Assessment/Plan VTE Prophylaxis VTE Prophylaxis Intervention: other (coumadin) Lines/Catheters IV Catheter Type (from Nrs): Saline Lock Assessment/Plan Assessment/Plan 1. Recurrent right foot cellulitis. improving, continue antibiotics, ID for antibiotics on discharge 2. Diabetes. Type II : well controlled 3. Essential hypertension: controlled 4. s/p aortic valve replacement. on Continue Coumadin 5. Dyslipidemia. on statin 6. Severe peripheral vascular disease, not a candidate for revascularization Subjective 24 Hr Interval Summary Free Text/Dictation afebrile Exam/Review of Systems Vital Signs Vitals Vital Signs Date Time Temp Pulse Resp B/P Pulse Ox O2 Delivery O2 Flow Rate FiO2 06/07/16 09:00 98.1 67 18 153/68 99 Room Air Intake and Output 06/06/16 06/06/16 06/07/16 15:00 23:00 07:00 Intake Total 250 ml 720 ml 900 ml Output Total 400 ml Balance 250 ml 720 ml 500 ml Exam Constitutional: alert, oriented, well developed Psych: nl mood/affect, no complaints Head: atraumatic, normocephalic Eyes: EOMI, nl conjunctiva, nl lids ENMT: nl external ears & nose, nl lips & teeth, nl nasal mucosa & septum Neck: non-tender, supple Respiratory: clear to auscultation, normal air movement, No congested cough, No crackles/rales, No diminished breath sounds, No intercostal retraction, No labored breathing, No other, No respirations, No tactile fremitus, No wheezing Cardiovascular: nl pulses, regular rate and rhythm, No S3, No S4, No bruits, No diastolic murmur, No edema, No gallop, No irregular rhythm, No jugular venous distention (JVD), No murmurs/extra sounds, No other, No rub, No systolic murmur Gastrointestinal: nl liver, spleen, non-tender, soft, No ascites, No bowel sounds, No distended, No firm, No hepatomegaly, No mass , No other, No rebound or guarding, No splenomegaly, No surgical scars, No tender Musculoskeletal: nl extremities to inspection Extremities: other (right foot wound with more redness today) 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: 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, nl mental status, nl speech, nl strength Lymph: nl lymph nodes Results Result Diagram: 06/06/16 0745 06/06/16 0745 Results 24 hrs Laboratory Tests Test 06/06/16 17:31 06/06/16 20:58 06/07/16 05:15 06/07/16 07:47 Bedside Glucose 142 107 144 INR International Normalized Ratio 1.82 Prothrombin Time 21.2 H Prothrombin Time Ratio 1.7 Test 06/07/16 11:59 Bedside Glucose 127 Medications Medications Current Medications Atorvastatin Calcium (Lipitor) 80 mg QHS PO Last administered on 06/06/16 21:04 ; Admin Dose 80 MG; Start 06/04/16 at 21:00 Benazepril HCl (Lotensin) 40 mg DAILY PO Last administered on 06/07/16 10:59; Admin Dose 40 MG; Start 06/04/16 at 09:00 Metoprolol Succinate (Toprol Xl) 100 mg BID PO Last administered on 06/07/16 08:00; Admin Dose 100 MG; Start 06/04/16 at 09:00 Nifedipine (Procardia Xl) 60 mg BID PO Last administered on 06/07/16 11:00; Admin Dose 60 MG; Start 06/04/16 at 09:00 Silver Sulfadiazine 1 applic 1 applic DAILY TOP Last administered on 06/07/16 08:01; Admin Dose 1 APPLIC; Start 06/04/16 at 09:00 Levofloxacin/ Dextrose (Levaquin 750 Mg/ D5W 150 ml (Pmx)) 150 ml @ 100 mls/hr Q24H IVPB Last administered on 06/07/16 03:24; Admin Dose 100 MLS/HR; Start at 03:30 Ondansetron HCl (Zofran Inj) 4 mg Q6H PRN IV NAUSEA AND/OR VOMITING; Start 06/04 at 03:30 Acetaminophen/ Hydrocodone Bitart ([place] (5/325)) 1 tab Q6H PRN PO pain Last administered on 06/06/16 13:17; Admin Dose 1 TAB; Start 06/04/16 at 03:30 Docusate Sodium (Colace) 100 mg BID PO Last administered on 06/07/16 07:59; Admin Dose 100 MG; Start 06/04/16 at 09:00 Famotidine (Pepcid) 20 mg DAILY PO Last administered on 06/07/16 07:59; Admin Dose 20 MG; Start 06/04/16 at 09:00 Warfarin Sodium (Coumadin) 1.25 mg Tu@17 PO Last administered on 06/04/16 20:39 ; Admin Dose 1.25 MG; Start 06/04/16 at 17:00 Hydralazine HCl (Apresoline) 10 mg Q6H PRN IV sbp>160mmhg Last administered on 06/06/16 22:16; Admin Dose 10 MG; Start 06/04/16 at 03:30 Diagnostic Test (Pha) (Accucheck) 1 ea 02 XX ; Start 06/05/16 at 02:00 Miscellaneous Information 1 ea NOTE XX ; Start 06/04/16 at 03:30 Glucose (Glutose) 15 gm Q15M PRN PO DECREASED GLUCOSE; Start 06/04/16 at 03:30 Glucose (Glutose) 22.5 gm Q15M PRN PO DECREASED GLUCOSE; Start 06/04/16 at 03:30 Dextrose (D50w Syringe) 25 ml Q15M PRN IV DECREASED GLUCOSE; Start 06/04/16 at 03:30 Dextrose (D50w Syringe) 50 ml Q15M PRN IV DECREASED GLUCOSE; Start 06/04/16 at 03:30 Glucagon (Glucagen) 1 mg Q15M PRN IM DECREASED GLUCOSE; Start 06/04/16 at 03:30 Glucose (Glutose) 15 gm Q15M PRN BUCCAL DECREASED GLUCOSE; Start 06/04/16 at 03: 30 Warfarin Sodium 2.5 mg 2.5 mg SuMoWeThFrSa@17 PO Last administered on 06/06/16 17:39; Admin Dose 2.5 MG; Start 06/05/16 at 17:00 Vancomycin HCl (Vancocin) 250 ml @ 125 mls/hr Q12H IVPB Last administered on 11:02; Admin Dose 125 MLS/HR; Start 06/04/16 at 11:00 Morphine Sulfate (morphine) 2 mg Q4H PRN IV PAIN Last administered on 06/06/16 21:50; Admin Dose 2 MG; Start 06/05/16 at 12:30 KEYSHA SHARIF MD Jun 07, 2016 15:12
[2016-06-07] MEDS: HYDROCODONE/APAP (5/325) TAB PO PRN (17:08)
[2016-06-07] MEDS: WARFARIN 2.5 MG TAB PO SCH (18:34)
[2016-06-07] MEDS: ATORVASTATIN 80 MG TAB PO SCH (20:56)
[2016-06-07 21:25] VITALS: BP 175/74; RESP 18
[2016-06-08] MEDS: LEVOFLOXACIN 750MG/D5W (PMX) 150 ML IVPB SCH (02:57)
[2016-06-08 06:07] LABS: CREATININE 0.75 mg/dl (0.61-1.24)
[2016-06-08 07:57] VITALS: BP 186/80; RESP 22
[2016-06-08 08:00] VITALS: BP 169/67
[2016-06-08 08:03] VITALS: BP 119/56; RESP 20
[2016-06-08] MEDS: INSULIN ASPART [NOVOLOG] 3 ML PEN SC SCH ×2 (08:15→11:53)
[2016-06-08] MEDS: DOCUSATE SODIUM 100 MG CAP PO SCH (09:05)
[2016-06-08] MEDS: FAMOTIDINE 20 MG TAB PO SCH (09:05)
[2016-06-08] MEDS: BENAZEPRIL 40 MG TAB PO SCH (09:05)
[2016-06-08] MEDS: METOPROLOL (XL) 50 MG TAB PO SCH (09:05)
[2016-06-08] MEDS: NIFEdipine (XL) 60 MG TAB PO SCH (09:05)
[2016-06-08] MEDS: SILVER SULFADIAZINE 1% 50 GM CR TOP SCH (09:06)
[2016-06-08] MEDS: metFORMIN 500 MG TAB PO SCH (09:07)
[2016-06-08] MEDS: HYDROCODONE/APAP (5/325) TAB PO PRN ×2 (09:12→15:03)
[2016-06-08] MEDS: VANCOMYCIN 1 GM in NS 250 ML IVPB SCH (11:05)
--- NOTE | 2016-06-08 11:40 | CONS ---
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 CLINICAL INDICATION: Pain TECHNIQUE: AP, lateral and oblique views of the right foot was obtained. The images were reviewed on a PACS workstation. COMPARISON: 05/25/2016 FINDINGS: The bones of the foot appear intact, with no evidence of fracture, dislocation, or subluxation. Marked arterial vascular calcifications. Bone mineralization is normal. No significant soft tissue swelling is seen. IMPRESSION: No fracture, dislocation, or evidence of osteomyelitis. Stable arterial vascular calcifications. RPTAT:AAJJ HISTORY OF PRESENT ILLNESS 76-year-old male who comes in with recurrent right foot pain, known to Dr. Kay's ID team from recent admission for recurrent problem. His problems include: 1. Iqb-tlsrqbu-jrxruwprt diabetes. 2. Hypertension. 3. Dyslipidemia. 4. History of heart valve surgery. 5. Severe peripheral vascular disease. RECENT DIAGNOSTICS: * CT scan of the lower extremity which showed high grade stenosis of the left popliteal area at the level of the knee, nonfocal moderate stenosis of the right popliteal artery at the level of the knee. * An x-ray of the foot shows no evidence of fracture, subluxation or dislocation , no evidence for erosive or destructive changes. * Venous study, no evidence of deep vein thrombophlebitis of the right lower extremity. * He has occluded right dorsal dorsalis pedis arteries on arterial ultrasound. * A lower extremity CT angiogram showed focal moderate stenosis of the right popliteal artery at the level of the knee. Two-vessel runoff to the ankle via the anterior and peroneal arteries, the posterior tibial artery occludes proximally and is without sustained reconstitution. The dorsalis pedis artery is too heavily calcified to the foot to evaluate the patency, focal high-grade stenosis of left popliteal artery at the level of the knee, enlarged prostate, circumferential calcified atherosclerosis is seen through the anterior tibial artery in the mid portion of the peroneal artery, dorsalis pedis is too heavily calcified as noted to evaluate the patency. PHYSICAL EXAMINATION: GENERAL: 76 yo M - Maori speaking able to communicate w/limited Ugandan and my limited Maori HEENT: Unremarkable NECK: Supple, trachea midline. CHEST: Rise symmetrical without dyspnea on observation HEART: Radial pulse RRR ABDOMEN: Soft, nontender EXTREMITIES: Warm, right foot w/erythema dorsal metatarsals, no open skin noted , non-palpable right DP/PT, no cyanosis, toes (+)necrotic ulcer ID ASSESSMENT: 76 yo M re-admitted with: 1. Right lower extremity cellulitis=> erythema less than prior admission w/(+) necrotic toe ulcer * Onychomycosis bilateral toenails * Right Foot X-Ray: Extensive vascular calcifications, no osteomyelitis 2. Severe BLEXT peripheral arterial disease=>Arterial occlusion, lower extremity * 05/10/16 BLEXT Angiogram: RIGHT=> "high bifurcation with the anterior tibial artery taking off normally at 3 mm vessel. However, it became very diseased through the mid leg and became subtotal towards the foot with no runoff. The posterior tibial artery and the peroneal artery also were subtotal from the mid leg down with no good outflow. There were no targets for bypass as well." 3. 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 Hypertension. 5. CAD/Hx valve replacement 6. Ischemic/Diabetic neuropathic right foot pain INVASIVES: *PIV CURRENT ABX: # => Vanco IV/Zosyn ID RECOMMENDATIONS: Unfortunately, the patient has severe right forefoot/toes vascular ischemic disease that is not amenable to neither bypass, nor stenting. There is no benefit for continued hospital stay for his chronic pain -- eventually he will loose the foot, currently to high risk for amputation per notes, the amputated limb may not heal. * Patient is stable for DC home on Clindamycin 300mg po QID x 15 days with f/u primary care, APC provider . Problems: Consultation Date/Type/Reason Admit Date/Time Jun 03, 2016 at 22:25 Initial Consult Date Type of Consultation: ID Referring Provider: HENRY VARELA MD Exam/Review of Systems Vital Signs Vitals Vital Signs Date Time Temp Pulse Resp B/P Pulse Ox O2 Delivery O2 Flow Rate FiO2 06/08/16 08:03 98.2 75 20 119/56 95 06/07/16 09:00 Room Air Intake and Output 06/07/16 06/07/16 06/08/16 15:00 23:00 07:00 Intake Total 250 ml 900 ml Output Total 700 ml Balance 250 ml 200 ml Results Result Diagram: 06/06/16 0745 06/08/16 0525 Results 24 hrs Laboratory Tests Test 06/07/16 11:59 06/07/16 17:02 06/07/16 20:50 06/08/16 05:25 Bedside Glucose 127 155 129 Blood Urea Nitrogen 14 Creatinine 0.75 Test 06/08/16 07:41 Bedside Glucose 135 Medications Medications Current Medications Atorvastatin Calcium (Lipitor) 80 mg QHS PO Last administered on 06/07/16 20: 56; Admin Dose 80 MG; Start 06/04/16 at 21:00 Benazepril HCl (Lotensin) 40 mg DAILY PO Last administered on 06/08/16 09:05; Admin Dose 40 MG; Start 06/04/16 at 09:00 Metoprolol Succinate (Toprol Xl) 100 mg BID PO Last administered on 06/08/16 09:05; Admin Dose 100 MG; Start 06/04/16 at 09:00 Nifedipine (Procardia Xl) 60 mg BID PO Last administered on 06/08/16 09:05; Admin Dose 60 MG; Start 06/04/16 at 09:00 Silver Sulfadiazine 1 applic 1 applic DAILY TOP Last administered on 06/08/16 09:06; Admin Dose 1 APPLIC; Start 06/04/16 at 09:00 Levofloxacin/ Dextrose (Levaquin 750 Mg/ D5W 150 ml (Pmx)) 150 ml @ 100 mls/hr Q24H IVPB Last administered on 06/08/16 02:57; Admin Dose 100 MLS/HR; Start at 03:30 Ondansetron HCl (Zofran Inj) 4 mg Q6H PRN IV NAUSEA AND/OR VOMITING; Start 06/04 at 03:30 Acetaminophen/ Hydrocodone Bitart ([place] (5/325)) 1 tab Q6H PRN PO pain Last administered on 06/08/16 09:12; Admin Dose 1 TAB; Start 06/04/16 at 03:30 Docusate Sodium (Colace) 100 mg BID PO Last administered on 06/08/16 09:05; Admin Dose 100 MG; Start 06/04/16 at 09:00 Famotidine (Pepcid) 20 mg DAILY PO Last administered on 06/08/16 09:05; Admin Dose 20 MG; Start 06/04/16 at 09:00 Warfarin Sodium (Coumadin) 1.25 mg Tu@17 PO Last administered on 06/04/16 20:39 ; Admin Dose 1.25 MG; Start 06/04/16 at 17:00 Hydralazine HCl (Apresoline) 10 mg Q6H PRN IV sbp>160mmhg Last administered on 06/06/16 22:16; Admin Dose 10 MG; Start 06/04/16 at 03:30 Diagnostic Test (Pha) (Accucheck) 1 ea 02 XX ; Start 06/05/16 at 02:00 Miscellaneous Information 1 ea NOTE XX ; Start 06/04/16 at 03:30 Glucose (Glutose) 15 gm Q15M PRN PO DECREASED GLUCOSE; Start 06/04/16 at 03:30 Glucose (Glutose) 22.5 gm Q15M PRN PO DECREASED GLUCOSE; Start 06/04/16 at 03:30 Dextrose (D50w Syringe) 25 ml Q15M PRN IV DECREASED GLUCOSE; Start 06/04/16 at 03:30 Dextrose (D50w Syringe) 50 ml Q15M PRN IV DECREASED GLUCOSE; Start 06/04/16 at 03:30 Glucagon (Glucagen) 1 mg Q15M PRN IM DECREASED GLUCOSE; Start 06/04/16 at 03:30 Glucose (Glutose) 15 gm Q15M PRN BUCCAL DECREASED GLUCOSE; Start 06/04/16 at 03: 30 Warfarin Sodium 2.5 mg 2.5 mg SuMoWeThFrSa@17 PO Last administered on 18:34; Admin Dose 2.5 MG; Start 06/05/16 at 17:00 Vancomycin HCl (Vancocin) 250 ml @ 125 mls/hr Q12H IVPB Last administered on 11:05; Admin Dose 125 MLS/HR; Start 06/04/16 at 11:00 Morphine Sulfate (morphine) 2 mg Q4H PRN IV PAIN Last administered on 06/06/16 21:50; Admin Dose 2 MG; Start 06/05/16 at 12:30 EMELY CHANG RICE DRIER OPERATOR Jun 08, 2016 11:39
--- NOTE | 2016-06-08 11:45 | PDOCDIS ---
Discharge Instructions CONDITION Patient Condition: Fair HOME CARE INSTRUCTIONS: Special Diet: Low carb/ cardiac ACTIVITY: Activity Restrictions: Slowly Increase Activity Rest between Activity Avoid heavy lifting Special Exercises FOLLOW UP/APPOINTMENTS Appointments Follow up with Podiatry as out-pt Follow up with PCP as out-pt HENRY VARELA MD Jun 08, 2016 11:44
[2016-06-08] MEDS ORDERED: COU2 PO (11:49)
[2016-06-08] MEDS ORDERED: CLI60SOL TOP (11:49)
[2016-06-08] MEDS ORDERED: OMEP40CA6 PO (11:49)
[2016-06-08] MEDS ORDERED: ASPI81TA3 PO (11:49)
[2016-06-08] MEDS ORDERED: CLIN-73 PO (11:49)
[2016-06-08] MEDS ORDERED: TRAM50TA2 PO (11:59)
[2016-06-08] MEDS ORDERED: GABA100C PO (11:59)
--- NOTE | 2016-06-09 09:48 | DS ---
DATE OF ADMISSION: 06/03/2016 DATE OF DISCHARGE: 06/08/2016 CONSULTANTS: 1. Podiatry. 2. Infectious disease. 3. Vascular surgery. DISCHARGE DIAGNOSES: 1. Recurrent right-sided cellulitis, status post IV antibiotic. The patient was discharged on clin damycin. No evidence of methicillin-resistant Staphylococcus aureus. 2. Diabetes mellitus type 2. Continue metformin and glyburide. 3. Essential hypertension, better controlled on medical management. 4. History of aortic valve replacement, on Coumadin. 5. Dyslipidemia, on statin. 6. Severe peripheral vascular disease. Not a candidate for revascularization. Continue aspirin, s tatin, Coumadin and continue to monitor and treat diabetes mellitus. 7. Diabetic neuropathy. The patient has been started on Neurontin. 8. Dystrophic nail on the right foot second toe. Podiatry was consulted with a norma lopez. 9. Continue oral antibiotics. MEDICATIONS: 1. Aspirin 81 mg. 2. Clindamycin 300 mg p.o. q. 8 hours x15 days. 3. Clindamycin topical. 4. Gabapentin 200 mg p.o. b.i.d. 5. Omeprazole 40 mg p.o. daily. 6. Tramadol 50 mg p.o. q. 8 hours. 7. Warfarin 10 mg p.o. daily. 8. Lipitor 80 mg at bedtime. 9. Benazepril 40 mg p.o. daily. 10. Metformin 1000 mg p.o. b.i.d. 11. Metoprolol 100 mg p.o. b.i.d. 12. Nifedipine 60 mg p.o. b.i.d. 13. Silver sulfadiazine topical. ALLERGIES: NO KNOWN DRUG ALLERGIES. DISPOSITION: Home with home health for wound care. CONDITION AT TIME OF DISCHARGE: Good. HOSPITAL COURSE: This is a 76-year-old gentleman with past medical history of hypertension, diabete s mellitus, diabetic neuropathy, status post aortic valve replacement on Coumadin, severe vascular d isease, recurrent right foot cellulitis, status post multiple IV treatments during the course of hos pitalization and discharged on home health with oral antibiotics, who presents back to [facility] on posted 06/03/2016, continuing to have right foot cellulitis. X-ray of the foot w as obtained which showed no fracture, dislocation, or evidence for osteomyelitis, stable arterial va scular calcification. Podiatry and infectious disease doctor were consulted. Patient's WBC was wi thin normal limits. The wound did not demonstrate any methicillin-resistant Staphylococcus aureus. The patient was placed on vancomycin and Levaquin during the course of hospitalization. For his bl ood pressure the patient was continued on benazepril, metoprolol, and nifedipine. In regard to his history of aortic valve replacement, he was continued on Coumadin. The patient has history of sever e peripheral vascular disease. He was continued on Lipitor. He was continued on metformin and his blood glucose was stable with insulin sliding scale. Also, had started the patient on aspirin and h ave placed the patient on PPI to prohibit any history of any gastrointestinal bleed. Patient has co ntinued to be febrile. The patient has been seen and evaluated by vascular surgeon in the past and is not a candidate for any revascularization or surgical intervention secondary to poor circulation. At this time, the patient is recommended to be discharged on oral antibiotics and home health to b e continued for another 15 days and he is to follow up with podiatry and primary care physician as o utpatient. LABORATORY: WBC 9.6, hemoglobin 13.1, hematocrit 38.8, platelets 195. Sodium 139, potassium 4.5, c hloride 100, bicarbonate 29, BUN 15, creatinine 0.69, glucose 134, calcium 9.4, hemoglobin 6.3. CONDITION: Stable. Total amount of time spent for evaluation of patient and discharge workup was 45 minutes. Dictated By: HENRY TA/ANABELA Conf#: [id number] DID#: [id number]
== END 2016-06-08 15:07 | disposition home health service (06) | DRG 638 ==
LOC: E/R 14:32 → MS2 22:25
PROVIDERS: ADMIT Family Medicine; ATTEND Family Medicine
PROC: 0HDRXZZ Extraction of Toe Nail, External Approach (ICD-10-PCS; principal; 2016-06-03)
DX: E11.628 Type 2 diabetes mellitus with other skin complications (principal); L03.115 Cellulitis of right lower limb; E11.40 Type 2 diabetes mellitus with diabetic neuropathy, unspecified; E11.51 Type 2 diabetes mellitus with diabetic peripheral angiopathy without gangrene; I10 Essential (primary) hypertension; B35.1 Tinea unguium; F17.200 Nicotine dependence, unspecified, uncomplicated; E78.5 Hyperlipidemia, unspecified; I25.10 Atherosclerotic heart disease of native coronary artery without angina pectoris; L60.1 Onycholysis; L60.0 Ingrowing nail; L60.3 Nail dystrophy; Z95.2 Presence of prosthetic heart valve; Z79.01 Long term (current) use of anticoagulants; Z91.14 Patient's other noncompliance with medication regimen
CPT/HCPCS: 36415; 73630; 80048; 80053; 80061; 80202; 82565; 82962; 83036; 83735; 84520; 85025; 85610; 85651; 87081; 96365; 96366; 96368; 96375; J0360; J1815; J1956; J2270; J2543; J3370; J7030; J7050